=== PATIENT | female | born 1965 | race Caucasian/White ===

== ENCOUNTER 2019-04-03 09:25 | Outpatient (CLI) | payer MEDICARE, MEDICAID, SELFPAY ==
--- NOTE | 2019-04-03 09:50 | MR_ITS ---
WS: [id number] MRI of the lumbar spine, 04/03/2019 Clinical Data: DORSALGIA;OTHER INTERVERTEBRAL DISC DISPLACEMENT LUMBAR MARCIANO Comparison: CT lumbar spine post myelogram, 01/17/2015. Findings: No compression fractures are seen. The disc heights are normal. The lower lumbar spinal cord ends pos terior to L1. L1-L2: There is a posterior disc protrusion indenting the spinal canal. The appearance of this protru conner has not changed since the study of 4 1/2 years ago. There is mild central canal stenosis. No fac et joint hypertrophy or stenosis is seen.. L2-L3: No canal stenosis, disc bulge or foraminal narrowing is seen. L3-L4: No canal stenosis, disc bulge or foraminal narrowing is seen. L4-L5: No canal stenosis, disc bulge or foraminal narrowing is seen. L5-S1: No canal stenosis, disc bulge or foraminal narrowing is seen. MR/MR lumbar spine wo con* [id number] Impression: 1. Posterior disc protrusion at L1-L2 unchanged. 2. The remainder the lumbar spine is not remarkable.
== END 2019-04-03 09:26 | disposition home or self-care (01) ==
LOC: RADSHAW 09:31
PROVIDERS: Family Provider Nurse Practitioner; PCP Nurse Practitioner; Visit Provider Nurse Practitioner Family
DX: M51.26 Other intervertebral disc displacement, lumbar region (principal)
CPT/HCPCS: 72148

== ENCOUNTER → 2019-04-16 11:02 | Outpatient (BNVA) | payer MEDICARE, MEDICAID, SELFPAY | PROVIDERS: Family Provider Nurse Practitioner; PCP Nurse Practitioner; Visit Provider Nurse Practitioner Psychiatric/Mental Health | DX: F31.81 Bipolar II disorder (principal); F41.0 Panic disorder [episodic paroxysmal anxiety]; F10.21 Alcohol dependence, in remission; F60.3 Borderline personality disorder; F17.210 Nicotine dependence, cigarettes, uncomplicated | CPT/HCPCS: 99213 ==

== ENCOUNTER → 2019-06-15 08:08 | Outpatient (BNVA) | payer MEDICARE, MEDICAID, SELFPAY | PROVIDERS: Family Provider Nurse Practitioner; PCP Nurse Practitioner; Visit Provider Nurse Practitioner Psychiatric/Mental Health | DX: F31.81 Bipolar II disorder (principal); F41.0 Panic disorder [episodic paroxysmal anxiety]; F10.21 Alcohol dependence, in remission; F60.3 Borderline personality disorder; F17.210 Nicotine dependence, cigarettes, uncomplicated | CPT/HCPCS: 99213 ==

== ENCOUNTER → 2019-06-22 09:38 | Outpatient (BNVA) | payer MEDICARE, MEDICAID, SELFPAY | PROVIDERS: Family Provider Nurse Practitioner; PCP Nurse Practitioner Family; Visit Provider Anesthesiology Pain Medicine | DX: M51.36 Other intervertebral disc degeneration, lumbar region (principal); F60.3 Borderline personality disorder; F31.81 Bipolar II disorder; F41.0 Panic disorder [episodic paroxysmal anxiety]; F10.21 Alcohol dependence, in remission; F17.210 Nicotine dependence, cigarettes, uncomplicated | CPT/HCPCS: 99204 ==

== ENCOUNTER → 2019-08-10 07:44 | Outpatient (BNVA) | payer MEDICARE, MEDICAID, SELFPAY | PROVIDERS: Family Provider Nurse Practitioner; PCP Nurse Practitioner Family; Visit Provider Nurse Practitioner Psychiatric/Mental Health | DX: F31.81 Bipolar II disorder (principal); F41.0 Panic disorder [episodic paroxysmal anxiety]; F17.210 Nicotine dependence, cigarettes, uncomplicated; F60.3 Borderline personality disorder; F10.21 Alcohol dependence, in remission | CPT/HCPCS: 99213 ==

== ENCOUNTER → 2019-08-25 09:12 | Outpatient (BNVA) | payer MEDICARE, MEDICAID, SELFPAY | PROVIDERS: Family Provider Nurse Practitioner; PCP Nurse Practitioner Family; Visit Provider Anesthesiology Pain Medicine | DX: M51.36 Other intervertebral disc degeneration, lumbar region (principal); M54.9 Dorsalgia, unspecified; F60.3 Borderline personality disorder; F31.81 Bipolar II disorder; F41.0 Panic disorder [episodic paroxysmal anxiety]; F10.21 Alcohol dependence, in remission; F17.210 Nicotine dependence, cigarettes, uncomplicated | CPT/HCPCS: 99213 ==

== ENCOUNTER → 2019-09-15 09:39 | Outpatient (BNVA) | payer MEDICARE, MEDICAID, SELFPAY | PROVIDERS: Family Provider Nurse Practitioner; PCP Nurse Practitioner Family; Visit Provider Anesthesiology Pain Medicine | DX: M51.36 Other intervertebral disc degeneration, lumbar region (principal); M54.9 Dorsalgia, unspecified; F60.3 Borderline personality disorder; F31.81 Bipolar II disorder; F41.0 Panic disorder [episodic paroxysmal anxiety]; F10.21 Alcohol dependence, in remission; F17.210 Nicotine dependence, cigarettes, uncomplicated | CPT/HCPCS: 99214 ==

== ENCOUNTER → 2019-10-08 09:08 | Outpatient (BNVA) | payer MEDICARE, MEDICAID, SELFPAY | PROVIDERS: Family Provider Nurse Practitioner; PCP Nurse Practitioner Family; Visit Provider Anesthesiology Pain Medicine | DX: M51.36 Other intervertebral disc degeneration, lumbar region (principal); M54.9 Dorsalgia, unspecified; F60.3 Borderline personality disorder; F31.81 Bipolar II disorder; F41.0 Panic disorder [episodic paroxysmal anxiety]; F10.21 Alcohol dependence, in remission; F17.210 Nicotine dependence, cigarettes, uncomplicated | CPT/HCPCS: 99213 ==

== ENCOUNTER → 2019-11-02 08:17 | Outpatient (BNVA) | payer MEDICARE, MEDICAID, SELFPAY | PROVIDERS: Family Provider Nurse Practitioner; PCP Nurse Practitioner Family; Visit Provider Nurse Practitioner Psychiatric/Mental Health | DX: F31.81 Bipolar II disorder (principal); F41.0 Panic disorder [episodic paroxysmal anxiety]; F17.210 Nicotine dependence, cigarettes, uncomplicated; F60.3 Borderline personality disorder; F10.21 Alcohol dependence, in remission | CPT/HCPCS: 99213 ==

== ENCOUNTER → 2020-02-08 10:01 | Outpatient (BNVA) | payer MEDICARE, MEDICAID, SELFPAY | PROVIDERS: Family Provider Nurse Practitioner; PCP Nurse Practitioner Family; Visit Provider Orthopaedic Surgery | DX: Z11.59 Encounter for screening for other viral diseases (principal); M48.062 Spinal stenosis, lumbar region with neurogenic claudication | CPT/HCPCS: 87635 ==

== ENCOUNTER → 2020-02-17 10:07 | Outpatient (BNVA) | payer MEDICARE, MEDICAID, SELFPAY | PROVIDERS: Family Provider Nurse Practitioner; PCP Nurse Practitioner Family; Visit Provider Orthopaedic Surgery | DX: M48.062 Spinal stenosis, lumbar region with neurogenic claudication (principal); Z20.828 Contact with and (suspected) exposure to other viral communicable diseases | CPT/HCPCS: 87635 ==

== ENCOUNTER 2020-02-22 11:03 | Day surgery (SDC) | payer MEDICARE, MEDICAID, SELFPAY ==
[2020-02-12 10:45] VITALS: BMI 29.0
--- NOTE | 2020-02-12 11:02 | ANES.PREANE2 ---
Pre-Anesthetic Assessment Pre-Anesthetic Assessment: Height/Weight: Height 1.6 m Weight 74.389 kg Preop Diagnosis: Lumbar stenosis Proposed Procedure: Operation Date: 02/17/20 10:40 Proposed Procedures p Lumbar Laminectomy L4-L5 w/ poss fusion 80157 47505 98648 20057 M48.062(Not Applicable) - Santosh Ramirez DO Familial anesthetic complications: denies Was Beta Mamadou taken within 24 hours: N/A Social: Social History: Tobacco (10 per day) Exam: Pre-Anes Outpt Exam: alert, oriented x 3, clear to auscultation bilaterally and regular rate & rhythm Airway: Submandibular: WNL Cervical ROM: WNL MP: 2 Additional comments: poor/brittle History/ROS: No significant history except as noted Pulmonary: Pulmonary: COPD and SOB Comments: bronchitis, occasional inhalers CV/HEM: CV/HEM: None reported : : None reported Hepatic: Hepatic: None reported GI: GI: None reported Metabolic: Metabolic: Hyperlipidemia and Thyroid Musc/skel: Musc/skel: Lower Back Pain, OA/DJD and Weakness (left leg weakness) Comments: sciatic Neuropsych: Neuropsych: Anxiety and Bipolar Anesthetic Plan: ASA status: 2 Anesthesia: Anesthesia Evaluation and General PFSH Anesthesia PFSH: Medical History (Updated 01/28/20 @ 10:43 by Santosh Ramirez DO) Alcohol use disorder, moderate, in sustained remission Bipolar II disorder Borderline personality disorder Cigarette nicotine dependence [facility] (current) use of opiate analgesic Pain management contract signed Panic disorder Surgical History Hx of section Hx of hysterectomy Social History Smoking and tobacco status: current every day smoker cigarettes Alcohol intake: former Lives independently: Yes History of recent travel: No Data Anesthesia Cardiac Studies: No Data to Display
--- NOTE | 2020-02-22 08:13 | SCC_ITS ---
Procedure Done: Left L4/5 Laminectomy with partial facetectomy 17.1 seconds of fluoroscopic guidance, for a cumulative dose of 5.57 mGy, was provided to Dr. Ramirez by the radiology department. C-arm images of the lumbar spine were saved for the patient's permanent record. KAREN
[2020-02-22] MEDS: sodium chloride 0.9% 1,000 ML 30 ML IV (11:45)
--- NOTE | 2020-02-22 11:47 | P.ANESUD_ITS ---
Pre-Anesthetic Update Pre-Anesthetic Assessment: Date of Surgery/Procedure: 02/22/20 Preop Nadya gnosis: Lumbar stenosis Proposed Procedure: Operation Date: 02/22/20 12:55 Proposed Procedures p Lumbar Laminectomy L4-L5 w/ poss fusion 40278 17502 61221 01809 M48.062(Not Applicable) - Santosh Ramirez, DO Any changes to Pre-Anesthetic Assessment?: No Exam: Pre-Anes Outpt Exam: alert, oriented x 3, clear to auscultation bilaterally and regular rate & rhythm Cardiac Studies: No Data to Display
[2020-02-22 11:48] VITALS: BP 137/79; PULSE 87; RESP 18; TEMP 37.2; O2SAT 97
--- NOTE | 2020-02-22 14:28 | W.PM.OPSUD ---
Surgery/Procedure H&P Update DATE OF PROCEDURE: February 22, 2020 DATE H&P PERFORMED: 01/28/20 H&P UPDATE INFORMATION: I have reviewed H&P completed within last 30 days, I have examined patient prior to procedure and No changes to prior documentation PREOP DIAGNOSIS: Lumbar stenosis PLANNED PROCEDURE: Operation Date: 02/22/20 12:55 Proposed Procedures p Lumbar Laminectomy L4-L5 w/ poss fusion 08149 22036 46352 36970 M48.062(Not Applicable) - Santosh Ramirez DO
--- NOTE | 2020-02-22 16:21 | P.OP_ITS ---
Operative Report Date of procedure: February 22, 2020 Pre-op Diagnosis: Lumbar stenosis Post-op diagnosis: same Procedure Done: Left L4/5 Laminectomy with partial facetectomy Surgeon: Santosh Ramirez Anesthesia: General Estimated blood loss (mL): 10 Condition: stable Disposition: PACU Procedure: Patient was brought to the suite after undergoing anesthesia was placed in prone position. All areas impingement well-padded patient's prepped and draped in sterile fashion. Skin was made over the L4-5 level confirmed with C-arm guidance. Dilators were passed to be retractor was placed onto the L4 lamina. Laminectomy was performed with high-speed bur Kerrison rongeur is marva cantu. Once laminectomy was performed and attention was brought to the medial aspect of facet joint high-speed bur was used take down the medial aspect of the facet joint the superior and inferior to get a process medially was taken down ligament flavum was taken down from L4-5 this was significantly thickened and compressing the L5 nerve. Once this was opened the nerve was completely free the ligament of flavum was taken down from L4-L5 and out to the facet joint the lateral edge of the L5 nerve was identified passing the L5 pedicle and the L4-5 foramen was palpated and felt to be adequately decompressed wounds were irrigated wound was closed with 2-0 Vicryl and Monocryl suture and glue sterile dressing was applied patient was transferred to the PACU in stable condition.
[2020-02-22 16:28] VITALS: BP 131/78; PULSE 111; RESP 16; TEMP 36.8; O2SAT 100
[2020-02-22 16:30] VITALS: BP 121/73; PULSE 98; RESP 18; O2SAT 100
[2020-02-22 16:35] VITALS: BP 121/73; PULSE 107; RESP 18; TEMP 36.9; O2SAT 99
--- NOTE | 2020-02-22 16:39 | XR_ITS ---
WS: [id number] XR lumbar spine 1V [id number] REASON FOR EXAM: LUMBAR STENOSIS FINDINGS: AP and lateral views of the lumbar spine in surgery. Surgical device posteriorly overlies the L4-L5 disc space. XR/XR lumbar spine 1V [id number] IMPRESSION: Surgical device at L4-L5 as above.
--- NOTE | 2020-02-22 16:44 | SUR.PHASEI ---
5648 pt awke alert wants to go home , VSS report to julieta , dressing checked with 2 nurses handoff at bedside pt very alert taking sips of soda move both lower ext to command stronglly,
[2020-02-22 16:46] VITALS: BP 122/87; PULSE 91; RESP 18; O2SAT 96
--- NOTE | 2020-02-22 17:00 | ANE.PACU2 ---
Inpatient post-anesthesia follow up: Airway intact: Yes Vital signs: Temperature 98.5 F Pulse Rate 91 Respiratory Rate 18 Blood Pressure 122/87 Pulse Oximetry 96 Oxygen Delivery Me thod Room Air Oxygen Flow Rate 8 Fraction of Inspir ed Oxygen Hydration adequate: Yes Nausea and vomiting: No Pain level: 3 Mental status: Baseline
== END 2020-02-22 17:00 | disposition home or self-care (01) ==
PROVIDERS: Family Provider Nurse Practitioner; PCP Nurse Practitioner Family; Visit Provider Orthopaedic Surgery
PROC: (CPT 63047; principal; 2020-02-22 12:25)
DX: M48.062 Spinal stenosis, lumbar region with neurogenic claudication (principal); F17.210 Nicotine dependence, cigarettes, uncomplicated; J44.9 Chronic obstructive pulmonary disease, unspecified; E78.5 Hyperlipidemia, unspecified; M19.90 Unspecified osteoarthritis, unspecified site; F41.9 Anxiety disorder, unspecified; F31.81 Bipolar II disorder
CPT/HCPCS: 63047; 12345; 72020; 76000; J0131; J0690; J1100; J2250; J2405; J2704; J2710; J2765; J3010; J3490; J7030

== ENCOUNTER → 2020-05-17 08:00 | Outpatient (BNVA) | payer MEDICARE, MEDICAID, SELFPAY | PROVIDERS: Family Provider Nurse Practitioner; PCP Nurse Practitioner Family; Visit Provider Nurse Practitioner Psychiatric/Mental Health | DX: F31.81 Bipolar II disorder (principal); F41.0 Panic disorder [episodic paroxysmal anxiety]; F60.3 Borderline personality disorder; F17.210 Nicotine dependence, cigarettes, uncomplicated; F10.21 Alcohol dependence, in remission | CPT/HCPCS: 99214 ==

== ENCOUNTER 2020-06-08 15:01 | Outpatient (CLI) | payer MEDICARE, MEDICAID, SELFPAY ==
--- NOTE | 2020-06-08 16:00 | MR_ITS ---
WS: [id number] MRI LUMBAR SPINE NONCONTRAST TECHNIQUE: Sagittal T1, T2 and STIR imaging. Axial T1 and T2 imaging. CLINICAL INFORMATION: M48.062 - Spinal stenosis, lumbar region with neurogenic claudication COMPARISON: MRI April 03, 2019 FINDINGS: Mild lumbar curve. No acute compression. No high-grade central canal stenosis. Disc bulging at L1-2. Mild chronic anterior wedging in the lower thoracic spine. L1-L2: Shallow central disc protrusion with mild central canal stenosis. Slight effacement of ventral thecal sac. Mild facet arthropathy. Foramen are patent. L2-L3: No significant disc bulging. Mild facet arthropathy. Spinal canal and foramen are patent. L3-L4: Mild annular bulging with slight effacement of the ventral thecal sac. Eccentric disc bulging with mild bilateral foraminal narrowing. Mild facet arthropathy. L4-L5: Mild annular bulging. Eccentric disc bulge with mild bilateral foraminal narrowing. Mild facet arthropathy. Prior left hemilaminectomy. L5-S1: Postoperative changes prior left hemilaminectomy. Susceptibility artifact in this area. Mild f acet arthropathy. Spinal canal and foramen are patent. Visualized pelvic bony structures: Normal. Paravertebral soft tissues: Normal. MR/MR lumbar spine wo con* [id number] IMPRESSION: 1. Mild lumbar curve. No acute compression. No high-grade central canal stenos is. 2. Shallow central protrusion L1-2 with mild central canal stenosis and narrow ing of the subarticular recess bilaterally. 3. Eccentric disc bulging with small foraminal protrusions and mild bilateral foraminal narrowing L3-4 and L4-5 left greater than right. 4. Prior laminectomies at L4-L5 and L5-S1. This appears new from previous. No other significant interval changes. 5. Mild facet arthropathy L3-L5.
== END 2020-06-08 15:02 | disposition home or self-care (01) ==
LOC: RADSHAW 15:03
PROVIDERS: PCP Nurse Practitioner Family; Visit Provider Orthopaedic Surgery
DX: M48.062 Spinal stenosis, lumbar region with neurogenic claudication (principal); M47.816 Spondylosis without myelopathy or radiculopathy, lumbar region; M96.1 Postlaminectomy syndrome, not elsewhere classified; M51.26 Other intervertebral disc displacement, lumbar region
CPT/HCPCS: 72148

== ENCOUNTER → 2020-06-28 09:16 | Outpatient (BNVA) | payer MEDICARE, MEDICAID, SELFPAY | PROVIDERS: PCP Nurse Practitioner Family; Visit Provider Orthopaedic Surgery | DX: M48.062 Spinal stenosis, lumbar region with neurogenic claudication (principal) | CPT/HCPCS: 72110 ==

== ENCOUNTER → 2020-08-03 08:56 | Outpatient (BNVA) | payer MEDICARE, MEDICAID, SELFPAY | PROVIDERS: PCP Nurse Practitioner Family; Visit Provider Orthopaedic Surgery | DX: Z01.818 Encounter for other preprocedural examination (principal) | CPT/HCPCS: 87635 ==

== ENCOUNTER 2020-08-10 10:58 | Observation (INO) | payer MEDICARE, MEDICAID, SELFPAY ==
[2020-08-05 11:57] VITALS: BMI 27.9
--- NOTE | 2020-08-05 13:06 | ANES.PREANE2 ---
Pre-Anesthetic Assessment Pre-Anesthetic Assessment: Height/Weight: Height 1.63 m Weight 73.936 kg Preop Diagnosis: Lumbar stenosis Proposed Procedure: Operation Date: 08/10/20 13:40 Proposed Procedures p Posterior Lumbar Interbody Fusion PLIF 4/5 5/S1 With revision of L4/5 75606, 40481, 38768, 85410, 15780, 34327, 01355 m48.062(Not Applicable) - Santosh Ramirez, DO Was Beta Mamadou taken within 24 hours: N/A Was Clonidine taken within 24 hours: N/A Social: Social History: Alcohol and Tobacco Exam: Pre-Anes Outpt Exam: alert, oriented x 3 and regular rate & rhythm Airway: Submandibular: WNL Cervical ROM: WNL MP: 2 Dentition: Full Metabolic: Metabolic: Hyperlipidemia and Thyroid Musc/skel: Musc/skel: Lower Back Pain Neuropsych: Neuropsych: Bipolar Anesthetic Plan: ASA status: 3 Anesthesia: General Risk of > 500 ml blood loss (7ml/kg in children): No PFSH Anesthesia PFSH: Medical History Alcohol use disorder, moderate, in sustained remission Bipolar II disorder Borderline personality disorder Cigarette nicotine dependence [facility] (current) use of opiate analgesic Pain management contract signed Panic disorder Surgical History Hx of section Hx of hysterectomy Social History Smoking and tobacco status: current every day smoker cigarettes Alcohol intake: former Lives independently: Yes History of recent travel: No Data Anesthesia Cardiac Studies: No Data to Display
[2020-08-10] VITALS (18 sets, daily range): BP systolic 69–124; BP diastolic 49–85; PULSE 76–106; RESP 12–20; TEMP 36.2–37.1; O2SAT 90–100
--- NOTE | 2020-08-10 | XR_ITS ---
WS: [id number] Lumbar spine, C-arm fluoroscopy views, 08/10/2020 Clinical Data: PLIF 07/04 5s1 revision Comparison: Lumbar spine, 06/28/2020. Findings: The patient has a posterior lumbar fusion with bilateral pedicle screws at L4, L5 and S1. There are c onnecting rods. Artificial disc material at is at L4-L5 and L5-S1. XR/XR lumbar spine 2-3V* [id number] Impression: Posterior lumbar fusion L4-S1.
--- NOTE | 2020-08-10 | SCC_ITS ---
Procedure Done: 1. L4/5 Interbody fusion with posterolateral fusion 2. L5/S1 Interbody fusion with posterolateral fusion 3. Instrumentation L4-S1 4. Cage at L4/5 5. Cage at L5/S1 6. Laminectomy L4 7. Laminectomy L5 8. use of autograft from same incision 9. allograft 10. Bone marrow aspirate from right illiac crest 11. Computer assisted spinal steroetactic navigation of spine 16 seconds of fluoroscopic guidance, for a cumulative dose of 26.7 mGy, was provided to Dr. Ramirez by the radiology department. C-arm images of the lumbar spine were saved for the patient's permanent record. [facility]
--- NOTE | 2020-08-10 06:24 | P.ANESUD_ITS ---
Pre-Anesthetic Update Pre-Anesthetic Assessment: Date of Surgery/Procedure: 08/10/20 Preop Nadya gnosis: Lumbar stenosis Proposed Procedure: Operation Date: 08/10/20 07:00 Proposed Procedures p Posterior Lumbar Interbody Fusion PLIF 4/5 5/S1 With revision of L4/5 91936, 26083, 05637, 89701, 53528, 27467, 03092 m48.062(Not Applicable) - Santosh Ramirez, DO Any changes to Pre-Anesthetic Assessment?: No Changes from Pre-Anesthetic Assessment: Black coffee at 0500 today Last Intake: Intake Last Liquid Date 08/10/20 Last Liquid Time 05:00 Last Solid Date 08/09/20 Last Solid Time 18:00 Vitals: Temperature 97.4 F L 08/10/20 06:17 Temperature Source Temporal Artery S can 08/10/20 06:17 Pulse Rate 106 H 08/10/20 06:17 Respiratory Rate 18 08/10/20 06:17 Blood Pressure 110/85 08/10/20 06:17 Blood Pressure Jennifer n 93 08/10/20 06:17 Pulse Oximetry 94 08/10/20 06:17 Oxygen Delivery Me thod 08/10/20 06:17 Exam: Pre-Anes Outpt Exam: alert, oriented x 3, clear to auscultation bilaterally and regular rate & rhythm Cardiac Studies: No Data to Display
[2020-08-10] MEDS: sodium chloride 0.9% 1,000 ML 30 ML IV (06:27)
--- NOTE | 2020-08-10 06:41 | PM.HP ---
Providers/Chief Complaint Primary Care Provider: NATHANIEL Torerz Chief Complaint: PLIF 4/5 5/S1 With revision of L4/5 History of Present Illness Hilda Da Silva is a 55 year old female Details: Established 55 year old female here for follow up of back pain. She states she has not noticed a change in her back pain since her surgery in 01/2020 Chief Complaint: low back pain Onset: years Duration: months Characteristics: numbness, burning Severity: 6/10 Location: low back pain above her incision and Radiating symptoms: whole leg with the front of the leg being worse Aggravating factors: everything, Alleviating factors: none Neuro deficits: denies incontinence of bowel/bladder, saddle anesthesia. Prior tx: She states she has had 3 epidural injections per year since 2008, Review of Systems Narrative: General: Reports: 10 or more systems reviewed and unremarkable except as noted in History and below Const: Denies: fever(s) or chills Eyes: Denies: change in vision ENMT: Denies: throat pain Card: Denies: chest pain or dyspnea on exertion Resp: Denies: dyspnea, productive cough or wheezing GI: Denies: abdominal pain, nausea or vomiting Musc: Reports: limited range of motion Skin/Breast: Denies: changes in skin color or dry skin Neuro: Reports: numbness in extremities and weakness in extremities Psych: Denies: anxiety Jam/Lymph: Denies: easy bruising or easy bleeding Medications/Allergies Home Medications Medication Instructions Recorded Confirmed Last Taken Type levothyroxine 112 mcg capsule 112 mcg PO QDAY 04/23/19 08/10/20 08/10/20 History baclofen 10 mg tablet 10 mg PO BID 06/15/19 08/10/20 08/09/20 History atorvastatin 20 mg tablet 20 mg PO DAILY 08/25/19 08/10/20 08/09/20 History lamotrigine 200 mg tablet 400 mg PO QDAY #60 tab 05/13/20 08/10/20 08/10/20 Rx trazodone 100 mg tablet 300 mg PO .bedtime #90 tab 05/13/20 08/10/20 08/10/20 Rx hydrocodone 5 mg-acetaminophen 325 1 tab PO Q8H PRN 7 Days #60 tab 06/09/20 08/10/20 08/10/20 Rx mg tablet alprazolam 1 mg tablet 0.5 mg PO TID #45 tab 07/26/20 08/10/20 08/10/20 Rx Bone Growth Stimulator E0748 #1 ea 08/08/20 Unknown Rx Allergies Allergy/AdvReac Type Severity Reaction Status Date / Time gabapentin Allergy ADR-Dizzine Verified 08/10/20 06:10 ss naproxen Allergy breathing Verified 08/10/20 06:10 issues PFSH Acute PFSH: Medical History Alcohol use disorder, moderate, in sustained remission Bipolar II disorder Borderline personality disorder Cigarette nicotine dependence [employer] (current) use of opiate analgesic Pain management contract signed Panic disorder Surgical History Hx of section Hx of hysterectomy Social History Smoking and tobacco status: current every day smoker cigarettes Alcohol intake: former Lives independently: Yes History of recent travel: No Vitals/I&O/Wt Last Vital Signs Temp 97.4 F L 08/10/20 06:17 Pulse 106 H 08/10/20 06:17 Resp 18 08/10/20 06:17 BP 110/85 08/10/20 06:17 Pulse Ox 94 08/10/20 06:17 Physical Exam Narrative: EXAM NARRATIVE: CONSTITUTIONAL: The patient is a normal appearing [] in no apparent distress. GENERAL: Patient in no acute distress. CARDIAC: Regular rate and rhythm. CHEST: Normal inspiratory effort, normal respiratory rate. ABDOMEN: Soft and nontender. SKIN: Clear, warm and intact. NEURO?PSYCH: The patient is alert and oriented to person, place and time. Sensorv /SILT Motor StrengthShoulder abduction C5 5/5Wrist extension C6 5/5Elbow extension C7 5/5Hand Remnant Sorter C8 5/5Finger abduction T15/5 Radial/ Ulnar/ Median n intact LowerSensory (SILT)Motor StrengthHin flexion L2/3Ant/inner thigh 5/5Hip adduction L2/3 5/5Knee extension L4 Lat thigh, 5/5Toe dorsiflexion L5 5/5Ankle dorsiflexion L5/ D93Sgxsfyl flexion S1 5/5 DTRBleeps 2+Triceps 2+Brachioradialis 2+Patellar 2+Achilles 2+ MUSCULOSKELETAL: [] UPPEREXTREMITIES: The patient had full active ROM in fingers, wrist, elbow, and shoulder. The patient demonstrated ability to fully flex/extend/abduct/adduct fingers, make ok sign, cross 2nd/3rd digits, extend 1st digit fully.. Radial pulse 2+, CR<2 seconds. LOWER EXTREMITIES: Pt has full, active ROM of toes, ankle, knee, and hip. Dorsalis pedis/posterior tibialis pulses 2+, CR<2 seconds. SPINE: Skin warm, dry, intact. A&P Assessment and plan (1) Lumbar stenosis with neurogenic claudication: L4/5 , L5/S PLIF Status: Acute Attestations Medical Necessity Statement*: failed conservative treatment Coding Level of Care Code Acute Tomato Grader for Chg Fwd Diagnoses Lumbar stenosis with neurogenic claudication M48.062
--- NOTE | 2020-08-10 06:44 | W.PM.OPSUD ---
Surgery/Procedure H&P Update DATE OF PROCEDURE: August 10, 2020 DATE H&P PERFORMED: 08/10/20 PREOP DIAGNOSIS: Lumbar stenosis PLANNED PROCEDURE: Operation Date: 08/10/20 07:00 Proposed Procedures p Posterior Lumbar Interbody Fusion PLIF 4/5 5/S1 With revision of L4/5 74752, 01332, 10622, 58526, 42838, 10978, 66606 m48.062(Not Applicable) - Santosh Ramirez, DO
[2020-08-10] MEDS: heparin, porcine 1,000 unit/mL INJ 10 mL 10000 UNIT IRRIGATION (07:46)
--- NOTE | 2020-08-10 10:32 | P.OP_ITS ---
Operative Report Date of procedure: August 10, 2020 Pre-op Diagnosis: Lumbar stenosis Post-op diagnosis: same Procedure Done: 1. L4/5 Interbody fusion with posterolateral fusion 2. L5/S1 Interbody fusion with posterolateral fusion 3. Instrumentation L4-S1 4. Cage at L4/5 5. Cage at L5/S1 6. Laminectomy L4 7. Laminectomy L5 8. use of autograft from same incision 9. allograft 10. Bone marrow aspirate from right illiac crest 11. Computer assisted spinal steroetactic navigation of spine Surgeon: Santosh Ramirez Anesthesia: General Estimated blood loss (mL): 200 Condition: stable Disposition: PACU Procedure: 1. L4/5 Interbody fusion with posterolateral fusion 2. L5/S1 Interbody fusion with posterolateral fusion 3. Instrumentation L4-S1 4. Cage at L4/5 5. Cage at L5/S1 6. Revision Laminectomy L4 7. Revision Laminectomy L5 8. use of autograft from same incision 9. allograft 10. Bone marrow aspirate from right illiac crest 11. Computer assisted spinal steroetactic navigation of spine Patient is brought to the operative suite. After undergoing anesthesia, the patient had neuro monitoring attached. Patient was then placed in the prone position on the Ky[place] table. All areas of impingement were well-padded. Patient was then prepped and draped in the normal sterile fashion. Skin incision was then made over the LL to S1 space. Subperiosteal dissection was made out to the transverse processes of L4 and S1. Once the exposure was complete attention was then brought to placing the pedicle screws. A fiducial was placed into the right iliac crest. It was then links to the computer navigation. The C-arm was then spun. And then the information was gathered from the serum and logged through algorithms into the computer screen. The technique for placing the pedicle screws was to use a drill followed by the gearshift probe. The gearshift probe was lengths to the computer so the placement of the gearshift was noted to be in the prone position. Followed by the ball probe to feel the superior inferior medial lateral diaz of the pedicle s. Then placement of the screws using the navigated screw system.. Was done at each pedicle. Screws were placed at L4 bilaterally and L5 and the sacral Ala bilaterally. The [employer] bone marrow aspirate kit was used to aspirate bone marrow aspirate. This was done by using the sharp probe to open up the bone of the right iliac crest. Aspiration was performed and then the blunt probe was then used to dissect down to through the bone tunnel. An aspirating well drawn back a millimeter approximately 20 cc of bone marrow aspirate was used. Admixed with the allograft and autograft bone that will be used. Next attention was brought to performing the laminectomy ofL4. This was done using the high-speed bur Kerrisons and curettes. Once the lamina was removed and then attention was brought to performing a partial facetectomy on the contralateral side. This was done again using the high-speed bur curettes and Kerrisons. There was significant amount of scar tissue on the left side. That was scarred down to the dura. The ligamentum flavum was taken down bilaterally from L4 to L5. Attention was then brought to the facet on the ipsilateral side. The facet was taken down. The L5 nerve was decompressed as it passed around the L5 pedicle. The laminectomy was done for purposes of decompressing the nerve as well as placement of the cage. The L4 nerve was identified as it t raversed through the L4/5 foramen. The thecal sac was identified and retracted. The L4/5 disc base was identified. Using a knife the disc base was opened. And then sequential nica were placed. The first shaver was a 6 and the last shaver was a 11. Using a pituitary and down going curette the endplates were scraped and disc material was removed from the space. Once adequate decompression of the disc base was felt to be had. Osteoamp sponge was packed into the anterior aspect of the disc base. Then a size 11 cage from [employer] was placed after packing osteoamp into the cage. While placing the cage the thecal sac and L5 nerve was protected. C arm was used to ensure that the cages placed in the appropriate position. next attention was brought to performing the laminectomy ofL5. There was sent from a scar tissue which was taken down to scarred to the dura. This was done using the high-speed bur Kerrisons and curettes. Once the lamina was removed and then attention was brought to performing a partial facetectomy on the contralateral side. This was done again using the high-speed bur curettes and Kerrisons. The ligamentum flavum was taken down bilaterally from L5 to S1. Attention was then brought to the facet on the ipsilateral side. The facet was taken down. The S1 nerve was decompressed as it passed around the S1 pedicle. The laminectomy was done for purposes of decompressing the nerve as well as placement of the cage. The L5 nerve was identified as it traversed through the L5/S1 foramen. The thecal sac was identified and retracted. The LL5/S1 disc base was identified. Using a knife the disc base was opened. And then sequential nica were placed. The first shaver was a 6 and the last shaver was a 11. Using a pituitary and down going curette the endplates were scraped and disc material was removed from the space. Once adequate decompression of the disc base was felt to be had. Osteoamp sponge was packed into the anterior aspect of the disc base. Then a size 11 cage from [employer] was placed after packing osteoamp into the cage. While placing the cage the thecal sac and S1 nerve was protected. C arm was used to ensure that the cages placed in the appropriate position Attention was then brought to attaching the rods to the screws placed in the L4- S1 bilaterally. Caps were torqued into position. Locking the construct in place. Wound was copiously irrigated and then attention was brought to decorticating the facets and transverse processes laterally. Bone that was taken down from the lamina was used along with osteoamp fibers and sponges were packed into the lateral gutters along the facet joints. This was done bilaterally. Wound was then closed in a layered fashion starting with the thoracolumbar fascia. 0-stratafixl was used the sub cutaneous tissue was closed with 2-0 stratafix and skin with [place]. Glue was then used to seal the skin and a steril dressing was applied. Patient was then placed in the supine position. The endotracheal tube was removed and patient was transferred to the PACU in stable condition.
[2020-08-10] MEDS: HYDROcodone-acetaminophen 10-325 mg Tablet PO ×3 (12:02→20:31)
[2020-08-10] MEDS: lactated ringers 1,000 ML 90 ML IV (12:34)
--- NOTE | 2020-08-10 14:27 | ANE.PACU2 ---
Inpatient post-anesthesia follow up: Airway intact: Yes Vital signs: Temperature 97.6 F Pulse Rate 87 Respiratory Rate 16 Blood Pressure 92/59 Pulse Oximetry 94 Oxygen Delivery Me thod Room Air Oxygen Flow Rate 6 Fraction of Inspir ed Oxygen Hydration adequate: Yes Nausea and vomiting: No Pain level: 2 Mental status: Baseline
[2020-08-10] MEDS: nicotine 14 mg Patch 1 PATCH TRANSDERMA (14:29)
[2020-08-10] MEDS: ALPRAZolam 0.5 mg Tablet PO ×2 (14:32→20:32)
--- NOTE | 2020-08-10 16:20 | PC.NURSE ---
Rounded on patient and she is sleeping soundly at this time, will follow up with her around 1645 to assess pain.
--- NOTE | 2020-08-10 16:40 | PC.NURSE ---
Patient called in another RN stating that she was having pain and needed her pain meds at 1600. I went in and spoke with patient and informed her that I had rounded at 1620 and patient was sleeping and that I was intending on coming in to check on her at 1645 to assess her pain. She verbalized understanding and apologized stating that she didn't realized. This RN administered [place] as ordered and provided patient education on pain management techniques, incentive spirometer use, and the plan to attempt to void after dinner and pain is more controlled around 1800. She verbalizes understanding of all instructions and denies further questions/concerns.
[2020-08-10] MEDS: baclofen 10 mg Tablet PO (17:06)
[2020-08-10] MEDS: docusate sodium 100 mg Capsule PO (17:06)
--- NOTE | 2020-08-10 17:26 | PC.NURSE ---
Patient care handed off to Gaby Skinner RN at bedside. Patient has no questions/concerns at this time.
[2020-08-10] MEDS: trazodone 100 mg Tablet 300 MG PO (22:07)
[2020-08-10] MEDS: ketorolac 30 mg/mL INJ IVP (22:48)
[2020-08-11] VITALS: BP 100/64; PULSE 81; RESP 18; TEMP 36.4; O2SAT 91
[2020-08-11 00:10] VITALS: PULSE 80; RESP 17; O2SAT 93
[2020-08-11] MEDS: HYDROcodone-acetaminophen 10-325 mg Tablet PO ×3 (00:27→08:19)
[2020-08-11] MEDS: lactated ringers 1,000 ML 90 ML IV (00:29)
[2020-08-11 04:46] VITALS: BP 111/71; PULSE 80; RESP 18; TEMP 36.1; O2SAT 91
--- NOTE | 2020-08-11 05:29 | PC.NURSE ---
SHIFT SUMMARY Has had a good night. Received po Hydrocodone for pain q4h and given the IV Toradol once between pills. Stated pills don't quite last the 4 hours and the Toradol helped. Dressings to back remain C&D. No bruising noted. Abd binder in place. c/o about it being uncomfortable to wear. IV infusing without difficulty and will receive 3rd dose of antibiotics this morning. Ambulates to bathroom well and voiding very well. Hemovac drain with 115ml sanguinous drainage this shift. Emptied and compressed q4h. Says will probably go home today
[2020-08-11] MEDS: enoxaparin 40 mg/0.4 mL Syringe SUBCUT (06:21)
[2020-08-11] MEDS: ketorolac 30 mg/mL INJ IVP (06:38)
[2020-08-11 07:50] VITALS: BP 107/67; PULSE 80; RESP 16; TEMP 36.8; O2SAT 92
--- NOTE | 2020-08-11 08:03 | P.DS_ITS ---
Discharge Providers Date of Admission: 08/10/20 10:58 Date of Discharge: August 11, 2020 Attending Provider at Admission: Santosh Ramirez DO Attending Provider at Discharge: Santosh Ramirez DO Primary Care Provider: NATHANIEL Torrez Diagnoses at Discharge Discharge Diagnosis (1) Lumbar stenosis with neurogenic claudication: Status: Acute Reason for Visit Reason for Visit: PLIF 4/5 5/S1 With revision of L4/5 Hospital Course Hospital Course Patient admitted on 08/10/2020 she had a L4-5 and L5-S1 posterior lumbar interbody fusions. Tolerated procedure well no complaints overnight patient is discharged on 08/11/2020. Physical Exam Narrative: EXAM NARRATIVE: Patient has 5-5 strength bilateral lower extremities. Sensation intact bilateral lower extremities. Patient's preoperative leg pain is completely resolved. Urinary Catheter Management^: F: Cath Placed During This Visit: yes Reason for Continuing Indwelling Catheter: Perioperative Use in Selected Surgeries Urinary Catheter Date of Insertion: 08/10/20 Urinary Catheter Time of Insertion: 07:20 Discharge Data Data Completed and Pending: Completed Studies During Hospitalization Category Date Time Status XR lumbar spine 2 -3V* 80180 Routine Exams 08/10/20 Completed Pending at discharge Category Date Time Status C-arm Fluoroscopy 46878 Routine Exams 08/10/20 05:55 Taken Vitals: Last Vital Signs Temp 98.2 F 08/11/20 07:50 Pulse 80 08/11/20 07:50 Resp 16 08/11/20 07:50 BP 107/67 08/11/20 07:50 Pulse Ox 92 08/11/20 07:50 Discharge Plan Discharge Patient Disposition: Home Condition: Stable Prescriptions: New hydrocodone-acetaminophen 10-325 mg Tablet 1 - 2 tab PO Q4H PRN (Reason: Moderate To Severe Pain) 15 Days Qty: 60 RF: 0 Continued baclofen 10 mg tablet 10 mg PO BID RF: 0 atorvastatin 20 mg tablet 20 mg PO DAILY RF: 0 levothyroxine 112 mcg capsule 112 mcg PO QDAY RF: 0 lamotrigine [Lamictal] 200 mg tablet 400 mg PO QDAY Qty: 60 RF: 6 trazodone 100 mg tablet 300 mg PO .bedtime Qty: 90 RF: 6 hydrocodone-acetaminophen 5-325 mg tablet 1 tab PO Q8H PRN (Reason: pain) 7 Days Qty: 60 RF: 0 alprazolam 1 mg tablet 0.5 mg PO TID Qty: 45 RF: 3 (DME) Bone Growth Stimulator E0748 See Rx Instructions .Route .MEDSUPPLY Qty: 1 RF: 0 Discharge Orders: Discharge Order (Routine); Ordered 08/11/20 Ordered By: Santosh Ramirez Other Ambulatory Orders: DME: Walker (Order) Location: None Selected Ordered By: Santosh Ramirez Discharge Diet: Advance as tolerated Discharge Activity: Limit activity as instructed Patient Instructions: Opioid Safety Activity Restrictions/Additional Instructions: Thank you for [facility] for your care! The fo llowing is a list of instructions, from your provider, to follow upon your discharge to ensure you have the optimal recovery from your recent injury orsurgery. Follow-up care is a hath[place] part of your treatment and safety. Be sure to make and go to all appointments, and call your doctor if you are having problems. If you do not already have a follow-up appointment made, call Dr. Ramirez office in the next 1-3 days to make follow up appointment for 2 weeks at [phone]. It is also a good idea to know your test results and keep a list of the medicines you take. Medications will be prescribed for you at your provider's discretion. These medications are to be used as instructed; if they are taken more often that prescribed they will not be refilled early and in most cases will not be refill ed at all. > When a refill is needed,you should contact albertina munoz 2-3 business days before your prescription runs out. Medications will NOT be refilled by professional organizer providers after hours! > Many pain medications contain Tylenol (Acetaminophen). Do not consume more than 4,000 mg of Tylenol per day in total with any combination ofmedications. > Pain medications can cause constipation. Please use an over the counter stool softener as directed, while taking pain medications. Consulty our local pharmacist with questions or recommendations on stool softeners. If con stipation persists, contact our office or your primary care provider. > While under our care,you are not to receive pain medications or other controlled substances from any other provider unless our office is notified and approves. Any attempts to do so will result in refusal to prescribe any further pain medications and possible dismissal from our practice. ? Your wound and/or dressing should remain clean and dry for 2 days after surgery. On postoperative day 2 (48 hours after your surgery) the dressing (if present) should be removed and it is okay to shower and get the incision wet. Pad dry afterwards. No further dressing should be required from that point on. Do not put any creams or ointments on theincision > It is normal for there to be a small amount of discharge (bloody or blood tinged) present from a surgical wound for the first 1-3days. > The wound should be examined twice a day for signs of infection. Mild redness or bruising is to be expected but indications that an infection maybe starting would include; An increase in redness, swelling, or discharge, a foul odor present around the incision, and/or a fever greater than 101 ?F ? Showering is permitted, however we ask that you do not take a bath, sit in a whirlpool / Jacuzzi, or go swimming for 1 month. For only the first 2 days after surgery, lt wilt be necessary for you to cover your wound/dressing with plastic and tape to keep it dry. ? Walking is essential for the healing process after surgery. We would like you to slowly advance your walking. This should be done on relatively flat clear ground (inside or out) or can be done on a treadmill. Remember this goal does not have to happen all at once, slowly increase your distance and duration. This can be broken into more more than one walk per day as tolerated. Patients who walk as directed after surgery rarely require Physical Therapy. In the unlikely event this issue arises your provider will direct hospital staff to make the appropriate arrangements. ? No lifting over 5 pounds {a gallon of milk) or bending/twisting until further notice. Each of these activities places an unnecessary amount of stress onto the body and can impede the delicate healing process. > Instead of bending at the waist, keep your back straight and bend at the knees. > Instead of twisting your torso, keep your back straight and turn your entire body with your feet. ? You may sleep in any position which makes you comfortable. Many patients find comfort sleeping in a reclining chair. It is not abnormal to have difficulty sleeping for the first several weeks following your surgery. We recommend trying Benadry! or Tylenol PM as directed to help with your sleeping difficulties. Both medications are over the counter and available withoutprescription. ? NO SMOKING!!! Smoking dramatically increases the probability of developing postoperative wound infections. ? Common complaints after lumbar and/or thoracic spine surgery include, but are not limited to: numbness and/or tingling in the legs, pain around the incision and surrounding tissues, muscle spasms, or stiffness of the middle to low back. Contact our office if these symptoms persist or if an acute change occurs. ? No driving for the first 3-5days, and not while taking narcotics [] until seen at your follow-up appointment and cleared. There are no restrictions for riding on short trips, however if you take a longer trip, arrangements should be made to make regular stops to get out of the vehicle and stretch . ? Swelling is an unfortunate event that will take place with any surgery and is the primary source of your postoperative discomfort. While walking and regular approved activities helps control inflammation, there are additional steps you can take to minimizeswelling. > Place ice over the surgical site and surrounding tissue for twenty minutes, followed by applying a low/medium heat (heating pad) for an additional twenty minutes every 1-2 hours as needed for painrelief. > You may use of over the counter anti-inflammatory medications (Ibuprofen, Motrin, Aleve, Advil, etc) as directed on the package label. These types of medicines wm significantly reduce the amount of discomfort you experience after surgery from swelling. It should be noted that if you have and allergy to any of these medications, or a history of ulcers or kidney disease you should consult you primary care provider prior to starting these medications. Discharge Attestations Time Spent in Discharge Care*: less than 30 min Quality Metrics Clinical Quality Measures During this hospital stay, did patient experience: None Coding Level of Care Code Acute [facility] note Diagnoses Lumbar stenosis with neurogenic claudication M48.062
[2020-08-11] MEDS: docusate sodium 100 mg Capsule PO (09:24)
[2020-08-11] MEDS: ALPRAZolam 0.5 mg Tablet PO (09:24)
[2020-08-11] MEDS: baclofen 10 mg Tablet PO (09:24)
[2020-08-11] MEDS: atorvastatin 40 mg Tablet 20 MG PO (09:24)
[2020-08-11 09:55] VITALS: BP 107/67; PULSE 80; RESP 16; TEMP 36.8; O2SAT 92
--- NOTE | 2020-08-11 10:22 | PC.NURSE ---
Hemovac removed hemovac per Dr. Ramirez telephone order. Pt tolerated it well. 50ml of sang emptied. Incision dressed with quaze and tegaderm.
--- NOTE | 2020-08-15 12:21 | PC.RESP ---
Smoking Cessation information sent to patient.
== END 2020-08-11 10:23 | disposition home or self-care (01) ==
LOC: MEDSURG 10:59
PROVIDERS: Admitting Provider Orthopaedic Surgery; PCP Nurse Practitioner Family; Visit Provider Orthopaedic Surgery
PROC: (CPT 22612; principal; 2020-08-10 07:00)
DX: M48.062 Spinal stenosis, lumbar region with neurogenic claudication (principal); Z79.891 Long term (current) use of opiate analgesic; F17.210 Nicotine dependence, cigarettes, uncomplicated
CPT/HCPCS: 20930; 20936; 22633; 22634 ×2; 22842; 22853 ×2; 61783; 63042; 63044 ×2; 51702; 72100; 76000; 96372; 97161; 97530; C1713; C9359; G0378; J0690; J1100; J1644; J1650; J1885; J2370; J2405; J2704; J3010; J3490; J7030

== ENCOUNTER → 2020-08-31 07:46 | Outpatient (BNVA) | payer MEDICARE, MEDICAID, SELFPAY | PROVIDERS: PCP Nurse Practitioner Family; Visit Provider Nurse Practitioner Psychiatric/Mental Health | DX: F31.81 Bipolar II disorder (principal); F41.0 Panic disorder [episodic paroxysmal anxiety]; F60.3 Borderline personality disorder; F17.210 Nicotine dependence, cigarettes, uncomplicated; F10.21 Alcohol dependence, in remission | CPT/HCPCS: 99214 ==

== ENCOUNTER → 2020-09-06 12:43 | Outpatient (BNVA) | payer MEDICARE, MEDICAID, SELFPAY | PROVIDERS: PCP Nurse Practitioner Family; Visit Provider Orthopaedic Surgery | DX: Z48.89 Encounter for other specified surgical aftercare (principal); Z11.52 Encounter for screening for COVID-19; Z20.822 Contact with and (suspected) exposure to COVID-19 | CPT/HCPCS: 87635 ==

== ENCOUNTER 2020-09-07 16:46 | Inpatient (IN) | payer MEDICARE, MEDICAID, SELFPAY ==
[2020-09-06 15:40] VITALS: BMI 28.5
[2020-09-07] VITALS (16 sets, daily range): BP systolic 98–142; BP diastolic 66–88; PULSE 79–103; RESP 10–20; TEMP 36.4–36.9; O2SAT 94–100
--- NOTE | 2020-09-07 12:17 | P.ANESASSM_ITS ---
Pre-Anesthetic Assessment Pre-Anesthetic Assessment: Height/Weight: Height 1.63 m Weight 75.296 kg Temp Pulse Resp BP Pulse Ox 98.3 F 96 20 H 98/76 100 09/07/20 12:00 09/07/20 12:00 09/07/20 12:00 09/07/20 12:00 09/07/20 12:00 Preop Diagnosis: wound infetion Proposed Procedure: Operation Date: 09/07/20 12:45 Proposed Procedures p incision and drainage of a complex wound infection 59063 z48.89(Not Applicable) - Santosh Ramirez DO Familial anesthetic complications: None Was Beta Mamadou taken within 24 hours: N/A Was Clonidine taken within 24 hours: N/A Last intake: Intake Last Liquid Date 09/07/20 Last Liquid Time 08:00 Last Solid Date 09/06/20 Last Solid Time 18:00 Social: Social History: Alcohol and Tobacco Exam: Pre-Anes Outpt Exam: alert, oriented x 3, clear to auscultation bilaterally and regular rate & rhythm Airway: Cervical ROM: WNL MP: 2 Dentition: Full Pulmonary: Pulmonary: COPD Metabolic: Metabolic: Hyperlipidemia Musc/skel: Musc/skel: Lower Back Pain Neuropsych: Neuropsych: Bipolar Anesthetic Plan: ASA status: 3 Anesthesia: General Risk of > 500 ml blood loss (7ml/kg in children): No PFSH Anesthesia PFSH: Medical History Alcohol use disorder, moderate, in sustained remission Bipolar II disorder Borderline personality disorder Cigarette nicotine dependence 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
[2020-09-07] MEDS: sodium chloride 0.9% 1,000 ML 30 ML IV (12:18)
[2020-09-07] MEDS: fentaNYL 50 mcg/mL INJ 2mL 100 MCG IVP (13:33)
--- NOTE | 2020-09-07 15:43 | W.PM.OPSUD ---
Surgery/Procedure H&P Update DATE OF PROCEDURE: September 07, 2020 DATE H&P PERFORMED: 09/06/20 H&P UPDATE INFORMATION: I have reviewed H&P completed within last 30 days, I have examined patient prior to procedure and No changes to prior documentation PREOP DIAGNOSIS: wound infetion PLANNED PROCEDURE: Operation Date: 09/07/20 12:45 Proposed Procedures p incision and drainage of a complex wound infection 76425 z48.89(Not Applicable) - Santosh Ramirez DO
[2020-09-07] MEDS: vancomycin 1,000 MG SDV 1000 MG XX (16:13)
--- NOTE | 2020-09-07 16:39 | PM.OP ---
Operative Report Date of procedure: September 07, 2020 Pre-op Diagnosis: wound infetion Post-op diagnosis: same Procedure Done: I+D down to bone of Lumbar spine wound Surgeon: Santosh Ramirez Estimated blood loss (mL): 25 Condition: stable Disposition: PACU Procedure: After undergoing anesthesia patient was placed into the prone position. All areas impingement were well-padded. Patient was then prepped and draped in the normal sterile fashion. Skin incision was made using previous skin incision. The skin incision was extended approximately it appeared that the infection was localized to this superior aspect of her incision possibly a stitch abscess. I did open the thoracolumbar fascia to explore deep. Patient did have bone graft and so is hard to tell if there was infection deep or not did irrigate out all this area and clean out down to bone in the spine. Deep cultures were taken. Bank powder was placed. And then wound was closed in a layered fashion with oh strata fix Vicryl suture and nylon suture. A Silverlon dressing was placed. And patient was transferred to the PACU in stable condition.
--- NOTE | 2020-09-07 16:42 | P.CONIM_ITS ---
Providers/Reason For Consult Consulting Physician/Specialty*: Marisa Banks MD/Hospitalist Reason for Consult*: iv antibiotic management Attending Physician: Santosh Ramirez DO Primary Care Provider: NATHANIEL Torrez History of Present Illness History of Present Illness Hilda Da Silva is a 55 year old female that underwent lumbar decompressive surgery by way of L4-S1 laminectomy and fusion and intrumenetaion on 08/10/20. At her 2 week post op follow up visit on 08/23 she was noted to have redness and drainage at suture site. She was started on Bactrim with partial improvement and thereafter clindamycin was added on 08/30. She continued to have persistent drainage and eventually returned today for I&D. Per op note review infection was localized to superior aspect of her incision possibly a stitch abscess. Patient did have bone graft and it was hard to tell if there was deeper infection, i&d was perfromed down to spine. Deep cultures were taken and sent to lab. Denies any fever, chills or other constitutional symptoms Review of Systems General: Reports: 10 or more systems reviewed and unremarkable except in HPI and below Const: Denies: fever(s), chills or body aches Eyes: Denies: change in vision, blurry vision or photophobia ENMT: Reports: hoarseness; Denies: throat pain, enlarged tonsils, odynophagia or nasal congestion Card: Denies: chest pain, palpitations, irregular heart rhythm, edema, swelling of feet/ankles, lightheadedness, pre-syncope, dyspnea on exertion or orthopnea Resp: Denies: dyspnea, productive cough, non-productive cough, wheezing, stridor, pain on inspiration, change in phlegm color, hemoptysis or chest congestion GI: Denies: abdominal pain, nausea, vomiting, hematemesis, coffee ground emesis, dysphagia, heartburn, diarrhea, constipation, GI cramping, change in stool character, hematochezia or melena : Denies: flank pain, difficulty voiding, dysuria, urinary frequency, urinary urgency, urinary hesitancy or hematuria Musc: Denies: neck pain, back pain, extremity pain, joint swelling, joint warmth or deformity Neuro: Denies: headache(s), numbness in extremities, weakness in extremities, sensory changes, difficulty walking, frequent falls, dizziness, vertigo, behavioral changes, Slurred speech present or seizure-like activity Psych: Denies: anxiety, depression, suicidal ideation or homicidal ideation Endo: Denies: polyuria, polydipsia, tired all the time, cold intolerance or hot flashes Jam/Lymph: Denies: easy bruising or easy bleeding Meds/Allergies Home Medications and Allergies Home Medications Medication Instructions Recorded Confirmed Last Taken Type baclofen 10 mg tablet 10 mg PO BID 06/15/19 09/07/20 09/07/20 History atorvastatin 20 mg tablet 20 mg PO DAILY 08/25/19 09/07/20 09/07/20 History Bone Growth Stimulator E0748 #1 ea 08/08/20 09/06/20 Unknown Rx nicotine 1 patch TRANSDERMAL DAILY #56 patch 08/15/20 09/07/20 09/07/20 Rx 21mg/24hr-14mg/24hr-7mg/24hr daily transderm patches,sequentl alprazolam 1 mg tablet 0.5 mg PO TID #45 tab 08/31/20 09/07/20 09/07/20 Rx albuterol sulfate 2 puff INHALATION Q4H PRN 09/08/20 09/08/20 Unknown History fluticasone propionate [Flonase] 1 spray INTRANASAL BID PRN 09/08/20 09/08/20 Unknown History hydrocodone-acetaminophen 1 - 2 tab PO Q4H PRN 09/08/20 09/08/20 09/07/20 20:00 History ibuprofen 800 mg PO TID PRN 09/08/20 09/08/20 Unknown History lamotrigine 400 mg PO QAM 09/08/20 09/08/20 09/07/20 History levothyroxine 112 mcg PO QAM 09/08/20 09/08/20 09/07/20 History trazodone 300 mg PO BEDTIME 09/08/20 09/08/20 Unknown History Allergies Allergy/AdvReac Type Severity Reaction Status Date / Time naproxen Allergy Severe breathing Verified 09/08/20 10:35 issues gabapentin Allergy Intermediate ADR-Dizzine Verified 09/08/20 10:35 ss Current Medications Current Medications Generic Name Dose Route Start Last Admin Trade Name Freq PRN Reason Stop Dose Admin Sodium Chloride 1,000 mls @ 30 mls/hr 09/07/20 11:45 09/07/20 12:18 Sodium Chloride 0.9% IV 09/08/20 11:44 30 mls/hr .Q24H ELIDIA Administration PFSH Acute PFSH: Medical History (Updated 09/07/20 @ 18:10 by Marisa Banks MD) Alcohol use disorder, moderate, in sustained remission Bipolar II disorder Borderline personality disorder Cigarette nicotine dependence 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 Pain management contract signed Panic disorder Surgical History Hx of section Hx of hysterectomy Social History Smoking and tobacco status: current every day smoker cigarettes Alcohol intake: former Lives independently: Yes History of recent travel: No Vitals/I&O/Wt Last Vital Signs Temp 98.3 F 09/07/20 12:00 Pulse 96 09/07/20 12:00 Resp 18 09/07/20 13:33 BP 98/76 09/07/20 12:00 Pulse Ox 98 09/07/20 13:33 09/07/20 09/07/20 09/07/20 06:59 14:59 22:59 Intake Total 50 / 50 Balance 50 / 50 Weight last 48 hrs Weight 75.296 kg Physical Exam Narrative: EXAM NARRATIVE: GEN: Awake, alert and oriented, no acute distress CVS: S1S2 N RS: CTA B/L Abd: Soft, nt/nd , bs+ 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: no focal neuro deficits EXT: surgical dressing in place over back, not opened for exam A&P Assessment and plan (1) Postoperative wound infection: early post op wound infection approx 3 weeks from laminectomy and fusion no constitutional symptoms currently failed outpatient abx with bactrim, then clindamycin pending I&D OR cx results Empiric ceftriaxone and vancomycin for now based on gram stain and cx data, further abx recommendations to be made Status: Acute Consult Attestations Medical Necessity Statement: per admitting note, iv antibiotics Coding Level of Care Code Acute 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
[2020-09-07] MEDS: cefTRIAXone 1,000 MG in sodium chloride 0.9% (plus) 50 ML 100 MG IV (18:17)
[2020-09-07] MEDS: lactated ringers 1,000 ML 90 ML IV (18:17)
[2020-09-07] MEDS: HYDROcodone-acetaminophen 5-325 mg Tablet PO ×2 (18:18→22:04)
[2020-09-07] MEDS: docusate sodium 100 mg Capsule PO (18:18)
[2020-09-07] MEDS: baclofen 10 mg Tablet PO (18:18)
[2020-09-07] MEDS: vancomycin 1,500 MG/300 ML PIGGYBACK 200 MG IV (18:57)
[2020-09-07] MEDS: morphine 4 mg/mL SDV 1 mL 2 MG IVP (20:50)
[2020-09-07] MEDS: trazodone 100 mg Tablet 300 MG PO (23:26)
[2020-09-07] MEDS: nicotine 21 mg Patch 1 PATCH TRANSDERMA (23:26)
[2020-09-08] VITALS (9 sets, daily range): BP systolic 99–119; BP diastolic 63–75; PULSE 71–89; RESP 16–20; TEMP 36.8–37.4; O2SAT 92–94
[2020-09-08] MEDS: HYDROcodone-acetaminophen 5-325 mg Tablet PO ×2 (02:27→06:23)
[2020-09-08 02:41] LABS: Basophils # 0.1 10^3/uL (0.0-0.1); Basophils % 0.5 %; Eosinophils # 0.1 10^3/uL (0.0-0.8); Eosinophils % 0.6 %; Hematocrit 28.5 % (37.0-47.0); Lymphocytes # 4.1 10^3/uL (0.8-4.8); Lymphocytes % 21.1 %; Mean Corpuscular HGB Conc 31.6 g/dL (30.0-36.0); Mean Corpuscular Volume 107.5 fL (81-99); Mean Platelet Volume 9.1 fL (7.4-10.4); Monocytes # 0.8 10^3/uL (0.2-0.9); Monocytes % 4.3 %; Nucleated Red Blood Cells % 0 %; Platelet Count 531 10^3/cmm (130-400); Red Blood Count 2.65 10^6/uL (4.1-5.3); Red Cell Distribution Width 13.2 % (12.1-15.1); White Blood Count 19.2 10^3/uL (4.0-10.0)
[2020-09-08 02:58] LABS: Alanine Aminotransferase < 5 U/L (0-33); Sodium 138 mmol/L (136-145)
[2020-09-08 03:14] LABS: Alkaline Phosphatase 128 IU/L (35-105); Anion Gap 13.2 (5-19); Aspartate Amino Transferase 7 U/L (0-32); Blood Urea Nitrogen 8 mg/dL (6-20); Calcium 8.3 mg/dL (8.5-10.5); Carbon Dioxide 23 mmol/L (22-29); Chloride 106 mmol/L (98-107); Globulin 2.8 g/dL (1.3-4.6); Glomerular Filtration Rate 128.1 mL/min (90-130); Glucose 94 mg/dL (65-115); Osmolality Calculated 284 mOsm/kg (285-295); Potassium 4.2 mmol/L (3.5-5.1); Total Bilirubin 0.2 mg/dL (0.15-1.2); Total Protein 5.8 g/dL (6.6-8.7)
[2020-09-08] MEDS: morphine 4 mg/mL SDV 1 mL 2 MG IVP ×4 (03:27→23:45)
--- NOTE | 2020-09-08 05:12 | PC.NURSE ---
SHIFT SUMMARY Has rested for periods. When awake c/o back pain usually staying around 7 on pain scale. Has received po Hydrocodone and IV Morphine for pain control Offered IV Toradol but pt says it doesn't work for her. Has been ambulating to bathroom and voiding well. Dressing to medial back incision clean & dry. Says some feeling of pins & needles in her back. Bilat LE with good feeling and sensation. IV fluids infusing at 90ml/hr rate.
[2020-09-08] MEDS: enoxaparin 40 mg/0.4 mL Syringe SUBCUT (06:24)
[2020-09-08] MEDS: vancomycin 1,250 MG/250 ML PIGGYBACK 250 MG IV ×3 (06:25→23:46)
--- NOTE | 2020-09-08 08:34 | PM.PN ---
Subjective Subjective: Interval history: Patient is complaining of back pain. She is not complaining of any leg pain. Vitals/I&O/Wt Last Vital Signs Temp 99.3 F 09/08/20 07:22 Pulse 71 09/08/20 07:22 Resp 16 09/08/20 07:22 BP 99/63 09/08/20 07:22 Pulse Ox 92 09/08/20 07:22 09/07/20 09/08/20 09/08/20 22:59 06:59 14:59 Intake Total 1220.0 / 1220.0 420 / 1640.0 550 / 550 Output Total 270 / 270 350 / 620 Balance 950.0 / 950.0 70 / 1020.0 550 / 550 Weight last 48 hrs Weight 166 lb Physical Exam Narrative: EXAM NARRATIVE: Patient's dressing is dry. No is of any leakage around. Data : 09/08/20 02:23 09/08/20 02:23 Micro: Microbiology 09/07/20 16:15 Gram Stain - Final Back 09/07/20 18:00 Blood Culture - Preliminary Blood SPECIMEN COLLECTED 09/07/20 17:56 Blood Culture - Preliminary Blood SPECIMEN COLLECTED A&P Assessment and plan (1) Postoperative wound infection: Postop day 1 from I&D of back wound. Awaiting cultures. Increase her pain meds. Status: Acute Attestations Medical Necessity Statement*: awaiting cultures Coding Level of Care Code Acute Recruitment Manager for Zac Gaines Diagnoses Postoperative wound infection T81.49XA
[2020-09-08] MEDS: lactated ringers 1,000 ML 90 ML IV ×2 (09:35→23:46)
[2020-09-08] MEDS: atorvastatin 40 mg Tablet 20 MG PO (09:37)
[2020-09-08] MEDS: nicotine 21 mg Patch 1 PATCH TRANSDERMA (09:37)
[2020-09-08] MEDS: docusate sodium 100 mg Capsule PO ×2 (09:38→17:31)
[2020-09-08] MEDS: lamoTRIgine 100 mg Tablet 400 MG PO (09:38)
[2020-09-08] MEDS: baclofen 10 mg Tablet PO ×2 (09:38→17:31)
[2020-09-08] MEDS: levothyroxine 112 mcg Tablet PO (09:44)
--- NOTE | 2020-09-08 10:37 | PC.PHAR ---
pt states she takes care of her own medications-pt states she finished her clindamycin filled on 08/30/20 7d/s-pt states the medications entered are the only medications she takes
--- NOTE | 2020-09-08 11:18 | PC.CHAP ---
Pastoral Care Encounter/Spiritual Assessment Type of Contact [] Declined pet care technician visit [] Patient/Family/Request visit [] Outpatient visit [] Follow-up visit [] Physician referral [] Code/Alert [x] Routine visit [] Staff referral [] Actively dying [] Patient sleeping [] Family support [] [] Out of room [] Palliative care [] [x] Receiving care in room [] Pre-surgical visit [] Trauma [] Long length of stay [] ICU visit [] Other: Relational/Emotional Strength [x] Patient feels connected with others/family/visitors/staff [] Distress [] Loneliness/isolation [] Abandonment Spirituality of Patient [x] Person of Yolande [] Attends Restorationism of their Yolande [x] Believes in Prayer [] Reads Bible or Mu-Ism materials [] There are Spiritual issues to be addressed 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 Interventions [x] Prayer [x] Active listening [x] Non-anxious presence [x] Spiritual/emotional support [] Crisis/trauma care [x] Spiritual counseling [] Bereavement support [] Provided bereavement packet [] Provided Bible/devotional materials [] Provided toy/stuffed animal, coloring book to patient or family member [] Provided Communion [] Anointing/[place] [] Salvation [x] Completed spiritual assessment [] Other: Impact on Illness or Injury [] Angry [] Fearful [x] Anxious [] Often cries [] Exhaustion [] Unable to work [] Unable to attend mosque [] Unable to walk/stand [] Unable to read [] Unable to drive [] Unable to eat/drink [] Unable to sleep [] Unable to be with family [] Patient intubated [] Other: Summary infection after surgery drainage not feeling well doesn't know when she will go home short term soon doctors checking on her health Time spent with patient 10 mins
[2020-09-08] MEDS: HYDROcodone-acetaminophen 7.5-325 mg Tablet PO ×3 (12:06→21:11)
[2020-09-08] MEDS: cefTRIAXone 1,000 MG in sodium chloride 0.9% (plus) 50 ML 100 MG IV (17:29)
--- NOTE | 2020-09-08 18:19 | PM.PN ---
Subjective Subjective: Interval history: patient continued to complain of back pain. Addition was complaining of losing blood from dressing site. Medications: Reviewed: Yes Vitals/I&O/Wt Last Vital Signs Temp 98.9 F 09/08/20 15:36 Pulse 86 09/08/20 15:36 Resp 18 09/08/20 15:36 BP 119/75 09/08/20 15:36 Pulse Ox 92 09/08/20 15:36 09/08/20 09/08/20 09/08/20 06:59 14:59 22:59 Intake Total 1420 / 2640.0 910 / 910 490 / 1400 Output Total 350 / 620 800 / 800 800 / 1600 Balance 1070 / 2020.0 110 / 110 -310 / -200 Physical Exam Narrative: EXAM NARRATIVE: GEN: Awake, alert and oriented, no acute distress CVS: S1S2 N RS: CTA B/L Abd: Soft, nt/nd , bs+ DATAPOWER DEVELOPER: no focal neuro deficits EXT: surgical dressing in place over back , noted to have blood drainage Data : 09/08/20 02:23 09/08/20 02:23 Micro: Microbiology 09/07/20 16:15 Gram Stain - Final Back 09/07/20 18:00 Blood Culture - Preliminary Blood SPECIMEN COLLECTED 09/07/20 17:56 Blood Culture - Preliminary Blood SPECIMEN COLLECTED A&P Assessment and plan (1) Postoperative wound infection: Local wound care per Orthopedic surgery On vancomycin pharmacy to dose Continue ceftriaxone Follow-up on wound cultures Dressing changes as per Ortho Repeat CBC in a.m. Status: Acute Attestations Medical Necessity Statement*: Require further hospitalizationFor management of postop infection requiring IV antibiotics Time Spent in Patient Care: Greater than 35 minutes (>than 50% of time spent in counselling and/or direct pt care on unit). Coding Level of Care Code Acute Early Intervention Specialist for Zac Gaines Diagnoses Postoperative wound infection T81.49XA
[2020-09-08] MEDS: trazodone 100 mg Tablet 300 MG PO (21:12)
[2020-09-09] VITALS (8 sets, daily range): BP systolic 96–126; BP diastolic 57–76; PULSE 78–98; RESP 16–18; TEMP 36.6–37.2; O2SAT 92–98
[2020-09-09] MEDS: enoxaparin 40 mg/0.4 mL Syringe SUBCUT (06:16)
[2020-09-09] MEDS: HYDROcodone-acetaminophen 7.5-325 mg Tablet PO (06:16)
[2020-09-09 06:44] LABS: Vancomycin Trough 19.3 ug/mL (10-15)
[2020-09-09] MEDS: vancomycin 1,250 MG/250 ML PIGGYBACK 250 MG IV ×3 (06:58→23:30)
--- NOTE | 2020-09-09 07:19 | PM.PN ---
Subjective Subjective: Interval history: pain continues in back Vitals/I&O/Wt Last Vital Signs Temp 98.3 F 09/09/20 04:05 Pulse 78 09/09/20 04:05 Resp 16 09/09/20 04:05 BP 103/66 09/09/20 04:05 Pulse Ox 92 09/09/20 04:05 09/08/20 09/09/20 09/09/20 22:59 06:59 14:59 Intake Total 1540 / 2450 610 / 3060 Output Total 1350 / 2150 1650 / 3800 Balance 190 / 300 -1040 / -740 Physical Exam Narrative: EXAM NARRATIVE: resting comfortably in bed Data : 09/08/20 02:23 09/08/20 02:23 Micro: Microbiology 09/07/20 17:56 Blood Culture - Preliminary Blood NEGATIVE TO DATE 09/07/20 18:00 Blood Culture - Preliminary Blood NEGATIVE TO DATE 09/07/20 16:15 Gram Stain - Final Back A&P Assessment and plan (1) Postoperative wound infection: awaiting cultures and PICC placement up hydrocodone to 10 Status: Acute Attestations Medical Necessity Statement*: awaiting cultures and PICC Coding Level of Care Code Acute Chief Engineer Production for Zac Gaines Diagnoses Postoperative wound infection T81.49XA
[2020-09-09] MEDS: lamoTRIgine 100 mg Tablet 400 MG PO (08:34)
[2020-09-09] MEDS: atorvastatin 40 mg Tablet 20 MG PO (08:35)
[2020-09-09] MEDS: docusate sodium 100 mg Capsule PO ×2 (08:35→17:06)
[2020-09-09] MEDS: levothyroxine 112 mcg Tablet PO (08:35)
[2020-09-09] MEDS: nicotine 21 mg Patch 1 PATCH TRANSDERMA (08:35)
[2020-09-09] MEDS: baclofen 10 mg Tablet PO ×2 (08:35→17:06)
[2020-09-09] MEDS: HYDROcodone-acetaminophen 10-325 mg Tablet PO ×4 (10:12→23:37)
[2020-09-09] MEDS: morphine 4 mg/mL SDV 1 mL 2 MG IVP ×2 (12:42→17:11)
[2020-09-09] MEDS: lactated ringers 1,000 ML 90 ML IV (14:32)
[2020-09-09] MEDS: cefTRIAXone 1,000 MG in sodium chloride 0.9% (plus) 50 ML 100 MG IV (17:06)
--- NOTE | 2020-09-09 17:56 | P.PN_ITS ---
Subjective Subjective: Interval history: No new clinical events overnight. No fever, chills, nausea or vomiting. Medications: Reviewed: Yes Vitals/I&O/Wt Last Vital Signs Temp 97.8 F 09/09/20 19:48 Pulse 82 09/09/20 19:48 Resp 18 09/09/20 19:48 BP 100/57 09/09/20 19:48 Pulse Ox 93 09/09/20 19:48 09/09/20 09/09/20 09/09/20 06:59 14:59 22:59 Intake Total 610 / 3060 1610 / 1610 540 / 2150 Output Total 1650 / 3800 1700 / 1700 Balance -1040 / -740 1610 / 1610 -1160 / 450 Physical Exam Narrative: EXAM NARRATIVE: GEN: Awake, alert and oriented, no acute distress CVS: S1S2 N RS: CTA B/L Abd: Soft, nt/nd , bs+ INTERACTIVE MEDIA DESIGNER: no focal neuro deficits EXT: surgical dressing in place over back , noted to have blood drainage Data : 09/08/20 02:23 09/08/20 02:23 Micro: Microbiology 09/07/20 16:15 Gram Stain - Final Back Abscess Culture - Preliminary Staphylococcus aureus 09/07/20 17:56 Blood Culture - Preliminary Blood NEGATIVE TO DATE 09/07/20 18:00 Blood Culture - Preliminary Blood NEGATIVE TO DATE A&P Assessment and plan (1) Postoperative wound infection: Local wound care per Orthopedic surgery On vancomycin pharmacy to dose Continue ceftriaxone Follow-up on wound cultures Dressing changes as per Ortho Repeat CBC in a.m. May require custodial abx Status: Acute Attestations Medical Necessity Statement*: Will require further hospitalization for management of post op infection Time Spent in Patient Care: Greater than 35 minutes (>than 50% of time spent in counselling and/or direct pt care on unit) . Coding Level of Care Code Acute Drill Sharpener Operator for Zac Gaines Diagnoses Postoperative wound infection T81.49XA
[2020-09-09] MEDS: trazodone 100 mg Tablet 300 MG PO (23:36)
[2020-09-10] VITALS (8 sets, daily range): BP systolic 98–118; BP diastolic 64–80; PULSE 73–84; RESP 15–18; TEMP 36.5–37.2; O2SAT 90–93
[2020-09-10] MEDS: HYDROcodone-acetaminophen 10-325 mg Tablet PO ×4 (04:48→20:58)
[2020-09-10] MEDS: lactated ringers 1,000 ML 90 ML IV ×2 (06:01→20:59)
[2020-09-10 06:12] LABS: Basophils # 0.1 10^3/uL (0.0-0.1); Basophils % 0.8 %; Eosinophils # 0.4 10^3/uL (0.0-0.8); Hematocrit 28.1 % (37.0-47.0); Hemoglobin 8.8 g/dL (11.5-15.3); Lymphocytes # 4.1 10^3/uL (0.8-4.8); Lymphocytes % 39.5 %; Mean Corpuscular HGB Conc 31.3 g/dL (30.0-36.0); Mean Corpuscular Hemoglobin 33.6 pg (28.0-34.0); Mean Corpuscular Volume 107.3 fL (81-99); Mean Platelet Volume 9.5 fL (7.4-10.4); Monocytes # 0.7 10^3/uL (0.2-0.9); Monocytes % 6.4 %; Neutrophils # 5.09 10^3/uL (1.8-7.7); Neutrophils % 49.1 %; Nucleated Red Blood Cells % 0 %; Platelet Count 575 10^3/cmm (130-400); Red Blood Count 2.62 10^6/uL (4.1-5.3); Red Cell Distribution Width 13.2 % (12.1-15.1); White Blood Count 10.4 10^3/uL (4.0-10.0)
[2020-09-10 06:33] LABS: Slide Review Slide Review Perform
[2020-09-10 06:44] LABS: Alanine Aminotransferase < 5 U/L (0-33); Albumin Level 2.8 g/dL (3.5-5.2); Alkaline Phosphatase 133 IU/L (35-105); Anion Gap 11.9 (5-19); Aspartate Amino Transferase 12 U/L (0-32); Blood Urea Nitrogen 7 mg/dL (6-20); Calcium 8.8 mg/dL (8.5-10.5); Carbon Dioxide 26 mmol/L (22-29); Chloride 106 mmol/L (98-107); Globulin 3.1 g/dL (1.3-4.6); Glomerular Filtration Rate 103.8 mL/min (90-130); Glucose 100 mg/dL (65-115); Osmolality Calculated 288 mOsm/kg (285-295); Potassium 3.9 mmol/L (3.5-5.1); Sodium 140 mmol/L (136-145); Total Bilirubin 0.2 mg/dL (0.15-1.2); Total Protein 5.9 g/dL (6.6-8.7)
[2020-09-10] MEDS: vancomycin 1,250 MG/250 ML PIGGYBACK 250 MG IV ×3 (07:17→23:41)
--- NOTE | 2020-09-10 08:11 | PM.PN ---
Subjective Subjective: Interval history: Pain controlled this morning. Pain controlled with the 10 hydrocodone. Patient is getting around okay. Vitals/I&O/Wt Last Vital Signs Temp 97.7 F 09/10/20 04:00 Pulse 84 09/10/20 04:00 Resp 18 09/10/20 04:00 BP 111/68 09/10/20 04:00 Pulse Ox 90 09/10/20 04:00 09/09/20 09/10/20 09/10/20 22:59 06:59 14:59 Intake Total 540 / 2150 1250 / 3400 Output Total 2200 / 2200 900 / 3100 Balance -1660 / -50 350 / 300 Physical Exam Narrative: EXAM NARRATIVE: Dressing has been reinforced. I will have other than that patient appears to be comfortable. Data : 09/10/20 05:22 09/10/20 05:22 Micro: Microbiology 09/07/20 16:15 Gram Stain - Final Back Abscess Culture - Preliminary Staphylococcus aureus A&P Assessment and plan (1) Postoperative wound infection: Status post irrigation debridement of cultures grew out staph aureus. Awaiting hospitalist/infectious disease input as far as antibiotic coverage and PICC line placement. Status: Acute Attestations Medical Necessity Statement*: Discharge pending hospitalist/infectious disease input for antibiotic coverage. Coding Level of Care Code Acute Nuisance Animal Damage Control Agent for Zac Gaines Diagnoses Postoperative wound infection T81.49XA
[2020-09-10] MEDS: atorvastatin 40 mg Tablet 20 MG PO (09:44)
[2020-09-10] MEDS: levothyroxine 112 mcg Tablet PO (09:46)
[2020-09-10] MEDS: docusate sodium 100 mg Capsule PO ×2 (09:46→17:26)
[2020-09-10] MEDS: lamoTRIgine 100 mg Tablet 400 MG PO (09:46)
[2020-09-10] MEDS: baclofen 10 mg Tablet PO ×2 (09:46→17:26)
[2020-09-10] MEDS: nicotine 21 mg Patch 1 PATCH TRANSDERMA (09:47)
--- NOTE | 2020-09-10 11:26 | DCPLANNER ---
Pg 2 of IM updated and reviewed with pt. No questions, copy provided.
[2020-09-10] MEDS: morphine 4 mg/mL SDV 1 mL 2 MG IVP ×3 (11:52→23:41)
--- NOTE | 2020-09-10 12:43 | PM.PN ---
Subjective Subjective: Interval history: No new clinical events. Medications: Reviewed: Yes Vitals/I&O/Wt Last Vital Signs Temp 97.7 F 09/10/20 08:00 Pulse 73 09/10/20 08:00 Resp 18 09/10/20 11:52 BP 98/70 09/10/20 08:00 Pulse Ox 91 09/10/20 08:00 09/09/20 09/10/20 09/10/20 22:59 06:59 14:59 Intake Total 540 / 2150 1250 / 3400 900 / 900 Output Total 2200 / 2200 900 / 3100 Balance -1660 / -50 350 / 300 900 / 900 Physical Exam Narrative: EXAM NARRATIVE: GEN: Awake, alert and oriented, no acute distress CVS: S1S2 N RS: CTA B/L Abd: Soft, nt/nd , bs+ RIB KNITTER: no focal neuro deficits EXT: surgical dressing in place over back , noted to have blood drainage Data : 09/10/20 05:22 09/10/20 05:22 Micro: Microbiology 09/07/20 16:15 Gram Stain - Final Back Anaerobic Culture - Preliminary Abscess Culture - Preliminary Methicillin Resis Staph Aureus A&P Assessment and plan (1) Postoperative wound infection: Local wound care per Orthopedic surgery On vancomycin pharmacy to dose Discontinue ceftriaxone MRSA wound infection - s/p I&D down to bone Dressing changes as per Ortho Repeat CBC in a.m. PICC line on saturday - plan for Home IV abx Will d/w ID however. Status: Acute Attestations Medical Necessity Statement*: Will continue further abx for management of post op wound infection Coding Level of Care Code Acute Lifestyle Director for [facility] Fwd Diagnoses Postoperative wound infection T81.49XA
[2020-09-10] MEDS: cefTRIAXone 1,000 MG in sodium chloride 0.9% (plus) 50 ML 100 MG IV (16:47)
[2020-09-10] MEDS: trazodone 100 mg Tablet 300 MG PO (20:59)
[2020-09-10 22:55] LABS: Vancomycin Trough 19.5 ug/mL (10-15)
[2020-09-11] MEDS: HYDROcodone-acetaminophen 10-325 mg Tablet PO ×6 (01:25→23:56)
[2020-09-11 03:43] VITALS: BP 103/71; PULSE 74; RESP 12; TEMP 37.2; O2SAT 91
[2020-09-11] MEDS: vancomycin 1,250 MG/250 ML PIGGYBACK 250 MG IV ×3 (06:17→23:56)
[2020-09-11] MEDS: enoxaparin 40 mg/0.4 mL Syringe SUBCUT (06:17)
[2020-09-11 07:56] VITALS: BP 103/67; PULSE 73; RESP 17; TEMP 36.4; O2SAT 92
[2020-09-11] MEDS: atorvastatin 40 mg Tablet 20 MG PO (09:07)
[2020-09-11] MEDS: nicotine 21 mg Patch 1 PATCH TRANSDERMA (09:07)
[2020-09-11] MEDS: levothyroxine 112 mcg Tablet PO (09:07)
[2020-09-11] MEDS: baclofen 10 mg Tablet PO ×2 (09:07→17:12)
[2020-09-11] MEDS: docusate sodium 100 mg Capsule PO ×2 (09:07→17:12)
[2020-09-11] MEDS: lamoTRIgine 100 mg Tablet 400 MG PO (09:07)
[2020-09-11] MEDS: lactated ringers 1,000 ML 90 ML IV (09:08)
--- NOTE | 2020-09-11 09:10 | P.PN_ITS ---
Subjective Subjective: Interval history: nothing new Vitals/I&O/Wt Last Vital Signs Temp 97.6 F 09/11/20 07:56 Pulse 73 09/11/20 07:56 Resp 17 09/11/20 07:56 BP 103/67 09/11/20 07:56 Pulse Ox 92 09/11/20 07:56 09/10/20 09/11/20 09/11/20 22:59 06:59 14:59 Intake Total 1420 / 2320 250 / 2570 250 / 250 Output Total 1225 / 1225 1700 / 2925 Balance 195 / 1095 -1450 / -355 250 / 250 Physical Exam Narrative: EXAM NARRATIVE: dressing intact Data : 09/10/20 05:22 09/10/20 05:22 Micro: Microbiology 09/07/20 16:15 Gram Stain - Final Back Anaerobic Culture - Preliminary Abscess Culture - Preliminary Methicillin Resis Staph Aureus A&P Additional A&P Information s/p I+D Attestations Medical Necessity Statement*: awaiting PICC line Coding Level of Care Code Acute Information Technology Officer for Zac Gaines
[2020-09-11 11:24] VITALS: BP 106/70; PULSE 71; RESP 18; TEMP 36.8; O2SAT 92
--- NOTE | 2020-09-11 14:44 | PC.NURSE ---
This nurse gave education on nursing staff does not awake patient for PRN pain medication, it is given when asked for upon availability per Doctors orders. Patient upset and demanding this nurse wake her up to give her pain medicine around the clock. This nurse gave scheduled 0.5mg xanax PO as ordered per physician. Patient remains to request to be woke up for pain medication.
[2020-09-11 15:36] VITALS: BP 108/70; PULSE 75; RESP 17; TEMP 36.9; O2SAT 92
--- NOTE | 2020-09-11 15:39 | P.PN_ITS ---
Subjective Subjective: Interval history: No new clinical events overnight. Medications: Reviewed: Yes Vitals/I&O/Wt Last Vital Signs Temp 98.4 F 09/11/20 15:36 Pulse 75 09/11/20 15:36 Resp 17 09/11/20 15:36 BP 108/70 09/11/20 15:36 Pulse Ox 92 09/11/20 15:36 09/11/20 09/11/20 09/11/20 06:59 14:59 22:59 Intake Total 250 / 2570 1730 / 1730 Output Total 1700 / 2925 1800 / 1800 Balance -1450 / -355 -70 / -70 Physical Exam Narrative: EXAM NARRATIVE: GEN: Awake, alert and oriented, no acute distress CVS: S1S2 N RS: CTA B/L Abd: Soft, nt/nd , bs+ CUSTOMER SERVICE ASSISTANT: no focal neuro deficits EXT: surgical dressing in place over back , noted to have blood drainage Data : 09/10/20 05:22 09/10/20 05:22 Micro: Microbiology 09/07/20 16:15 Gram Stain - Final Back Anaerobic Culture - Preliminary Abscess Culture - Final Methicillin Resis Staph Aureus A&P Assessment and plan (1) Postoperative wound infection: Local wound care per Orthopedic surgery On vancomycin pharmacy to dose Discontinue ceftriaxone MRSA wound infection - s/p I&D down to bone Dressing changes as per Ortho Repeat CBC in a.m. PICC line on saturday - plan for Home IV abx Will d/w ID however. - unable to reach over weekend Anticipate d/c tomorrow once abx plan arranged. Status: Acute Attestations Medical Necessity Statement*: Will require furhter hospitalization for management of post op infection rq IV abx Time Spent in Patient Care: Greater than 35 minutes (>than 50% of time spent in counselling and/or direct pt care on unit) . Coding Level of Care Code Acute Behavioral Health Consultant for Zac Gaines Diagnoses Postoperative wound infection T81.49XA
[2020-09-11 20:00] VITALS: BP 108/71; PULSE 81; RESP 18; TEMP 36.8; O2SAT 93
--- NOTE | 2020-09-11 21:50 | PC.NURSE ---
THIS NURSE WENT TO ADMINISTER TRAZODONE 3OO MG PO SCHEDULED FOR 2100. PATIENT STATED ITS TO EARLY FOR ME TO TAKE THAT. I WILL WAIT UNTIL AFTER 11PM TO TAKE THAT BUT GO AHEAD AND GIVE IT TO ME AND IT CAN SIT HERE ON MY TABLE UNTIL I AM READY TO TAKE IT. THIS NURSE EDUCATED PATIENT THAT I AM UNABLE TO LEAVE MEDICATIONS AT BEDSIDE. WHEN THEY MUST BE TAKEN IN FRONT OF THE NURSE AT THE TIME THEY ARE SCANNED AND GIVEN TO PATIENT. PATIENT THEN STATED THE OTHER NURSE JUST GIVE THEM TO ME AND LET ME KEEP THEM ON MY TABLE UNTIL I WANTED TO TAKE THEM. THIS NURSE REITERATED THAT WAS NOT COMPANY POLICY AND THIS NURSE WILL NOT GO AGAINST POLICY. PATIENT THEN ASKED WHEN HER ANTIBIOTICS WAS NEXT DUE, THIS NURSE LOOKED IN MAY AND TOLD HER IT WAS NEXT DUE AT 2300. PATIENT THEN STATED WHEN YOU COME BACK IN TO DO THAT JUST BRING ME MY PAIN MEDICATION EVEN IF I AM SLEEPING AND WAKE ME UP FOR IT SINCE ITS DUE THEN TOO. THIS NURSE LOOKED AT MAR AGAIN AND SEEN THAT THE PAIN MEDICATION IS A PRN ORDER AND NOT A SCHEDULED PAIN MEDICATION. THIS NURSE EDUCATED PATIENT ON THE DIFFERENCE BETWEEN THE TWO TYPES OF ORDERS AND THAT WITH A PRN ORDER SHE MUST ASK FOR EACH DOSE IF IT IS NEEDED. IT IS NOT GIVEN JUST BECAUSE IT WAS DUE ACCORDING TO THE AMOUNT OF TIME SINCE LAST ADMINISTERED DOSE. PATIENT IS RESISTANT TO LEARNING, SHE IS ADAMANT THAT EVEN IF I AM SLEEPING I WANT MY PAIN MEDICATION BROUGHT TO ME EVERY 4 HOURS BECAUSE I CAN HAVE IT THEN. THIS NURSE WILL REATTEMPT ADMINISTRATION OF TRAZODONE WHEN ANTIBIOTICS ARE HUNG AT 2300. WILL CONTINUE TO MONITOR AND TRY TO EDUCATE PATIENT ON MEDICATION SCHDULES AND PROCEDURES.
[2020-09-11] MEDS: trazodone 100 mg Tablet 300 MG PO (23:56)
[2020-09-12] VITALS (7 sets, daily range): BP systolic 100–126; BP diastolic 68–78; PULSE 60–85; RESP 14–22; TEMP 36.6–37.3; O2SAT 92–94
[2020-09-12 06:09] LABS: Basophils # 0.1 10^3/uL (0.0-0.1); Eosinophils # 0.3 10^3/uL (0.0-0.8); Eosinophils % 3.2 %; Hematocrit 29.3 % (37.0-47.0); Hemoglobin 9.1 g/dL (11.5-15.3); Lymphocytes # 3.6 10^3/uL (0.8-4.8); Lymphocytes % 34.5 %; Mean Corpuscular HGB Conc 31.1 g/dL (30.0-36.0); Mean Corpuscular Hemoglobin 32.9 pg (28.0-34.0); Mean Corpuscular Volume 105.8 fL (81-99); Mean Platelet Volume 9.1 fL (7.4-10.4); Monocytes # 0.6 10^3/uL (0.2-0.9); Monocytes % 5.8 %; Neutrophils # 5.68 10^3/uL (1.8-7.7); Neutrophils % 55.1 %; Nucleated Red Blood Cells % 0 %; Platelet Count 545 10^3/cmm (130-400); Red Blood Count 2.77 10^6/uL (4.1-5.3); Red Cell Distribution Width 13.2 % (12.1-15.1); White Blood Count 10.3 10^3/uL (4.0-10.0)
[2020-09-12] MEDS: vancomycin 1,250 MG/250 ML PIGGYBACK 250 MG IV ×3 (06:10→23:22)
[2020-09-12] MEDS: HYDROcodone-acetaminophen 10-325 mg Tablet PO ×2 (06:11→10:16)
[2020-09-12] MEDS: enoxaparin 40 mg/0.4 mL Syringe SUBCUT (06:11)
[2020-09-12 06:28] LABS: Alanine Aminotransferase 9 U/L (0-33); Albumin Level 3.1 g/dL (3.5-5.2); Alkaline Phosphatase 144 IU/L (35-105); Anion Gap 12.9 (5-19); Aspartate Amino Transferase 14 U/L (0-32); Blood Urea Nitrogen 7 mg/dL (6-20); C Reactive Protein 45.5 mg/L (0.0-4.9); Calcium 8.9 mg/dL (8.5-10.5); Carbon Dioxide 24 mmol/L (22-29); Chloride 109 mmol/L (98-107); Globulin 2.9 g/dL (1.3-4.6); Glomerular Filtration Rate 128.1 mL/min (90-130); Glucose 106 mg/dL (65-115); Osmolality Calculated 292 mOsm/kg (285-295); Potassium 3.9 mmol/L (3.5-5.1); Sodium 142 mmol/L (136-145); Total Bilirubin 0.2 mg/dL (0.15-1.2)
[2020-09-12 07:17] LABS: Erythrocyte Sedimentation Rate 86 mm/hr (0-15)
[2020-09-12] MEDS: levothyroxine 112 mcg Tablet PO (07:42)
[2020-09-12] MEDS: docusate sodium 100 mg Capsule PO ×2 (07:42→17:13)
[2020-09-12] MEDS: atorvastatin 40 mg Tablet 20 MG PO (07:42)
[2020-09-12] MEDS: nicotine 21 mg Patch 1 PATCH TRANSDERMA (07:43)
[2020-09-12] MEDS: baclofen 10 mg Tablet PO ×3 (07:43→23:23)
[2020-09-12] MEDS: lamoTRIgine 100 mg Tablet 400 MG PO (07:43)
--- NOTE | 2020-09-12 10:34 | PM.CONSULT ---
Providers/Reason For Consult Consulting Physician/Specialty*: Marisa Banks MD Reason for Consult*: Post op spine infection Attending Physician: Ezequiel Hutchins MD Primary Care Provider: NATHANIEL Torrez History of Present Illness History of Present Illness Hilda Da Silva is a 55 year old female who underwent lumbar decompressive surgery by way of L4-S1 laminectomy and fusion and intrumenetaion on 08/10/20. At her 2 week post op follow up visit on 08/23 she was noted to have redness and drainage at suture site. She was started on Bactrim with partial improvement and thereafter clindamycin was added on 08/30. She continued to have persistent drainage and eventually returned on 09/07/20 for I&D. Per op note review infection was localized to superior aspect of her incision possibly a stitch abscess. Patient did have bone graft and it was hard to tell if there was deeper infection, i&d was performed down to spine. Deep cultures were taken, these have now revealed growth of MRSA. Blood cx is negative to date. Denies any fever, chills or other constitutional symptoms. Review of Systems General: Reports: 10 or more systems reviewed and unremarkable except in HPI and below Const: Denies: fever(s), chills or body aches Eyes: Denies: change in vision, blurry vision or photophobia ENMT: Reports: hoarseness; Denies: throat pain, enlarged tonsils, odynophagia or nasal congestion Card: Denies: chest pain, palpitations, irregular heart rhythm, edema, swelling of feet/ankles, lightheadedness, pre-syncope, dyspnea on exertion or orthopnea Resp: Denies: dyspnea, productive cough, non-productive cough, wheezing, stridor, pain on inspiration, change in phlegm color, hemoptysis or chest congestion GI: Denies: abdominal pain, nausea, vomiting, hematemesis, coffee ground emesis, dysphagia, heartburn, diarrhea, constipation, GI cramping, change in stool character, hematochezia or melena : Denies: flank pain, difficulty voiding, dysuria, urinary frequency, urinary urgency, urinary hesitancy or hematuria Musc: Denies: neck pain, back pain, extremity pain, joint swelling, joint warmth or deformity Neuro: Denies: headache(s), numbness in extremities, weakness in extremities, sensory changes, difficulty walking, frequent falls, dizziness, vertigo, behavioral changes, Slurred speech present or seizure-like activity Psych: Denies: anxiety, depression, suicidal ideation or homicidal ideation Endo: Denies: polyuria, polydipsia, tired all the time, cold intolerance or hot flashes Jam/Lymph: Denies: easy bruising or easy bleeding Meds/Allergies Home Medications and Allergies Home Medications Medication Instructions Recorded Confirmed Last Taken Type baclofen 10 mg tablet 10 mg PO TID PRN 06/15/19 09/08/20 08/09/20 History atorvastatin 20 mg tablet 20 mg PO BEDTIME 08/25/19 09/08/20 08/09/20 History Bone Growth Stimulator [id number] #1 ea 08/08/20 09/08/20 Unknown Rx nicotine 1 patch TRANSDERMAL DAILY #56 patch 08/15/20 09/07/20 09/07/20 Rx 21mg/24hr-14mg/24hr-7mg/24hr daily transderm patches,sequentl alprazolam 1 mg tablet 0.5 mg PO TID #45 tab 08/31/20 09/08/20 Unknown Rx albuterol sulfate 2 puff INHALATION Q4H PRN 09/08/20 09/08/20 Unknown History fluticasone propionate 1 spray INTRANASAL BID PRN 09/08/20 09/08/20 Unknown History hydrocodone-acetaminophen 1 - 2 tab PO Q4H PRN 09/08/20 09/08/20 09/07/20 20:00 History ibuprofen 800 mg PO TID PRN 09/08/20 09/08/20 Unknown History lamotrigine 400 mg PO QAM 09/08/20 09/08/20 09/07/20 History levothyroxine 112 mcg PO QAM 09/08/20 09/08/20 09/07/20 History trazodone 300 mg PO BEDTIME 09/08/20 09/08/20 Unknown History hydrocodone-acetaminophen 1 - 2 tab PO Q4H PRN 7 Days #60 tab 09/12/20 Unknown Rx Allergies Allergy/AdvReac Type Severity Reaction Status Date / Time naproxen Allergy Severe breathing Verified 09/08/20 10:35 issues gabapentin Allergy Intermediate ADR-Dizzine Verified 09/08/20 10:35 ss Current Medications Current Medications Generic Name Dose Route Start Last Admin Trade Name Robe PRN Reason Stop Dose Admin Hydrocodone Bitart/Acetaminophen 1 - 2 tab 09/09/20 07:12 09/12/20 10:16 Hydrocodone-Acetaminophen 10-325 Mg Tablet PO 2 tab Q4H PRN Administration MODERATE TO SEVERE PAIN Atorvastatin Calcium 20 mg 09/08/20 09:00 09/12/20 07:42 Atorvastatin 40 Mg Tablet PO 20 mg DAILY ELIDIA Administration Baclofen 10 mg 09/07/20 18:00 09/12/20 07:43 Baclofen 10 Mg Tablet PO 10 mg BID ELIDIA Administration Docusate Sodium 100 mg 09/07/20 18:00 09/12/20 07:42 Docusate Sodium 100 Mg Capsule PO 100 mg BID ELIDIA Administration Enoxaparin Sodium 40 mg 09/08/20 06:00 09/12/20 06:11 Enoxaparin 40 Mg/0.4 Ml Syringe SUBCUT 40 mg Q24H ELIDIA Administration Vancomycin/PEG/NADA/Lysine/Water 1,250 mg in 250 mls @ 250 mls/hr 09/08/20 07:00 09/12/20 06:10 Vancocin IV 250 mls/hr Q8H ELIDIA Administration Lamotrigine 400 mg 09/08/20 09:00 09/12/20 07:43 Lamotrigine 100 Mg Tablet PO 400 mg DAILY ELIDIA Administration Levothyroxine Sodium 112 mcg 09/08/20 09:00 09/12/20 07:42 Levothyroxine 112 Mcg Tablet PO 112 mcg DAILY ELIDIA Administration Nicotine 1 patch 09/07/20 20:52 09/12/20 07:43 Nicotine 21 Mg Patch TRANSDERMA 1 patch DAILY ELIDIA Administration Trazodone HCl 300 mg 09/07/20 21:00 09/11/20 23:56 Trazodone 100 Mg Tablet PO 300 mg BEDTIME ELIDIA Administration PFSH Acute PFSH: Medical History (Updated 09/12/20 @ 10:41 by Marisa Banks MD) Alcohol use disorder, moderate, in sustained remission Bipolar II disorder Borderline personality disorder Cigarette nicotine dependence 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 Pain management contract signed Panic disorder Surgical History Hx of section Hx of hysterectomy Social History Smoking and tobacco status: current every day smoker cigarettes Alcohol intake: former Lives independently: Yes History of recent travel: No Vitals/I&O/Wt Last Vital Signs Temp 98.0 F 09/12/20 08:00 Pulse 60 09/12/20 08:00 Resp 18 09/12/20 08:00 BP 111/74 09/12/20 08:00 Pulse Ox 93 09/12/20 08:00 09/11/20 09/12/20 09/12/20 22:59 06:59 14:59 Intake Total 1091.5 / 2821.5 250 / 3071.5 120 / 120 Output Total 1200 / 3000 800 / 800 Balance -108.5 / -178.5 250 / 71.5 -680 / -680 Data Micro: Micro: Microbiology 09/07/20 16:15 Gram Stain - Final Back Anaerobic Culture - Preliminary Abscess Culture - Final Methicillin Res is Staph Aureus Other Data: Attestation for Other Data: I personally reviewed and interpreted the following: Other data: Vancomycin trough: 19.5 on 09/10 A&P Assessment and plan (1) Postoperative wound infection: Patient with post op wound infection approximately 3 weeks following spinal decompressive surgery. per op note infection appeareared to be involving the superficial layers, however deep OR cx now with MRSA Safest course will be to treat as presumptive early deep infection, hardware underlying Agree with choice of iv vancomycin via PICC line- duration of antibiotics to be at least 6 weeks from debridement (09/07-10/19). Follow up in ID clinic on October 18 to monitor clinical course and further abx plan Elevated ESR and CRP noted, both taken post operatively while on iv vancomycin check weekly creatinine and vancomycin trough. I will be away from clinic until September, please coordinate labs review with home pharmacy and PCP office. Thank you for this consult. please call with any questions. Status: Acute (2) Degenerative lumbar disc: Status: Acute Consult Attestations Medical Necessity Statement: per admitting note Coding Level of Care Code Acute Gauntlet Pairer for Zac Gaines Diagnoses Postoperative wound infection T81.49XA Degenerative lumbar disc M51.36
--- NOTE | 2020-09-12 11:01 | PC.SOCIAL ---
IMM Update pg.2 of IMM Updated and reviewed with patient who verbalized understanding. Copy provided.
--- NOTE | 2020-09-12 14:16 | PM.PN ---
Subjective Subjective: Interval history: Documents overnight. Patient has remained hemodynamically stable and afebrile. On examination patient lying comfortably in bed. On waking up she states she is at a pain level of 7 and seen 4 hours since she last took her pain medication would want the pain medications right now. We discussed in detail that at home she should try to space out her pain medications with acceptable pain level of 5-6. Patient states she is responsible and has done that in the past and will continue to do her pain levels and pain medications. Medications: Reviewed: Yes Vitals/I&O/Wt Last Vital Signs Temp 98.0 F 09/12/20 11:34 Pulse 75 09/12/20 11:34 Resp 14 09/12/20 11:34 BP 100/69 09/12/20 11:34 Pulse Ox 93 09/12/20 08:00 09/11/20 09/12/20 09/12/20 22:59 06:59 14:59 Intake Total 1091.5 / 2821.5 250 / 3071.5 120 / 120 Output Total 1200 / 3000 800 / 800 Balance -108.5 / -178.5 250 / 71.5 -680 / -680 Physical Exam Narrative: EXAM NARRATIVE: GEN: Awake, alert and oriented, no acute distress CVS: S1S2 N RS: CTA B/L Abd: Soft, nt/nd , bs+ ESCROW SECRETARY: no focal neuro deficits Data : 09/12/20 05:48 09/12/20 05:48 Micro: Microbiology 09/07/20 16:15 Gram Stain - Final Back Anaerobic Culture - Preliminary Abscess Culture - Final Methicillin Resis Staph Aureus A&P Assessment and plan (1) Postoperative wound infection: Patient with post op wound infection approximately 3 weeks following spinal decompressive surgery. MRSA hardware infection. Will need Vancomycin as outpatient through PICC line for next 6 weeks keeping trough level 15-18. Last trough level on September 10 was 19.5. Currently on vancomycin 1.25 mg every 8 hourly. We will consult ID as patient would need to follow-up with ID as an outpatient as well. ESR CRP elevated yesterday most likely postoperative as patient has been on continuously on vancomycin and has been afebrile. Dressing, physical therapy, pain medication as per orthopedics. Status: Acute (2) Degenerative lumbar disc: Status: Acute Attestations Medical Necessity Statement*: Further hospitalization for management of postoperative wound MRSA infection while postoperative antibiotics are set up for safe discharge planning. Time Spent in Patient Care: Greater than 35 minutes (>than 50% of time spent in counselling and/or direct pt care on unit). Coding Level of Care Code Acute Carbon Paper Coating Machine Setter for [facility] Fwd Diagnoses Postoperative wound infection T81.49XA Degenerative lumbar disc M51.36
[2020-09-12] MEDS: HYDROcodone-acetaminophen 10-325 mg Tablet 1 TAB PO ×3 (14:30→23:18)
[2020-09-12 14:46] LABS: Vancomycin Trough 19.1 ug/mL (10-15)
[2020-09-12] MEDS: ALPRAZolam 0.5 mg Tablet PO ×2 (14:51→20:08)
--- NOTE | 2020-09-12 16:13 | XR_ITS ---
WS: [id number] Exam: XR chest 1V portable [id number] Date/Time of Exam: 09/12/2020 4:41 PM Reason For Exam: PICC PLACEMENT No priors. Right-sided PICC line is noted ending at the cavoatrial junction in good position. There is subsegmen sebastien atelectasis in the right middle lobe. No infiltrates are seen. No pneumothorax. Normal cardiomedi astinal silhouette and regional bony elements. XR/XR chest 1V portable [id number] IMPRESSION: 1. Right-sided PICC line ending at the cavoatrial junction in good position. 2. Subsegmental atelectasis in the right middle lobe.
--- NOTE | 2020-09-12 17:57 | PC.NURSE ---
PICC line RIGHT arm in and ready for use.
[2020-09-12] MEDS: trazodone 150 mg Tablet 300 MG PO (23:18)
[2020-09-13 03:11] LABS: Alanine Aminotransferase 11 U/L (0-33); Albumin Level 3.4 g/dL (3.5-5.2); Alkaline Phosphatase 147 IU/L (35-105); Aspartate Amino Transferase 14 U/L (0-32); Blood Urea Nitrogen 8 mg/dL (6-20); Calcium 9.5 mg/dL (8.5-10.5); Carbon Dioxide 24 mmol/L (22-29); Chloride 107 mmol/L (98-107); Globulin 2.9 g/dL (1.3-4.6); Glomerular Filtration Rate 128.1 mL/min (90-130); Glucose 106 mg/dL (65-115); Osmolality Calculated 291 mOsm/kg (285-295); Sodium 141 mmol/L (136-145); Total Bilirubin 0.2 mg/dL (0.15-1.2); Total Protein 6.3 g/dL (6.6-8.7)
[2020-09-13 03:12] LABS: Anion Gap 14.2 (5-19); Potassium 4.2 mmol/L (3.5-5.1)
[2020-09-13 04:00] VITALS: BP 116/79; PULSE 75; RESP 18; TEMP 36.7; O2SAT 92
[2020-09-13] MEDS: HYDROcodone-acetaminophen 10-325 mg Tablet 1 TAB PO ×2 (05:21→09:19)
[2020-09-13] MEDS: enoxaparin 40 mg/0.4 mL Syringe SUBCUT (06:39)
[2020-09-13] MEDS: vancomycin 1,250 MG/250 ML PIGGYBACK 250 MG IV (06:40)
[2020-09-13 07:53] VITALS: BP 120/77; PULSE 84; RESP 18; TEMP 37.1; O2SAT 94
--- NOTE | 2020-09-13 08:13 | PM.PN ---
Subjective Subjective: Interval history: No changes Vitals/I&O/Wt Last Vital Signs Temp 98.7 F 09/13/20 07:53 Pulse 84 09/13/20 07:53 Resp 18 09/13/20 07:53 BP 120/77 09/13/20 07:53 Pulse Ox 94 09/13/20 07:53 09/12/20 09/13/20 09/13/20 22:59 06:59 14:59 Intake Total 490 / 1340 450 / 1790 250 / 250 Output Total 2100 / 3300 1000 / 1000 Balance -1610 / -1960 450 / -1510 -750 / -750 Physical Exam Narrative: EXAM NARRATIVE: No changes Data : 09/12/20 05:48 09/13/20 02:11 Micro: Microbiology 09/07/20 17:56 Blood Culture - Final Blood NO GROWTH AFTER 5 DAYS 09/07/20 18:00 Blood Culture - Final Blood NO GROWTH AFTER 5 DAYS 09/07/20 16:15 Gram Stain - Final Back Anaerobic Culture - Preliminary Abscess Culture - Final Methicillin Resis Staph Aureus A&P Assessment and plan (1) Postoperative wound infection: PICC line is in place awaiting IV antibiotics set up so she can be discharged. Status: Acute Attestations Medical Necessity Statement*: Awaiting somebody to follow her antibiotics. Coding Level of Care Code Acute Bilingual Executive Assistant for Zac Gaines Diagnoses Postoperative wound infection T81.49XA
[2020-09-13] MEDS: docusate sodium 100 mg Capsule PO (09:18)
[2020-09-13] MEDS: ALPRAZolam 0.5 mg Tablet PO (09:19)
[2020-09-13] MEDS: levothyroxine 112 mcg Tablet PO (09:19)
[2020-09-13] MEDS: lamoTRIgine 100 mg Tablet 400 MG PO (09:19)
[2020-09-13] MEDS: atorvastatin 40 mg Tablet 20 MG PO (09:19)
[2020-09-13] MEDS: nicotine 21 mg Patch 1 PATCH TRANSDERMA (09:19)
[2020-09-13] MEDS: baclofen 10 mg Tablet PO (09:25)
--- NOTE | 2020-09-13 10:26 | P.DS_ITS ---
Discharge Providers Date of Admission: 09/07/20 16:46 Date of Discharge: September 13, 2020 Attending Provider at Admission: Santosh Ramirez DO Attending Provider at Discharge: Ezequiel Hutchins MD Consults: Orthopedics: Dr. Ramirez ID: Dr. Banks Primary Care Provider: Blanche Srinivasan, MAPPING TECHNICIAN Diagnoses at Discharge Discharge Diagnosis (1) Postoperative wound infection: Status: Acute Reason for Visit Reason for Visit: incision and drainage of a complex wound infection Hospital Course Hospital Course Hilda Da Silva is a 55 year old female that underwent lumbar decompressive surgery by way of L4-S1 laminectomy and fusion and intrumenetaion on 08/10/20. At her 2 week post op follow up visit on 08/23 she was noted to have redness and drainage at suture site. She was started on Bactrim with partial improvement and thereaft er clindamycin was added on 08/30. She continued to have persistent drainage and eventually returned September 07 for I&D. Patient was started on broad-spectrum antibiotics and orthopedics was consulted again. Patient underwent I&D down to bone of lumbar spine wound on September 07. Per op note review infection was localized to superior aspect of her incision possibly a stitch abscess. Patient did have bone graft and it was hard to tell if there was deeper infection, i&d was performed down to the bone. Cultures from the OR grew MRSA. Patient's antibiotics was changed as per the culture results and sensitivities. She responded well to the treatment. She would require IV antibiotics for 6 weeks weeks. Till the time she is on IV antibiotics she needs to get CBC and CMP done weekly. Vancomycin trough levels are supposed to be maintained around 18. Vancomycin trough levels, CBC and CMP to be followed up with her primary care's office. She supposed to follow-up with Dr. Frost and ID office as directed. Physical Exam Narrative: EXAM NARRATIVE: GEN: Awake, alert and oriented, no acute distress CVS: S1S2 N RS: CTA B/L Abd: Soft, nt/nd , bs+ EVP [employer] EXPERIENCE STRATEGY: no focal neuro deficits Discharge Data Data Completed and Pending: Completed Studies During Hospitalization Category Date Time Status CXRP [XR chest 1V portable [id number]] S tat Exams 09/12/20 16:13 Completed Pending at discharge Category Date Time Status Abscess Culture a nd Gram Stain Rout ine Lab 09/07/20 16:15 Results Anaerobic Culture Routine Lab 09/07/20 16:15 Results Labs from last 24 hours 09/13/20 09/12/20 02:11 13:50 Sodium 141 Potassium 4.2 Chloride 107 Carbon Dioxide 24 Anion Gap 14.2 BUN 8 Creatinine 0.5 GFR Calculation 128.1 Glucose 106 Calculated Osmolal ity 291 Calcium 9.5 Total Bilirubin 0.2 AST 14 ALT 11 Alkaline Phosphata se 147 H Total Protein 6.3 L Albumin 3.4 L Globulin 2.9 Vancomycin Trough 19.1 H Addt'l Data from Hospital Stay: Laboratory Results WBC 10.3 10^3/uL (4.0 -10.0) H 09/12/20 05:48 RBC 2.77 10^6/uL (4.1 -5.3) L 09/12/20 05:48 Hgb 9.1 g/dL (11.5-15 .3) L 09/12/20 05:48 Hct 29.3 % (37.0-47.0 ) L 09/12/20 05:48 MCV 105.8 fL (81-99) H 09/12/20 05:48 MCH 32.9 pg (28.0-34. 0) 09/12/20 05:48 MCHC 31.1 g/dL (30.0-3 6.0) 09/12/20 05:48 RDW 13.2 % (12.1-15.1 ) 09/12/20 05:48 Plt Count 545 10^3/cmm (130 -400) H 09/12/20 05:48 MPV 9.1 fL (7.4-10.4) 09/12/20 05:48 Neut % (Auto) 55.1 % 09/12/20 05:48 Lymph % (Auto) 34.5 % 09/12/20 05:48 [place] % (Auto) 5.8 % 09/12/20 05:48 Eos % (Auto) 3.2 % 09/12/20 05:48 Baso % (Auto) 1.0 % 09/12/20 05:48 Neut # (Auto) 5.68 10^3/uL (1.8 -7.7) 09/12/20 05:48 Lymph # (Auto) 3.6 10^3/uL (0.8- 4.8) 09/12/20 05:48 [place] # (Auto) 0.6 10^3/uL (0.2- 0.9) 09/12/20 05:48 Eos # (Auto) 0.3 10^3/uL (0.0- 0.8) 09/12/20 05:48 Baso # (Auto) 0.1 10^3/uL (0.0- 0.1) 09/12/20 05:48 Nucleated RBC % (a uto) 0 % 09/12/20 05:48 Nucleated RBCs # 0.0 /100WBC 09/12/20 05:48 ESR 86 mm/hr (0-15) H 09/12/20 05:48 Sodium 141 mmol/L (136-1 45) 09/13/20 02:11 Potassium 4.2 mmol/L (3.5-5 .1) 09/13/20 02:11 Chloride 107 mmol/L (98-10 7) 09/13/20 02:11 Carbon Dioxide 24 mmol/L (22-29) 09/13/20 02:11 Anion Gap 14.2 (5-19) 09/13/20 02:11 BUN 8 mg/dL (6-20) 09/13/20 02:11 Creatinine 0.5 mg/dL (0.5-0. 9) 09/13/20 02:11 GFR Calculation 128.1 mL/min (90- 130) 09/13/20 02:11 Glucose 106 mg/dL (65-115 ) 09/13/20 02:11 Calculated Osmolal ity 291 mOsm/kg (285- 295) 09/13/20 02:11 Calcium 9.5 mg/dL (8.5-10 .5) 09/13/20 02:11 Total Bilirubin 0.2 mg/dL (0.15-1 .2) 09/13/20 02:11 AST 14 U/L (0-32) 09/13/20 02:11 ALT 11 U/L (0-33) 09/13/20 02:11 Alkaline Phosphata se 147 IU/L (35-105) H 09/13/20 02:11 C-Reactive Protein 45.5 mg/L (0.0-4. 9) H 09/12/20 05:48 Total Protein 6.3 g/dL (6.6-8.7 ) L 09/13/20 02:11 Albumin 3.4 g/dL (3.5-5.2 ) L 09/13/20 02:11 Globulin 2.9 g/dL (1.3-4.6 ) 09/13/20 02:11 Vancomycin Trough 19.1 ug/mL (10-15 ) H 09/12/20 13:50 Impressions Chest X-Ray 09/12/20 16:13 IMPRESSION: 1. Right-sided PICC line ending at the cavoatrial junction in good position. 2. Subsegmental atelectasis in the right middle lobe. Microbiology 09/07/20 16:15 Back Gram Stain - Final 09/07/20 16:15 Back Anaerobic Culture - Preliminary 09/07/20 16:15 Back Abscess Culture - Final Methicillin Resis Staph Aureus 09/07/20 17:56 Blood Blood Culture - Final NO GROWTH AFTER 5 DAYS 09/07/20 18:00 Blood Blood Culture - Final NO GROWTH AFTER 5 DAYS Vitals: Last Vital Signs Temp 98.7 F 09/13/20 07:53 Pulse 84 09/13/20 07:53 Resp 18 09/13/20 07:53 BP 120/77 09/13/20 07:53 Pulse Ox 94 09/13/20 07:53 Discharge Plan Discharge Patient Disposition: Home Condition: Stable Prescriptions: New hydrocodone-acetaminophen 10-325 mg tablet 1 - 2 tab PO Q4H PRN (Reason: pain) 7 Days Qty: 60 RF: 0 hydrocodone-acetaminophen 10-325 mg tablet 1 - 2 tab PO Q4H PRN (Reason: pain) 10 Days Qty: 60 RF: 0 vancomycin 1,000 mg recon soln 1,250 mg IV Q8H 42 Days Qty: 10 RF: 0 Continued baclofen 10 mg tablet 10 mg PO TID PRN (Reason: Muscle Spasm) RF: 0 atorvastatin 20 mg tablet 20 mg PO BEDTIME RF: 0 alprazolam 1 mg tablet 0.5 mg PO TID Qty: 45 RF: 3 (DME) Bone Growth Stimulator E0748 See Rx Instructions .Route .MEDSUPPLY Qty: 1 RF: 0 nicotine 21-14-7 mg/24 hr patch, TD daily, sequential 1 patch transdermal DAILY Qty: 56 RF: 0 lamotrigine 200 mg tablet 400 mg PO QAM RF: 0 ibuprofen 800 mg tablet 800 mg PO TID PRN (Reason: Pain) RF: 0 trazodone 100 mg tablet 300 mg PO BEDTIME RF: 0 albuterol sulfate 90 mcg/actuation HFA aerosol inhaler 2 puff INHALATION Q4H PRN (Reason: Shortness Of Breath) RF: 0 fluticasone propionate 50 mcg/actuation [place],Suspension 1 spray INTRANASAL BID PRN (Reason: Allergy Symptoms) RF: 0 levothyroxine 112 mcg tablet 112 mcg PO QAM RF: 0 hydrocodone-acetaminophen 10-325 mg tablet 1 - 2 tab PO Q4H PRN (Reason: Pain) RF: 0 Discharge Orders: Discharge Order (Routine); Ordered 09/12/20 Ordered By: Santosh Ramirez Other Ambulatory Orders: Complete Blood Count w/Auto (Routine) Timeframe: 6 Weeks Location: Determined by Patient Ordered By: Ezequiel Hutchins Comprehensive Metabolic Panel (Routine) Timeframe: 6 Weeks Facility: [facility] - Location: Lab - Main Lab Ordered By: Ezequiel Hutchins Vancomycin Trough (Routine) Timeframe: 20200916 Location: Determined by Patient Ordered By: Ezequiel Hutchins Referrals: Santosh Ramirez DO [Physician] - 09/20/20 10:30 am Marisa Banks MD [Hospitalist] - 1 month Srinivasan,NATAHNIEL Mancia [Primary Care Provider] - 09/20/20 2:00 pm Discharge Diet: Advance as tolerated Discharge Activity: Limit activity as instructed Patient Instructions: Hydrocodone/Acetaminophen (By mouth), How to Stop Smoking (GEN), Wound Infection (DC), Cigarette Smoking and Your Health (GEN), Acute Wound Care (GEN), Opioid Safety Activity Restrictions/Additional Instructions: Please follow-up with your primary care provider within next 1 week. You are supposed to get weekly CBC and CMP while on antibiotics. Blood work and vancomycin trough level will be followed up with Dr. Morley office. Vancomycin trough levels to be maintained around 18. Please follow-up with Dr. Frost's office as indicated. Please follow-up with ID office in second week of September. Thank you for choosing [facility] for your care! The following is a list of instructions, from your provider, to follow upon your discharge to ensure you have the optimal recovery from your recent injury or surgery. Follow-up care is a hathaway part of your treatment and safety. Be sure to make and go to all appointments, and call your doctor if you are having problems. If you do not already have a follow-up appointment made, call Dr. Ramirez office in the next 1-3 days to make follow up appointment for 1 weeks at [phone]. It is also a good idea to know your test results and keep a list of the medicines you take. Medications will be prescribed for you at your provider's discretion. These medications are to be used as instructed; if they are taken more often that prescribed they will not be refilled early and in most cases will not be refilled at all. > When a refill is needed,you should contact albertina munoz 2-3 business days before your prescription runs out. Medications will NOT be refilled by monogram maker providers after hours! > Many pain medications contain Tylenol (Acetaminophen). Do not consume more than 4,000 mg of Tylenol per day in total with any combination ofmedications. > Pain medications can cause constipation. Please use an over the counter stool softener as directed, while taking pain medications. Consulty our local pharmacist with questions or recommendations on stool softeners. If constipation persists, contact our office or your primary care provider. > While under our care,you are not to receive pain medications or other controlled substances from any other provider unless our office is notified and approves. Any attempts to do so will result in refusal to prescribe any further pain medications and possible dismissal from our practice. ? Your wound and/or dressing should remain clean and dry for 2 days after surgery. On postoperative day 2 (48 hours after your surgery) the dressing (if present) should be removed and it is okay to shower and get the incision wet. Pad dry afterwards. No further dressing should be required from that point on. Do not put any creams or ointments on theincision > It is normal for there to be a small amount of discharge (bloody or blood tinged) present from a surgical wound for the first 1-3days. > The wound should be examined twice a day for signs of infection. Mild redness or bruising is to be expected but indications that an infection maybe starting would include; An increase in redness, swelling, or discharge, a foul odor present around the incision, and/or a fever greater than 101 ?F ? Showering is permitted, however we ask that you do not take a bath, sit in a whirlpool / Jacuzzi, or go swimming for 1 month. For only the first 2 days after surgery, lt wilt be necessary for you to cover your wound/dressing with plastic and tape to keep it dry. ? Walking is essential for the healing process after surgery. We would like you to slowly advance your walking. This should be done on relatively flat clear ground (inside or out) or can be done on a treadmill. Remember this goal does not have to happen all at once, slowly increase your distance and duration. This can be broken into more more than one walk per day as tolerated. Patients who walk as directed after surgery rarely require Physical Therapy. In the unlikely event this issue arises your provider will direct hospital staff to make the appropriate arrangements. ? No lifting over 5 pounds {a gallon of milk) or bending/twisting until further notice. Each of these activities places an unnecessary amount of stress onto the body and can impede the delicate healing process. > Instead of bending at the waist, keep your back straight and bend at the knees. > Instead of twisting your torso, keep your back straight and turn your entire body with your feet. ? You may sleep in any position which makes you comfortable. Many patients find comfort sleeping in a reclining chair. It is not abnormal to have difficulty sleeping for the first several weeks following your surgery. We recommend trying Benadry! or Tylenol PM as directed to help with your sleeping difficulties. Both medications are over the counter and available withoutprescription. ? NO SMOKING!!! Smoking dramatically increases the probability of developing postoperative wound infections. ? Common complaints after lumbar and/or thoracic spine surgery include, but are not limited to: numbness and/or tingling in the legs, pain around the incision and surrounding tissues, muscle spasms, or stiffness of the middle to low back. Contact our office if these symptoms persist or if an acute change occurs. ? No driving for the first 3-5days, and not while taking narcotics [] until seen at your follow-up appointment and cleared. There are no restrictions for riding on short trips, however if you take a longer trip, arrangements should be made to make regular stops to get out of the vehicle and stretch . ? Swelling is an unfortunate event that will take place with any surgery and is the primary source of your postoperative discomfort. While walking and regular approved activities helps control inflammation, there are additional steps you can take to minimizeswelling. > Place ice over the surgical site and surrounding tissue for twenty minutes, followed by applying a low/medium heat (heating pad) for an additional twenty minutes every 1-2 hours as needed for painrelief. > You may use of over the counter anti-inflammatory medications (Ibuprofen, Motrin, Aleve, Advil, etc) as directed on the package label. These types of medicines wm significantly reduce the amount of discomfort you experience after surgery from swelling. It should be noted that if you have and allergy to any of these medications, or a history of ulcers or kidney disease you should consult you primary care provider prior to starting these medications. Discharge Attestations Time Spent in Discharge Care*: greater than 30 min Specific Discharge Activities: educating patient, educating and/or supporting family/caregiver, discussing with pcp/other providers, discussing with block and case maker/social workers/dc planners, documenting/other paperwork and evaluating patient/reviewing data Status at Discharge: Cognitive status at discharge: cognitively intact , Behavioral status at discharge: cooperative , Functional status at discharge: uses cane/walker Overall status at discharge: patient is progressing back to baseline Quality Metrics Clinical Quality Measures During this hospital stay, did patient experience: None Coding Level of Care Code Acute [facility] DC note Diagnoses Postoperative wound infection T81.49XA
--- NOTE | 2020-09-13 10:32 | PC.NURSE ---
discharge instructions given to patient and patient verbalized understanding of instructions. patient waiting on ride from family.
--- NOTE | 2020-09-13 11:04 | PC.NURSE ---
patient taken to private vehicle via wheelchair by staff.
[2020-09-13 11:05] VITALS: BP 120/77; PULSE 84; RESP 18; TEMP 37.1; O2SAT 94
== END 2020-09-13 11:06 | disposition home health service (06) | DRG 863 ==
LOC: MEDSURG 16:46
PROVIDERS: Hospitalist; Student in an Organized Health Care Education/Training Program; Admitting Provider Orthopaedic Surgery; PCP Nurse Practitioner Family; Visit Provider Student in an Organized Health Care Education/Training Program
PROC: 0W9L0ZX Drainage of Lower Back, Open Approach, Diagnostic (ICD-10-PCS; principal; 2020-09-07 12:35)
DX: T81.42XA Infection following a procedure, deep incisional surgical site, initial encounter (principal); F31.81 Bipolar II disorder; B95.62 Methicillin resistant Staphylococcus aureus infection as the cause of diseases classified elsewhere; F10.21 Alcohol dependence, in remission; F60.3 Borderline personality disorder; F17.210 Nicotine dependence, cigarettes, uncomplicated; Z79.891 Long term (current) use of opiate analgesic; F41.0 Panic disorder [episodic paroxysmal anxiety]; Z98.1 Arthrodesis status; Z79.51 Long term (current) use of inhaled steroids; M51.36 Other intervertebral disc degeneration, lumbar region
CPT/HCPCS: 36415; 36569; 71045; 80053; 80202; 85025; 85651; 86140; 87040; 87070; 87075; 87077; 87186; 87205; 96372; 96374; 97161; 97530; J0690; J0696; J1170; J1650; J2270; J2405; J2704; J2710; J3010; J3370; J3490; J7030

== ENCOUNTER 2020-09-16 10:48 | Outpatient (CLI) | payer MEDICARE, MEDICAID, SELFPAY ==
[2020-09-16 11:38] LABS: Vancomycin Trough 24.1 ug/mL (10-15)
== END 2020-09-16 10:49 | disposition home or self-care (01) ==
LOC: LAB 10:53
PROVIDERS: PCP Nurse Practitioner Family; Visit Provider Student in an Organized Health Care Education/Training Program
DX: A49.02 Methicillin resistant Staphylococcus aureus infection, unspecified site (principal)
CPT/HCPCS: 80202

== ENCOUNTER 2020-09-20 07:43 | Outpatient (CLI) | payer MEDICARE, MEDICAID, SELFPAY ==
[2020-09-20 08:34] LABS: Vancomycin Trough 16.9 ug/mL (10-15)
[2020-09-20 08:35] LABS: Alanine Aminotransferase 6 U/L (0-33); Albumin Level 3.4 g/dL (3.5-5.2); Alkaline Phosphatase 137 IU/L (35-105); Aspartate Amino Transferase 10 U/L (0-32); Blood Urea Nitrogen 7 mg/dL (6-20); Calcium 9.3 mg/dL (8.5-10.5); Carbon Dioxide 24 mmol/L (22-29); Chloride 108 mmol/L (98-107); Globulin 2.9 g/dL (1.3-4.6); Glomerular Filtration Rate 128.1 mL/min (90-130); Glucose 93 mg/dL (65-115); Osmolality Calculated 292 mOsm/kg (285-295); Sodium 142 mmol/L (136-145); Total Bilirubin 0.2 mg/dL (0.15-1.2); Total Protein 6.3 g/dL (6.6-8.7)
[2020-09-20 08:45] LABS: Anion Gap 14.1 (5-19); Basophils # 0.1 10^3/uL (0.0-0.1); Basophils % 1.5 %; Eosinophils # 0.6 10^3/uL (0.0-0.8); Eosinophils % 7.1 %; Hemoglobin 9.9 g/dL (11.5-15.3); Lymphocytes # 3.3 10^3/uL (0.8-4.8); Mean Corpuscular HGB Conc 30.9 g/dL (30.0-36.0); Mean Corpuscular Volume 106.7 fL (81-99); Mean Platelet Volume 10.1 fL (7.4-10.4); Monocytes # 0.6 10^3/uL (0.2-0.9); Monocytes % 6.6 %; Neutrophils # 4.39 10^3/uL (1.8-7.7); Neutrophils % 48.6 %; Nucleated Red Blood Cells % 0 %; Platelet Count 512 10^3/cmm (130-400); Potassium 4.1 mmol/L (3.5-5.1); Red Cell Distribution Width 13.9 % (12.1-15.1); White Blood Count 9.1 10^3/uL (4.0-10.0)
== END 2020-09-20 07:44 | disposition home or self-care (01) ==
PROVIDERS: Student in an Organized Health Care Education/Training Program; PCP Nurse Practitioner Family; Visit Provider Family Medicine
DX: T81.49XA Infection following a procedure, other surgical site, initial encounter (principal); A49.02 Methicillin resistant Staphylococcus aureus infection, unspecified site
CPT/HCPCS: 80053; 80202; 85025

== ENCOUNTER 2020-09-22 08:28 | Outpatient (CLI) | payer MEDICARE, MEDICAID, SELFPAY ==
[2020-09-22 09:01] LABS: Anion Gap 13.9 (5-19); Blood Urea Nitrogen 6 mg/dL (6-20); Calcium 9.4 mg/dL (8.5-10.5); Carbon Dioxide 24 mmol/L (22-29); Chloride 106 mmol/L (98-107); Glomerular Filtration Rate 103.8 mL/min (90-130); Glucose 89 mg/dL (65-115); Osmolality Calculated 287 mOsm/kg (285-295); Potassium 3.9 mmol/L (3.5-5.1); Sodium 140 mmol/L (136-145); Vancomycin Random 17.3 ug/mL (20.0-40.0)
== END 2020-09-22 08:29 | disposition home or self-care (01) ==
LOC: LAB 08:30
PROVIDERS: PCP Nurse Practitioner Family; Visit Provider Family Medicine
DX: A49.02 Methicillin resistant Staphylococcus aureus infection, unspecified site (principal)
CPT/HCPCS: 80048; 80202

== ENCOUNTER 2020-09-29 09:18 | Outpatient (CLI) | payer MEDICARE, MEDICAID, SELFPAY ==
[2020-09-29 10:12] LABS: Vancomycin Trough 11.9 ug/mL (10-15)
[2020-09-29 10:13] LABS: Alanine Aminotransferase < 5 U/L (0-33); Albumin Level 3.5 g/dL (3.5-5.2); Alkaline Phosphatase 141 IU/L (35-105); Aspartate Amino Transferase 7 U/L (0-32); Blood Urea Nitrogen 9 mg/dL (6-20); Calcium 8.5 mg/dL (8.5-10.5); Carbon Dioxide 23 mmol/L (22-29); Chloride 110 mmol/L (98-107); Globulin 2.5 g/dL (1.3-4.6); Glomerular Filtration Rate 128.1 mL/min (90-130); Glucose 93 mg/dL (65-115); Osmolality Calculated 294 mOsm/kg (285-295); Sodium 143 mmol/L (136-145); Total Bilirubin 0.2 mg/dL (0.15-1.2)
== END 2020-09-29 09:19 | disposition home or self-care (01) ==
PROVIDERS: PCP Nurse Practitioner Family; Visit Provider Family Medicine
DX: Z79.899 Other long term (current) drug therapy (principal); A49.02 Methicillin resistant Staphylococcus aureus infection, unspecified site
CPT/HCPCS: 80053; 80202; 85025

== ENCOUNTER 2020-10-04 08:55 | Outpatient (CLI) | payer MEDICARE, MEDICAID, SELFPAY ==
[2020-10-04 09:49] LABS: Basophils # 0.1 10^3/uL (0.0-0.1); Basophils % 1.1 %; Eosinophils # 0.7 10^3/uL (0.0-0.8); Eosinophils % 7.4 %; Hematocrit 34.3 % (37.0-47.0); Hemoglobin 10.7 g/dL (11.5-15.3); Lymphocytes # 3.4 10^3/uL (0.8-4.8); Lymphocytes % 33.8 %; Mean Corpuscular HGB Conc 31.2 g/dL (30.0-36.0); Mean Corpuscular Hemoglobin 32.3 pg (28.0-34.0); Mean Corpuscular Volume 103.6 fL (81-99); Mean Platelet Volume 10.3 fL (7.4-10.4); Monocytes # 0.5 10^3/uL (0.2-0.9); Monocytes % 5.2 %; Neutrophils # 5.27 10^3/uL (1.8-7.7); Neutrophils % 52.4 %; Nucleated Red Blood Cells % 0 %; Platelet Count 388 10^3/cmm (130-400); Red Blood Count 3.31 10^6/uL (4.1-5.3); Red Cell Distribution Width 13.9 % (12.1-15.1)
[2020-10-04 10:05] LABS: Alanine Aminotransferase < 5 U/L (0-33); Albumin Level 3.7 g/dL (3.5-5.2); Alkaline Phosphatase 144 IU/L (35-105); Anion Gap 13.1 (5-19); Aspartate Amino Transferase 9 U/L (0-32); Blood Urea Nitrogen 13 mg/dL (6-20); Calcium 8.9 mg/dL (8.5-10.5); Carbon Dioxide 25 mmol/L (22-29); Chloride 108 mmol/L (98-107); Glomerular Filtration Rate 103.8 mL/min (90-130); Glucose 80 mg/dL (65-115); Osmolality Calculated 293 mOsm/kg (285-295); Potassium 4.1 mmol/L (3.5-5.1); Sodium 142 mmol/L (136-145); Total Bilirubin 0.2 mg/dL (0.15-1.2); Total Protein 6.7 g/dL (6.6-8.7)
[2020-10-04 10:06] LABS: Vancomycin Trough 14.7 ug/mL (10-15)
== END 2020-10-04 08:56 | disposition home or self-care (01) ==
PROVIDERS: PCP Nurse Practitioner Family; Visit Provider Family Medicine
DX: T81.42XA Infection following a procedure, deep incisional surgical site, initial encounter (principal)
CPT/HCPCS: 80053; 80202; 85025

== ENCOUNTER → 2020-10-06 11:25 | Outpatient (BNVA) | payer MEDICARE, MEDICAID, SELFPAY | PROVIDERS: PCP Nurse Practitioner Family; Visit Provider Orthopaedic Surgery | DX: Z48.89 Encounter for other specified surgical aftercare (principal) | CPT/HCPCS: 72100 ==

== ENCOUNTER 2020-10-11 08:59 | Outpatient (CLI) | payer MEDICARE, MEDICAID, SELFPAY ==
[2020-10-11 09:47] LABS: Basophils # 0.1 10^3/uL (0.0-0.1); Basophils % 1.3 %; Eosinophils # 0.7 10^3/uL (0.0-0.8); Hematocrit 38.9 % (37.0-47.0); Hemoglobin 12.1 g/dL (11.5-15.3); Lymphocytes # 3.2 10^3/uL (0.8-4.8); Lymphocytes % 33.2 %; Mean Corpuscular HGB Conc 31.1 g/dL (30.0-36.0); Mean Corpuscular Hemoglobin 32.2 pg (28.0-34.0); Mean Corpuscular Volume 103.5 fL (81-99); Mean Platelet Volume 10.4 fL (7.4-10.4); Monocytes # 0.5 10^3/uL (0.2-0.9); Monocytes % 5.6 %; Neutrophils # 5.06 10^3/uL (1.8-7.7); Neutrophils % 52.7 %; Nucleated Red Blood Cells % 0 %; Platelet Count 440 10^3/cmm (130-400); Red Blood Count 3.76 10^6/uL (4.1-5.3); White Blood Count 9.6 10^3/uL (4.0-10.0)
[2020-10-11 09:54] LABS: Vancomycin Trough 16.4 ug/mL (10-15)
[2020-10-11 09:57] LABS: Alanine Aminotransferase 7 U/L (0-33); Alkaline Phosphatase 154 IU/L (35-105); Anion Gap 14.1 (5-19); Aspartate Amino Transferase 11 U/L (0-32); Blood Urea Nitrogen 11 mg/dL (6-20); Calcium 9.3 mg/dL (8.5-10.5); Carbon Dioxide 25 mmol/L (22-29); Chloride 107 mmol/L (98-107); Globulin 3.1 g/dL (1.3-4.6); Glomerular Filtration Rate 103.8 mL/min (90-130); Glucose 114 mg/dL (65-115); Osmolality Calculated 294 mOsm/kg (285-295); Potassium 4.1 mmol/L (3.5-5.1); Sodium 142 mmol/L (136-145); Total Bilirubin 0.2 mg/dL (0.15-1.2); Total Protein 7.1 g/dL (6.6-8.7)
== END 2020-10-11 09:00 | disposition home or self-care (01) ==
PROVIDERS: PCP Nurse Practitioner Family; Visit Provider Family Medicine
DX: T81.42XA Infection following a procedure, deep incisional surgical site, initial encounter (principal); X58.XXXA Exposure to other specified factors, initial encounter
CPT/HCPCS: 80053; 80202; 85025

== ENCOUNTER 2020-10-18 08:47 | Outpatient (CLI) | payer MEDICARE, MEDICAID, SELFPAY ==
[2020-10-18 09:19] LABS: Basophils # 0.1 10^3/uL (0.0-0.1); Basophils % 1.2 %; Eosinophils # 0.8 10^3/uL (0.0-0.8); Eosinophils % 10.2 %; Hematocrit 36.2 % (37.0-47.0); Hemoglobin 11.2 g/dL (11.5-15.3); Lymphocytes # 2.9 10^3/uL (0.8-4.8); Lymphocytes % 35.5 %; Mean Corpuscular HGB Conc 30.9 g/dL (30.0-36.0); Mean Corpuscular Hemoglobin 31.8 pg (28.0-34.0); Mean Corpuscular Volume 102.8 fL (81-99); Mean Platelet Volume 10.4 fL (7.4-10.4); Monocytes # 0.6 10^3/uL (0.2-0.9); Monocytes % 7.6 %; Neutrophils # 3.69 10^3/uL (1.8-7.7); Neutrophils % 45.4 %; Nucleated Red Blood Cells % 0 %; Platelet Count 344 10^3/cmm (130-400); Red Blood Count 3.52 10^6/uL (4.1-5.3); Red Cell Distribution Width 14.4 % (12.1-15.1); White Blood Count 8.1 10^3/uL (4.0-10.0)
[2020-10-18 09:56] LABS: Alanine Aminotransferase 6 U/L (0-33); Albumin Level 3.7 g/dL (3.5-5.2); Alkaline Phosphatase 158 IU/L (35-105); Anion Gap 13.9 (5-19); Aspartate Amino Transferase 10 U/L (0-32); Blood Urea Nitrogen 10 mg/dL (6-20); Calcium 8.7 mg/dL (8.5-10.5); Carbon Dioxide 25 mmol/L (22-29); Chloride 109 mmol/L (98-107); Globulin 2.6 g/dL (1.3-4.6); Glomerular Filtration Rate 103.8 mL/min (90-130); Glucose 91 mg/dL (65-115); Osmolality Calculated 297 mOsm/kg (285-295); Potassium 3.9 mmol/L (3.5-5.1); Sodium 144 mmol/L (136-145); Total Bilirubin 0.2 mg/dL (0.15-1.2); Total Protein 6.3 g/dL (6.6-8.7)
== END 2020-10-18 08:48 | disposition home or self-care (01) ==
LOC: LAB 08:53
PROVIDERS: PCP Nurse Practitioner Family; Visit Provider Family Medicine
DX: T81.42XA Infection following a procedure, deep incisional surgical site, initial encounter (principal); B95.62 Methicillin resistant Staphylococcus aureus infection as the cause of diseases classified elsewhere
CPT/HCPCS: 80053; 80202; 85025

== ENCOUNTER → 2020-10-25 15:46 | Outpatient (BNVA) | payer MEDICARE, MEDICAID, SELFPAY | PROVIDERS: PCP Nurse Practitioner Family; Visit Provider Orthopaedic Surgery | DX: M54.9 Dorsalgia, unspecified (principal) | CPT/HCPCS: 72100 ==

== ENCOUNTER → 2020-11-29 09:48 | Outpatient (BNVA) | payer MEDICARE, MEDICAID, SELFPAY | PROVIDERS: PCP Nurse Practitioner Family; Visit Provider Orthopaedic Surgery | DX: M54.9 Dorsalgia, unspecified (principal); Z48.89 Encounter for other specified surgical aftercare | CPT/HCPCS: 72100 ==

== ENCOUNTER → 2020-12-21 08:46 | Outpatient (BNVA) | payer MEDICARE, MEDICAID, SELFPAY | PROVIDERS: PCP Nurse Practitioner Family; Visit Provider Anesthesiology Pain Medicine | DX: M51.36 Other intervertebral disc degeneration, lumbar region (principal); F60.3 Borderline personality disorder; F31.81 Bipolar II disorder; F41.0 Panic disorder [episodic paroxysmal anxiety]; F10.21 Alcohol dependence, in remission; F17.210 Nicotine dependence, cigarettes, uncomplicated; Z79.891 Long term (current) use of opiate analgesic | CPT/HCPCS: 99212 ==

== ENCOUNTER → 2021-01-06 09:59 | Outpatient (BNVA) | payer MEDICARE, MEDICAID, SELFPAY | PROVIDERS: PCP Nurse Practitioner Family; Visit Provider Nurse Practitioner Psychiatric/Mental Health | DX: F31.81 Bipolar II disorder (principal); F41.0 Panic disorder [episodic paroxysmal anxiety]; F10.21 Alcohol dependence, in remission; F60.3 Borderline personality disorder; F17.210 Nicotine dependence, cigarettes, uncomplicated | CPT/HCPCS: 99214 ==

== ENCOUNTER → 2021-01-19 15:28 | Outpatient (BNVA) | payer MEDICARE, MEDICAID, SELFPAY | PROVIDERS: PCP Nurse Practitioner Family; Visit Provider Orthopaedic Surgery | DX: Z48.89 Encounter for other specified surgical aftercare (principal) | CPT/HCPCS: 72100 ==

== ENCOUNTER → 2021-03-16 09:51 | Outpatient (BNVA) | payer MEDICARE, MEDICAID, SELFPAY | PROVIDERS: PCP Nurse Practitioner Family; Visit Provider Orthopaedic Surgery | DX: M54.9 Dorsalgia, unspecified (principal); M16.12 Unilateral primary osteoarthritis, left hip | CPT/HCPCS: 72100; 73502 ==

== ENCOUNTER → 2021-04-06 08:05 | Outpatient (BNVA) | payer MEDICARE, MEDICAID, SELFPAY | PROVIDERS: PCP Nurse Practitioner Family; Visit Provider Nurse Practitioner Psychiatric/Mental Health | DX: F31.81 Bipolar II disorder (principal); F41.0 Panic disorder [episodic paroxysmal anxiety]; F10.21 Alcohol dependence, in remission; F17.210 Nicotine dependence, cigarettes, uncomplicated; F60.3 Borderline personality disorder | CPT/HCPCS: 99214 ==

== ENCOUNTER 2021-04-17 14:05 | Emergency (ER) | payer MEDICARE, MEDICAID, SELFPAY ==
[2021-04-17 14:23] VITALS: BMI 25.4
--- NOTE | 2021-04-17 14:23 | CT_ITS ---
WS: [id number] CT FACIAL BONES HISTORY: jaw pain possible dislocation TECHNIQUE: Images obtained from the supraorbital location through the mandible. Soft tissue and bone windows are reviewed. Coronal and sagittal reformats have also been submitted. DLP: 845.[address] scans at [facility] use at least one of these dose optimization techniques: automated e xposure control; mA and/or kV adjustment per patient size (includes targeted exams where dose is matc hed to clinical indication); or iterative reconstruction. COMPARISON: None available. Condylar head of the LEFT mandible is anteriorly displaced with respect to the articular eminence. Th e head is anterior to the eminence. The RIGHT mandibular condylar head is very slightly anteriorly po sitioned and the joint space is widened. This is probably all due to the dislocation on the LEFT side . No acute fracture is identified. No facial bone fractures. Zygomatic arches and nasal bones are intact. Mild degenerative changes in t he upper cervical spine. CT/CT facial bones wo con* [id number] IMPRESSION: 1. Anterior dislocation of the LEFT mandibular condylar head. The condylar hea d is anterior to the articular eminence. No fracture. 2. Very minimal anterior subluxation with widening of the TM joint on the RIGH T. This is probably all secondary to the dislocation on the LEFT.
--- NOTE | 2021-04-17 14:48 | ED_ITS ---
Documented by User: Lino Torres DO 04/26/21 08:16 HPI - General Adult General: Chief complaint: General Medical Stated complaint: DISLOCATED JAW Time Seen by Provider: 04/17/21 14:23 History of Present Illness: HPI narrative: 56-year-old female presents emergency room via EMS. States she dislocated the left side of her jaw 3 days ago. She was seen at another local emergency room they had advised her she would need to be transferred to [place] she refused because logistical concerns went home. She states she has been using a liquid diet only since then. No specific trauma he said happened after she yawned. Arvin bojorquez has not found anything to make it better or worse. She has had this happen in the past. She has a history of alcohol abuse. Associated symptoms: Deny chest pain, dyspnea, malaise, nausea, rash or vomiting Review of Systems Const: Denies: fever(s), chills, body aches, change in appetite, fatigue or malaise ENMT: Denies: throat pain, ear or mastoid pain, nasal discharge or nasal congestion Card: Denies: chest pain, edema, dyspnea on exertion or orthopnea Resp: Denies: dyspnea, productive cough or non-productive cough GI: Denies: abdominal pain, nausea, vomiting, hematemesis, coffee ground emesis, diarrhea, constipation, bloating, hematochezia or melena : Denies: flank pain, difficulty voiding, dysuria, urinary frequency or uri nary urgency Skin/Breast: Denies: rash or pruritus PFSH ED PFSH: Medical History Alcohol use disorder, moderate, in sustained remission Bipolar II disorder Borderline personality disorder 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 nicotine dependence 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 Pain management contract signed Panic disorder Psychiatric care Surgical History Hx of section Hx of hysterectomy Social History Alcohol intake: former Lives independently: Yes History of recent travel: No Physical Exam Const: COMMON NORMALS: no acute distress GENERAL APPEARANCE: cooperative and comfortable ORIENTATION/CONSCIOUSNESS: Yes awake, Yes oriented to person, Yes oriented to place and Yes oriented to time HENMT: COMMON NORMALS: normocephalic, atraumatic, hearing grossly normal bilaterally, external ears normal, EAC's normal, TM's normal bilaterally, Normal nasal mucous membranes and turbinates present, moist oral mucous membranes and oropharynx normal HEAD & SCALP: normocephalic and atraumatic NOSE: Normal nasal mucous membranes and turbinates present EXTERNAL EAR: Yes external ears normal EXTERNAL AUDITORY CANAL: EAC's normal TYMPANIC MEMBRANE: TM's normal bilaterally OTHER: TemporalPalpable deformity of the mandibular joint patient is unable to open and close mouth in normal fashion jaw deviates to the right. Eye: COMMON NORMALS: Equal, round and reactive pupils present, EOMs intact bilaterally, conjunctivae normal and no scleral icterus CONJUNCTIVA: Yes conjunctivae normal PUPIL: Yes Equal, round and reactive pupils present Neck/C-Spine: COMMON NORMALS: full ROM, no lymphadenopathy, supple and no JVD Lymph: LYMPHATIC: no lymphadenopathy noted and no lymphedema noted Resp: COMMON NORMALS: normal respiratory effort, No retractions, No use of accessory muscles and clear to auscultation bilaterally AUSCULTATION: clear to auscultation bilaterally Cardio: COMMON NORMALS: no JVD, regular rate, regular rhythm and No murmurs present (Cardio) RATE: regular rate RHYTHM: regular rhythm GI: COMMON NORMALS: Soft to palpation and No hepatosplenomegaly present AUSCULTATION: Yes normoactive bowel sounds PALPATION: Yes Soft to palpation, No Tenderness to palpation present (GI), No Guarding due to palpation present (GI) and Yes No hepatosplenomegaly present Extremity: COMMON NORMALS: normal to inspection, capillary refill normal, no clubbing, cyanosis or edema, no calf tenderness and no pedal edema Neuro: SENSORIUM/ORIENTATION: Yes oriented to person, Yes oriented to place and Yes oriented to time Skin: COMMON NORMALS: no rashes or lesions noted GENERAL SKIN EXAM: no rashes or lesions noted Course Vital Signs: Vital signs: Vital Signs Pulse Rate 97 04/17/21 19:59 Respiratory Rate 12 04/17/21 19:59 Blood Pressure 127/70 04/17/21 19:59 Pulse Oximetry 97 04/17/21 19:59 MDM - General Adult MDM Narrative Medical decision making narrative: CT shows dislocation of the left temporomandibular joint. ER has extremely high volume we are waiting to get her into her room so we can do conscious sedation to reduce the jaw. At change of shift care was transferred to Dr. Lynn for conscious sedation and reduction of dislocation see his note final diagnosis and disposition Medical Records Attestation: I reviewed the patient's medical records. Lab Data Attestation: I reviewed the patient's lab results. Discharge Plan Discharge Patient Disposition: Home Clinical Impression: Dislocation of jaw Condition: Stable Prescriptions: New hydrocodone-acetaminophen 5-325 mg tablet 1 tab PO Q6H PRN (Reason: pain) Qty: 14 0RF No Action baclofen 10 mg tablet 20 mg PO TID PRN (Reason: Muscle Spasm) 0RF atorvastatin 20 mg tablet 20 mg PO BEDTIME 0RF lamotrigine 200 mg tablet 400 mg PO QAM Qty: 180 2RF Rx Instructions: Take two tablets every morning trazodone 100 mg tablet 300 mg PO BEDTIME Qty: 270 2RF Rx Instructions: Take three tablets at bedtime (DME) Bone Growth Stimulator E0748 See Rx Instructions .Route .MEDSUPPLY Qty: 1 0RF Rx Instructions: As directed nicotine 21-14-7 mg/24 hr patch, TD daily, sequential 1 patch transdermal DAILY Qty: 56 0RF alprazolam 1 mg tablet 0.5 mg PO TID Qty: 45 3RF tramadol 50 mg tablet 50 mg PO Q6H PRN (Reason: pain) Qty: 30 0RF tramadol 50 mg tablet 50 mg PO .Q6hr PRN (Reason: pain) Qty: 30 0RF ibuprofen 800 mg tablet 800 mg PO TID PRN (Reason: Pain) 0RF albuterol sulfate 90 mcg/actuation HFA aerosol inhaler 2 puff INHALATION Q4H PRN (Reason: Shortness Of Breath) 0RF fluticasone propionate 50 mcg/actuation [place],Suspension 1 spray INTRANASAL BID PRN (Reason: Allergy Symptoms) 0RF levothyroxine 112 mcg tablet 112 mcg PO QAM 0RF Discharge Orders: Discharge ED (Routine); Ordered 04/17/21 Ordered By: Dmitry Lynn Referrals: Jovan Spaulding MD [Physician] - 1-3 days Srinivasan,NATHANIEL Mancia [Primary Care Provider] - Discharge Diet: Advance as tolerated Discharge Activity: Resume usual activity Patient Instructions: Jaw Dislocation (ED), Opioid Safety Coding Level of Care Code ED Sales Attendant for Chg Fwd Exam Comprehensive Documented by User: Dmitry Lynn MD 04/17/21 19:00 HPI - General Adult General: Chief complaint: General Medical Stated complaint: DISLOCATED JAW Time Seen by Provider: 04/17/21 14:23 PFSH ED PFSH: Medical History Alcohol use disorder, moderate, in sustained remission Bipolar II disorder Borderline personality disorder Cigarette nicotine dependence 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 Pain management contract signed Panic disorder Psychiatric care Surgical History Hx of section Hx of hysterectomy Social History Alcohol intake: former Lives independently: Yes History of recent travel: No Physical Exam Const: COMMON NORMALS: no acute distress, patient oriented x3 and healthy appearing HENMT: COMMON NORMALS: normocephalic and atraumatic HEAD & SCALP: normocephalic and atraumatic OTHER: Anterior dislocation of left jaw Eye: COMMON NORMALS: Equal, round and reactive pupils present and EOMs intact bilaterally PUPIL: Yes Equal, round and reactive pupils present Neck/C-Spine: COMMON NORMALS: full ROM and supple Chest: COMMONS NORMALS: normal inspection of the chest and normal palpation of entire chest wall Resp: COMMON NORMALS: normal respiratory effort, No retractions, No use of accessory muscles and clear to auscultation bilaterally AUSCULTATION: clear to auscultation bilaterally Cardio: COMMON NORMALS: regular rate, regular rhythm and No murmurs present (Cardio) RATE: regular rate RHYTHM: regular rhythm GI: COMMON NORMALS: Normal to inspection, nondistended, normoactive bowel sounds present, Soft to palpation, non-tender and no masses PALPATION: Yes Soft to palpation Extremity: COMMON NORMALS: normal to inspection and full ROM Neuro: COMMON NORMALS: patient oriented x3, moves all extremities and no focal motor deficits Psych: COMMON NORMALS: mental status grossly normal, Normal thought process present and cooperative THOUGHT PROCESS: Normal thought process present Skin: COMMON NORMALS: no rashes or lesions noted and no wounds GENERAL SKIN EXAM: no rashes or lesions noted Procedures Jaw Reduction Time Out Performed: Yes Pre-Treatment Medications Used: other Technique used: downward anterior traction Reduction successful: Yes Patient Tolerated Procedure: well Complications: none Procedural Sedation Indication: fracture/dislocation reduction ASA Class: I Time of Last PO Intake: 12:47 Preparation: manager monitoring applied and pulse oximeter IV Propofol dose (mg): 100 Complications: none Interventions: oxygen applied Course Vital Signs: Vital signs: Vital Signs Pulse Rate 97 04/17/21 19:59 Respiratory Rate 12 04/17/21 19:59 Blood Pressure 127/70 04/17/21 19:59 Pulse Oximetry 97 04/17/21 19:59 MDM - General Adult MDM Narrative Medical decision making narrative: Patient presents here with a jaw dislocation patient was reduced here she is stable for discharge we will get her follow-up with ENT. Discharge Plan Discharge Patient Disposition: Home Clinical Impression: Dislocation of jaw Condition: Stable Prescriptions: New hydrocodone-acetaminophen 5-325 mg tablet 1 tab PO Q6H PRN (Reason: pain) Qty: 14 0RF No Action baclofen 10 mg tablet 20 mg PO TID PRN (Reason: Muscle Spasm) 0RF atorvastatin 20 mg tablet 20 mg PO BEDTIME 0RF lamotrigine 200 mg tablet 400 mg PO QAM Qty: 180 2RF Rx Instructions: Take two tablets every morning trazodone 100 mg tablet 300 mg PO BEDTIME Qty: 270 2RF Rx Instructions: Take three tablets at bedtime (DME) Bone Growth Stimulator E0748 See Rx Instructions .Route .MEDSUPPLY Qty: 1 0RF Rx Instructions: As directed nicotine 21-14-7 mg/24 hr patch, TD daily, sequential 1 patch transdermal DAILY Qty: 56 0RF alprazolam 1 mg tablet 0.5 mg PO TID Qty: 45 3RF tramadol 50 mg tablet 50 mg PO Q6H PRN (Reason: pain) Qty: 30 0RF tramadol 50 mg tablet 50 mg PO .Q6hr PRN (Reason: pain) Qty: 30 0RF ibuprofen 800 mg tablet 800 mg PO TID PRN (Reason: Pain) 0RF albuterol sulfate 90 mcg/actuation HFA aerosol inhaler 2 puff INHALATION Q4H PRN (Reason: Shortness Of Breath) 0RF fluticasone propionate 50 mcg/actuation [place],Suspension 1 spray INTRANASAL BID PRN (Reason: Allergy Symptoms) 0RF levothyroxine 112 mcg tablet 112 mcg PO QAM 0RF Discharge Orders: Discharge ED (Routine); Ordered 04/17/21 Ordered By: Dmitry Lynn Referrals: Jovan Spaulding MD [Physician] - 1-3 days Srinivasan,NATHANIEL Mancia [Primary Care Provider] - Discharge Diet: Advance as tolerated Discharge Activity: Resume usual activity Patient Instructions: Jaw Dislocation (ED), Opioid Safety Coding Level of Care Code ED Sales Attendant for Chg Fwd Exam Comprehensive
[2021-04-17] MEDS: morphine 4 mg/mL SDV 1 mL IVP (16:22)
[2021-04-17] MEDS: ondansetron 2 mg/ML SDV 2 mL 4 MG IVP (16:22)
[2021-04-17 18:16] VITALS: BP 114/71; PULSE 92; RESP 16; O2SAT 99
[2021-04-17] MEDS: propofol 10 mg/mL SDV 20 mL 100 MG IVP (18:42)
[2021-04-17 18:51] VITALS: BP 133/75; PULSE 92; RESP 16; O2SAT 97
--- NOTE | 2021-04-17 19:01 | PC.NURSE ---
PT Conscious Sedation Notes: pre-procedure checklist; O2, Bag, meds, consent. TIMe out 1839 Procedure start 1840 Procedure end 1844 Pre-Procedure vitals: HR - 88 O2 - 92 BP - 117/70 RR - 16 Pain - 7/10 60 mg of Propofol given by Dr. Lynn at 1841 40 mg of propofol given by Dr. Lynn at 1841 Procedure Vitals: 1841 HR- 92 O2 - 99% RR - 16 BP - 114/71 1843 HR - 85 O2 - 99% RR 14 BP - 125/79 Post Procedure vitals HR - 94 O2 - 97% RR - 20 BP - 135/74 Pt A&Ox4 post procedure. Coban applied around patient head to keep jaw in supported. Pt to be discharged home and follow up outpatient with [facility].
[2021-04-17 19:59] VITALS: BP 127/70; PULSE 97; RESP 12; O2SAT 97
--- NOTE | 2021-04-18 09:58 | DCPLANNER ---
installation manager had message to schedule a follow up appointment for patient with Dr. Spaulding. installation manager faxed patients information to the office of Dr. Spaulding, patients information will be reviewed. Clinic will call patient with appointment information.
== END 2021-04-17 20:01 | disposition home or self-care (01) ==
PROVIDERS: Emergency Provider Emergency Medicine; PCP Nurse Practitioner Family
DX: S03.02XA Dislocation of jaw, left side, initial encounter (principal); X58.XXXA Exposure to other specified factors, initial encounter
CPT/HCPCS: 21480; 70486; 96374; 96375; 99284; J2270; J2405; J2704

== ENCOUNTER 2021-05-11 15:08 | Emergency (ER) | payer MEDICARE, MEDICAID, SELFPAY ==
[2021-05-11 15:25] VITALS: BP 125/75; PULSE 114; RESP 20; TEMP 36.5; O2SAT 96; BMI 23.1
[2021-05-11 16:15] VITALS: BP 111/73; PULSE 114; RESP 18; TEMP 36.7; O2SAT 98
--- NOTE | 2021-05-11 16:29 | W.ED.BACK ---
HPI - Back Pain/Injury General: Chief Complaint: Back Pain/Injury Stated Complaint: BACK PAIN Time Seen by Provider: 05/11/21 16:14 History of Present Illness: 56-year-old female comes in complaining of low back pain. This been a chronic longstanding issue she is seen Dr. Ramirez for she lumbar laminectomy with fusion and stabilization. The last note from Dr. Ramirez recommended a CT myelogram which I cannot see has been done. MD elicited complaint: back pain Pertinent past history: back surgery Onset (ago): week(s) Timing: constant Severity: moderate Similar Symptoms Previously: Yes Quality: sharp Location: lumbar spine Radiation: left upper leg Exacerbating factors: sitting upright and walking Relieving factors: supine Associated symptoms: Deny abdominal pain, arthralgias, chills, change in bowel habits, difficulty walking, dysuria, fatigue, fecal incontinence, fever(s), hematuria, myalgias, nausea, numbness, syncope, tingling/numbness/burning, urinary frequency, urinary urgency, vomiting or weakness Review of Systems Const: Denies: fever(s), chills or fatigue ENMT: Denies: throat pain, ear or mastoid pain, nasal discharge or nasal congestion Card: Denies: syncope Resp: Denies: dyspnea, productive cough or non-productive cough GI: Denies: abdominal pain, nausea, vomiting, fecal incontinence or change in bowel habits : Denies: dysuria, urinary urgency or hematuria Skin/Breast: Denies: rash or pruritus Neuro: Denies: difficulty walking PFSH ED PFSH: Medical History Alcohol use disorder, moderate, in sustained remission Bipolar II disorder Borderline personality disorder 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 Pain management contract signed Panic disorder Psychiatric care Surgical History Hx of section Hx of hysterectomy Social History Alcohol intake: former Lives independently: Yes History of recent travel: No Physical Exam Const: COMMON NORMALS: no acute distress GENERAL APPEARANCE: cooperative and comfortable ORIENTATION/CONSCIOUSNESS: Yes awake, Yes oriented to person, Yes oriented to place and Yes oriented to time HENMT: COMMON NORMALS: normocephalic, atraumatic and hearing grossly normal bilaterally HEAD & SCALP: normocephalic and atraumatic Neck/C-Spine: COMMON NORMALS: no JVD Resp: COMMON NORMALS: normal respiratory effort, No retractions, No use of accessory muscles and clear to auscultation bilaterally AUSCULTATION: clear to auscultation bilaterally Cardio: COMMON NORMALS: no JVD, regular rate, regular rhythm and No murmurs present (Cardio) RATE: regular rate RHYTHM: regular rhythm GI: COMMON NORMALS: Soft to palpation and No hepatosplenomegaly present AUSCULTATION: Yes normoactive bowel sounds PALPATION: Yes Soft to palpation, No Tenderness to palpation present (GI), No Guarding due to palpation present (GI) and Yes No hepatosplenomegaly present Extremity: COMMON NORMALS: normal to inspection, capillary refill normal, no clubbing, cyanosis or edema, no calf tenderness and no pedal edema OTHER: Straight leg raising mildly positive on the left leg dorsal and flexion 5 5 deep tendon reflex +1 of 4 bilaterally patellar tendons. Neuro: SENSORIUM/ORIENTATION: Yes oriented to person, Yes oriented to place and Yes oriented to time Skin: COMMON NORMALS: no rashes or lesions noted GENERAL SKIN EXAM: no rashes or lesions noted Course Vital Signs: Vital signs: Vital Signs Temperature 98.1 F 05/11/21 16:15 Pulse Rate 114 H 05/11/21 16:15 Respiratory Rate 18 05/11/21 17:43 Blood Pressure 111/73 05/11/21 16:15 Pulse Oximetry 99 05/11/21 17:43 MDM - Back Pain/Injury Medical Decision Making Discussed Dr. Ramirez will discharge patient with pain medications follow-up in his office he will arrange for CT myelogram. Medical Records I reviewed the patient's medical records. Discharge Plan Discharge Patient Disposition: Home Clinical Impression: Chronic low back pain Condition: Stable Prescriptions: New prednisone 20 mg tablet 20 mg PO BID 7 Days Qty: 15 0RF Rx Instructions: 1 p.o. 3 times daily x3 days, 1 p.o. twice daily x2 days, 1 p.o. daily x2 days tizanidine 4 mg capsule 4 mg PO Q6H PRN (Reason: muscle spasticity) Qty: 20 0RF Rx Instructions: do not exceed 3 doses per 24 hrs tramadol 50 mg tablet 50 mg PO Q6H PRN (Reason: pain) Qty: 20 0RF Lyrica 75 mg capsule 75 mg PO BID Qty: 30 0RF No Action baclofen 10 mg tablet 20 mg PO TID PRN (Reason: Muscle Spasm) 0RF atorvastatin 20 mg tablet 20 mg PO BEDTIME 0RF lamotrigine 200 mg tablet 400 mg PO QAM Qty: 180 2RF Rx Instructions: Take two tablets every morning trazodone 100 mg tablet 300 mg PO BEDTIME Qty: 270 2RF Rx Instructions: Take three tablets at bedtime (DME) Bone Growth Stimulator E0748 See Rx Instructions .Route .MEDSUPPLY Qty: 1 0RF Rx Instructions: As directed nicotine 21-14-7 mg/24 hr patch, TD daily, sequential 1 patch transdermal DAILY Qty: 56 0RF alprazolam 1 mg tablet 0.5 mg PO TID Qty: 45 3RF tramadol 50 mg tablet 50 mg PO Q6H PRN (Reason: pain) Qty: 30 0RF tramadol 50 mg tablet 50 mg PO .Q6hr PRN (Reason: pain) Qty: 30 0RF hydrocodone-acetaminophen 5-325 mg tablet 1 tab PO Q6H PRN (Reason: pain) Qty: 14 0RF ibuprofen 800 mg tablet 800 mg PO TID PRN (Reason: Pain) 0RF albuterol sulfate 90 mcg/actuation HFA aerosol inhaler 2 puff INHALATION Q4H PRN (Reason: Shortness Of Breath) 0RF fluticasone propionate 50 mcg/actuation [place],Suspension 1 spray INTRANASAL BID PRN (Reason: Allergy Symptoms) 0RF levothyroxine 112 mcg tablet 112 mcg PO QAM 0RF Discharge Orders: Discharge ED (Routine); Ordered 05/11/21 Ordered By: Lino Torres Referrals: Srinivasan,Blanche, ACCOUNTS RECEIVABLE ASSISTANT [Primary Care Provider] - Discharge Diet: Usual diet Discharge Activity: Increase activity as tolerated Patient Instructions: Opioid Safety Activity Restrictions/Additional Instructions: Follow-up with Dr. Ramirez's office for further testing. Coding Level of Care Code ED Porcelain Buildup Assistant for Zac Gaines
[2021-05-11] MEDS: dexamethasone 10 mg/mL INJ IM (17:02)
[2021-05-11 17:07] VITALS: RESP 18
[2021-05-11] MEDS: morphine 4 mg/mL SDV 1 mL IM (17:07)
[2021-05-11] MEDS: orphenadrine 30 mg/mL Inj 2 mL 60 MG IM (17:11)
--- NOTE | 2021-05-11 17:29 | PC.NURSE ---
Patient documentation reviewed. Patient denies questions at present time. No concerns voiced.
[2021-05-11 17:43] VITALS: RESP 18; O2SAT 99
== END 2021-05-11 17:35 | disposition home or self-care (01) ==
PROVIDERS: Emergency Provider Family Medicine; PCP Nurse Practitioner Family
DX: G89.29 Other chronic pain (principal); M54.50 Low back pain, unspecified
CPT/HCPCS: 96372; 99283; J1100; J2270; J2360

== ENCOUNTER 2021-05-18 09:40 | Outpatient (CLI) | payer MEDICARE, MEDICAID, SELFPAY ==
--- NOTE | 2021-05-18 09:48 | CT_ITS ---
WS: [id number] CT LUMBAR myelogram TECHNIQUE: CT myelogram of the lumbar spine with coronal and sagittal reformatted images. CLINICAL INFORMATION: Z98.890 - Other specified postprocedural states COMPARISON: MRI June 08, 2020 DLP: 1156.[address] scans at [facility] use at least one of these dose optimization techniques: automated e xposure control; mA and/or kV adjustment per patient size (includes targeted exams where dose is matc hed to clinical indication); or iterative reconstruction. FINDINGS: Prior postoperative changes pedicle screw fixation L4-S1 with interconnecting rods. Interbody fusion grafts LEFT L4-L5 and L5-S1. Hardware appears intact. Lucency along the LEFT L4 and bilateral S1 pedi manuel screws consistent with loosening. LEFT L4 pedicle screw with slight cephalad angulation extending into the L3-L4 disc space. Interbody fusion grafts LEFT L4-L5 and L5-S1. No significant bony bridgin g beyond the confines of the grafts. LEFT L4-L5 and LEFT L5-S1 laminectomy defects. Subsidence along the interbody fusion grafts. Sclerosis and demineralization involving the L3-L4 L4-L5 and L5-S1 endpl ates. Mild chronic compression with anterior wedging L4 anteriorly. L1-L2: Central disc osteophyte protrusion with slight effacement of ventral thecal sac. Mild central canal stenosis. Foramen are patent. L2-L3: Mild annular bulging. Mild facet arthropathy. Spinal canal and foramen are patent. L3-L4: Pedicle screw fixation. Mild disc bulging with osteophytic ridging. Mild/moderate central danni l stenosis. Narrowing of the subarticular recess bilaterally. Moderate bilateral foraminal narrowing. L4-L5: Pedicle screw fixation. Interbody fusion. Spinal canal is patent. Foramen are patent. L5-S1: Postoperative changes pedicle screw fixation with interbody fusion. Spinal canal is patent. Fo ramen are patent. Visualized pelvic bony structures: Normal. Paravertebral soft tissues: Normal. CT/CT lumbar spine w con [id number] IMPRESSION: 1. Prior pedicle screw fixation L4-S1 with LEFT interbody fusion grafts L4-L5 and L5-S1. Hardware appears intact. 2. Lucency with loosening of the LEFT L4 and bilateral S1 pedicle screws 3. Subsidence involving the LEFT L4-L5 and L5-S1 fusion grafts without evidenc e of bony bridging beyond the confines of the grafts. 4. Endplate erosive changes with demineralization involving the L3-L4 and L4-L 5 endplates with mild compression involving the L4 vertebral body with anterior wedging. 5. Mild to moderate central canal stenosis L3-L4 due to disc osteophyte comple x with impingement subarticular recess bilaterally. Moderate bilateral bony for aminal narrowing. 6. LEFT L3 pedicle screw extends into the L3-L4 disc space. 7. Spinal canal and foramen are patent at the L4-L5 and L5-S1 levels. 8. Central disc osteophyte protrusion L1-L2 with mild central canal stenosis a nd slight effacement of ventral thecal sac.
--- NOTE | 2021-05-18 10:31 | IR_ITS ---
WS: [id number] MYELOGRAM LUMBAR SPINE Fluoroscopic guided lumbar myelogram CLINICAL INFORMATION: Z98.890 - Other specified postprocedural states COMPARISON: Radiograph March 16, 2021 TECHNIQUE: The procedure, including risks, benefits, and complications, were discussed with the patie nt who agreed to proceed. A timeout was performed to confirm correct patient, procedure, and site. Using sterile technique, the patient was prepped and draped in the usual sterile fashion. After admin istration of local anesthesia using 1% preservative-free lidocaine and using fluoroscopic guidance, a 22-gauge spinal needle was advanced into the subarachnoid space at the L3-L4 level. Subsequently 13 cc of Omnipaque 240 was administered into the thecal sac. The needle was removed and hemostasis was a chieved. Spot fluoroscopic images were obtained. FLUOROSCOPIC TIME: 1.0 minutes. Spot fluoroscopic images demonstrate pedicle screw fixation L4-S1 with interconnecting rods. Interbod y fusion grafts appear stable in appearance. LEFT L4 pedicle screw appears to extend into the L3-L4 d isc space. This will be further evaluated on the concurrent CT. Lumbar curve convex RIGHT. IR/IR myelogram sp lumbar [id number] IMPRESSION: 1. Uncomplicated lumbar myelogram. 2. Prior postoperative changes L4-S1 pedicle screw fixation with interconnecti ng rods. Interbody fusion grafts. 3. LEFT L4 pedicle screw extends into the L3-L4 disc space. This will be furth er evaluated on the concurrent CT. 4. Mild to moderate central canal stenosis L3-L4. Please see CT myelogram report for additional detail.
[2021-05-18] MEDS: iohexol 240 mg/mL 50 mL Btl INTRATHECA (13:00)
== END 2021-05-18 09:41 | disposition home or self-care (01) ==
LOC: RAD 09:41
PROVIDERS: PCP Nurse Practitioner Family; Visit Provider Orthopaedic Surgery
DX: Z98.890 Other specified postprocedural states (principal); M48.062 Spinal stenosis, lumbar region with neurogenic claudication; M25.78 Osteophyte, vertebrae; M48.061 Spinal stenosis, lumbar region without neurogenic claudication; M81.0 Age-related osteoporosis without current pathological fracture
CPT/HCPCS: 62304; 72120; 72132

== ENCOUNTER 2021-05-29 10:48 | Inpatient (IN) | payer MEDICARE, MEDICAID, SELFPAY ==
[2021-05-29] VITALS (17 sets, daily range): BP systolic 98–110; BP diastolic 54–74; PULSE 68–105; RESP 14–20; TEMP 36.2–37.1; O2SAT 91–96; BMI 23.0
--- NOTE | 2021-05-29 09:55 | ECG_ITS ---
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 Measurements Intervals [place] Rate: 114 P: 71 MN: 137 QRS: 82 QRSD: 87 T: 67 QT: 308 QTc: 425 Interpretive Statements SINUS TACHYCARDIA NONSPECIFIC ST & T-WAVE ABNORMALITY ABNORMAL RHYTHM ECG No previous ECG available for comparison Electronically Signed On 05-29-2021 17:04:51 SCIENCES DEAN by Jesus Montaño M.D. [id number]
--- NOTE | 2021-05-29 09:55 | CT_ITS ---
WS: [id number] CT pelvis TECHNIQUE: Contrast-enhanced CT of the pelvis with coronal and sagittal reformatted images. CLINICAL INFORMATION: stage 4 dacral ulcer COMPARISON: CT lumbar May 18, 2021 DLP: 240.[address] scans at [facility] use at least one of these dose optimization techniques: automated e xposure control; mA and/or kV adjustment per patient size (includes targeted exams where dose is matc hed to clinical indication); or iterative reconstruction. FINDINGS: Prior postoperative changes pedicle screw fixation L4-S1 with interconnecting rods. Interbody fusion grafts LEFT L4-L5 and LEFT L5-S1. Lucency along the LEFT L4 and bilateral S1 pedicle screws consisten t with loosening is unchanged. Associated laminectomy defects lower lumbar spine. Urine distended bladder. Decubitus ulcer overlying the coccyx measuring 1.0 x 2.4 x 2.0 CM. Skin thickening with cellulitis in this area. Surrounding inflammatory stranding and induration. No drainable abscess or fluid collecti on. Decubitus ulcer abuts the bony coccyx but no evidence of bony destruction to indicate osteomyelit is at this time. CT/CT pelvis w con* [id number] IMPRESSION: 1. Decubitus ulcer overlying the coccyx measuring 1.0 x 2.4 x 2.0 CM. Skin thi ckening with cellulitis in this area. 2. No drainable abscess or fluid collection. 3. Decubitus ulcer abuts the bony coccyx but no evidence of bony destruction t o indicate osteomyelitis 4. Urine distended bladder.
[2021-05-29] MEDS: lactated ringers 1,000 ML 999 ML IV (10:03)
[2021-05-29] MEDS: ondansetron 2 mg/ML SDV 2 mL 4 MG IVP (10:04)
[2021-05-29] MEDS: morphine 4 mg/mL SDV 1 mL IVP ×3 (10:04→19:14)
[2021-05-29 10:05] LABS: Basophils % 0.2 %; Hematocrit 30.7 % (37.0-47.0); Hemoglobin 9.7 g/dL (11.5-15.3); Mean Corpuscular HGB Conc 31.6 g/dL (30.0-36.0); Mean Corpuscular Hemoglobin 30.4 pg (28.0-34.0); Mean Corpuscular Volume 96.2 fl (81-99); Mean Platelet Volume 9.3 fL (7.4-10.4); Monocytes # 0.6 10^3/uL (0.2-0.9); Monocytes % 3.3 %; Neutrophils # 12.78 10^3/uL (1.8-7.7); Neutrophils % 77.8 %; Nucleated Red Blood Cells % 0 %; Platelet Count 675 10^3/cmm (130-400); Red Blood Count 3.19 10^6/uL (4.1-5.3); White Blood Count 16.4 10^3/uL (4.0-10.0)
[2021-05-29 10:34] LABS: Alanine Aminotransferase 18 U/L (0-33); Albumin Level 3.6 g/dL (3.5-5.2); Alkaline Phosphatase 395 IU/L (35-105); Anion Gap 22.3 (5-19); Aspartate Amino Transferase 15 U/L (0-32); Blood Urea Nitrogen 17 mg/dL (6-20); Carbon Dioxide 19 mmol/L (22-29); Chloride 96 mmol/L (98-107); Creatine Phosphokinase 60 U/L (26-192); Creatinine Clr Calc Pharmacy 90.9471; Glomerular Filtration Rate 103.4 mL/min (90-130); Glucose 158 mg/dL (65-115); Osmolality Calculated 283 mOsm/kg (285-295); Potassium 3.3 mmol/L (3.5-5.1); Sodium 134 mmol/L (136-145); Total Bilirubin 0.5 mg/dL (0.15-1.2); Total Protein 7.6 g/dL (6.6-8.7)
--- NOTE | 2021-05-29 10:42 | ED_ITS ---
HPI - Wound/Laceration General: Chief Complaint: Wound/Laceration Stated Complaint: back pain Source: patient Mode of arrival: EMS History of Present Illness: 56-year-old female presents emergency room complaining of back pain with a wound on her buttocks and sacrum. She has had a large sacral ulcer for some time she is not seen her doctor for months is extremely foul-smelling and painful to the patient she thinks she has a screw loose from her previous surgery in her back. She denies any fever sweats or chills she is not had any fecal incontinence or urinary retention she actually is reporting constipation issues. Onset (ago): week(s) Location: other (Presacral) Place: home Context: other (Decubitus ulcer) Associated symptoms: Reports pain; Denies chills, fever(s), foreign body sensation, inability to move, nausea, numbness, syncope or vomiting Review of Systems Const: Denies: fever(s) or chills ENMT: Denies: throat pain, ear or mastoid pain, nasal discharge or nasal congestion Card: Denies: syncope Resp: Denies: dyspnea, productive cough or non-productive cough GI: Denies: nausea or vomiting : Denies: flank pain, difficulty voiding, dysuria, urinary frequency or urinary urgency Skin/Breast: Denies: rash or pruritus PFSH ED PFSH: Medical History Alcohol use disorder, moderate, in sustained remission Bipolar II disorder Borderline personality disorder Cigarette nicotine dependence Hyperlipidemia Hypothyroidism Panic disorder Postoperative wound infection (2020) MRSA Psychiatric care Surgical History History of fusion of lumbar spine (08/10/20) L4-L5, L5-S1 interbody fusion with posterolateral fusion, with cage at L4/5, L5/S1, revision laminectomy L4 and L5, Dr Ramirez History of laminectomy (02/22/20) L4-L5 laminectomy with partial facetectomy, Dr Ramirez Hx of section Hx of hysterectomy Family History Denies family history of CAD (coronary artery disease) Anesthesia complication Social History (Reviewed 05/30/21 @ 08:07 by SOCRATES Kraft Smoking and tobacco status: current every day smoker cigarettes Alcohol intake: former Substance/Drug Use: never Household members: family Physical Exam Const: COMMON NORMALS: no acute distress GENERAL APPEARANCE: cooperative and comfortable ORIENTATION/CONSCIOUSNESS: Yes awake, Yes oriented to person, Yes oriented to place and Yes oriented to time HENMT: COMMON NORMALS: normocephalic, atraumatic and hearing grossly normal bilaterally HEAD & SCALP: normocephalic and atraumatic Neck/C-Spine: COMMON NORMALS: no JVD Resp: COMMON NORMALS: normal respiratory effort, No retractions, No use of accessory muscles and clear to auscultation bilaterally AUSCULTATION: clear to auscultation bilaterally Cardio: COMMON NORMALS: no JVD, regular rate, regular rhythm and No murmurs present (Cardio) RATE: regular rate RHYTHM: regular rhythm GI: COMMON NORMALS: Soft to palpation and No hepatosplenomegaly present AUSCULTATION: Yes normoactive bowel sounds PALPATION: Yes Soft to palpation, No Tenderness to palpation present (GI), No Guarding due to palpation present (GI) and Yes No hepatosplenomegaly present Extremity: COMMON NORMALS: normal to inspection, capillary refill normal, no clubbing, cyanosis or edema, no calf tenderness and no pedal edema Neuro: SENSORIUM/ORIENTATION: Yes oriented to person, Yes oriented to place and Yes oriented to time Skin: OTHER: Large presacral ulcer with mucousy eschar. It is full-thickness there appears to be some exposed bone I did not probe. At the edges it appears to be undermined approximately 12 to 14 cm round irregular. Is extremely foul- smelling localized the edges are red and inflamed there is no active drainage. Patient has covered with a bandage. Course Vital Signs: Vital signs: Vital Signs Temperature 98.4 F 05/30/21 08:00 Pulse Rate 67 05/30/21 08:00 Respiratory Rate 18 05/30/21 08:00 Blood Pressure 102/68 05/30/21 08:00 Pulse Oximetry 94 05/30/21 08:00 MDM - Wound/Laceration Medical Decision Making Cellulitis was significant decubitus ulcer. Suspect ongoing infection and given her alk phos and CRP also suspect there is some osteomyelitis. CT read as no osteomyelitis I am still quite skeptical. Discussed with hospitalist will admit started on vancomycin cultures have been ordered at some point will likely need surgical debridement. Dr. Chapin is going to consult surgery if needed. Medical Records I reviewed the patient's medical records. Lab Data I reviewed the patient's lab results. : 05/30/21 01:47 05/30/21 01:[address] 05/29/21 09:55 IMPRESSION: 1. Decubitus ulcer overlying the coccyx measuring 1.0 x 2.4 x 2.0 CM. Skin thickening with cellulitis in this area. 2. No drainable abscess or fluid collection. 3. Decubitus ulcer abuts the bony coccyx but no evidence of bony destruction to indicate osteomyelitis 4. Urine distended bladder. Laboratory Results WBC 16.4 10^3/uL (4.0-10.0) H 05/29/21 09:10 RBC 3.19 10^6/uL (4.1-5.3) L 05/29/21 09:10 Hgb 9.7 g/dL (11.5-15.3) L 05/29/21 09:10 Hct 30.7 % (37.0-47.0) L 05/29/21 09:10 MCV 96.2 fl (81-99) 05/29/21 09:10 MCH 30.4 pg (28.0-34.0) 05/29/21 09:10 MCHC 31.6 g/dL (30.0-36.0) 05/29/21 09:10 RDW 18.0 % (12.1-15.1) H 05/29/21 09:10 Plt Count 675 10^3/cmm (130-400) H 05/29/21 09:10 MPV 9.3 fL (7.4-10.4) 05/29/21 09:10 Neut % (Auto) 77.8 % 05/29/21 09:10 Lymph % (Auto) 18.0 % 05/29/21 09:10 [place] % (Auto) 3.3 % 05/29/21 09:10 Eos % (Auto) 0.0 % 05/29/21 09:10 Baso % (Auto) 0.2 % 05/29/21 09:10 Neut # (Auto) 12.78 10^3/uL (1.8-7.7) H 05/29/21 09:10 Lymph # (Auto) 3.0 10^3/uL (0.8-4.8) 05/29/21 09:10 [place] # (Auto) 0.6 10^3/uL (0.2-0.9) 05/29/21 09:10 Eos # (Auto) 0.0 10^3/uL (0.0-0.8) 05/29/21 09:10 Baso # (Auto) 0.0 10^3/uL (0.0-0.1) 05/29/21 09:10 Nucleated RBC % (auto) 0 % 05/29/21 09:10 Nucleated RBCs # 0.0 /100WBC 05/29/21 09:10 ESR 52 mm/hr (0-15) H 05/29/21 09:10 Sodium 134 mmol/L (136-145) L 05/29/21 09:10 Potassium 3.3 mmol/L (3.5-5.1) L 05/29/21 09:10 Chloride 96 mmol/L (98-107) L 05/29/21 09:10 Carbon Dioxide 19 mmol/L (22-29) L 05/29/21 09:10 Anion Gap 22.3 (5-19) H 05/29/21 09:10 BUN 17 mg/dL (6-20) 05/29/21 09:10 Creatinine 0.6 mg/dL (0.5-0.9) 05/29/21 09:10 GFR Calculation 103.4 mL/min (90-130) 05/29/21 09:10 Glucose 158 mg/dL (65-115) H 05/29/21 09:10 Calculated Osmolality 283 mOsm/kg (285-295) L 05/29/21 09:10 Lactic Acid 1.6 mmol/L (0.5-2.2) 05/29/21 10:26 Calcium 10.0 mg/dL (8.5-10.5) 05/29/21 09:10 Total Bilirubin 0.5 mg/dL (0.15-1.2) 05/29/21 09:10 AST 15 U/L (0-32) 05/29/21 09:10 ALT 18 U/L (0-33) 05/29/21 09:10 Alkaline Phosphatase 395 IU/L (35-105) H 05/29/21 09:10 Creatine Kinase 60 U/L (26-192) 05/29/21 09:10 C-Reactive Protein 160.8 mg/L (0.0-4.9) H 05/29/21 09:10 Total Protein 7.6 g/dL (6.6-8.7) 05/29/21 09:10 Albumin 3.6 g/dL (3.5-5.2) 05/29/21 09:10 Globulin 4.0 g/dL (1.3-4.6) 05/29/21 09:10 Discharge Plan Discharge Patient Disposition: Admitted As Inpatient Admit Provider: Elham Chapin Clinical Impression: Cellulitis of sacral region, History of lumbosacral spine surgery, Pressure ulcer with suspected deep tissue injury, 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
[2021-05-29 10:55] LABS: Lactic Sepsis W/Reflex 1.6 mmol/L (0.5-2.2)
[2021-05-29 11:29] LABS: C Reactive Protein 160.8 mg/L (0.0-4.9)
[2021-05-29 11:35] LABS: Erythrocyte Sedimentation Rate 52 mm/hr (0-15)
[2021-05-29] MEDS: vancomycin 1,000 MG in sodium chloride 0.9% 250 ML 250 MG IV ×2 (12:06→23:01)
[2021-05-29] MEDS: iohexol 300 mg/mL 100 mL Btl IV (13:57)
--- NOTE | 2021-05-29 16:27 | PM.HP ---
Providers/Chief Complaint Admitting Physician: Elham Chapin MD Primary Care Provider: NATHANIEL Torrez Chief Complaint: back pain History of Present Illness Hilda Da Silva is a 56 year old female who presented to the emergency room with chief complaint of back pain. She has a history of back pain for some time. She has had 2 back surgeries in the past couple of years and follows with Dr. Ramirez. The last surgery was in July 2020 and was a fusion of L4 L5 and L5 S with revision laminectomies at L4-L5. After that surgery, she developed a wound at the superior aspect of her surgical incision, possibly a stitch abscess, with MRSA. She required I&D down to the surgical site back in August of last year. She has had some wound in her lower back region since then. She has followed with Dr. Ramirez outpatient, with last visit around March 16. At that time she was describing pain in her left leg and weakness as well as recurrent falls. She tells me that she has not been able to walk very well since that time. She has a walker. She spends a lot of her time in bed or chair. Her daughter lives with her and helps her as best she can. She has had progressive worsening of sacral area wound along with progressively worsening back pain that goes down both of her legs, left more so than right. She underwent CT of the lumbar spine with lumbar myelography on May 18. She was due to follow-up with Dr. Ramirez on June 01 regarding potential intervention for a left L4 pedicle screw I believe that was noted to be extending into the L3-L4 disc space. She has had several falls including 1 in which she sustained area of hematoma to her right forehead. She denied loss of consciousness but has continued to have falls as previously mentioned. She has not felt well the last few days. Unclear if she has had any fevers. Denies any nausea or vomiting. Denies changes in bowel or bladder function.. She was found to have extensive sacral area wound in the ER. CT imaging of the pelvis shows this to likely be more distal than on prior surgery site but deep. Patient was noted to have elevated white count and CRP. She received IV vancomycin and is being admitted for further care. She indicates that her daughter does what she can for her at home but is not able to manage the wounds and moving her around adequately. Review of Systems Const: Reports: fever(s), chills and malaise ENMT: Reports: dry mouth and nasal congestion; Denies: throat pain Card: Denies: chest pain, palpitations or edema Resp: Denies: dyspnea, productive cough or non-productive cough GI: Denies: abdominal pain, nausea, vomiting, diarrhea, constipation or hematochezia : Reports: other (Unaware that bladder was distended in ED); Denies: difficulty voiding Musc: Reports: neck pain, back pain, extremity pain and muscle weakness Skin/Breast: Reports: sores, non-healing lesions (Backside) and other (brusing to forehead from a fall) Neuro: Reports: headache(s), numbness in extremities (Left more than right), weakness in extremities (Left), difficulty walking (Has a walker) and frequent falls Psych: Reports: anxiety and depression Jam/Lymph: Denies: easy bruising or easy bleeding Medications/Allergies Home Medications Medication Instructions Recorded Confirmed Last Taken Type atorvastatin 20 mg tablet 20 mg PO BEDTIME 08/25/19 05/29/21 05/28/21 History Bone Growth Stimulator [id number] #1 ea 08/08/20 05/29/21 Unknown Rx nicotine 1 patch TRANSDERMAL DAILY #56 patch 08/15/20 05/29/21 09/07/20 Rx 21mg/24hr-14mg/24hr-7mg/24hr daily transderm patches,sequentl albuterol sulfate 90 mcg/actuation 2 puff INHALATION Q4H PRN 09/08/20 05/29/21 05/28/21 History aerosol inhaler fluticasone propionate 50 1 spray INTRANASAL BID PRN 09/08/20 05/29/21 05/29/21 History mcg/actuation nasal spray,suspension ibuprofen 800 mg tablet 800 mg PO TID PRN 09/08/20 05/29/21 05/29/21 History levothyroxine 112 mcg tablet 112 mcg PO QAM 09/08/20 05/29/21 05/29/21 History lamotrigine 200 mg tablet 400 mg PO QAM #180 tab 01/06/21 05/29/21 05/29/21 Rx trazodone 100 mg tablet 300 mg PO BEDTIME #270 tab 01/06/21 05/29/21 05/28/21 Rx alprazolam 1 mg tablet 0.5 mg PO TID #45 tab 03/07/21 05/29/21 05/29/21 Rx baclofen 10 mg tablet 20 mg PO TID PRN tab 04/05/21 05/29/21 05/28/21 History pregabalin 75 mg capsule (Lyrica) 75 mg PO BID #30 cap 05/11/21 05/29/21 05/28/21 Rx tizanidine 4 mg capsule 4 mg PO Q6H PRN #20 cap 05/11/21 05/29/21 05/28/21 Rx tramadol 50 mg tablet 50 mg PO Q6H PRN #20 tab 05/11/21 05/29/21 05/29/21 Rx Rolling walker #1 ea 05/17/21 05/29/21 Unknown Rx hydrochlorothiazide 12.5 mg capsule 12.5 mg PO PRN PRN 05/29/21 05/29/21 Unknown History Allergies Allergy/AdvReac Type Severity Reaction Status Date / Time naproxen Allergy Severe breathing Verified 05/29/21 16:55 issues gabapentin Allergy Intermediate ADR-Dizzine Verified 05/29/21 16:55 ss PFSH Acute PFSH: Medical History (Updated 05/29/21 @ 18:16 by Elham Chapin MD) Alcohol use disorder, moderate, in sustained remission Bipolar II disorder Borderline personality disorder Cigarette nicotine dependence Hyperlipidemia Hypothyroidism Panic disorder Postoperative wound infection (2020) MRSA Psychiatric care Surgical History (Updated 05/29/21 @ 18:13 by Elham Chapin MD) History of fusion of lumbar spine (08/10/20) L4-L5, L5-S1 interbody fusion with posterolateral fusion, with cage at L4/5, L5/S1, revision laminectomy L4 and L5, Dr Ramirez History of laminectomy (02/22/20) L4-L5 laminectomy with partial facetectomy, Dr Ramirez Hx of section Hx of hysterectomy Family History (Updated 05/29/21 @ 19:43 by Elham Chapin MD) Denies family history of CAD (coronary artery disease) Anesthesia complication Social History (Updated 05/29/21 @ 19:43 by Elham Chapin MD) Smoking and tobacco status: current every day smoker cigarettes Alcohol intake: former Substance/Drug Use: never Household members: family Vitals/I&O/Wt Last Vital Signs Temp 97.8 F 05/29/21 10:16 Pulse 88 05/29/21 10:16 Resp 18 05/29/21 11:07 BP 110/72 05/29/21 10:16 Pulse Ox 96 05/29/21 10:16 05/29/21 05/29/21 05/29/21 06:59 14:59 22:59 Intake Total 1250 / 1250 Balance 1250 / 1250 Weight last 48 hrs Weight 58.967 kg Physical Exam Narrative: Constitutional: Awake and alert, looks like she does not feel well, looks older than stated age HEENT: Patient with some bruising and mild swelling to the right frontal temporal area and in the right medial canthus, looks several days old with yellowing noted, extraocular movements are intact, pupils are equal bilaterally, nasopharynx is clear, oropharynx with dry membranes Neck: Supple Respiratory: Clear to auscultation bilaterally without any rales rhonchi or wheezes Cardiovascular: Regular rate and rhythm without any murmurs gallops or rubs Abdomen: Soft, nontender, positive bowel sounds : Arriola catheter in place Extremities: No pitting edema, no calf tenderness, keeps both feet at extension Skin: Dry, or about 2 cm in diameter to the left elbow with some surrounding abraded skin also dry and in the process of healing, overall skin has a slightly lite bronze appearance. Has approximately centimeter diameter wound in the sacrococcygeal area with foul odor and obviously necrotic tissue and surrounding erythema. Neuro: Approximately 4 beat clonus right foot, 3 beat left foot, toes are downgoing, slightly hyperreflexic, strength is equal both feet, appears weaker in the left leg more so than the right leg on attempted straight leg raise Psych: Flat affect, wants to be left alone to sleep presently Urinary Catheter Management: Arriola: Cath Placed During This Visit: yes Urethral Indwelling: Yes Reason for Continuing Indwelling Catheter: Assist Healing of Perineal & Sacral Wounds- Incontinent Patients Urinary Catheter Date of Insertion: 05/29/21 Data : 05/29/21 09:10 05/29/21 18:28 Other Labs: Radiology Impressions Pelvis CT 05/29/21 09:55 IMPRESSION: 1. Decubitus ulcer overlying the coccyx measuring 1.0 x 2.4 x 2.0 CM. Skin thickening with cellulitis in this area. 2. No drainable abscess or fluid collection. 3. Decubitus ulcer abuts the bony coccyx but no evidence of bony destruction to indicate osteomyelitis 4. Urine distended bladder. Laboratory Results WBC 16.4 10^3/uL (4.0-10.0) H 05/29/21 09:10 RBC 3.19 10^6/uL (4.1-5.3) L 05/29/21 09:10 Hgb 9.7 g/dL (11.5-15.3) L 05/29/21 09:10 Hct 30.7 % (37.0-47.0) L 05/29/21 09:10 MCV 96.2 fl (81-99) 05/29/21 09:10 MCH 30.4 pg (28.0-34.0) 05/29/21 09:10 MCHC 31.6 g/dL (30.0-36.0) 05/29/21 09:10 RDW 18.0 % (12.1-15.1) H 05/29/21 09:10 Plt Count 675 10^3/cmm (130-400) H 05/29/21 09:10 MPV 9.3 fL (7.4-10.4) 05/29/21 09:10 Neut % (Auto) 77.8 % 05/29/21 09:10 Lymph % (Auto) 18.0 % 05/29/21 09:10 [place] % (Auto) 3.3 % 05/29/21 09:10 Eos % (Auto) 0.0 % 05/29/21 09:10 Baso % (Auto) 0.2 % 05/29/21 09:10 Neut # (Auto) 12.78 10^3/uL (1.8-7.7) H 05/29/21 09:10 Lymph # (Auto) 3.0 10^3/uL (0.8-4.8) 05/29/21 09:10 [place] # (Auto) 0.6 10^3/uL (0.2-0.9) 05/29/21 09:10 Eos # (Auto) 0.0 10^3/uL (0.0-0.8) 05/29/21 09:10 Baso # (Auto) 0.0 10^3/uL (0.0-0.1) 05/29/21 09:10 Nucleated RBC % (auto) 0 % 05/29/21 09:10 Nucleated RBCs # 0.0 /100WBC 05/29/21 09:10 ESR 52 mm/hr (0-15) H 05/29/21 09:10 Sodium 134 mmol/L (136-145) L 05/29/21 09:10 Potassium 3.3 mmol/L (3.5-5.1) L 05/29/21 09:10 Chloride 96 mmol/L (98-107) L 05/29/21 09:10 Carbon Dioxide 19 mmol/L (22-29) L 05/29/21 09:10 Anion Gap 22.3 (5-19) H 05/29/21 09:10 BUN 17 mg/dL (6-20) 05/29/21 09:10 Creatinine 0.6 mg/dL (0.5-0.9) 05/29/21 09:10 GFR Calculation 103.4 mL/min (90-130) 05/29/21 09:10 Glucose 158 mg/dL (65-115) H 05/29/21 09:10 Calculated Osmolality 283 mOsm/kg (285-295) L 05/29/21 09:10 Lactic Acid 1.6 mmol/L (0.5-2.2) 05/29/21 10:26 Calcium 10.0 mg/dL (8.5-10.5) 05/29/21 09:10 Total Bilirubin 0.5 mg/dL (0.15-1.2) 05/29/21 09:10 AST 15 U/L (0-32) 05/29/21 09:10 ALT 18 U/L (0-33) 05/29/21 09:10 Alkaline Phosphatase 395 IU/L (35-105) H 05/29/21 09:10 Creatine Kinase 60 U/L (26-192) 05/29/21 09:10 C-Reactive Protein 160.8 mg/L (0.0-4.9) H 05/29/21 09:10 Total Protein 7.6 g/dL (6.6-8.7) 05/29/21 09:10 Albumin 3.6 g/dL (3.5-5.2) 05/29/21 09:10 Globulin 4.0 g/dL (1.3-4.6) 05/29/21 09:10 Micro: Microbiology 05/29/21 10:26 Blood Culture - Preliminary Blood SPECIMEN COLLECTED 05/29/21 10:28 Blood Culture - Preliminary Blood SPECIMEN COLLECTED A&P Assessment and plan (1) Pressure ulcer with suspected deep tissue injury: Associated with elvated CRP and ESR, leukocytosis and foul smelling and appearing wound Status: Acute Qualifiers: Pressure injury stage: unstageable Qualified Code(s): L89.95 - Pressure ulcer of unspecified site, unstageable (2) Cellulitis of sacral region: Related to above Status: Acute (3) Noncompliance: With recommended follow up and medical recommendations Status: Acute (4) History of lumbosacral spine surgery: With persistent chronic back pain, paresthesias and falls, difficulty walking Status: Chronic (5) Hyperlipidemia: Chronically on statin Status: Chronic (6) Hypothyroidism: Chronically on levothyroxine Status: Chronic Qualifiers: Hypothyroidism type: acquired Qualified Code(s): E03.9 - Hypothyroidism, unspecified (7) Bipolar II disorder: On chronic lamictal Status: Chronic (8) Panic disorder: On chronic benzodiazepines Status: Chronic (9) Cigarette nicotine dependence: Status: Chronic Qualifiers: Substance use status: uncomplicated Qualified Code(s): F17.210 - Nicotine dependence, cigarettes, uncomplicated Plan Inpatient admission Continue vancomycin, add anaerobic coverage Blood cultures have been collected Surgical consultation with Dr. Hoyt Check hemoglobin A1c as glucose is trending upward a bit Tentative plan is for debridement in the morning I have notified Dr. Ramirez of admission with extensive wound needing debridement; he is aware of the case should any hardware or involvement of surgical site be identified at the time of debridement Will need pressure mattress Anticipate disposition to skilled facility as I do not see her being able to manage this particular wound otherwise given its current state Continue IV fluids presently, recheck electrolytes this afternoon addressing accordingly Monitor for any evidence of over or undermedication Continue home statin and levothyroxine Continue home Lamictal Continue alprazolam as needed We will continue scheduled Lyrica and as needed tizanidine, holding other similar medicines currently For pain control will give scheduled ibuprofen, Tylenol with a max of 2 g/day for now, as needed tramadol which it appears she is usually prescribed, oral oxycodone first for severe pain and only while n.p.o. or if persistent pain after other medications, IV morphine, decreasing to usual pain management as feasible She has had chronic narcotics through pain clinic previously but does not currently appear to be enrolled in chronic pain clinic; at risk for progressive opioid dependence with comorbid diagnoses and chronic medications SCDs currently for DVT prophylaxis [place] pharmacological prophylaxis when appropriate postoperatively Wound care as instructed by Dr. Hoyt's assistance, which I appreciate Pepcid for GI prophylaxis Stool softeners Arriola catheter to assist with wound care management Supportive care otherwise Findings, concerns and plans discussed with patient and she was given opportunity to ask questions Full code Attestations Medical Necessity Statement*: Anticipated stay greater than two midnights in patient with infected sacral wound requiring IV antibiotics and surgical debridement. Presently with leukocytosis with left shift and elevated inflammatory markers, mild tachycardia at presentation but at high risk of progression to systemic infection without appropriate intervention as described. Coding Level of Care Code Acute Business Performance Advisor for Robertg Fwd Diagnoses Pressure ulcer with suspected deep tissue injury L89.95 Pressure injury stage: unstageable History of lumbosacral spine surgery Z98.890 Bipolar II disorder F31.81 Panic disorder F41.0 Cigarette nicotine dependence F17.210 Substance use status: uncomplicated Cellulitis of sacral region L03.319 Noncompliance Z91.19 Hyperlipidemia E78.5 Hypothyroidism E03.9 Hypothyroidism type: acquired
--- NOTE | 2021-05-29 16:48 | P.CONIM_ITS ---
Providers/Reason For Consult Consulting Physician/Specialty*: Ge Hoyt MD Reason for Consult*: Sacral pressure injury ulcer Requesting Physician: Dr. Chapin Attending Physician: Dr. Chapin Primary Care Provider: NATHANIEL Torrez History of Present Illness History of Present Illness Chief Complaint: I fall a lot History of present illness: Ms. Hilda Da Silva is a pleasant yet unfortunate 56 year old female presents to the emergency department with multiple falls episodes, and patient has been complaining of worsening back pain with associated wound on the sacral area. Patient undergone previous spine surgery in the form of Left L4/5 Laminectomy with partial facetectomy 02/22/2020, and L4/5 interbody fusion, laminectomy of L4-L5 and other spine procedures done at the same time 08/10/2020 and?I+D down to bone of Lumbar spine wound 09/07/2020. Patient was seen and evaluated by spine surgery and she has been complaining of left leg pain and weakness. Back in 03/16/2021. 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 She does ambulate but she is a high risk of fall and she hit her right side of the frontotemporal area which showed a bruise there. And on 04/17/[address] scan facial bones that showed: 1.? Anterior dislocation of the LEFT mandibular condylar head. The condylar head is anterior to the articular eminence. No fracture. 2.? Very minimal anterior subluxation with widening of the TM joint on the RIGHT. This is probably all secondary to the dislocation on the LEFT. Today the patient presented to the emergency department with worsening wound on her sacral area and a CT scan of the pelvis was done that showed; 1.? Decubitus ulcer overlying the coccyx measuring 1.0 x 2.4 x 2.0 CM. Skin thickening with cellulitis in this area. 2.? No drainable abscess or fluid collection. 3.? Decubitus ulcer abuts the bony coccyx but no evidence of bony destruction to indicate osteomyelitis 4.? Urine distended [facility] General surgery was consulted to evaluate the patient for potential debridement, patient was seen and evaluated in room #7 in the emergency department in the presence of medical imaging director female insurance sales producer Mitra Medications/Allergies Home Medications Medication Instructions Recorded Confirmed Last Taken Type atorvastatin 20 mg tablet 20 mg PO BEDTIME 08/25/19 05/29/21 05/28/21 History Bone Growth Stimulator E0748 #1 ea 08/08/20 05/29/21 Unknown Rx nicotine 1 patch TRANSDERMAL DAILY #56 patch 08/15/20 05/29/21 09/07/20 Rx 21mg/24hr-14mg/24hr-7mg/24hr daily transderm patches,sequentl albuterol sulfate 90 mcg/actuation 2 puff INHALATION Q4H PRN 09/08/20 05/29/21 05/28/21 History aerosol inhaler fluticasone propionate 50 1 spray INTRANASAL BID PRN 09/08/20 05/29/21 05/29/21 History mcg/actuation nasal spray,suspension ibuprofen 800 mg tablet 800 mg PO TID PRN 09/08/20 05/29/21 05/29/21 History levothyroxine 112 mcg tablet 112 mcg PO QAM 09/08/20 05/29/21 05/29/21 History lamotrigine 200 mg tablet 400 mg PO QAM #180 tab 01/06/21 05/29/21 05/29/21 Rx trazodone 100 mg tablet 300 mg PO BEDTIME #270 tab 01/06/21 05/29/21 05/28/21 Rx alprazolam 1 mg tablet 0.5 mg PO TID #45 tab 03/07/21 05/29/21 05/29/21 Rx baclofen 10 mg tablet 20 mg PO TID PRN tab 04/05/21 05/29/21 05/28/21 History pregabalin 75 mg capsule (Lyrica) 75 mg PO BID #30 cap 05/11/21 05/29/21 05/28/21 Rx tizanidine 4 mg capsule 4 mg PO Q6H PRN #20 cap 05/11/21 05/29/21 05/28/21 Rx tramadol 50 mg tablet 50 mg PO Q6H PRN #20 tab 05/11/21 05/29/21 05/29/21 Rx Rolling walker #1 ea 05/17/21 05/29/21 Unknown Rx hydrochlorothiazide 12.5 mg capsule 12.5 mg PO PRN PRN 05/29/21 05/29/21 Unknown History Allergies Allergy/AdvReac Type Severity Reaction Status Date / Time naproxen Allergy Severe breathing Verified 05/29/21 16:55 issues gabapentin Allergy Intermediate ADR-Dizzine Verified 05/29/21 16:55 ss PFSH Acute PFSH: Medical History Alcohol use disorder, moderate, in sustained remission Bipolar II disorder Borderline personality disorder Cigarette nicotine dependence 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 Pain management contract signed Panic disorder Psychiatric care Surgical History Hx of section Hx of hysterectomy Social History Alcohol intake: former Lives independently: Yes History of recent travel: No Vitals/I&O/Wt Last Vital Signs Temp 97.8 F 05/29/21 10:16 Pulse 88 05/29/21 10:16 Resp 18 05/29/21 11:07 BP 110/72 05/29/21 10:16 Pulse Ox 96 05/29/21 10:16 05/29/21 05/29/21 05/29/21 06:59 14:59 22:59 Intake Total 1250 / 1250 Balance 1250 / 1250 Weight last 48 hrs Weight 130 lb Physical Exam Narrative: Patient is conscious alert oriented X3 Mild distress BMI 23.0 Head and neck examination PERRLA no masses no cervical lymphadenopathy no jaundice Yellowish discoloration of the right temporal area likely due to previous fall, with limitation of neck movement towards the right side. Cardiac examination audible S1-S2 no murmurs no gallops no arrhythmias Chest is clear bilateral,abscence of Rhonchi or wheezes,no surgical emphysema Abdomen nontender nondistended soft no organomegaly guarding or rigidity/no signs of peritonitis Arriola catheter in place Extremities no cyanosis no clubbing no edema Back examination was done in the presence of female insurance sales producer medical imaging director Mitra with logroll precautions, presence of pressure injury sacral decubitus ulcer stage IV with necrotic tissues and surrounding induration of the ulcer. Measures about 10 x 5 x 2 cm in depth, all the way to the muscle layer, no obvious hardware exposure during physical examination. Data : 05/29/21 09:10 05/29/21 09:10 Micro: Microbiology 05/29/21 10:26 Blood Culture - Preliminary Blood SPECIMEN COLLECTED 05/29/21 10:28 Blood Culture - Preliminary Blood SPECIMEN COLLECTED A&P Assessment and plan (1) Pressure ulcer with suspected deep tissue injury: After history taking physical examination and reviewing the chart and images of the CT scan of the pelvis with my personal interpretation, I do believe that the patient would benefit from surgical debridement in the OR for her pressure injury sacral ulcer and will plan to have cultures done to help with antimicrobial therapy. Indications, risks, benefits and alternatives all discussed with the patient understanding that suspected deep tissue injury could have its negative percussions and potential infection that would involve her hardware and I will defer further care with that regard to spine surgery service. Also patient understands that she may require further future surgical interventions and long- term wound care, likely the patient would benefit from nursing care accommodation. Meanwhile wet-to-dry dressing change using packing with normal saline followed by ABDs N.p.o. after midnight Broad-spectrum antibiotic and IV fluid hydration Frequent turning in bed every 2 hours Thank you for consulting general surgery to participate taking care Ms. Da Silva Status: Acute Coding Level of Care Code Acute Putty Worker for Zac Gaines Diagnoses Pressure ulcer with suspected deep tissue injury L89.96
[2021-05-29] MEDS: fluticasone nasal spray 16gm Btl 1 SPRAY INTRANASAL (18:17)
[2021-05-29] MEDS: D5-NS 0.45% + KCL 20 mEq 20 MEQ/1,000 ML BAG 100 MEQ IV (18:17)
[2021-05-29] MEDS: famotidine 20 mg Tablet PO (18:18)
[2021-05-29] MEDS: docusate sodium 100 mg Capsule PO (18:18)
[2021-05-29] MEDS: piperacillin-tazobactam 3.375 GM in sodium chloride 0.9% (plus) 50 ML IV (18:18)
[2021-05-29 19:02] LABS: Anion Gap 15.7 (5-19); Blood Urea Nitrogen 15 mg/dL (6-20); Calcium 8.9 mg/dL (8.5-10.5); Carbon Dioxide 19 mmol/L (22-29); Chloride 101 mmol/L (98-107); Glomerular Filtration Rate 230.1 mL/min (90-130); Glucose 128 mg/dL (65-115); Magnesium 1.9 mg/dL (1.7-2.3); Osmolality Calculated 276 mOsm/kg (285-295); Phosphorus 2.3 mg/dL (2.5-4.5); Potassium 3.7 mmol/L (3.5-5.1); Sodium 132 mmol/L (136-145)
[2021-05-29] MEDS: trazodone 100 mg Tablet 200 MG PO (20:21)
[2021-05-29] MEDS: sennosides 8.6 mg Tablet 17.2 MG PO (20:22)
[2021-05-29] MEDS: oxyCODONE 5 mg IR Tab/Cap PO (20:22)
[2021-05-29] MEDS: nicotine 21 mg Patch 1 PATCH TRANSDERMA (20:33)
[2021-05-29 23:42] LABS: Add Urine Microscopic? NO; Charge for UA Resulting for Rev
[2021-05-29 23:45] LABS: Bilirubin Urine 1+ (Negative); Blood Urine Neg (Negative); Glucose Urine UA Norm (Normal); Ketones Urine Negative (Negative); Leukocyte Esterase Urine Negative (Negative); Nitrate Urine Negative (Negative); Protein Urine Neg (Negative); Urine Appearance Clear (CLEAR); Urine Color Yellow (Yellow); Urobilinogen Urine 4 mg/dL (Negative); pH Urine 7 (5-7)
[2021-05-30] VITALS (21 sets, daily range): BP systolic 96–123; BP diastolic 60–74; PULSE 67–105; RESP 16–18; TEMP 36.6–37.3; O2SAT 91–100
[2021-05-30 01:25] LABS: Adenovirus Not Detected (NOT DETECT); Chlamydia Pneumoniae Not Detected (NOT DETECT); Coronavirus 229E,HKU1,NL63,OC4 Not Detected (NOT DETECT); Human Metapneumovirus Not Detected (NOT DETECT); Human Rhinovirus/Enterovirus Not Detected (NOT DETECT); Influenza A Not Detected (NOT DETECT); Influenza A H1 Not Detected (NOT DETECT); Influenza A H1-2009 Not Detected (NOT DETECT); Influenza A H3 Not Detected (NOT DETECT); Influenza B Not Detected (NOT DETECT); Mycoplasma Pneumoniae Not Detected (NOT DETECT); Parainfluenza Virus Type 1 Not Detected (NOT DETECT); Parainfluenza Virus Type 2 Not Detected (NOT DETECT); Parainfluenza Virus Type 3 Not Detected (NOT DETECT); Parainfluenza Virus Type 4 Not Detected (NOT DETECT); Respiratory Syncytial Virus A Not Detected (NOT DETECT); Respiratory Syncytial Virus B Not Detected (NOT DETECT); SARS-COV-2 Not Detected (NOT DETECT)
[2021-05-30] MEDS: piperacillin-tazobactam 3.375 GM in sodium chloride 0.9% (plus) 50 ML IV ×2 (02:36→17:38)
[2021-05-30 02:42] LABS: Basophils # 0.1 10^3/uL (0.0-0.1); Basophils % 0.6 %; Eosinophils # 0.1 10^3/uL (0.0-0.8); Eosinophils % 0.4 %; Hematocrit 24.1 % (37.0-47.0); Hemoglobin 7.3 g/dL (11.5-15.3); Lymphocytes # 2.4 10^3/uL (0.8-4.8); Lymphocytes % 19.3 %; Mean Corpuscular HGB Conc 30.3 g/dL (30.0-36.0); Mean Corpuscular Hemoglobin 29.9 pg (28.0-34.0); Mean Corpuscular Volume 98.8 fl (81-99); Mean Platelet Volume 9.3 fL (7.4-10.4); Monocytes # 0.5 10^3/uL (0.2-0.9); Neutrophils # 9.32 10^3/uL (1.8-7.7); Neutrophils % 75.2 %; Nucleated Red Blood Cells % 0 %; Platelet Count 496 10^3/cmm (130-400); Red Blood Count 2.44 10^6/uL (4.1-5.3); Red Cell Distribution Width 18.2 % (12.1-15.1); White Blood Count 12.4 10^3/uL (4.0-10.0)
[2021-05-30 02:58] LABS: INR 1.13 (0.8-1.2)
[2021-05-30 03:01] LABS: Partial Thromboplastin Time 35.9 SECONDS (23.9-36.7)
[2021-05-30 03:03] LABS: Magnesium 1.8 mg/dL (1.7-2.3); Phosphorus 2.6 mg/dL (2.5-4.5)
[2021-05-30 03:10] LABS: Alanine Aminotransferase 14 U/L (0-33); Albumin Level 2.4 g/dL (3.5-5.2); Alkaline Phosphatase 255 IU/L (35-105); Anion Gap 13.8 (5-19); Aspartate Amino Transferase 14 U/L (0-32); Blood Urea Nitrogen 12 mg/dL (6-20); Calcium 8.8 mg/dL (8.5-10.5); Carbon Dioxide 19 mmol/L (22-29); Chloride 104 mmol/L (98-107); Globulin 3.5 g/dL (1.3-4.6); Glomerular Filtration Rate 165.1 mL/min (90-130); Glucose 130 mg/dL (65-115); Osmolality Calculated 278 mOsm/kg (285-295); Potassium 3.8 mmol/L (3.5-5.1); Sodium 133 mmol/L (136-145); Total Bilirubin 0.3 mg/dL (0.15-1.2); Total Protein 5.9 g/dL (6.6-8.7)
[2021-05-30 03:17] LABS: Estmated Average Glucose 111; Hemoglobin A1C 5.5 % (4.0-6.0)
[2021-05-30] MEDS: morphine 4 mg/mL SDV 1 mL IVP ×3 (04:18→14:17)
[2021-05-30] MEDS: D5-NS 0.45% + KCL 20 mEq 20 MEQ/1,000 ML BAG 100 MEQ IV ×2 (04:41→17:21)
[2021-05-30] MEDS: levothyroxine 112 mcg Tablet PO (05:06)
[2021-05-30] MEDS: docusate sodium 100 mg Capsule PO ×2 (08:40→17:18)
[2021-05-30] MEDS: famotidine 20 mg Tablet PO ×2 (08:40→17:18)
[2021-05-30] MEDS: lamoTRIgine 100 mg Tablet 400 MG PO (08:40)
[2021-05-30] MEDS: ibuprofen 200 mg Tablet 600 MG PO (08:41)
[2021-05-30] MEDS: pregabalin 75 mg Capsule PO (08:45)
--- NOTE | 2021-05-30 08:48 | P.CONIM_ITS ---
Providers/Reason For Consult Consulting Physician/Specialty*: Ortho Spine Reason for Consult*: Back pain with leg pain Attending Physician: Sj Whyte MD Primary Care Provider: NATHANIEL Torrez History of Present Illness History of Present Illness Hilda Da Silva is a 56 year old female who is has been a patient following a lumbar fusion from L4 to the sacrum with interbody cages at L4-5 and L5-S1. Date of surgery was August 2020. Patient reports multiple falls since then. And admits that she has been progressively more and active. She continues to have back pain with pain in both legs. She is developed a decubitus ulcer in her lumbosacral region. She presented to the [facility] emergency room following fall approximately 2 days ago. Orthopedics was consulted. She was scheduled for an lumbar myelogram following her last office visit. She reports the pain has continued in the back and legs but denies any new problems resulting from the latest fall. She continues to report increased low back pain. She denies any loss of bowel or bladder control. She has weakness in both legs. An extensive review of the patient's past medical history, surgical history, allergies, medications, family history, social history, and review of systems was completed Review of Systems General: Reports: 10 or more systems reviewed and unremarkable except in HPI and below Const: Reports: fever(s), chills and malaise ENMT: Reports: dry mouth and nasal congestion; Denies: throat pain Card: Denies: chest pain, palpitations or edema Resp: Denies: dyspnea, productive cough or non-productive cough GI: Denies: abdominal pain, nausea, vomiting, diarrhea, constipation or hematochezia : Reports: other (Unaware that bladder was distended in ED); Denies: difficulty voiding Musc: Reports: neck pain, back pain, extremity pain and muscle weakness Skin/Breast: Reports: sores, non-healing lesions (Backside) and other (brusing to forehead from a fall) Neuro: Reports: headache(s), numbness in extremities (Left more than right), weakness in extremities (Left), difficulty walking (Has a walker) and frequent falls Psych: Reports: anxiety and depression Jam/Lymph: Denies: easy bruising or easy bleeding Medications/Allergies Home Medications Medication Instructions Recorded Confirmed Last Taken Type atorvastatin 20 mg tablet 20 mg PO BEDTIME 08/25/19 05/29/21 05/28/21 History Bone Growth Stimulator E0748 #1 ea 08/08/20 05/29/21 Unknown Rx nicotine 1 patch TRANSDERMAL DAILY #56 patch 08/15/20 05/29/21 09/07/20 Rx 21mg/24hr-14mg/24hr-7mg/24hr daily transderm patches,sequentl albuterol sulfate 90 mcg/actuation 2 puff INHALATION Q4H PRN 09/08/20 05/29/21 05/28/21 History aerosol inhaler fluticasone propionate 50 1 spray INTRANASAL BID PRN 09/08/20 05/29/21 05/29/21 History mcg/actuation nasal spray,suspension ibuprofen 800 mg tablet 800 mg PO TID PRN 09/08/20 05/29/21 05/29/21 History levothyroxine 112 mcg tablet 112 mcg PO QAM 09/08/20 05/29/21 05/29/21 History lamotrigine 200 mg tablet 400 mg PO QAM #180 tab 01/06/21 05/29/21 05/29/21 Rx trazodone 100 mg tablet 300 mg PO BEDTIME #270 tab 01/06/21 05/29/21 05/28/21 Rx alprazolam 1 mg tablet 0.5 mg PO TID #45 tab 03/07/21 05/29/21 05/29/21 Rx baclofen 10 mg tablet 20 mg PO TID PRN tab 04/05/21 05/29/21 05/28/21 History pregabalin 75 mg capsule (Lyrica) 75 mg PO BID #30 cap 05/11/21 05/29/21 05/28/21 Rx tizanidine 4 mg capsule 4 mg PO Q6H PRN #20 cap 05/11/21 05/29/21 05/28/21 Rx tramadol 50 mg tablet 50 mg PO Q6H PRN #20 tab 05/11/21 05/29/21 05/29/21 Rx Rolling walker #1 ea 05/17/21 05/29/21 Unknown Rx hydrochlorothiazide 12.5 mg capsule 12.5 mg PO PRN PRN 05/29/21 05/29/21 Unknown History Allergies Allergy/AdvReac Type Severity Reaction Status Date / Time naproxen Allergy Severe breathing Verified 05/29/21 16:55 issues gabapentin Allergy Intermediate ADR-Dizzine Verified 05/29/21 16:55 ss Current Medications Generic Name Dose Route Start Last Admin Trade Name Freq PRN Reason Stop Dose Admin Atorvastatin Calcium 20 mg 05/29/21 21:00 05/29/21 20:21 Atorvastatin 40 Mg Tablet PO Not Given BEDTIME ELIDIA Docusate Sodium 100 mg 05/29/21 18:00 05/30/21 08:40 Docusate Sodium 100 Mg Capsule PO 100 mg BID ELIDIA Administration Famotidine 20 mg 05/29/21 18:00 05/30/21 08:40 Famotidine 20 Mg Tablet PO 20 mg BID ELIDIA Administration Fluticasone Propionate 1 spray 05/29/21 18:00 05/30/21 08:41 Fluticasone Nasal Edison 16gm Btl INTRANASAL Not Given BID ELIDIA Potassium Chloride/Dextrose/Sod Cl 20 meq in 1,000 mls @ 100 mls/hr 05/29/21 17:26 05/30/21 04:41 D5-Ns 0.45% + Kcl 20 Meq IV 100 mls/hr .Q10H ELIDIA Administration Vancomycin HCl 1,000 mg/ 250 mls @ 250 mls/hr 05/29/21 23:00 05/30/21 00:01 Sodium Chloride IV Infused Q12H ELIDIA Infusion Protocol Piperacillin Sod/Tazobactam 50 mls @ 12.5 mls/hr 05/29/21 18:30 05/30/21 06:36 Sod 3.375 gm/ Sodium Chloride IV Infused Q8H ELIDIA Infusion Protocol Ibuprofen 600 mg 05/29/21 21:00 05/30/21 08:41 Ibuprofen 200 Mg Tablet PO 600 mg TID ELIDIA Administration Lamotrigine 400 mg 05/30/21 09:00 05/30/21 08:40 Lamotrigine 100 Mg Tablet PO 400 mg DAILY ELIDIA Administration Levothyroxine Sodium 112 mcg 05/30/21 06:00 05/30/21 05:06 Levothyroxine 112 Mcg Tablet PO 112 mcg QAM ELIDIA Administration Morphine Sulfate 4 mg 05/29/21 17:30 05/30/21 08:45 Morphine 4 Mg/Ml Sdv 1 Ml IVP 4 mg Q4H PRN Administration Severe Pain 2nd (1st if npo) Nicotine 1 patch 05/29/21 17:56 05/29/21 20:33 Nicotine 21 Mg Patch TRANSDERMA 1 patch DAILY PRN Administration nicotine withdrawl Oxycodone HCl 5 mg 05/29/21 17:30 05/29/21 20:22 Oxycodone 5 Mg Ir Tab/Cap PO 5 mg Q6H PRN Administration Severe Pain 1st Pregabalin 75 mg 05/29/21 21:00 05/30/21 08:45 Pregabalin 75 Mg Capsule PO 75 mg BID@0900,2100 ELIDIA Administration Senna 17.2 mg 05/29/21 21:00 05/29/21 20:22 Sennosides 8.6 Mg Tablet PO 17.2 mg BEDTIME ELIDIA Administration Trazodone HCl 200 mg 05/29/21 21:00 05/29/21 20:21 Trazodone 100 Mg Tablet PO 200 mg BEDTIME ELIDIA Administration PFSH Acute PFSH: Medical History Alcohol use disorder, moderate, in sustained remission Bipolar II disorder Borderline personality disorder Cigarette nicotine dependence Hyperlipidemia Hypothyroidism Panic disorder Postoperative wound infection (2020) MRSA Psychiatric care Surgical History History of fusion of lumbar spine (08/10/20) L4-L5, L5-S1 interbody fusion with posterolateral fusion, with cage at L4/5, L5/S1, revision laminectomy L4 and L5, Dr Ramirez History of laminectomy (02/22/20) L4-L5 laminectomy with partial facetectomy, Dr Ramirez Hx of section Hx of hysterectomy Family History Denies family history of CAD (coronary artery disease) Anesthesia complication Social History Smoking and tobacco status: current every day smoker cigarettes Alcohol intake: former Substance/Drug Use: never Household members: family Vitals/I&O/Wt Last Vital Signs Temp 98.4 F 05/30/21 08:00 Pulse 67 05/30/21 08:00 Resp 18 05/30/21 08:45 BP 102/68 05/30/21 08:00 Pulse Ox 94 05/30/21 08:00 05/29/21 05/30/21 05/30/21 22:59 06:59 14:59 Intake Total 370 / 1620 1300 / 2920 Output Total 200 / 200 Balance 370 / 1620 1100 / 2720 Weight last 48 hrs Weight 130 lb Physical Exam Narrative: Patient was evaluated in room 254 unable to get out of bed due to back pain. Severe palpatory or percussion pain throughout the paraspinous musculature of the thoracolumbar spine. Normal sensation to light touch through all dermatomal layers. Normal sensation light touch down both lower extremities with 4/5 motor strength throughout all motor groups. Decubitus ulcer present in the sacral region. Positive straight leg raise bilaterally. She able to wiggle her toes. Lower extremities are warm to touch. Reflexes are 2+ and symmetric about the knees and Achilles. No hyperreflexia or clonus. Downgoing Babinski's bilaterally. Dorsalis pedis and posterior tibial pulses are 2+. No palpable edema bilaterally. HENMT: COMMON NORMALS: normocephalic HEAD & SCALP: normocephalic OTHER: Periorbital ecchymosis over the right eye from recent fall. Resp: COMMON NORMALS: normal respiratory effort Cardio: COMMON NORMALS: regular rate and regular rhythm RATE: regular rate RHYTHM: regular rhythm GI: COMMON NORMALS: Soft to palpation PALPATION: Yes Soft to palpation : COMMON NORMALS: Yes no CVA tenderness BLADDER/KIDNEY EXAM: Yes no CVA tenderness Back/Pelvis: COMMON NORMALS: no CVA tenderness Psych: COMMON NORMALS: cooperative Urinary Catheter Management: Arriola: Cath Placed During This Visit: yes Urethral Indwelling: Yes Reason for Continuing Indwelling Catheter: Assist healing open wound Urinary Catheter Date of Insertion: 05/29/21 Data : 05/30/21 01:47 05/30/21 01:47 Micro: Microbiology 05/29/21 10:26 Blood Culture - Preliminary Blood SPECIMEN COLLECTED 05/29/21 10:28 Blood Culture - Preliminary Blood SPECIMEN COLLECTED A&P Assessment and plan (1) S/P spinal fusion: Patient is scheduled to have a procedure treating the decubitus ulcer on the sacrum. We will obtain a new AP lateral radiograph of her lumbar spine. She had a CT myelogram that showed motion artifact over the left L4 screw with concern of degenerative changes at the L3-4 level. We will obtain a portable x- ray of her lumbar spine. With the progression of her decubitus ulcer certainly complicates any revision surgery in her lumbar spine at this time. Will Continue to follow. Status: Acute (2) Low back pain radiating to both legs: Status: Acute Coding Level of Care Code Acute Meter Technician for g Fwd Diagnoses S/P spinal fusion Z98.1 Low back pain radiating to both legs M54.50; M79.604; M79.605
--- NOTE | 2021-05-30 09:19 | PC.NURSE ---
Patient refusing turns and refusing to turn to assess wound. I will wait for that Dr to do the surgery before you move me.
--- NOTE | 2021-05-30 09:47 | XR_ITS ---
WS: [id number] LUMBAR SPINE TECHNIQUE: 3 views of the lumbar spine CLINICAL INFORMATION: Falls with increased Low Back Pain COMPARISON: CT May 18, 2021 FINDINGS: Pedicle screw fixation L4-S1 with interbody fusion grafts in the LEFT. Mild lumbar curve convex RIGHT . Hardware appears unchanged compared to previous. Stable loosening along the LEFT L4 and bilateral S 1 pedicle screws. Interconnecting rods appear intact. LEFT L4 pedicle screw extends into the L3-L4 in terspace unchanged. Anterior wedging with erosive changes along the inferior endplate of L3 is unchan ged. XR/XR lumbar spine 2-3V* [id number] IMPRESSION: Pedicle screw fixation L4-S1 with LEFT interbody fusion grafts. Hardware appear s unchanged compared to the recent examinations.
--- NOTE | 2021-05-30 09:56 | P.ANESASSM_ITS ---
Pre-Anesthetic Assessment Height/Weight: Height 1.6 m Weight 58.967 kg Temp Pulse Resp BP Pulse Ox 98.7 F 104 H 18 123/74 95 05/30/21 09:51 05/30/21 09:51 05/30/21 09:51 05/30/21 09:51 05/30/21 09:51 Preop Diagnosis: Sacral pressure injury ulcer Operation Date: 05/30/21 11:25 Proposed Procedures p Debridement(Not Applicable) - Ge Hoyt MD Familial anesthetic complications: None Was Beta Mamadou taken within 24 hours: N/A Was Clonidine taken within 24 hours: N/A Last intake: Intake Last Liquid Date 05/29/21 Last Solid Date 05/29/21 Social Alcohol and Tobacco Exam alert, oriented x 3, clear to auscultation bilaterally and regular rate & rhythm Airway Mallampati: Class III Dentition: chipped Comments: Comments: Patient has Dislocated L mandible condylar head, states jaw is not bothering her, no pain CV/HEM Anemia and Hypertension Metabolic Hyperlipidemia and Thyroid Disease Neuropsych spinal fusion, chronic opiate usage Anesthetic Plan ASA status: 4 Anesthesia: General Risk of > 500 ml blood loss (7ml/kg in children): No Medications/Allergies Home Medications Medication Instructions Recorded Confirmed Last Taken Type atorvastatin 20 mg tablet 20 mg PO BEDTIME 08/25/19 05/29/21 05/28/21 History Bone Growth Stimulator [id number] #1 ea 08/08/20 05/29/21 Unknown Rx nicotine 1 patch TRANSDERMAL DAILY #56 patch 08/15/20 05/29/21 09/07/20 Rx 21mg/24hr-14mg/24hr-7mg/24hr daily transderm patches,sequentl albuterol sulfate 90 mcg/actuation 2 puff INHALATION Q4H PRN 09/08/20 05/29/21 05/28/21 History aerosol inhaler fluticasone propionate 50 1 spray INTRANASAL BID PRN 09/08/20 05/29/21 05/29/21 History mcg/actuation nasal spray,suspension ibuprofen 800 mg tablet 800 mg PO TID PRN 09/08/20 05/29/21 05/29/21 History levothyroxine 112 mcg tablet 112 mcg PO QAM 09/08/20 05/29/21 05/29/21 History lamotrigine 200 mg tablet 400 mg PO QAM #180 tab 01/06/21 05/29/21 05/29/21 Rx trazodone 100 mg tablet 300 mg PO BEDTIME #270 tab 01/06/21 05/29/21 05/28/21 Rx alprazolam 1 mg tablet 0.5 mg PO TID #45 tab 03/07/21 05/29/21 05/29/21 Rx baclofen 10 mg tablet 20 mg PO TID PRN tab 04/05/21 05/29/21 05/28/21 History pregabalin 75 mg capsule (Lyrica) 75 mg PO BID #30 cap 05/11/21 05/29/21 05/28/21 Rx tizanidine 4 mg capsule 4 mg PO Q6H PRN #20 cap 05/11/21 05/29/21 05/28/21 Rx tramadol 50 mg tablet 50 mg PO Q6H PRN #20 tab 05/11/21 05/29/21 05/29/21 Rx Rolling walker #1 ea 05/17/21 05/29/21 Unknown Rx hydrochlorothiazide 12.5 mg capsule 12.5 mg PO PRN PRN 05/29/21 05/29/21 Unknown History Allergies Allergy/AdvReac Type Severity Reaction Status Date / Time naproxen Allergy Severe breathing Verified 05/29/21 16:55 issues gabapentin Allergy Intermediate ADR-Dizzine Verified 05/29/21 16:55 ss Current Medications Generic Name Dose Route Start Last Admin Trade Name Freq PRN Reason Stop Dose Admin Atorvastatin Calcium 20 mg 05/29/21 21:00 05/29/21 20:21 Atorvastatin 40 Mg Tablet PO Not Given BEDTIME ELIDIA Docusate Sodium 100 mg 05/29/21 18:00 05/30/21 08:40 Docusate Sodium 100 Mg Capsule PO 100 mg BID ELIDIA Administration Famotidine 20 mg 05/29/21 18:00 05/30/21 08:40 Famotidine 20 Mg Tablet PO 20 mg BID ELIDIA Administration Fluticasone Propionate 1 spray 05/29/21 18:00 05/30/21 08:41 Fluticasone Nasal [place] 16gm Btl INTRANASAL Not Given BID ELIDIA Potassium Chloride/Dextrose/Sod Cl 20 meq in 1,000 mls @ 100 mls/hr 05/29/21 17:26 05/30/21 04:41 D5-Ns 0.45% + Kcl 20 Meq IV 100 mls/hr .Q10H ELIDIA Administration Vancomycin HCl 1,000 mg/ 250 mls @ 250 mls/hr 05/29/21 23:00 05/30/21 00:01 Sodium Chloride IV Infused Q12H ELIDIA Infusion Protocol Piperacillin Sod/Tazobactam 50 mls @ 12.5 mls/hr 05/29/21 18:30 05/30/21 06:36 Sod 3.375 gm/ Sodium Chloride IV Infused Q8H ELIDIA Infusion Protocol Ibuprofen 600 mg 05/29/21 21:00 05/30/21 08:41 Ibuprofen 200 Mg Tablet PO 600 mg TID ELIDIA Administration Lamotrigine 400 mg 05/30/21 09:00 05/30/21 08:40 Lamotrigine 100 Mg Tablet PO 400 mg DAILY ELIDIA Administration Levothyroxine Sodium 112 mcg 05/30/21 06:00 05/30/21 05:06 Levothyroxine 112 Mcg Tablet PO 112 mcg QAM ELIDIA Administration Morphine Sulfate 4 mg 05/29/21 17:30 05/30/21 08:45 Morphine 4 Mg/Ml Sdv 1 Ml IVP 4 mg Q4H PRN Administration Severe Pain 2nd (1st if npo) Nicotine 1 patch 05/29/21 17:56 05/29/21 20:33 Nicotine 21 Mg Patch TRANSDERMA 1 patch DAILY PRN Administration nicotine withdrawl Oxycodone HCl 5 mg 05/29/21 17:30 05/29/21 20:22 Oxycodone 5 Mg Ir Tab/Cap PO 5 mg Q6H PRN Administration Severe Pain 1st Pregabalin 75 mg 05/29/21 21:00 05/30/21 08:45 Pregabalin 75 Mg Capsule PO 75 mg BID@0900,2100 ELIDIA Administration Senna 17.2 mg 05/29/21 21:00 05/29/21 20:22 Sennosides 8.6 Mg Tablet PO 17.2 mg BEDTIME ELIDIA Administration Trazodone HCl 200 mg 05/29/21 21:00 05/29/21 20:21 Trazodone 100 Mg Tablet PO 200 mg BEDTIME ELIDIA Administration PFSH Anesthesia Medical History Alcohol use disorder, moderate, in sustained remission Bipolar II disorder Borderline personality disorder Cigarette nicotine dependence Hyperlipidemia Hypothyroidism Panic disorder Postoperative wound infection (2020) MRSA Psychiatric care Surgical History History of fusion of lumbar spine (08/10/20) L4-L5, L5-S1 interbody fusion with posterolateral fusion, with cage at L4/5, L5/S1, revision laminectomy L4 and L5, Dr Ramirez History of laminectomy (02/22/20) L4-L5 laminectomy with partial facetectomy, Dr Ramirez Hx of section Hx of hysterectomy Family History Denies family history of CAD (coronary artery disease) Anesthesia complication Social History Smoking and tobacco status: current every day smoker cigarettes Alcohol intake: former Substance/Drug Use: never Household members: family Data Anesthesia : 05/30/21 01:47 05/30/21 01:47 Short CBC 05/29/21 05/30/21 Range/Units 09:10 01:47 WBC 16.4 H 12.4 H (4.0-10.0) 10^3/uL Hgb 9.7 L 7.3 L (11.5-15.3) g/dL Hct 30.7 L 24.1 L (37.0-47.0) % MCV 96.2 98.8 (81-99) fl Plt Count 675 H 496 H (130-400) 10^3/cmm Neut % (Auto) 77.8 75.2 % Neut # (Auto) 12.78 H 9.32 H (1.8-7.7) 10^3/uL BMP 05/29/21 05/29/21 05/30/21 09:10 18:28 01:47 Sodium 134 L 132 L 133 L Potassium 3.3 L 3.7 3.8 Chloride 96 L 101 104 Carbon Dioxide 19 L 19 L 19 L BUN 17 15 12 Creatinine 0.6 0.3 L 0.4 L Glucose 158 H 128 H 130 H Calcium 10.0 8.9 8.8 Cardiac Enzymes 05/29/21 Range/Units 09:10 Creatine Kinase 60 (26-192) U/L Liver Function 05/29/21 05/30/21 Range/Units 09:10 01:47 Total Bilirubin 0.5 0.3 (0.15-1.2) mg/dL AST 15 14 (0-32) U/L ALT 18 14 (0-33) U/L Alkaline Phosphatase 395 H 255 H (35-105) IU/L Albumin 3.6 2.4 L (3.5-5.2) g/dL Urine 05/29/21 Range/Units 20:15 Urine Color Yellow (Yellow) Urine Appearance Clear (CLEAR) Urine pH 7 (5-7) Ur Specific [place] 1.000 L (1.005-1.030) Urine Protein Neg (Negative) Urine Glucose (UA) Norm (Normal) Urine Ketones Negative (Negative) Urine Nitrate Negative (Negative) Urine Bilirubin 1+ H (Negative) Ur Leukocyte Esterase Negative (Negative) COVID Results 05/29/21 20:15 Coronavirus 229E (PCR) Not detected SARS-CoV-2 (PCR) Not detected Coags 05/29/21 05/29/21 05/30/21 09:10 09:10 01:47 ESR 52 H PT 14.80 INR 1.13 APTT 35.9 C-Reactive Protein 160.8 H Microbiology 05/29/21 10:26 Blood Culture - Preliminary Blood SPECIMEN COLLECTED 05/29/21 10:28 Blood Culture - Preliminary Blood SPECIMEN COLLECTED Cardiac Studies: No Data to Display
--- NOTE | 2021-05-30 10:55 | PM.OP ---
Operative Report Date of procedure: May 30, 2021 Pre-op diagnosis: Preop Diagnosis Sacral pressure injury ulcer Post-op findings: Pressure injury ulcer of the sacrum stage IV reaching all the way to the periosteum and ligaments of the sacral segment Procedure done: Sharp and excisional debridement of sacral pressure injury ulcer stage IV Implants: Pieces of Surgicel follow Xeroform and ABDs Specimens removed/disposition: Tissues for cultures and sensitivity Surgeon: Ge Hoyt MD Flag Decorator: Krystal martinez\ Circulating nurse Grace Martinez Estimated blood loss (mL): 15 IV fluids: 500 ml Urine output: 200 ml Procedure: After identifying the patient holding area,patient was then taken to the operative suite,was placed in supine position then left lateral position after being intubated, patient was moved using a log roll positioning, all pressure points were padded and patient was appropriately secured to the bed., Patient was already on therapeutic IV antibiotics., prep and drape of the [place] wound region over the lower back Was done under the usual sterile technique. Time-out was done verifying the patient's name/date of /planned procedure and destination after the procedure, all were in agreement. Started by excising and debriding sharply the unhealthy necrotic indurated tissues of the wound, central necrotic tissues were appreciated that they were excised and sent for cultures and sensitivities. Incision was created at the skin level and went all the way down to the subcutaneous tissues and all the way to the periosteum and ligamentous layer. Sharp and excisional debridement was achieved. PreDebridement measurements 12x8x1 cm PostDebridement measurements [id number] [address] the way to the periosteum of the sacrum Stage IV sacral pressure injury ulcer there was no evidence clinically of any hardware exposure intraoperatively. Copious and extensive irrigation of the wound was done using a liter of Vashe solution followed by 3 L of Pulsavac warm saline, followed by appropriate hemostasis using Bovie cauterization that was completed by placement of 2 pieces of Surgicel impregnated in lidocaine 2%.followed by Xeroform followed ABDs, and surgical pants. Patient tolerated the procedure well, count of instruments, needle and sponges were completed at the end of the procedure. Patient was then taken to the recovery area in stable condition. I was present for the whole entire procedure
--- NOTE | 2021-05-30 12:15 | P.PCN_ITS ---
PACU note Narrative: VSS, Good respiratory effort, report to CLOUD CONSULTANT Exam: awake
--- NOTE | 2021-05-30 12:15 | PM.PACU ---
PACU note Narrative: VSS, Good respiratory effort, report to NET DEVELOPER CONSULTANT Exam: awake
[2021-05-30] MEDS: lidocaine 2% INJ 20 mL (12:24)
[2021-05-30] MEDS: vancomycin 1,000 MG in sodium chloride 0.9% 250 ML 250 MG IV ×2 (12:29→23:54)
--- NOTE | 2021-05-30 12:53 | ANE.PACU2 ---
Inpatient post-anesthesia follow up: Airway intact: Yes Vital signs: Temperature 99.1 F Pulse Rate 94 Respiratory Rate 18 Blood Pressure 108/70 Pulse Oximetry 100 Oxygen Delivery Me thod Room Air Oxygen Flow Rate Fraction of Inspir ed Oxygen 21 Hydration adequate: Yes Nausea and vomiting: No Pain level: 1 Mental status: Baseline
--- NOTE | 2021-05-30 13:26 | PM.PN ---
Subjective Subjective: Patient was seen and examined this morning, Overnight vitals and labs have been reviewed, has remained afebrile, WBC count is trending down Hemoglobin is trended down to 7.3, was complaining of back pain post debridement. Medications: Medication Review Details: Generic Name Dose Route Start Last Admin Trade Name Robe PRN Reason Stop Dose Admin Atorvastatin Calci um 20 mg 05/29/21 21:00 05/29/21 20:21 Atorvastatin 40 Mg Tablet PO Not Given BEDTIME ELIDIA Docusate Sodium 100 mg 05/29/21 18:00 05/30/21 08:40 Docusate Sodium 100 Mg Capsule PO 100 mg BID ELIDIA Administration Famotidine 20 mg 05/29/21 18:00 05/30/21 08:40 Famotidine 20 Mg Tablet PO 20 mg BID ELIDIA Administration Fluticasone Propio nettie 1 spray 05/29/21 18:00 05/30/21 08:41 Fluticasone [place]asa l [place] 16gm Btl INTRANASAL Not Given BID ELIDIA Potassium Chloride /Dextrose/Sod Cl 20 meq in 1,000 m ls @ 100 mls/hr 05/29/21 17:26 05/30/21 13:26 D5-Ns 0.45% + Chema l 20 Meq IV 0 mls/hr .Q10H ELIDIA Infusion Vancomycin HCl 1,0 00 mg/ 250 mls @ 250 mls /hr 05/29/21 23:00 05/30/21 13:36 Sodium Chloride IV Infused Q12H ELIDIA Infusion Protocol Piperacillin Sod/T azobactam 50 mls @ 12.5 mls /hr 05/29/21 18:30 05/30/21 06:36 Sod 3.375 gm/ So dium Chloride IV Infused Q8H ELIDIA Infusion Protocol Ibuprofen 600 mg 05/29/21 21:00 05/30/21 08:41 Ibuprofen 200 Mg Tablet PO 600 mg TID ELIDIA Administration Lamotrigine 400 mg 05/30/21 09:00 05/30/21 08:40 Lamotrigine 100 Mg Tablet PO 400 mg DAILY ELIDIA Administration Levothyroxine Sodi um 112 mcg 05/30/21 06:00 05/30/21 05:06 Levothyroxine 11 2 Mcg Tablet PO 112 mcg QAM ELIDIA Administration Morphine Sulfate 4 mg 05/29/21 17:30 05/30/21 08:45 Morphine 4 Mg/Ml Sdv 1 Ml IVP 4 mg Q4H PRN Administration Severe Pain 2nd ( 1st if npo) Nicotine 1 patch 05/29/21 17:56 05/29/21 20:33 Nicotine 21 Mg P atch TRANSDERMA 1 patch DAILY PRN Administration nicotine withdraw l Oxycodone HCl 5 mg 05/29/21 17:30 05/29/21 20:22 Oxycodone 5 Mg I r Tab/Cap PO 5 mg Q6H PRN Administration Severe Pain 1st Pregabalin 75 mg 05/29/21 21:00 05/30/21 08:45 Pregabalin 75 Mg Capsule PO 75 mg BID@0900,2100 ELIDIA Administration Senna 17.2 mg 05/29/21 21:00 05/29/21 20:22 Sennosides 8.6 M g Tablet PO 17.2 mg BEDTIME ELIDIA Administration Trazodone HCl 200 mg 05/29/21 21:00 05/29/21 20:21 Trazodone 100 Mg Tablet PO 200 mg BEDTIME ELIDIA Administration Vitals/I&O/Wt Last Vital Signs Temp 99.1 F 05/30/21 11:04 Pulse 94 05/30/21 11:19 Resp 18 05/30/21 11:19 BP 108/70 05/30/21 11:19 Pulse Ox 100 05/30/21 11:19 05/29/21 05/30/21 05/30/21 22:59 06:59 14:59 Intake Total 370 / 1620 1300 / 2920 0 / 0 Output Total 200 / 200 815 / 815 Balance 370 / 1620 1100 / 2720 -815 / -815 Weight last 48 hrs Weight 58.967 kg Physical Exam Const: COMMON NORMALS: patient oriented x3 HENMT: COMMON NORMALS: normocephalic and atraumatic HEAD & SCALP: normocephalic and atraumatic Chest: CHEST: Yes Symmetrical chest wall rise Resp: COMMON NORMALS: clear to auscultation bilaterally EFFORT & INSPECTION: Yes symmetric chest movement AUSCULTATION: clear to auscultation bilaterally Cardio: COMMON NORMALS: regular rate, regular rhythm, S1 normal heart sound present, S2 normal heart sound present, No gallops present (Cardio), No murmurs present (Cardio), No rub (Cardio) and Peripheral pulses 2+ throughout RATE: regular rate RHYTHM: regular rhythm HEART SOUNDS: S1 normal heart sound present and S2 normal heart sound present PERIPHERAL PULSES: Peripheral pulses 2+ throughout GI: COMMON NORMALS: Normal to inspection, nondistended, normoactive bowel sounds present, Soft to palpation, non-tender, No hepatosplenomegaly present and no masses AUSCULTATION: Yes normoactive bowel sounds PALPATION: Yes Soft to palpation and Yes No hepatosplenomegaly present RECTAL EXAM: deferred Extremity: COMMON NORMALS: no clubbing, cyanosis or edema and no pedal edema Neuro: COMMON NORMALS: patient oriented x3 Skin: NARRATIVE SKIN EXAM: Stage IV sacral decubitus ulcer, Urinary Catheter Management: Arriola: Cath Placed During This Visit: yes Urethral Indwelling: Yes Reason for Continuing Indwelling Catheter: Assist healing open wound Urinary Catheter Date of Insertion: 05/29/21 Data : 05/30/21 01:47 05/30/21 01:47 Micro: Microbiology 05/29/21 10:28 Blood Culture - Preliminary Blood NEGATIVE TO DATE 05/29/21 10:26 Blood Culture - Preliminary Blood NEGATIVE TO DATE A&P Assessment and plan (1) Pressure ulcer with suspected deep tissue injury: Associated with elvated CRP and ESR, leukocytosis and foul smelling and appearing wound Status: Acute (2) Cellulitis of sacral region: Related to above Status: Acute (3) Noncompliance: With recommended follow up and medical recommendations Status: Acute (4) History of lumbosacral spine surgery: With persistent chronic back pain, paresthesias and falls, difficulty walking Status: Chronic (5) Hyperlipidemia: Chronically on statin Status: Chronic (6) Hypothyroidism: Chronically on levothyroxine Status: Chronic (7) Bipolar II disorder: On chronic lamictal Status: Chronic (8) Panic disorder: On chronic benzodiazepines Status: Chronic (9) Cigarette nicotine dependence: Status: Chronic Qualifiers: Substance use status: uncomplicated Qualified Code(s): F17.210 - Nicotine dependence, cigarettes, uncomplicated Plan Assessment #Stage IV sacral ulcer secondary to pressure injury: CT pelvis w con: Decubitus ulcer overlying the coccyx measuring 1.0 x 2.4 x 2.0 CM. Skin thickening with cellulitis in this area. No drainable abscess or fluid collection. Decubitus ulcer abuts the bony coccyx but no evidence of bony destruction to indicate osteomyelitis. XR lumbar spine?: Pedicle screw fixation L4-S1 with LEFT interbody fusion grafts. Hardware appears unchanged compared to the recent examinations. ESR: 52 , CRP: 160 Blood culture Wound tissue culture and Gram stain S/p excisional debridement Continue vancomycin and Zosyn for now #Hypothyroidism: Continue levothyroxine #S/P spinal fusion: August 2020: Appreciate orthopedic input. Orthopedic was consulted, to evaluate for the possibility of hardware infection #Continue antipsych meds #Full code #dvt ppx : On SCDs Attestations Medical Necessity Statement*: Patient is to be in hospital for management of sacral ulcer, need for debridement need for IV antibiotic. Coding Level of Care Code Acute Phone Operator for [facility] Fwd Exam Detailed Diagnoses Pressure ulcer with suspected deep tissue injury L89.96 Cellulitis of sacral region L03.319 Noncompliance Z91.19 History of lumbosacral spine surgery Z98.890 Hyperlipidemia E78.5 Hypothyroidism E03.9 Bipolar II disorder F31.81 Panic disorder F41.0 Cigarette nicotine dependence F17.210 Substance use status: uncomplicated
[2021-05-30] MEDS: ALPRAZolam 0.5 mg Tablet PO (17:38)
--- NOTE | 2021-05-30 18:17 | PC.NURSE ---
Patient resting in bed, refusing turns, I am pulling with this thing and it moves me enough referring to rail. Patient requested to be brought up higher in bed but was at the top. Patient is having some confusion post surgery. Refusing to roll for this nurse to recheck bandage. Will re-educate and revisit site at shift change with oncoming nurse. No new events during shift.
[2021-05-30] MEDS: trazodone 100 mg Tablet 200 MG PO (20:39)
[2021-05-30] MEDS: oxyCODONE 5 mg IR Tab/Cap PO (20:39)
[2021-05-30] MEDS: sennosides 8.6 mg Tablet 17.2 MG PO (20:40)
[2021-05-31] VITALS (27 sets, daily range): BP systolic 88–117; BP diastolic 55–74; PULSE 66–111; RESP 14–18; TEMP 36.3–36.8; O2SAT 93–97
[2021-05-31 02:18] LABS: Basophils % 0.2 %; Lymphocytes # 2.9 10^3/uL (0.8-4.8); Lymphocytes % 22.1 %; Mean Corpuscular Hemoglobin 30.3 pg (28.0-34.0); Mean Corpuscular Volume 97.6 fl (81-99); Mean Platelet Volume 9.5 fL (7.4-10.4); Monocytes # 0.5 10^3/uL (0.2-0.9); Monocytes % 3.9 %; Neutrophils # 9.69 10^3/uL (1.8-7.7); Neutrophils % 73.3 %; Nucleated Red Blood Cells % 0 %; Platelet Count 433 10^3/cmm (130-400); Red Blood Count 2.08 10^6/uL (4.1-5.3); Red Cell Distribution Width 17.8 % (12.1-15.1); White Blood Count 13.2 10^3/uL (4.0-10.0)
[2021-05-31 02:25] LABS: Hematocrit 20.3 % (37.0-47.0); Hemoglobin 6.3 g/dL (11.5-15.3)
[2021-05-31] MEDS: piperacillin-tazobactam 3.375 GM in sodium chloride 0.9% (plus) 50 ML IV ×3 (02:42→17:38)
[2021-05-31 02:48] LABS: C Reactive Protein 72.7 mg/L (0.0-4.9)
[2021-05-31] MEDS: D5-NS 0.45% + KCL 20 mEq 20 MEQ/1,000 ML BAG 100 MEQ IV (02:48)
[2021-05-31 02:53] LABS: Anion Gap 12.9 (5-19); Blood Urea Nitrogen 9 mg/dL (6-20); Calcium 7.6 mg/dL (8.5-10.5); Carbon Dioxide 18 mmol/L (22-29); Chloride 106 mmol/L (98-107); Glomerular Filtration Rate 165.1 mL/min (90-130); Glucose 131 mg/dL (65-115); Osmolality Calculated 276 mOsm/kg (285-295); Potassium 3.9 mmol/L (3.5-5.1); Sodium 133 mmol/L (136-145)
[2021-05-31] MEDS: morphine 4 mg/mL SDV 1 mL IVP ×4 (04:17→18:41)
[2021-05-31] MEDS: levothyroxine 112 mcg Tablet PO (05:57)
[2021-05-31] MEDS: docusate sodium 100 mg Capsule PO ×2 (08:48→17:40)
[2021-05-31] MEDS: famotidine 20 mg Tablet PO ×2 (08:49→17:40)
[2021-05-31] MEDS: lamoTRIgine 100 mg Tablet 400 MG PO (08:49)
[2021-05-31 10:27] LABS: Bacillus cereus group Not Detected (NOT DETECT); Bacillus subtillis group Not Detected (NOT DETECT); Corynebacterium Not Detected (NOT DETECT); Cutibacterium acnes (P.acnes) Not Detected (NOT DETECT); Enterococcus Not Detected (NOT DETECT); Enterococcus faecalis Not Detected (NOT DETECT); Enterococcus faecium Not Detected (NOT DETECT); Lactobacillus species Not Detected (NOT DETECT); Listeria Not Detected (NOT DETECT); Listeria monocytogenes Not Detected (NOT DETECT); Micrococcus Not Detected (NOT DETECT); Pan Candida Not Detected (NOT DETECT); Pan Gram-Negative Not Detected (NOT DETECT); Staphylococcus epidermidis Not Detected (NOT DETECT); Staphylococcus lugdunensis Not Detected (NOT DETECT); Staphylococcus species Detected (NOT DETECT); Streptococcus agalactiae Not Detected (NOT DETECT); Streptococcus anginosus group Not Detected (NOT DETECT); Streptococcus pneumoniae Not Detected (NOT DETECT); Streptococcus pyogenes Not Detected (NOT DETECT); Streptococcus species Not Detected (NOT DETECT); mecA Detected (NOT DETECT); mecC Not Detected (NOT DETECT)
--- NOTE | 2021-05-31 10:40 | P.PN_ITS ---
Subjective Subjective: Patient was seen and examined this morning, Overnight vitals and labs have been reviewed, has remained afebrile, WBC count is trending down Hemoglobin is trended down to 7.3, was complaining of back pain post debridement. Medications: Medication Review Details: Generic Name Dose Route Start Last Admin Trade Name Robe PRN Reason Stop Dose Admin Atorvastatin Calci um 20 mg 05/29/21 21:00 05/29/21 20:21 Atorvastatin 40 Mg Tablet PO Not Given BEDTIME ELIDIA Docusate Sodium 100 mg 05/29/21 18:00 05/30/21 08:40 Docusate Sodium 100 Mg Capsule PO 100 mg BID ELIDIA Administration Famotidine 20 mg 05/29/21 18:00 05/30/21 08:40 Famotidine 20 Mg Tablet PO 20 mg BID ELIDIA Administration Fluticasone Propio nettie 1 spray 05/29/21 18:00 05/30/21 08:41 Fluticasone [place]asa l [place] 16gm Btl INTRANASAL Not Given BID ELIDIA Potassium Chloride /Dextrose/Sod Cl 20 meq in 1,000 m ls @ 100 mls/hr 05/29/21 17:26 05/30/21 13:26 D5-Ns 0.45% + Chema l 20 Meq IV 0 mls/hr .Q10H ELIDIA Infusion Vancomycin HCl 1,0 00 mg/ 250 mls @ 250 mls /hr 05/29/21 23:00 05/30/21 13:36 Sodium Chloride IV Infused Q12H ELIDIA Infusion Protocol Piperacillin Sod/T azobactam 50 mls @ 12.5 mls /hr 05/29/21 18:30 05/30/21 06:36 Sod 3.375 gm/ So dium Chloride IV Infused Q8H ELIDIA Infusion Protocol Ibuprofen 600 mg 05/29/21 21:00 05/30/21 08:41 Ibuprofen 200 Mg Tablet PO 600 mg TID ELIDIA Administration Lamotrigine 400 mg 05/30/21 09:00 05/30/21 08:40 Lamotrigine 100 Mg Tablet PO 400 mg DAILY ELIDIA Administration Levothyroxine Sodi um 112 mcg 05/30/21 06:00 05/30/21 05:06 Levothyroxine 11 2 Mcg Tablet PO 112 mcg QAM ELIDIA Administration Morphine Sulfate 4 mg 05/29/21 17:30 05/30/21 08:45 Morphine 4 Mg/Ml Sdv 1 Ml IVP 4 mg Q4H PRN Administration Severe Pain 2nd ( 1st if npo) Nicotine 1 patch 05/29/21 17:56 05/29/21 20:33 Nicotine 21 Mg P atch TRANSDERMA 1 patch DAILY PRN Administration nicotine withdraw l Oxycodone HCl 5 mg 05/29/21 17:30 05/29/21 20:22 Oxycodone 5 Mg I r Tab/Cap PO 5 mg Q6H PRN Administration Severe Pain 1st Pregabalin 75 mg 05/29/21 21:00 05/30/21 08:45 Pregabalin 75 Mg Capsule PO 75 mg BID@0900,2100 ELIDIA Administration Senna 17.2 mg 05/29/21 21:00 05/29/21 20:22 Sennosides 8.6 M g Tablet PO 17.2 mg BEDTIME ELIDIA Administration Trazodone HCl 200 mg 05/29/21 21:00 05/29/21 20:21 Trazodone 100 Mg Tablet PO 200 mg BEDTIME ELIDIA Administration Vitals/I&O/Wt Last Vital Signs Temp 98.0 F 05/31/21 08:20 Pulse 70 05/31/21 08:13 Resp 18 05/31/21 08:44 BP 108/70 05/31/21 08:00 Pulse Ox 96 05/31/21 08:44 05/30/21 05/31/21 05/31/21 22:59 06:59 14:59 Intake Total 53.333 / 8950.667 8529 / 2423.333 100 / 100 Output Total 600 / 1415 200 / 1615 Balance -546.667 / -379.183 2462 / 808.333 100 / 100 Physical Exam Const: COMMON NORMALS: patient oriented x3 HENMT: COMMON NORMALS: normocephalic and atraumatic HEAD & SCALP: normocephalic and atraumatic Chest: CHEST: Yes Symmetrical chest wall rise Resp: COMMON NORMALS: clear to auscultation bilaterally EFFORT & INSPECTION: Yes symmetric chest movement AUSCULTATION: clear to auscultation bilaterally Cardio: COMMON NORMALS: regular rate, regular rhythm, S1 normal heart sound present, S2 normal heart sound present, No gallops present (Cardio), No murmurs present (Cardio), No rub (Cardio) and Peripheral pulses 2+ throughout RATE: regular rate RHYTHM: regular rhythm HEART SOUNDS: S1 normal heart sound present and S2 normal heart sound present PERIPHERAL PULSES: Peripheral pulses 2+ throughout GI: COMMON NORMALS: Normal to inspection, nondistended, normoactive bowel sounds present, Soft to palpation, non-tender, No hepatosplenomegaly present and no masses AUSCULTATION: Yes normoactive bowel sounds PALPATION: Yes Soft to palpation and Yes No hepatosplenomegaly present RECTAL EXAM: deferred Extremity: COMMON NORMALS: no clubbing, cyanosis or edema and no pedal edema Neuro: COMMON NORMALS: patient oriented x3 Skin: NARRATIVE SKIN EXAM: Stage IV sacral decubitus ulcer, Urinary Catheter Management: Arriola: Cath Placed During This Visit: yes Urethral Indwelling: Yes Reason for Continuing Indwelling Catheter: Assist Healing of Perineal & Sacral Wounds- Incontinent Patients Urinary Catheter Date of Insertion: 05/29/21 Data : 05/31/21 12:18 05/31/21 01:36 Micro: Microbiology 05/29/21 10:28 Blood Culture - Preliminary Blood NEGATIVE TO DATE 05/29/21 10:26 Blood Culture - Preliminary Blood NEGATIVE TO DATE A&P Assessment and plan (1) Pressure ulcer with suspected deep tissue injury: Associated with elvated CRP and ESR, leukocytosis and foul smelling and appearing wound Status: Acute (2) Cellulitis of sacral region: Related to above Status: Acute (3) Noncompliance: With recommended follow up and medical recommendations Status: Acute (4) History of lumbosacral spine surgery: With persistent chronic back pain, paresthesias and falls, difficulty walking Status: Chronic (5) Hyperlipidemia: Chronically on statin Status: Chronic (6) Hypothyroidism: Chronically on levothyroxine Status: Chronic (7) Bipolar II disorder: On chronic lamictal Status: Chronic (8) Panic disorder: On chronic benzodiazepines Status: Chronic (9) Cigarette nicotine dependence: Status: Chronic Qualifiers: Substance use status: uncomplicated Qualified Code(s): F17.210 - Nicotine dependence, cigarettes, uncomplicated Plan Assessment #Stage IV sacral ulcer secondary to pressure injury: CT pelvis w con: Decubitus ulcer overlying the coccyx measuring 1.0 x 2.4 x 2.0 CM. Skin thickening with cellulitis in this area. No drainable abscess or fluid collection. Decubitus ulcer abuts the bony coccyx but no evidence of bony destruction to indicate osteomyelitis. XR lumbar spine?: Pedicle screw fixation L4-S1 with LEFT interbody fusion grafts. Hardware appears unchanged compared to the recent examinations. ESR: 52 , CRP: 160 2D echo: Blood culture: MRSA in 1 out of 3 bottles Wound tissue culture and Gram stain S/p excisional debridement Continue vancomycin and Zosyn for now #Hypothyroidism: Continue levothyroxine #Anemia: Likely acute post op blood loss: Hemoglobin had dropped to 6.3 this morning S/p 1 unit PRBC transfusion Continue to monitor H&H Transfuse to maintain hemoglobin greater than 7 #MRSA bacteremia: Blood culture has grown MRSA in 1 out of 3 bottles Continue vancomycin Follow repeat blood culture #S/P spinal fusion: August 2020: Appreciate orthopedic input. Orthopedic was consulted, to evaluate for the p ossibility of hardware infection #Continue antipsych meds #Full code #dvt ppx : On SCDs Attestations Medical Necessity Statement*: Patient is in hospital for management of sacral ulcer , MRSA bacteremia , postop anemia. Time Spent in Patient Care: Greater than 35 minutes (>than 50% of time spent in counselling and/or direct pt care on unit) . Coding Level of Care Code Acute Final Inspector And Tester for g [employer] Exam Detailed Diagnoses Pressure ulcer with suspected deep tissue injury L89.96 Cellulitis of sacral region L03.319 Noncompliance Z91.19 History of lumbosacral spine surgery Z98.890 Hyperlipidemia E78.5 Hypothyroidism E03.9 Bipolar II disorder F31.81 Panic disorder F41.0 Cigarette nicotine dependence F17.210 Substance use status: uncomplicated
[2021-05-31 11:02] LABS: Vancomycin Trough 13.9 ug/mL (10-15)
[2021-05-31] MEDS: vancomycin 1,000 MG in sodium chloride 0.9% 250 ML 250 MG IV ×2 (11:51→22:16)
[2021-05-31 12:24] LABS: Hematocrit 30.1 % (37.0-47.0); Hemoglobin 9.9 g/dL (11.5-15.3)
[2021-05-31] MEDS: nicotine 21 mg Patch 1 PATCH TRANSDERMA (13:25)
[2021-05-31 15:48] LABS: Basophils # 0.1 10^3/uL (0.0-0.1); Basophils % 0.4 %; Eosinophils % 0.1 %; Hematocrit 32.4 % (37.0-47.0); Hemoglobin 10.3 g/dL (11.5-15.3); Lymphocytes # 2.9 10^3/uL (0.8-4.8); Lymphocytes % 18.2 %; Mean Corpuscular HGB Conc 31.8 g/dL (30.0-36.0); Mean Corpuscular Hemoglobin 28.5 pg (28.0-34.0); Mean Corpuscular Volume 89.5 fl (81-99); Mean Platelet Volume 9.2 fL (7.4-10.4); Monocytes # 0.6 10^3/uL (0.2-0.9); Monocytes % 3.7 %; Neutrophils # 12.09 10^3/uL (1.8-7.7); Nucleated Red Blood Cells % 0 %; Platelet Count 462 10^3/cmm (130-400); Red Blood Count 3.62 10^6/uL (4.1-5.3); Red Cell Distribution Width 19.9 % (12.1-15.1); White Blood Count 15.7 10^3/uL (4.0-10.0)
--- NOTE | 2021-05-31 16:39 | P.PN_ITS ---
Vitals/I&O/Wt Last Vital Signs Temp 98.0 F 05/31/21 12:00 Pulse 86 05/31/21 16:00 Resp 18 05/31/21 13:22 BP 106/68 05/31/21 16:00 Pulse Ox 96 05/31/21 16:00 05/31/21 05/31/21 05/31/21 06:59 14:59 22:59 Intake Total 1245 / 2423.333 1586.667 / 1586.667 Output Total 200 / 1615 Balance 1045 / 401.272 8975.667 / 1586.667 Physical Exam Narrative: Patient is conscious alert oriented X3 No apparent distress BMI 23 Head and neck examination PERRLA no masses no cervical lymphadenopathy no jaundice Lower Back examination was done in the presence of female slat basket maker helper Nursing staff June with logroll precautions, presence of pressure injury sacral decubitus ulcer stage IV with hat cleaner ulcer bed,all the way to the muscle layer,and periosteum of the sacrum. Urinary Catheter Management: Arriola: Cath Placed During This Visit: yes Urethral Indwelling: Yes Reason for Continuing Indwelling Catheter: Assist Healing of Perineal & Sacral Wounds- Incontinent Patients Urinary Catheter Date of Insertion: 05/29/21 Data : 05/31/21 15:23 05/31/21 01:36 Micro: Microbiology 05/30/21 10:37 Gram Stain - Final Buttock 05/29/21 10:28 Blood Culture - Preliminary Blood Methicillin Resis Staph Aureus A&P Assessment and plan (1) Sacral decubitus ulcer, stage IV: Assessment Sharp and excisional debridement of sacral pressure injury ulcer stage IV 05/30/21 Plan of care: 1-nutrition optimization 2-wound care in the form of bid packing with wet to dry using normal saline followed by ABDs 3-management of medical comorbidities 4-physical therapy consultation when needed 5-Special Mattress 6-Turn patient in bed every 2 hours 7-Follow on cultures and sensitivities Assurance and education All questions have been answered and all concerns have been addressed to alicia gutierrez's satisfaction. Status: Acute Attestations Medical Necessity Statement*: Per admitting service Coding Level of Care Code Acute Associate Professor Of Sociology for [facility] Fwdonnie Diagnoses Sacral decubitus ulcer, stage IV L89.154
--- NOTE | 2021-05-31 17:55 | PC.NURSE ---
Patient AAOx4, agreeable to turn to look at wound and to dressing changes but refuses turns. She remains on left side and says, I can turn my head when i'm in the right position but not this one. Would not turn to another position and remains with no ROM of neck. Dressing changed in AM per Dr request of normal saline WTD 4x4 and covered with ABD pad.
--- NOTE | 2021-05-31 18:56 | PC.NURSE ---
Patient refusing air mattress that we ordered and had brought up. I'm going home tomorrow I was only promised two days here so I don't need that.
[2021-05-31] MEDS: trazodone 100 mg Tablet 200 MG PO (20:33)
[2021-05-31] MEDS: oxyCODONE 5 mg IR Tab/Cap PO (20:35)
[2021-06-01] VITALS (13 sets, daily range): BP systolic 109–119; BP diastolic 72–79; PULSE 80–91; RESP 12–18; TEMP 36.6–36.9; O2SAT 90–96
[2021-06-01] MEDS: morphine 4 mg/mL SDV 1 mL IVP ×3 (00:27→17:22)
[2021-06-01] MEDS: piperacillin-tazobactam 3.375 GM in sodium chloride 0.9% (plus) 50 ML IV ×3 (02:00→17:26)
[2021-06-01 03:05] LABS: Basophils # 0.1 10^3/uL (0.0-0.1); Basophils % 0.7 %; Eosinophils % 0.3 %; Hematocrit 32.7 % (37.0-47.0); Hemoglobin 10.5 g/dL (11.5-15.3); Lymphocytes # 2.6 10^3/uL (0.8-4.8); Lymphocytes % 19.4 %; Mean Corpuscular HGB Conc 32.1 g/dL (30.0-36.0); Mean Corpuscular Hemoglobin 28.8 pg (28.0-34.0); Mean Corpuscular Volume 89.6 fl (81-99); Mean Platelet Volume 9.2 fL (7.4-10.4); Monocytes # 0.6 10^3/uL (0.2-0.9); Monocytes % 4.1 %; Neutrophils # 10.17 10^3/uL (1.8-7.7); Neutrophils % 74.8 %; Nucleated Red Blood Cells % 0 %; Platelet Count 480 10^3/cmm (130-400); Red Blood Count 3.65 10^6/uL (4.1-5.3); Red Cell Distribution Width 20.2 % (12.1-15.1); White Blood Count 13.6 10^3/uL (4.0-10.0)
[2021-06-01 03:31] LABS: Anion Gap 13.4 (5-19); Blood Urea Nitrogen 15 mg/dL (6-20); Calcium 8.1 mg/dL (8.5-10.5); Carbon Dioxide 18 mmol/L (22-29); Chloride 106 mmol/L (98-107); Glomerular Filtration Rate 127.6 mL/min (90-130); Glucose 96 mg/dL (65-115); Osmolality Calculated 279 mOsm/kg (285-295); Potassium 3.4 mmol/L (3.5-5.1); Sodium 134 mmol/L (136-145)
[2021-06-01] MEDS: levothyroxine 112 mcg Tablet PO (05:35)
[2021-06-01] MEDS: TRAMadol 50 mg Tablet PO (08:41)
[2021-06-01] MEDS: acetaminophen 500 mg Tablet PO (08:42)
[2021-06-01] MEDS: oxyCODONE 5 mg IR Tab/Cap PO ×3 (08:42→22:14)
[2021-06-01] MEDS: vancomycin 1,000 MG in sodium chloride 0.9% 250 ML 250 MG IV ×2 (10:40→23:00)
[2021-06-01] MEDS: lidocaine 1% 5 ML in potassium chloride premix 100 ML 25 ML IV (10:46)
[2021-06-01] MEDS: nicotine 21 mg Patch 1 PATCH TRANSDERMA (10:58)
--- NOTE | 2021-06-01 11:35 | PM.PN ---
Subjective Subjective: Patient was seen and examined this morning,hb has remained stable after 1 unit PRBC transfusion, Blood culture has grown MRSA in 1 out of 3 bottles, patient refused to undergo 2D echo Repeat blood culture is pending, patient is only agreeable to pain medication as well as IV medications she do not want to take her p.o. meds also. Hypokalemia has been replaced. No other acute events. Medications: Medication Review Details: Generic Name Dose Route Start Last Admin Trade Name Robe PRN Reason Stop Dose Admin Atorvastatin Calci um 20 mg 05/29/21 21:00 05/29/21 20:21 Atorvastatin 40 Mg Tablet PO Not Given BEDTIME ELIDIA Docusate Sodium 100 mg 05/29/21 18:00 05/30/21 08:40 Docusate Sodium 100 Mg Capsule PO 100 mg BID ELIDIA Administration Famotidine 20 mg 05/29/21 18:00 05/30/21 08:40 Famotidine 20 Mg Tablet PO 20 mg BID ELIDIA Administration Fluticasone Propio nettie 1 spray 05/29/21 18:00 05/30/21 08:41 Fluticasone Nasa l [place] 16gm Btl INTRANASAL Not Given BID ELIDIA Potassium Chloride /Dextrose/Sod Cl 20 meq in 1,000 m ls @ 100 mls/hr 05/29/21 17:26 05/30/21 13:26 D5-Ns 0.45% + Chema l 20 Meq IV 0 mls/hr .Q10H ELIDIA Infusion Vancomycin HCl 1,0 00 mg/ 250 mls @ 250 mls /hr 05/29/21 23:00 05/30/21 13:36 Sodium Chloride IV Infused Q12H ELIDIA Infusion Protocol Piperacillin Sod/T azobactam 50 mls @ 12.5 mls /hr 05/29/21 18:30 05/30/21 06:36 Sod 3.375 gm/ So dium Chloride IV Infused Q8H ELIDIA Infusion Protocol Ibuprofen 600 mg 05/29/21 21:00 05/30/21 08:41 Ibuprofen 200 Mg Tablet PO 600 mg TID ELIDIA Administration Lamotrigine 400 mg 05/30/21 09:00 05/30/21 08:40 Lamotrigine 100 Mg Tablet PO 400 mg DAILY ELIDIA Administration Levothyroxine Sodi um 112 mcg 05/30/21 06:00 05/30/21 05:06 Levothyroxine 11 2 Mcg Tablet PO 112 mcg QAM ELIDIA Administration Morphine Sulfate 4 mg 05/29/21 17:30 05/30/21 08:45 Morphine 4 Mg/Ml Sdv 1 Ml IVP 4 mg Q4H PRN Administration Severe Pain 2nd ( 1st if npo) Nicotine 1 patch 05/29/21 17:56 05/29/21 20:33 Nicotine 21 Mg P atch TRANSDERMA 1 patch DAILY PRN Administration nicotine withdraw l Oxycodone HCl 5 mg 05/29/21 17:30 05/29/21 20:22 Oxycodone 5 Mg I r Tab/Cap PO 5 mg Q6H PRN Administration Severe Pain 1st Pregabalin 75 mg 05/29/21 21:00 05/30/21 08:45 Pregabalin 75 Mg Capsule PO 75 mg BID@0900,2100 ELIDIA Administration Senna 17.2 mg 05/29/21 21:00 05/29/21 20:22 Sennosides 8.6 M g Tablet PO 17.2 mg BEDTIME ELIDIA Administration Trazodone HCl 200 mg 05/29/21 21:00 05/29/21 20:21 Trazodone 100 Mg Tablet PO 200 mg BEDTIME ELIDIA Administration Vitals/I&O/Wt Last Vital Signs Temp 98.4 F 06/01/21 07:28 Pulse 91 06/01/21 07:28 Resp 18 06/01/21 10:59 BP 109/74 06/01/21 07:28 Pulse Ox 94 06/01/21 07:28 05/31/21 06/01/21 06/01/21 22:59 06:59 14:59 Intake Total 50 / 1636.667 540 / 2176.667 Output Total 1200 / 1200 620 / 1820 Balance -1150 / 436.667 -80 / 356.667 Physical Exam Const: COMMON NORMALS: patient oriented x3 HENMT: COMMON NORMALS: normocephalic and atraumatic HEAD & SCALP: normocephalic and atraumatic Chest: CHEST: Yes Symmetrical chest wall rise Resp: COMMON NORMALS: clear to auscultation bilaterally EFFORT & INSPECTION: Yes symmetric chest movement AUSCULTATION: clear to auscultation bilaterally Cardio: COMMON NORMALS: regular rate, regular rhythm, S1 normal heart sound present, S2 normal heart sound present, No gallops present (Cardio), No murmurs present (Cardio), No rub (Cardio) and Peripheral pulses 2+ throughout RATE: regular rate RHYTHM: regular rhythm HEART SOUNDS: S1 normal heart sound present and S2 normal heart sound present PERIPHERAL PULSES: Peripheral pulses 2+ throughout GI: COMMON NORMALS: Normal to inspection, nondistended, normoactive bowel sounds present, Soft to palpation, non-tender, No hepatosplenomegaly present and no masses AUSCULTATION: Yes normoactive bowel sounds PALPATION: Yes Soft to palpation and Yes No hepatosplenomegaly present RECTAL EXAM: deferred Extremity: COMMON NORMALS: no clubbing, cyanosis or edema and no pedal edema Neuro: COMMON NORMALS: patient oriented x3 Skin: NARRATIVE SKIN EXAM: Stage IV sacral decubitus ulcer, Urinary Catheter Management: Arriola: Cath Placed During This Visit: yes Urethral Indwelling: Yes Reason for Continuing Indwelling Catheter: Assist Healing of Perineal & Sacral Wounds- Incontinent Patients Urinary Catheter Date of Insertion: 05/29/21 Data : 06/01/21 02:10 06/01/21 02:10 Micro: Microbiology 06/01/21 02:17 Blood Culture - Preliminary Blood SPECIMEN COLLECTED 06/01/21 02:10 Blood Culture - Preliminary Blood SPECIMEN COLLECTED 05/30/21 10:37 Gram Stain - Final Buttock 05/29/21 10:28 Blood Culture - Preliminary Blood Methicillin Resis Staph Aureus A&P Assessment and plan (1) Pressure ulcer with suspected deep tissue injury: Associated with elvated CRP and ESR, leukocytosis and foul smelling and appearing wound Status: Acute (2) Cellulitis of sacral region: Related to above Status: Acute (3) Noncompliance: With recommended follow up and medical recommendations Status: Acute (4) History of lumbosacral spine surgery: With persistent chronic back pain, paresthesias and falls, difficulty walking Status: Chronic (5) Hyperlipidemia: Chronically on statin Status: Chronic (6) Hypothyroidism: Chronically on levothyroxine Status: Chronic (7) Bipolar II disorder: On chronic lamictal Status: Chronic (8) Panic disorder: On chronic benzodiazepines Status: Chronic (9) Cigarette nicotine dependence: Status: Chronic Qualifiers: Substance use status: uncomplicated Qualified Code(s): F17.210 - Nicotine dependence, cigarettes, uncomplicated Plan Assessment #Stage IV sacral ulcer secondary to pressure injury: CT pelvis w con: Decubitus ulcer overlying the coccyx measuring 1.0 x 2.4 x 2.0 CM. Skin thickening with cellulitis in this area. No drainable abscess or fluid collection. Decubitus ulcer abuts the bony coccyx but no evidence of bony destruction to indicate osteomyelitis. XR lumbar spine?: Pedicle screw fixation L4-S1 with LEFT interbody fusion grafts. Hardware appears unchanged compared to the recent examinations. ESR: 52 , CRP: 160 2D echo: Blood culture: MRSA in 1 out of 3 bottles Wound tissue culture and Gram stain S/p excisional debridement Continue vancomycin and Zosyn for now #Hypothyroidism: Continue levothyroxine #Anemia: Likely acute post op blood loss: Hemoglobin had dropped to 6.3 this morning S/p 1 unit PRBC transfusion Continue to monitor H&H Transfuse to maintain hemoglobin greater than 7 #MRSA bacteremia: Blood culture has grown MRSA in 1 out of 3 bottles. Patient currently is not agreeable for 2D echo. Continue vancomycin Follow repeat blood culture #S/P spinal fusion: August 2020: Appreciate orthopedic input. Orthopedic was consulted, to evaluate for the possibility of hardware infection #Continue antipsych meds #Full code #dvt ppx : On SCDs Attestations Medical Necessity Statement*: Patient is to be hospital for management of stage IV sacral ulcer MRSA bacteremia. Need for IV antibiotics. Coding Level of Care Code Acute Matlab Developer for [facility] Fw Exam Detailed Diagnoses Pressure ulcer with suspected deep tissue injury L89.96 Cellulitis of sacral region L03.319 Noncompliance Z91.19 History of lumbosacral spine surgery Z98.890 Hyperlipidemia E78.5 Hypothyroidism E03.9 Bipolar II disorder F31.81 Panic disorder F41.0 Cigarette nicotine dependence F17.210 Substance use status: uncomplicated
--- NOTE | 2021-06-01 12:34 | PC.SOCIAL ---
IMM update IMM updated with patient. Verbalized an understanding. Copy Pg 2 provided. Initialled, dated, timed, and placed in chart.
[2021-06-01] MEDS: tizanidine 4 mg Tablet PO (14:51)
--- NOTE | 2021-06-01 16:11 | PC.PT ---
pt refused, stated going home tomorrow. discussed need to get up and move though pt still refused. pt has refused last 3 days. please reorder if pt more cooperative. D/C PT
[2021-06-01] MEDS: fluticasone nasal spray 16gm Btl 1 SPRAY INTRANASAL (17:24)
--- NOTE | 2021-06-01 18:18 | PC.NURSE ---
Patient refused her morning medicines and her echo. Educated patient on importance of taking medications. Patient states it is all just for money. Educated her about MRSA and endocarditis chances, still refused the echo ordered. Patient also refused to work with PT and OT. Patient refused her dressing change due to pain. Patient was pre-medicated for dressing change, but stated it didn't help. Was given Tramadol, Tylenol, and Oxycodone. Was also given Morphine a short time later. Still refused dressing change.
--- NOTE | 2021-06-01 20:32 | PC.NURSE ---
@1999 patient refused all oral meds, stated, if I have to swallow pills I don't want it, I am sik to my stomach , Isar offered and patient refused, during assessment patient irritable, refused to move left arm, stating it hurts to move it, don't worry about it, I am leaving here shortly anyways , patient also verbalized pain to neck and refused to move it, stating it is how she slept on it., reminded that pain meds are available and patient refused, reminded that dressing chnage needs to be done and patient stated I know but just leave me alone, I just want to sleep right now and I am leaving tomorrow with another doctor . patient alert and oriented.
--- NOTE | 2021-06-01 22:08 | PC.NURSE ---
nurse encouraging patient to reposition and dressing changed, patient refused, stated i will hurt too bad and if I move I am up the rest of the day and packing and getting out of here, patient reminded of time and no one here to get patient home, patient stated I have a ride , pain meds offered and nurse attempted to encouraged at least a dressing change and patient stated NO I wont have that done until I get Home .
[2021-06-02] VITALS (7 sets, daily range): BP systolic 108–125; BP diastolic 72–83; PULSE 80–118; RESP 16–18; TEMP 36.6–36.7; O2SAT 94–97
[2021-06-02] MEDS: morphine 4 mg/mL SDV 1 mL IVP ×2 (00:11→07:06)
--- NOTE | 2021-06-02 01:13 | PC.NURSE ---
continue to refuse positioning and dressing change, reminded of peril patient placing self, patient stated I will take care of it when I get out of here
[2021-06-02] MEDS: piperacillin-tazobactam 3.375 GM in sodium chloride 0.9% (plus) 50 ML IV (02:41)
--- NOTE | 2021-06-02 02:42 | PC.NURSE ---
continue to refuse turning and dressing change, ststed NO i will have it done close to when I get out of here continued education without success
[2021-06-02 03:00] LABS: Basophils # 0.1 10^3/uL (0.0-0.1); Basophils % 0.5 %; Eosinophils % 0.2 %; Hematocrit 34.6 % (37.0-47.0); Lymphocytes # 2.4 10^3/uL (0.8-4.8); Lymphocytes % 18.8 %; Mean Corpuscular HGB Conc 31.8 g/dL (30.0-36.0); Mean Corpuscular Hemoglobin 28.8 pg (28.0-34.0); Mean Corpuscular Volume 90.6 fl (81-99); Monocytes # 0.5 10^3/uL (0.2-0.9); Neutrophils # 9.84 10^3/uL (1.8-7.7); Nucleated Red Blood Cells % 0 %; Platelet Count 484 10^3/cmm (130-400); Red Blood Count 3.82 10^6/uL (4.1-5.3); Red Cell Distribution Width 19.7 % (12.1-15.1)
[2021-06-02 03:21] LABS: Anion Gap 15.2 (5-19); Blood Urea Nitrogen 13 mg/dL (6-20); Calcium 8.1 mg/dL (8.5-10.5); Carbon Dioxide 18 mmol/L (22-29); Chloride 107 mmol/L (98-107); Glomerular Filtration Rate 165.1 mL/min (90-130); Glucose 85 mg/dL (65-115); Osmolality Calculated 283 mOsm/kg (285-295); Potassium 3.2 mmol/L (3.5-5.1); Sodium 137 mmol/L (136-145)
[2021-06-02] MEDS: levothyroxine 112 mcg Tablet PO (05:45)
--- NOTE | 2021-06-02 08:13 | P.PN_ITS ---
Subjective Subjective: Const:?? Reports: fever(s), chills and malais e ENMT:?? Reports: dry mouth and nasal congest ion; Denies: throa t pain Card:?? Denies: chest pain , palpitations or edema Resp:?? Denies: dyspnea, p roductive cough or non-productive co ugh GI:?? Denies: abdominal pain, nausea, vomi ting, diarrhea, co nstipation or jam tochezia :?? Reports: other (Un aware that bladder was distended in ED); Denies: diffi culty voiding Musc:??M Reports: neck pain , back pain, extre mity pain and musc le weakness Skin/Breast:?? Reports: sores, no n-healing lesions (Backside) and oth er (brusing to for ehead from a fall) Neuro:?? Reports: headache( s), numbness in ex tremities (Left mo re than right), we akness in extremit ies (Left), diffic ulty walking (Has a walker) and freq uent falls Psych:?? Reports: anxiety a nd depression Jam/Lymph:?? Denies: easy bruis ing or easy bleedi ng Vitals/I&O/Wt Last Vital Signs Temp 97.9 F 06/02/21 03:54 Pulse 118 H 06/02/21 08:11 Resp 16 06/02/21 08:11 BP 120/79 06/02/21 07:59 Pulse Ox 97 06/02/21 08:11 06/01/21 06/02/21 06/02/21 22:59 06:59 14:59 Intake Total 170 / 935 250 / 1185 50 / 50 Output Total 2500 / 2500 Balance 170 / 935 -2250 / -1315 50 / 50 Physical Exam Urinary Catheter Management: Arriola: Cath Placed During This Visit: yes Urethral Indwelling: Yes Reason for Continuing Indwelling Catheter: Acute Urinary Retention or Obstruction Urinary Catheter Date of Insertion: 05/29/21 Data : 06/02/21 02:38 06/02/21 02:38 Micro: Microbiology 06/01/21 02:17 Blood Culture - Preliminary Blood NEGATIVE TO DATE 06/01/21 02:10 Blood Culture - Preliminary Blood NEGATIVE TO DATE 05/30/21 10:37 Gram Stain - Final Buttock Tissue Culture - Preliminary Staphylococcus species A&P Assessment and plan (1) Pressure ulcer with suspected deep tissue injury: Status: Acute (2) Cellulitis of sacral region: Status: Acute (3) Noncompliance: Status: Acute (4) History of lumbosacral spine surgery: Status: Chronic (5) Hyperlipidemia: Status: Chronic (6) Hypothyroidism: Status: Chronic (7) Bipolar II disorder: Status: Chronic (8) Panic disorder: Status: Chronic (9) Cigarette nicotine dependence: Status: Chronic Qualifiers: Substance use status: uncomplicated Qualified Code(s): F17.210 - Nicotine dependence, cigarettes, uncomplicated Coding Level of Care Code Acute Technician Semiconductor Development for [facility] Fw Diagnoses Pressure ulcer with suspected deep tissue injury L89.96 Cellulitis of sacral region L03.319 Noncompliance Z91.19 History of lumbosacral spine surgery Z98.890 Hyperlipidemia E78.5 Hypothyroidism E03.9 Bipolar II disorder F31.81 Panic disorder F41.0 Cigarette nicotine dependence F17.210 Substance use status: uncomplicated ROS General Reports: 10 or more systems reviewed and unremarkable except in HPI and below ENMT Reports: dry mouth and nasal congestion; Denies: throat pain, enlarged tonsils, ear or mastoid pain or nasal discharge Card Denies: chest pain, palpitations, edema or syncope Resp Denies: dyspnea, productive cough or non-productive cough GI Denies: abdominal pain, nausea, vomiting, diarrhea, constipation or hematochezia Reports: other (Unaware that bladder was distended in ED); Denies: flank pain, difficulty voiding, dysuria, urinary frequency or urinary urgency Musc Reports: neck pain, back pain, extremity pain and muscle weakness; Denies: joint warmth Neuro Reports: headache(s), numbness in extremities (Left more than right), weakness in extremities (Left), difficulty walking (Has a walker) and frequent falls Psych Reports: anxiety and depression Jam/Lymph Denies: easy bruising or easy bleeding
[2021-06-02] MEDS: ibuprofen 200 mg Tablet 600 MG PO (08:37)
[2021-06-02] MEDS: lamoTRIgine 100 mg Tablet 400 MG PO (08:37)
--- NOTE | 2021-06-02 10:55 | PC.NURSE ---
OSORIO during morning rounding and med pass nurse was doing morning physical assessment when pt stated that she was leaving. this nurse asked for clarification d/t no discharge orders being in the chart. the pt said her ride was going to be coming to get her and she was leaving. this nurse informed her that no discharge orders were in and that if she were to leave right now it would be against medical advice d/t her her condition and need for further treatment. this nurse informed her how important continued care was and that her best option was to remain at hospital and continue her course of treatment while also telling pt that we would not keep her if it was her desire to go as it is her right. Dr Whyte was informed of pt decision, came and spoke with her at bedside, informed her of importance of staying. He inquired to her getting help somewhere, pt said she had plans to go to [facility] for treatment. also asked if he prescribed her ABX would she pick them up and take them. pt said that she would. OSORIO paperwork was signed. IV and padgett were taken out. pt ride later showed up and pt was taken by wheelchair to the entrance of the hospital for slat pickler .
--- NOTE | 2021-06-02 11:02 | P.MISC_ITS ---
Miscellaneous Note Purpose of Documentation: Patient left AMA: Note: 56 year old female who presented to the emergency room with chief complaint of back pain. She was admitted for the management of #Stage IV sacral ulcer secondary to pressure injury: CT pelvis w con: Decubitus ulcer overlying the coccyx measuring 1.0 x 2.4 x 2.0 CM. Skin thickening with cellulitis in this area. No drainable abscess or fluid collection.? Decubitus ulcer abuts the bony coccyx but no evidence of bony destruction to indicate osteomyelitis.XR lumbar spine?: Pedicle screw fixation L4-S1 with LEFT interbody fusion grafts. Hardware appears unchanged compared to the recent examinations. ESR: 52 , CRP: 160 denied 2D echo: Blood culture: MRSA in 1 out of 3 bottles , repeat blood cultures were negative at the time of discharge , wound tissue culture: Staph aureus . S/p excisional debridement. Patient was continued on broad-spectrum antibiotics namely Vanco and Zosyn during the hospital stay, wound care was being done, plan was to send the patient to assisted facility, and continue with the current care, patient decided Not to go to long term, rather she was insistent upon going home, given pending final blood culture and, continued need for IV antibiotics as well as continued wound care, patient was advised not to get discharged, but rather she decided to sign herself out AMA, she wants to she wants to see a consumer affairs specialist in [place]. Patient was discharged on p.o. Zyvox for another 14 days.
== END 2021-06-02 10:15 | disposition left against medical advice (07) | DRG 580 ==
LOC: ER 11:29 → MEDSURG 16:54
PROVIDERS: Surgery; Admitting Provider Hospitalist; Emergency Provider Family Medicine; PCP Nurse Practitioner Family; Visit Provider Internal Medicine
PROC: 0QB10ZZ Excision of Sacrum, Open Approach (ICD-10-PCS; principal; 2021-05-30 11:15)
DX: L89.154 Pressure ulcer of sacral region, stage 4 (principal); L03.312 Cellulitis of back [any part except buttock and flank]; F31.81 Bipolar II disorder; D62 Acute posthemorrhagic anemia; Z53.29 Procedure and treatment not carried out because of patient's decision for other reasons; F10.21 Alcohol dependence, in remission; F60.3 Borderline personality disorder; F17.210 Nicotine dependence, cigarettes, uncomplicated; E78.5 Hyperlipidemia, unspecified; E03.9 Hypothyroidism, unspecified; Z86.14 Personal history of Methicillin resistant Staphylococcus aureus infection; Z98.1 Arthrodesis status; Z91.19 Patient's noncompliance with other medical treatment and regimen; F41.0 Panic disorder [episodic paroxysmal anxiety]; N32.89 Other specified disorders of bladder; R20.2 Paresthesia of skin; R26.2 Difficulty in walking, not elsewhere classified; G89.29 Other chronic pain; M54.9 Dorsalgia, unspecified
CPT/HCPCS: 36415; 36430; 72100; 72193; 80048; 80053; 80202; 81003; 82550; 83036; 83605; 83735; 84100; 85014; 85018; 85025; 85610; 85651; 85730; 86140; 86850; 86900; 86920; 87040; 87070; 87077; 87150; 87176; 87186; 87205; 87635; 93005; 96365; 96375; 96376; 99285; J0330; J2270; J2405; J2543; J2704; J3010; J3370; J3480; J3490; J7050; P9016; Q9967

== ENCOUNTER 2021-06-08 18:56 | Inpatient (IN) | payer MEDICARE, MEDICAID, SELFPAY ==
[2021-06-08] VITALS (10 sets, daily range): BP systolic 93–115; BP diastolic 67–79; PULSE 68–101; RESP 16–20; TEMP 36.5; O2SAT 93–99; BMI 17.6
--- NOTE | 2021-06-08 18:40 | MRR_ITS ---
PROCEDURE INFORMATION: Exam: MR Thoracic Spine Without Contrast Exam date and time: 06/08/2021 6:40 PM Age: 56 years old Clinical indication: Pain in thoracic spine TECHNIQUE: Imaging protocol: Multiplanar magnetic resonance images of the thoracic spine without contrast. COMPARISON: CT lumbar spine w con [id number] 05/18/2021 12:47 PM FINDINGS: Vertebrae: Spinal alignment is normal. Vertebral body height is maintained. Spinal cord: The spinal cord is unremarkable. There is no abnormal signal or cord compression. Discs/Spinal canal/Neural foramina: There is a mild generalized disc bulge and posterior osteophytic ridge at T11-12. No spinal canal stenosis. Soft tissues: Bone marrow signal intensity is normal. No edema. Paraspinal soft tissues are unremarkable. Visible intrathoracic soft tissues are unremarkable. MR/MR thoracic spin wo con* [id number] IMPRESSION: 1. No acute findings. 2. Mild degenerative disc disease at T11-12. No spinal stenosis.
--- NOTE | 2021-06-08 18:40 | MRR_ITS ---
PROCEDURE INFORMATION: Exam: MR Lumbar Spine Without Contrast Exam date and time: 06/08/2021 6:40 PM Age: 56 years old Clinical indication: Low back pain TECHNIQUE: Imaging protocol: Multiplanar magnetic resonance images of the lumbar spine without intravenous contrast. COMPARISON: 1. CT lumbar spine w con [id number] 05/18/2021 12:47 PM 2. MR lumbar spine wo con* [id number] 06/08/2020 4:37 PM FINDINGS: Vertebrae: There is posterolateral and interbody fusion at L4 through S1. The left L4 pedicle screw traverses the superior margin of the pedicle and extends into the disc. Stable mild superior endplate compression deformity of L4. Diffuse bone marrow edema at L3 and L4. Spinal alignment is normal. Spinal cord: The tip of the conus medullaris lies at L2. The spinal cord is unremarkable. There is no abnormal signal or cord compression. L1-L2: Mild generalized disc bulge. Small central disc protrusion. Mild bilateral facet and ligamentous hypertrophy. Mild spinal canal stenosis. No neural foraminal stenosis. L2-L3: Normal disc. Mild bilateral facet and ligamentous hypertrophy. No spinal canal or neural foraminal stenosis. L3-L4: Fluid in the disc space. Prominent bridging posterior osteophytes. Bilateral pedicle screws. Severe spinal canal stenosis. Neural foramina are obscured. L4-L5: Appropriately positioned interbody spacer. Bilateral pedicle screws noted. No spinal canal stenosis. Neural foramina are obscured. L5-S1: Appropriately positioned interbody spacer. No disc herniation. Bilateral pedicle screws noted. There is a focus of magnetic susceptibility artifact due to a surgical clip in the left L5 laminotomy defect. No significant spinal canal stenosis. Neural foramina are obscured. Other bones/joints: The visible portion of the pelvis and sacrum is intact. Soft tissues: Unremarkable. MR/MR lumbar spine wo con* [id number] IMPRESSION: 1. Diffuse bone marrow edema involving L3 and L4 with fluid in the disc space at L3-L4. This finding combined with bone destruction visible on the prior CT is suspicious for discitis and osteomyelitis. Correlate with clinical signs of infection. 2. Bulky posterior vertebral osteophytes at L3-L4 producing severe spinal canal stenosis. 3. Posterolateral fusion hardware from L4 through S1. The left L4 pedicle screw enters the L3-L4 disc space. 4. Stable compression deformity of L4 since 05/18/2021.
[2021-06-08] MEDS: morphine 4 mg/mL SDV 1 mL 2 MG IVP (19:28)
--- NOTE | 2021-06-08 19:40 | W.ED.WOUNDLC ---
HPI - Wound/Laceration General: Chief Complaint: Wound/Laceration Stated Complaint: wound Time Seen by Provider: 06/08/21 19:00 [facility] ED PFSH: Medical History Alcohol use disorder, moderate, in sustained remission Bipolar II disorder Borderline personality disorder Cigarette nicotine dependence Hyperlipidemia Hypothyroidism Panic disorder Postoperative wound infection (2020) MRSA Psychiatric care Surgical History History of fusion of lumbar spine (08/10/20) L4-L5, L5-S1 interbody fusion with posterolateral fusion, with cage at L4/5, L5/S1, revision laminectomy L4 and L5, Dr Ramirez History of laminectomy (02/22/20) L4-L5 laminectomy with partial facetectomy, Dr Ramirez Hx of section Hx of hysterectomy Family History Denies family history of CAD (coronary artery disease) Anesthesia complication Social History Smoking and tobacco status: current every day smoker cigarettes Alcohol intake: former Household members: family Course Vital Signs: Vital signs: Vital Signs Temperature 97.7 F 06/08/21 18:35 Pulse Rate 101 H 06/08/21 18:35 Respiratory Rate 20 H 06/08/21 19:28 Blood Pressure 109/75 06/08/21 18:35 Pulse Oximetry 95 06/08/21 18:35 Discharge Plan Discharge Condition: Stable Prescriptions: No Action baclofen 10 mg tablet 20 mg PO TID PRN (Reason: Muscle Spasm) 0RF atorvastatin 20 mg tablet 20 mg PO BEDTIME 0RF lamotrigine 200 mg tablet 400 mg PO QAM Qty: 180 2RF Rx Instructions: Take two tablets every morning trazodone 100 mg tablet 300 mg PO BEDTIME Qty: 270 2RF Rx Instructions: Take three tablets at bedtime tramadol 50 mg tablet 50 mg PO Q6H PRN (Reason: pain) Qty: 20 0RF (DME) Bone Growth Stimulator E0748 See Rx Instructions .Route .MEDSUPPLY Qty: 1 0RF Rx Instructions: As directed nicotine 21-14-7 mg/24 hr patch, TD daily, sequential 1 patch transdermal DAILY Qty: 56 0RF alprazolam 1 mg tablet 0.5 mg PO TID Qty: 45 3RF (DME) Jim lopez See Rx Instructions .Route .MEDSUPPLY Qty: 1 0RF Rx Instructions: As directed ibuprofen 800 mg tablet 800 mg PO TID PRN (Reason: Pain) 0RF albuterol sulfate 90 mcg/actuation HFA aerosol inhaler 2 puff INHALATION Q4H PRN (Reason: Shortness Of Breath) 0RF fluticasone propionate 50 mcg/actuation [place],Suspension 1 spray INTRANASAL BID PRN (Reason: Allergy Symptoms) 0RF levothyroxine 112 mcg tablet 112 mcg PO QAM 0RF tizanidine 4 mg capsule 4 mg PO Q6H PRN (Reason: muscle spasticity) Qty: 20 0RF Rx Instructions: do not exceed 3 doses per 24 hrs pregabalin [Lyrica] 75 mg capsule 75 mg PO BID Qty: 30 0RF hydrochlorothiazide 12.5 mg capsule 12.5 mg PO PRN PRN (Reason: Edema) 0RF Zyvox 600 mg tablet 600 mg PO BID 14 Days Qty: 28 0RF Referrals: Craig,Blanche, ELECTRICAL MAINTENANCE TECHNICIAN [Primary Care Provider] - Coding Level of Care Code ED Oceanographer Geological for Zac Gaines
--- NOTE | 2021-06-08 19:59 | ED_ITS ---
HPI - General Adult General: Chief complaint: Wound/Laceration Stated complaint: wound Time Seen by Provider: 06/08/21 19:00 History of Present Illness: Patient is 56-year-old female with a history of L4-L5 fusion and L5-S1 revision complicated by MRSA infection who underwent recent debridement of sacral stage 4 ulcer in 05/30/2021 presenting to the emergency room concerns for inability to void. Patient was told to go to the emergency room because she has not been able to void after surgery for the last 3 days. Patient denies any bowel incontinence. Patient reports that she has had chronic leg weakness even before the surgery. Patient denies any fever or chills but reports significant lower back pain. Was seen and supposed to see Dr. Srinivasan earlier today but canceled her appointment. Patient was then told to follow-up with urgent care and then was transferred to the emergency room for evaluation Onset: 3 days ago Duration:3 days Location:home Severity:severe Associated symptoms: Reports rash (+stage 4 sacral ulcer); Deny chest pain, dyspnea, nausea, palpitations or vomiting Review of Systems Const: Denies: fever(s) or chills Eyes: Denies: change in vision ENMT: Denies: mouth pain Card: Denies: chest pain or palpitations Resp: Denies: dyspnea or non-productive cough GI: Denies: abdominal pain, nausea, vomiting or diarrhea : Reports: other (+inability to void); Denies: dysuria Musc: Denies: extremity pain Skin/Breast: Reports: rash (+stage 4 sacral ulcer) Neuro: Denies: weakness in extremities Psych: Reports: other (Normal mood) Jam/Lymph: Denies: easy bruising [facility] ED PFSH: Medical History Alcohol use disorder, moderate, in sustained remission Bipolar II disorder Borderline personality disorder Cigarette nicotine dependence Hyperlipidemia Hypothyroidism Panic disorder Postoperative wound infection (2020) MRSA Psychiatric care Surgical History History of fusion of lumbar spine (08/10/20) L4-L5, L5-S1 interbody fusion with posterolateral fusion, with cage at L4/5, L5/S1, revision laminectomy L4 and L5, Dr Ramirez History of laminectomy (02/22/20) L4-L5 laminectomy with partial facetectomy, Dr Ramirez Hx of section Hx of hysterectomy Family History Denies family history of CAD (coronary artery disease) Anesthesia complication Social History Smoking and tobacco status: current every day smoker cigarettes Alcohol intake: former Household members: family Physical Exam Const: COMMON NORMALS: alert HENMT: COMMON NORMALS: atraumatic HEAD & SCALP: atraumatic MOUTH: moist mucous membranes not abnormal Eye: COMMON NORMALS: EOMs intact bilaterally and conjunctivae normal CONJUNCTIVA: Yes conjunctivae normal Neck/C-Spine: COMMON NORMALS: full ROM and supple Resp: COMMON NORMALS: normal respiratory effort and clear to auscultation bilaterally AUSCULTATION: clear to auscultation bilaterally Cardio: RATE: tachycardic GI: COMMON NORMALS: Soft to palpation and non-tender PALPATION: Yes Soft to palpation Back/Pelvis: OTHER: +Glute stage 4 sacral wound Extremity: COMMON NORMALS: full ROM Neuro: SENSORIUM/ORIENTATION: Yes alert MOTOR EXAM: No Abnormal motor strength present and Other motor observations present (no focal motor deficits) Psych: COMMON NORMALS: speech normal SPEECH: Yes normal speech MOOD & AFFECT: Yes euthymic mood Skin: NARRATIVE SKIN EXAM: +significant stage 4 sacral ulcer measuring 15 cm in diameter Course Vital Signs: Vital signs: Vital Signs Temperature 97.7 F 06/08/21 18:35 Pulse Rate 93 06/08/21 22:20 Respiratory Rate 18 06/08/21 22:20 Blood Pressure 109/74 06/08/21 22:20 Pulse Oximetry 97 06/08/21 22:20 MDM - General Adult Medical Decision Making 56-year-old female with a history of of recent debridement for stage IV sacral ulcer presenting to the emergency room at the request of patient's primary care friend concerning for decreased voiding x 3 days. WBC 15.1. MR lumbar spine showed L4-L5 discitis. No signs of cord compression. Patient received vancomycin and Zosyn. Blood culture pending. Case was discussed with Dr. Ramirez with recommendation for IV antibiotics and he will see patient in the AM. Disposition :admission Lab Data : 06/08/21 21:00 06/08/21 21:00 Radiology Impressions Lumbar Spine MRI 06/08/21 18:40 IMPRESSION: 1. Diffuse bone marrow edema involving L3 and L4 with fluid in the disc space at L3-L4. This finding combined with bone destruction visible on the prior CT is suspicious for discitis and osteomyelitis. Correlate with clinical signs of infection. 2. Bulky posterior vertebral osteophytes at L3-L4 producing severe spinal canal stenosis. 3. Posterolateral fusion hardware from L4 through S1. The left L4 pedicle screw enters the L3-L4 disc space. 4. Stable compression deformity of L4 since 05/18/2021. ADDENDUM: 06/08/212126 THIS REPORT CONTAINS FINDINGS THAT MAY BE CRITICAL TO PATIENT CARE. The findings were verbally communicated via telephone conference with Dr. Malone at 9:24 PM RELAY SHOP SUPERVISOR on 06/08/2021. The findings were acknowledged and understood. Thoracic Spine MRI 06/08/21 18:40 IMPRESSION: 1. No acute findings. 2. Mild degenerative disc disease at T11-12. No spinal stenosis. Laboratory Results WBC 15.1 10^3/uL (4.0-10.0) H 06/08/21 21:00 RBC 3.90 10^6/uL (4.1-5.3) L 06/08/21 21:00 Hgb 11.4 g/dL (11.5-15.3) L 06/08/21 21:00 Hct 36.1 % (37.0-47.0) L 06/08/21 21:00 MCV 92.6 fl (81-99) 06/08/21 21:00 MCH 29.2 pg (28.0-34.0) 06/08/21 21:00 MCHC 31.6 g/dL (30.0-36.0) 06/08/21 21:00 RDW 18.6 % (12.1-15.1) H 06/08/21 21:00 Plt Count 532 10^3/cmm (130-400) H 06/08/21 21:00 MPV 9.3 fL (7.4-10.4) 06/08/21 21:00 Neut % (Auto) 73.9 % 06/08/21 21:00 Lymph % (Auto) 18.9 % 06/08/21 21:00 [place] % (Auto) 5.8 % 06/08/21 21:00 Eos % (Auto) 0.5 % 06/08/21 21:00 Baso % (Auto) 0.4 % 06/08/21 21:00 Neut # (Auto) 11.11 10^3/uL (1.8-7.7) H 06/08/21 21:00 Lymph # (Auto) 2.9 10^3/uL (0.8-4.8) 06/08/21 21:00 [place] # (Auto) 0.9 10^3/uL (0.2-0.9) 06/08/21 21:00 Eos # (Auto) 0.1 10^3/uL (0.0-0.8) 06/08/21 21:00 Baso # (Auto) 0.1 10^3/uL (0.0-0.1) 06/08/21 21:00 Nucleated RBC % (auto) 0 % 06/08/21 21:00 Nucleated RBCs # 0.0 /100WBC 06/08/21 21:00 ESR 45 mm/hr (0-15) H 06/08/21 21:00 Sodium 131 mmol/L (136-145) L 06/08/21 21:00 Potassium 4.0 mmol/L (3.5-5.1) 06/08/21 21:00 Chloride 99 mmol/L (98-107) 06/08/21 21:00 Carbon Dioxide 18 mmol/L (22-29) L 06/08/21 21:00 Anion Gap 18.0 (5-19) 06/08/21 21:00 BUN 19 mg/dL (6-20) 06/08/21 21:00 Creatinine 0.3 mg/dL (0.5-0.9) L 06/08/21 21:00 GFR Calculation 230.1 mL/min (90-130) H 06/08/21 21:00 Glucose 92 mg/dL (65-115) 06/08/21 21:00 Calculated Osmolality 274 mOsm/kg (285-295) L 06/08/21 21:00 Calcium 9.3 mg/dL (8.5-10.5) 06/08/21 21:00 Total Bilirubin 0.4 mg/dL (0.15-1.2) 06/08/21 21:00 AST 38 U/L (0-32) H 06/08/21 21:00 ALT 26 U/L (0-33) 06/08/21 21:00 Alkaline Phosphatase 216 IU/L (35-105) H 06/08/21 21:00 C-Reactive Protein 82.5 mg/L (0.0-4.9) H 06/08/21 21:00 Total Protein 6.6 g/dL (6.6-8.7) 06/08/21 21:00 Albumin 2.8 g/dL (3.5-5.2) L 06/08/21 21:00 Globulin 3.8 g/dL (1.3-4.6) 06/08/21 21:00 Lipase 23 U/L (13-60) 06/08/21 21:00 Imaging Data Other Imaging: Radiologist's impression: [email or web address] [address] Magnetic Resonance Report Signed Patient: Hilda Da Silva Unit #: [id number] : 1965 Age/Sex: 56 / F ADM Date: 06/08/21 Loc: ER Room/Bed: Attending Dr: Ordering Provider/Ordering MD: Dmitry Lynn MD Date of Service: 06/08/21 Procedure(s): MR thoracic spin wo con* [id number] Accession Number(s): [id number] Report Number: [id number] PROCEDURE INFORMATION: Exam: MR Thoracic Spine Without Contrast Exam date and time: 06/08/2021 6:40 PM Age: 56 years old Clinical indication: Pain in thoracic spine TECHNIQUE: Imaging protocol: Multiplanar magnetic resonance images of the thoracic spine without contrast. COMPARISON: CT lumbar spine w con [id number] 05/18/2021 12:47 PM FINDINGS: Vertebrae: Spinal alignment is normal. Vertebral body height is maintained. Spinal cord: The spinal cord is unremarkable. There is no abnormal signal or cord compression. Discs/Spinal canal/Neural foramina: There is a mild generalized disc bulge and posterior osteophytic ridge at T11-12. No spinal canal stenosis. Soft tissues: Bone marrow signal intensity is normal. No edema. Paraspinal soft tissues are unremarkable. Visible intrathoracic soft tissues are unremarkable. MR/MR thoracic spin wo con* [id number] IMPRESSION: 1. No acute findings. 2. Mild degenerative disc disease at T11-12. No spinal stenosis. ? Dictated By: Arie Bell MD Signed By: Arie Bell MD Signed Date/Time: 06/08/212107 DD/ [address] [address] Magnetic Resonance Report Signed with Addenda Patient: Hilda Da Silva Unit #: [id number] : 1965 Age/Sex: 56 / F ADM Date: 06/08/21 Loc: ER Room/Bed: Attending Dr: Ordering Provider/Ordering MD: Dmitry Lynn MD Date of Service: 06/08/21 Procedure(s): MR lumbar spine wo con* [id number] Accession Number(s): [id number] Report Number: [id number] ADDENDUM MR/MR lumbar spine wo con* [id number] THIS REPORT CONTAINS FINDINGS THAT MAY BE CRITICAL TO PATIENT CARE. The findings were verbally communicated via telephone conference with Dr. Malone at 9:24 PM RELAY SHOP SUPERVISOR on 06/08/2021. The findings were acknowledged and understood. ? Addendum Dictated By: ?Arie Bell MD Addendum Signed By: ?Arie Bell MD Signed Date/Time: 06/08/212126 Addendum Cosigned By: ? PROCEDURE INFORMATION: Exam: MR Lumbar Spine Without Contrast Exam date and time: 06/08/2021 6:40 PM Age: 56 years old Clinical indication: Low back pain TECHNIQUE: Imaging protocol: Multiplanar magnetic resonance images of the lumbar spine without intravenous contrast. COMPARISON: 1. CT lumbar spine w con [id number] 05/18/2021 12:47 PM 2. MR lumbar spine wo con* [id number] 06/08/2020 4:37 PM FINDINGS: Vertebrae: There is posterolateral and interbody fusion at L4 through S1. The left L4 pedicle screw traverses the superior margin of the pedicle and extends into the disc. Stable mild superior endplate compression deformity of L4. Diffuse bone marrow edema at L3 and L4. Spinal alignment is normal. Spinal cord: The tip of the conus medullaris lies at L2. The spinal cord is unremarkable. There is no abnormal signal or cord compression. L1-L2: Mild generalized disc bulge. Small central disc protrusion. Mild bilateral facet and ligamentous hypertrophy. Mild spinal canal stenosis. No neural foraminal stenosis. L2-L3: Normal disc. Mild bilateral facet and ligamentous hypertrophy. No spinal canal or neural foraminal stenosis. L3-L4: Fluid in the disc space. Prominent bridging posterior osteophytes. Bilateral pedicle screws. Severe spinal canal stenosis. Neural foramina are obscured. L4-L5: Appropriately positioned interbody spacer. Bilateral pedicle screws noted. No spinal canal stenosis. Neural foramina are obscured. L5-S1: Appropriately positioned interbody spacer. No disc herniation. Bilateral pedicle screws noted. There is a focus of magnetic susceptibility artifact due to a surgical clip in the left L5 laminotomy defect. No significant spinal canal stenosis. Neural foramina are obscured. Other bones/joints: The visible portion of the pelvis and sacrum is intact. Soft tissues: Unremarkable. MR/MR lumbar spine wo con* [id number] IMPRESSION: 1. Diffuse bone marrow edema involving L3 and L4 with fluid in the disc space at L3-L4. This finding combined with bone destruction visible on the prior CT is suspicious for discitis and osteomyelitis. Correlate with clinical signs of infection. 2. Bulky posterior vertebral osteophytes at L3-L4 producing severe spinal canal stenosis. 3. Posterolateral fusion hardware from L4 through S1. The left L4 pedicle screw enters the L3-L4 disc space. 4. Stable compression deformity of L4 since 05/18/2021. ? Dictated By: Arie Bell MD Signed By: Arie Bell MD Signed Date/Time: 06/08/212121 DD/ 39 Discharge Plan Discharge Clinical Impression: Discitis, Sacral ulcer Condition: Stable Prescriptions: No Action baclofen 10 mg tablet 20 mg PO TID PRN (Reason: Muscle Spasm) 0RF atorvastatin 20 mg tablet 20 mg PO BEDTIME 0RF lamotrigine 200 mg tablet 400 mg PO QAM Qty: 180 2RF Rx Instructions: Take two tablets every morning trazodone 100 mg tablet 300 mg PO BEDTIME Qty: 270 2RF Rx Instructions: Take three tablets at bedtime tramadol 50 mg tablet 50 mg PO Q6H PRN (Reason: pain) Qty: 20 0RF (DME) Bone Growth Stimulator E0748 See Rx Instructions .Route .MEDSUPPLY Qty: 1 0RF Rx Instructions: As directed nicotine 21-14-7 mg/24 hr patch, TD daily, sequential 1 patch transdermal DAILY Qty: 56 0RF alprazolam 1 mg tablet 0.5 mg PO TID Qty: 45 3RF (DME) Rolling walker See Rx Instructions .Route .MEDSUPPLY Qty: 1 0RF Rx Instructions: As directed ibuprofen 800 mg tablet 800 mg PO TID PRN (Reason: Pain) 0RF albuterol sulfate 90 mcg/actuation HFA aerosol inhaler 2 puff INHALATION Q4H PRN (Reason: Shortness Of Breath) 0RF fluticasone propionate 50 mcg/actuation [place],Suspension 1 spray INTRANASAL BID PRN (Reason: Allergy Symptoms) 0RF levothyroxine 112 mcg tablet 112 mcg PO QAM 0RF tizanidine 4 mg capsule 4 mg PO Q6H PRN (Reason: muscle spasticity) Qty: 20 0RF Rx Instructions: do not exceed 3 doses per 24 hrs pregabalin [Lyrica] 75 mg capsule 75 mg PO BID Qty: 30 0RF hydrochlorothiazide 12.5 mg capsule 12.5 mg PO PRN PRN (Reason: Edema) 0RF Zyvox 600 mg tablet 600 mg PO BID 14 Days Qty: 28 0RF Referrals: Srinivasan,Blanche, SOLAR MECHANICAL ENGINEER [Primary Care Provider] - Coding Level of Care Code ED Green House Manager for Chg Fwd Exam Comprehensive
[2021-06-08] MEDS: nicotine 21 mg Patch 1 PATCH TRANSDERMA (20:43)
[2021-06-08 21:11] LABS: Basophils # 0.1 10^3/uL (0.0-0.1); Basophils % 0.4 %; Eosinophils # 0.1 10^3/uL (0.0-0.8); Eosinophils % 0.5 %; Hematocrit 36.1 % (37.0-47.0); Hemoglobin 11.4 g/dL (11.5-15.3); Lymphocytes # 2.9 10^3/uL (0.8-4.8); Lymphocytes % 18.9 %; Mean Corpuscular HGB Conc 31.6 g/dL (30.0-36.0); Mean Corpuscular Hemoglobin 29.2 pg (28.0-34.0); Mean Corpuscular Volume 92.6 fl (81-99); Mean Platelet Volume 9.3 fL (7.4-10.4); Monocytes # 0.9 10^3/uL (0.2-0.9); Monocytes % 5.8 %; Neutrophils # 11.11 10^3/uL (1.8-7.7); Neutrophils % 73.9 %; Nucleated Red Blood Cells % 0 %; Platelet Count 532 10^3/cmm (130-400); Red Cell Distribution Width 18.6 % (12.1-15.1); White Blood Count 15.1 10^3/uL (4.0-10.0)
[2021-06-08 21:28] LABS: Erythrocyte Sedimentation Rate 45 mm/hr (0-15)
[2021-06-08 21:35] LABS: Alanine Aminotransferase 26 U/L (0-33); Albumin Level 2.8 g/dL (3.5-5.2); Alkaline Phosphatase 216 IU/L (35-105); Blood Urea Nitrogen 19 mg/dL (6-20); C Reactive Protein 82.5 mg/L (0.0-4.9); Calcium 9.3 mg/dL (8.5-10.5); Carbon Dioxide 18 mmol/L (22-29); Chloride 99 mmol/L (98-107); Globulin 3.8 g/dL (1.3-4.6); Glomerular Filtration Rate 230.1 mL/min (90-130); Glucose 92 mg/dL (65-115); Lipase 23 U/L (13-60); Osmolality Calculated 274 mOsm/kg (285-295); Sodium 131 mmol/L (136-145); Total Bilirubin 0.4 mg/dL (0.15-1.2); Total Protein 6.6 g/dL (6.6-8.7)
[2021-06-08 21:48] LABS: Aspartate Amino Transferase 38 U/L (0-32)
[2021-06-08] MEDS: piperacillin-tazobactam 4.5 GM in sodium chloride 0.9% (plus) 50 ML IV (22:54)
[2021-06-09] VITALS (26 sets, daily range): BP systolic 86–139; BP diastolic 58–83; PULSE 85–108; RESP 12–24; TEMP 36.2–37.2; O2SAT 95–100
[2021-06-09] MEDS: vancomycin 1,000 MG in sodium chloride 0.9% 250 ML 250 MG IV ×3 (00:53→17:09)
--- NOTE | 2021-06-09 01:20 | P.HP_ITS ---
Providers/Chief Complaint Admitting Physician: Marisa Banks MD Primary Care Provider: Blanche Srinivasan, TEMPLATE LAYOUT WORKER Chief Complaint: wound History of Present Illness Hilda Da Silva is a 56 year old female with h/o L4-S1 laminectomy and fusion and intrumenetaion on 08/10/20, which was complicated by persistent drainage and eventually returned on 09/07/20 for I&D down to spine level. Per op note review infection was localized to superior aspect of her incision possibly a stitch abscess.? ? Deep cultures were taken in OR and , revealed growth of MRSA.She received 6 weeks of iv vancomycin subsequently for presumptive deep infection and presence of hardware. She followed up with orthopedics subsequently. States that she has continued to have pain, difficulty ambulating, recurrent falls and has in recent months developed decubitus ulcerations as well. Lumbar spine CT a in may showed Lucency along the LEFT L4 and bilateral S1 pedicle screws consistent with loosening. LEFT L4 pedicle screw with slight cephalad angulation extending into the L3-L4 disc space. She was admitetd here on 05/29 due to worsening back pain, MRSA bacteremia and large stage 4 sacral decubitus ulcer extending down to periosteum for which she underwent excisional debridement. Per op note, no hardware was exposed intraopertaively. Wound cx showed MRSA in addition to blood cx. Patient was treated with vancomycin and zosyn and was planend to be sent to SNF with PICC and termite exterminator abx however she elected to leave AMA on 06/02/21. She was prescribed po zyvox over next 14 days. Presented to ER today with c/o inability to void urine. MR lumbar spine showed L4-L5 discitis without signs of cord compression. She is currently afebrile. Leukocytosis persisting since last admission, currently at 14.5. ? Review of Systems General: Reports: 10 or more systems reviewed and unremarkable except in HPI and below Const: Denies: fever(s), chills or body aches Eyes: Denies: change in vision, blurry vision or photophobia ENMT: Reports: hoarseness; Denies: throat pain, enlarged tonsils, odynophagia or nasal congestion Card: Denies: chest pain, palpitations, irregular heart rhythm, edema, swelling of feet/ankles, lightheadedness, pre-syncope, dyspnea on exertion or orthopnea Resp: Denies: dyspnea, productive cough, non-productive cough, wheezing, stridor, pain on inspiration, change in phlegm color, hemoptysis or chest congestion GI: Denies: abdominal pain, nausea, vomiting, hematemesis, coffee ground emesis, dysphagia, heartburn, diarrhea, constipation, GI cramping, change in stool character, hematochezia or melena : Denies: flank pain, difficulty voiding, dysuria, urinary frequency, urinary urgency, urinary hesitancy or hematuria Musc: Denies: neck pain, back pain, extremity pain, joint swelling, joint warmth or deformity Neuro: Denies: headache(s), numbness in extremities, weakness in extremities, sensory changes, difficulty walking, frequent falls, dizziness, vertigo, behavioral changes, Slurred speech present or seizure-like activity Psych: Denies: anxiety, depression, suicidal ideation or homicidal ideation Endo: Denies: polyuria, polydipsia, tired all the time, cold intolerance or hot flashes Jam/Lymph: Denies: easy bruising or easy bleeding Medications/Allergies Home Medications Medication Instructions Recorded Confirmed Last Taken Type atorvastatin 20 mg tablet 20 mg PO BEDTIME 08/25/19 05/29/21 05/28/21 History Bone Growth Stimulator E0748 #1 ea 08/08/20 05/29/21 Unknown Rx nicotine 1 patch TRANSDERMAL DAILY #56 patch 08/15/20 05/29/21 09/07/20 Rx 21mg/24hr-14mg/24hr-7mg/24hr daily transderm patches,sequentl albuterol sulfate 90 mcg/actuation 2 puff INHALATION Q4H PRN 09/08/20 05/29/21 05/28/21 History aerosol inhaler fluticasone propionate 50 1 spray INTRANASAL BID PRN 09/08/20 05/29/21 05/29/21 History mcg/actuation nasal spray,suspension ibuprofen 800 mg tablet 800 mg PO TID PRN 09/08/20 05/29/21 05/29/21 History levothyroxine 112 mcg tablet 112 mcg PO QAM 09/08/20 05/29/21 05/29/21 History lamotrigine 200 mg tablet 400 mg PO QAM #180 tab 01/06/21 05/29/21 05/29/21 Rx trazodone 100 mg tablet 300 mg PO BEDTIME #270 tab 01/06/21 05/29/21 05/28/21 Rx alprazolam 1 mg tablet 0.5 mg PO TID #45 tab 03/07/21 05/29/21 05/29/21 Rx baclofen 10 mg tablet 20 mg PO TID PRN tab 04/05/21 05/29/21 05/28/21 History pregabalin 75 mg capsule (Lyrica) 75 mg PO BID #30 cap 05/11/21 05/29/21 05/28/21 Rx tizanidine 4 mg capsule 4 mg PO Q6H PRN #20 cap 05/11/21 05/29/21 05/28/21 Rx Rolling walker #1 ea 05/17/21 05/29/21 Unknown Rx hydrochlorothiazide 12.5 mg capsule 12.5 mg PO PRN PRN 05/29/21 05/29/21 Unknown History linezolid 600 mg tablet (Zyvox) 600 mg PO BID 14 Days #28 tab 06/02/21 Unknown Rx tramadol 50 mg tablet 50 mg PO Q6H PRN #20 tab 06/06/21 06/06/21 Unknown Rx Allergies Allergy/AdvReac Type Severity Reaction Status Date / Time naproxen Allergy Severe breathing Verified 05/29/21 16:55 issues gabapentin Allergy Intermediate ADR-Dizzine Verified 05/29/21 16:55 ss PFSH Acute PFSH: Medical History Alcohol use disorder, moderate, in sustained remission Bipolar II disorder Borderline personality disorder Cigarette nicotine dependence Hyperlipidemia Hypothyroidism Panic disorder Postoperative wound infection (2020) MRSA Psychiatric care Surgical History History of fusion of lumbar spine (08/10/20) L4-L5, L5-S1 interbody fusion with posterolateral fusion, with cage at L4/5, L5/S1, revision laminectomy L4 and L5, Dr Ramirez History of laminectomy (02/22/20) L4-L5 laminectomy with partial facetectomy, Dr Ramirez Hx of section Hx of hysterectomy Family History Denies family history of CAD (coronary artery disease) Anesthesia complication Social History Smoking and tobacco status: current every day smoker cigarettes Alcohol intake: former Household members: family Vitals/I&O/Wt Last Vital Signs Temp 97.7 F 06/08/21 18:35 Pulse 86 06/08/21 23:45 Resp 18 06/08/21 23:45 BP 107/70 06/08/21 23:45 Pulse Ox 96 06/08/21 23:45 06/08/21 06/08/21 06/09/21 14:59 22:59 06:59 Intake Total 50 / 50 Balance 50 / 50 Weight last 48 hrs Weight 45.359 kg Physical Exam Narrative: GEN: Awake, alert and oriented, no acute distress CVS: S1S2 N RS: CTA B/L Abd: Soft, nt/nd , bs+ Ext: stage 4 decubitus ulcer over lumbosacral region Data : 06/09/21 05:17 06/09/21 05:17 Micro: Microbiology 06/08/21 21:45 Blood Culture - Preliminary Blood SPECIMEN COLLECTED 06/08/21 21:40 Blood Culture - Preliminary Blood SPECIMEN COLLECTED Blood cx 05/29: 05/29/21-1028 MRSA M.I.C. RX --------- ------ * Ampicillin >8 R * Ciprofloxacin >2 R * Clindamycin <=0.5 S * Erythromycin >4 R * Gentamicin <=4 S * Levofloxacin >4 R * Linezolid 2 S * Oxacillin >2 R * Penicillin >8 R * Rifampin <=1 S * Tetracycline <=4 S * Trimethoprim/Sulfamethoxazole <=0.5/9.5 S Vancomycin 1 S Daptomycin 1 S Blood cx : 06/01 : NGTD wound cx from decub debridement : MRSA Other data: Radiology Impressions Lumbar Spine MRI 06/08/21 18:40 IMPRESSION: 1. Diffuse bone marrow edema involving L3 and L4 with fluid in the disc space at L3-L4. This finding combined with bone destruction visible on the prior CT is suspicious for discitis and osteomyelitis. Correlate with clinical signs of infection. 2. Bulky posterior vertebral osteophytes at L3-L4 producing severe spinal canal stenosis. 3. Posterolateral fusion hardware from L4 through S1. The left L4 pedicle screw enters the L3-L4 disc space. 4. Stable compression deformity of L4 since 05/18/2021. ADDENDUM: 06/08/212126 THIS REPORT CONTAINS FINDINGS THAT MAY BE CRITICAL TO PATIENT CARE. The findings were verbally communicated via telephone conference with Dr. Malone at 9:24 PM MANAGER FIELD SALES on 06/08/2021. The findings were acknowledged and understood. Thoracic Spine MRI 06/08/21 18:40 IMPRESSION: 1. No acute findings. 2. Mild degenerative disc disease at T11-12. No spinal stenosis. Laboratory Results WBC 14.5 10^3/uL (4.0-10.0) H 06/09/21 05:17 RBC 3.55 10^6/uL (4.1-5.3) L 06/09/21 05:17 Hgb 10.2 g/dL (11.5-15.3) L 06/09/21 05:17 Hct 32.7 % (37.0-47.0) L 06/09/21 05:17 MCV 92.1 fl (81-99) 06/09/21 05:17 MCH 28.7 pg (28.0-34.0) 06/09/21 05:17 MCHC 31.2 g/dL (30.0-36.0) 06/09/21 05:17 RDW 18.5 % (12.1-15.1) H 06/09/21 05:17 Plt Count 545 10^3/cmm (130-400) H 06/09/21 05:17 MPV 9.5 fL (7.4-10.4) 06/09/21 05:17 Neut % (Auto) 76.7 % 06/09/21 05:17 Lymph % (Auto) 16.6 % 06/09/21 05:17 Reeves % (Auto) 5.5 % 06/09/21 05:17 Eos % (Auto) 0.2 % 06/09/21 05:17 Baso % (Auto) 0.4 % 06/09/21 05:17 Neut # (Auto) 11.15 10^3/uL (1.8-7.7) H 06/09/21 05:17 Lymph # (Auto) 2.4 10^3/uL (0.8-4.8) 06/09/21 05:17 Reeves # (Auto) 0.8 10^3/uL (0.2-0.9) 06/09/21 05:17 Eos # (Auto) 0.0 10^3/uL (0.0-0.8) 06/09/21 05:17 Baso # (Auto) 0.1 10^3/uL (0.0-0.1) 06/09/21 05:17 Nucleated RBC % (auto) 0 % 06/09/21 05:17 Nucleated RBCs # 0.0 /100WBC 06/09/21 05:17 ESR 45 mm/hr (0-15) H 06/08/21 21:00 Sodium 132 mmol/L (136-145) L 06/09/21 05:17 Potassium 3.7 mmol/L (3.5-5.1) 06/09/21 05:17 Chloride 100 mmol/L (98-107) 06/09/21 05:17 Carbon Dioxide 19 mmol/L (22-29) L 06/09/21 05:17 Anion Gap 16.7 (5-19) 06/09/21 05:17 BUN 20 mg/dL (6-20) 06/09/21 05:17 Creatinine 0.4 mg/dL (0.5-0.9) L 06/09/21 05:17 GFR Calculation 165.1 mL/min (90-130) H 06/09/21 05:17 Glucose 95 mg/dL (65-115) 06/09/21 05:17 Calculated Osmolality 276 mOsm/kg (285-295) L 06/09/21 05:17 Calcium 9.1 mg/dL (8.5-10.5) 06/09/21 05:17 Total Bilirubin 0.4 mg/dL (0.15-1.2) 06/09/21 05:17 AST 20 U/L (0-32) 06/09/21 05:17 ALT 20 U/L (0-33) 06/09/21 05:17 Alkaline Phosphatase 200 IU/L (35-105) H 06/09/21 05:17 C-Reactive Protein 82.5 mg/L (0.0-4.9) H 06/08/21 21:00 Total Protein 6.5 g/dL (6.6-8.7) L 06/09/21 05:17 Albumin 2.8 g/dL (3.5-5.2) L 06/09/21 05:17 Globulin 3.7 g/dL (1.3-4.6) 06/09/21 05:17 Lipase 23 U/L (13-60) 06/08/21 21:00 Ordering Provider/Ordering MD: Santosh Ramirez DO Date of Service: 05/18/21 Procedure(s): CT lumbar spine w con [id number] Accession Number(s): [id number] Report Number: [id number] WS: [id number] CT LUMBAR myelogram TECHNIQUE: CT myelogram of the lumbar spine with coronal and sagittal reformatted images. CLINICAL INFORMATION: Z98.890 - Other specified postprocedural states COMPARISON: MRI June 08, 2020 DLP: 1156.[address] scans at [facility] use at least one of these dose optimization techniques: automated exposure control; mA and/or kV adjustment per patient size (includes targeted exams where dose is matched to clinical indication); or iterative reconstruction. FINDINGS: Prior postoperative changes pedicle screw fixation L4-S1 with interconnecting rods. Interbody fusion grafts LEFT L4-L5 and L5-S1. Hardware appears intact. Lucency along the LEFT L4 and bilateral S1 pedicle screws consistent with loosening. LEFT L4 pedicle screw with slight cephalad angulation extending into the L3-L4 disc space. Interbody fusion grafts LEFT L4-L5 and L5-S1. No significant bony bridging beyond the confines of the grafts. LEFT L4-L5 and LEFT L5-S1 laminectomy defects. Subsidence along the interbody fusion grafts. Sclerosis and demineralization involving the L3-L4 L4-L5 and L5-S1 endplates. Mild chronic compression with anterior wedging L4 anteriorly. L1-L2: Central disc osteophyte protrusion with slight effacement of ventral thecal sac. Mild central canal stenosis. Foramen are patent. L2-L3: Mild annular bulging. Mild facet arthropathy. Spinal canal and foramen are patent. L3-L4: Pedicle screw fixation. Mild disc bulging with osteophytic ridging. Mild/moderate central canal stenosis. Narrowing of the subarticular recess bilaterally. Moderate bilateral foraminal narrowing. L4-L5: Pedicle screw fixation. Interbody fusion. Spinal canal is patent. Foramen are patent. L5-S1: Postoperative changes pedicle screw fixation with interbody fusion. Spinal canal is patent. Foramen are patent. Visualized pelvic bony structures: Normal. Paravertebral soft tissues: Normal. CT/CT lumbar spine w con [id number] IMPRESSION: ? 1.? Prior pedicle screw fixation L4-S1 with LEFT interbody fusion grafts L4-L5 and L5-S1. Hardware appears intact. 2.? Lucency with loosening of the LEFT L4 and bilateral S1 pedicle screws 3.? Subsidence involving the LEFT L4-L5 and L5-S1 fusion grafts without evidence of bony bridging beyond the confines of the grafts. 4.? Endplate erosive changes with demineralization involving the L3-L4 and L4-L5 endplates with mild compression involving the L4 vertebral body with anterior wedging. 5.? Mild to moderate central canal stenosis L3-L4 due to disc osteophyte complex with impingement subarticular recess bilaterally. Moderate bilateral bony foraminal narrowing. 6.? LEFT L3 pedicle screw extends into the L3-L4 disc space. 7.? Spinal canal and foramen are patent at the L4-L5 and L5-S1 levels. 8.? Central disc osteophyte protrusion L1-L2 with mild central canal stenosis and slight effacement of ventral thecal sac. A&P Assessment and plan (1) Discitis: Status: Acute (2) S/P spinal fusion: Status: Acute (3) Sacral decubitus ulcer, stage IV: Status: Acute Plan 56 year old lady with PMH as noted above presenting today with difficulty urinating. No gross signs of cord compression however MRI noted Diffuse bone marrow edema involving L3 and L4 with fluid in the disc space at L3-L4. This finding combined with bone destruction visible on the prior CT is suspicious for discitis and osteomyelitis.?Previous CT in May 2021 showed Lucency along the LEFT L4 and bilateral S1 pedicle screws consistent with loosening. LEFT L4 pedicle screw with slight cephalad angulation extending into the L3-L4 disc space. Clinical picture additonally complicated by stage 4 decubitus ulcer for which she underwent excisional debridement on 05/30/2021. Blood cx from 05/29 significant for MRSA, cleared on 06/01/20. Patient was advised residential abx via PICC with SNF placement howevere elected to leave AMA on last admission. Overall, clinical picture concerning for infectious discitis at L3-L4 level with MRSA with possible hardware involvement given lucencey and loosening. Recent wound cx from decubitus ulcer additionally with MRSA. per op note changes, no exposed hardware noted in OR, however ulcer extending down to level of periosteum. Patient admitted to med/surg today Started on organism directed treatment with Vancomycin with trough goal of 15- 20. Spine surgery and general surgery consult to assess for spinal surgery, further sacral ulcer debridements. Crp trend 05/29 160--> 82 today (45.5 in 08/2020) ; ESR 52--> 45 (86 08/2020) repeat blood cx today Attestations Medical Necessity Statement*: >2midnight admission will be needed for above defined care Coding Level of Care Code Acute Director Of Convention Services for Zac Gaines Diagnoses Discitis M46.40 S/P spinal fusion Z98.1 Sacral decubitus ulcer, stage IV L89.154
--- NOTE | 2021-06-09 02:25 | PC.NURSE ---
0130 called Report to floor. Pt [id number] is not clean RN will notify when room clean and ready.
[2021-06-09] MEDS: enoxaparin 40 mg/0.4 mL Syringe SUBCUT (03:10)
[2021-06-09] MEDS: tizanidine 4 mg Tablet PO ×2 (03:11→08:17)
[2021-06-09] MEDS: morphine 4 mg/mL SDV 1 mL IVP ×4 (03:11→21:27)
[2021-06-09] MEDS: baclofen 10 mg Tablet 20 MG PO (03:11)
[2021-06-09 05:39] LABS: Basophils # 0.1 10^3/uL (0.0-0.1); Basophils % 0.4 %; Eosinophils % 0.2 %; Hematocrit 32.7 % (37.0-47.0); Hemoglobin 10.2 g/dL (11.5-15.3); Lymphocytes # 2.4 10^3/uL (0.8-4.8); Lymphocytes % 16.6 %; Mean Corpuscular HGB Conc 31.2 g/dL (30.0-36.0); Mean Corpuscular Hemoglobin 28.7 pg (28.0-34.0); Mean Corpuscular Volume 92.1 fl (81-99); Mean Platelet Volume 9.5 fL (7.4-10.4); Monocytes # 0.8 10^3/uL (0.2-0.9); Monocytes % 5.5 %; Neutrophils # 11.15 10^3/uL (1.8-7.7); Neutrophils % 76.7 %; Nucleated Red Blood Cells % 0 %; Platelet Count 545 10^3/cmm (130-400); Red Blood Count 3.55 10^6/uL (4.1-5.3); Red Cell Distribution Width 18.5 % (12.1-15.1); White Blood Count 14.5 10^3/uL (4.0-10.0)
[2021-06-09 05:59] LABS: Alanine Aminotransferase 20 U/L (0-33); Albumin Level 2.8 g/dL (3.5-5.2); Alkaline Phosphatase 200 IU/L (35-105); Anion Gap 16.7 (5-19); Aspartate Amino Transferase 20 U/L (0-32); Blood Urea Nitrogen 20 mg/dL (6-20); Calcium 9.1 mg/dL (8.5-10.5); Carbon Dioxide 19 mmol/L (22-29); Chloride 100 mmol/L (98-107); Globulin 3.7 g/dL (1.3-4.6); Glomerular Filtration Rate 165.1 mL/min (90-130); Glucose 95 mg/dL (65-115); Osmolality Calculated 276 mOsm/kg (285-295); Potassium 3.7 mmol/L (3.5-5.1); Sodium 132 mmol/L (136-145); Total Bilirubin 0.4 mg/dL (0.15-1.2); Total Protein 6.5 g/dL (6.6-8.7)
[2021-06-09] MEDS: lamoTRIgine 100 mg Tablet 400 MG PO (06:39)
[2021-06-09] MEDS: levothyroxine 112 mcg Tablet PO (06:40)
[2021-06-09] MEDS: pregabalin 75 mg Capsule PO ×2 (08:17→17:09)
--- NOTE | 2021-06-09 08:46 | PC.PHAR ---
pt states her daughter takes care of her medications-pts daughter lam states the pt takes the medications entered states the pt had a build up of some of the medications-pts daughter states the pt never got the zyvox 600mg bid written on 06/02/21 states it wasnt covered on insurance-notes are made in the pharmacy comments
[2021-06-09] MEDS: pantoprazole DR 40 mg Tablet PO (09:06)
--- NOTE | 2021-06-09 09:46 | P.CONIM_ITS ---
Providers/Reason For Consult Consulting Physician/Specialty*: hospitalist Reason for Consult*: spine infection Attending Physician: Ezequiel Hutchins MD Primary Care Provider: NATHANIEL Torrez History of Present Illness History of Present Illness Hilda Da Silva is a 56 year old female well-known to the spine service. Previously she was complaining of leg pain. This morning she is not complain about any leg pain. Just states that she is tired. Patient was transferred over from [place]. At this point patient does not appear to be having any neurologic deficits. She is laying in bed with no complaints. I was told that she was going to surgery for debridement of her decubitus ulcer. Review of Systems General: Reports: 10 or more systems reviewed and unremarkable except in HPI and below Const: Denies: fever(s), chills or body aches Eyes: Denies: change in vision, blurry vision or photophobia ENMT: Reports: hoarseness; Denies: throat pain, enlarged tonsils, odynophagia or nasal congestion Card: Denies: chest pain, palpitations, irregular heart rhythm, edema, swe lling of feet/ankles, lightheadedness, pre-syncope, dyspnea on exertion or orthopnea Resp: Denies: dyspnea, productive cough, non-productive cough, wheezing, stridor, pain on inspiration, change in phlegm color, hemoptysis or chest congestion GI: Denies: abdominal pain, nausea, vomiting, hematemesis, coffee ground emesis, dysphagia, heartburn, diarrhea, constipation, GI cramping, change in stool character, hematochezia or melena : Denies: flank pain, difficulty voiding, dysuria, urinary frequency, urina ry urgency, urinary hesitancy or hematuria Musc: Denies: neck pain, back pain, extremity pain, joint swelling, joint warmth or deformity Neuro: Denies: headache(s), numbness in extremities, weakness in extremities, sensory changes, difficulty walking, frequent falls, dizziness, vertigo, behavioral changes, Slurred speech present or seizure-like activity Psych: Denies: anxiety, depression, suicidal ideation or homicidal ideation Endo: Denies: polyuria, polydipsia, tired all the time, cold intolerance or hot flashes Jam/Lymph: Denies: easy bruising or easy bleeding Medications/Allergies Home Medications Medication Instructions Recorded Confirmed Last Taken Type atorvastatin 20 mg tablet 20 mg PO BEDTIME 08/25/19 06/09/21 05/28/21 History Bone Growth Stimulator E0748 #1 ea 08/08/20 06/09/21 Unknown Rx albuterol sulfate 90 mcg/actuation 2 puff INHALATION Q4H PRN 09/08/20 06/09/21 05/28/21 History aerosol inhaler fluticasone propionate 50 1 spray INTRANASAL BID PRN 09/08/20 06/09/21 05/29/21 History mcg/actuation nasal spray,suspension ibuprofen 800 mg tablet 800 mg PO TID PRN 09/08/20 06/09/21 05/29/21 History levothyroxine 112 mcg tablet 112 mcg PO QAM 09/08/20 06/09/21 05/29/21 History lamotrigine 200 mg tablet 400 mg PO QAM #180 tab 01/06/21 06/09/21 05/29/21 Rx trazodone 100 mg tablet 300 mg PO BEDTIME #270 tab 01/06/21 06/09/21 05/28/21 Rx alprazolam 1 mg tablet 0.5 mg PO TID #45 tab 03/07/21 06/09/21 05/29/21 Rx baclofen 10 mg tablet 20 mg PO TID PRN tab 04/05/21 06/09/21 05/28/21 History Rolling walker #1 ea 05/17/21 06/09/21 Unknown Rx hydrochlorothiazide 12.5 mg capsule 12.5 mg PO DAILY PRN 05/29/21 06/09/21 Unknown History tramadol 50 mg tablet 50 mg PO Q6H PRN #20 tab 06/06/21 06/09/21 Unknown Rx Allergies Allergy/AdvReac Type Severity Reaction Status Date / Time naproxen Allergy Severe breathing Verified 06/09/21 08:45 issues gabapentin Allergy Intermediate ADR-Dizzine Verified 06/09/21 08:45 ss Current Medications Generic Name Dose Route Start Last Admin Trade Name Freq PRN Reason Stop Dose Admin Baclofen 20 mg 06/09/21 02:31 06/09/21 03:11 Baclofen 10 Mg Tablet PO 20 mg TID PRN Administration Muscle Spasm Enoxaparin Sodium 40 mg 06/09/21 02:31 06/09/21 03:10 Enoxaparin 40 Mg/0.4 Ml Syringe SUBCUT 40 mg Q24H ELIDIA Administration Vancomycin HCl 1,000 mg/ 250 mls @ 250 mls/hr 06/09/21 09:00 06/09/21 09:05 Sodium Chloride IV 250 mls/hr Q8H ELIDIA Administration Lamotrigine 400 mg 06/09/21 06:00 06/09/21 06:39 Lamotrigine 100 Mg Tablet PO 400 mg QAM ELIDIA Administration Levothyroxine Sodium 112 mcg 06/09/21 06:00 06/09/21 06:40 Levothyroxine 112 Mcg Tablet PO 112 mcg QAM ELIDIA Administration Morphine Sulfate 4 mg 06/09/21 02:31 06/09/21 08:17 Morphine 4 Mg/Ml Sdv 1 Ml IVP 4 mg Q4H PRN Administration SEVERE PAIN Pantoprazole Sodium 40 mg 06/09/21 09:00 06/09/21 09:[address] 40 Mg Tablet PO 40 mg DAILY ELIDIA Administration Pregabalin 75 mg 06/09/21 09:00 06/09/21 08:17 Pregabalin 75 Mg Capsule PO 75 mg BID ELIDIA Administration Tizanidine HCl 4 mg 06/09/21 02:40 06/09/21 08:17 Tizanidine 4 Mg Tablet PO 4 mg Q6H PRN Administration muscle spasticity PFSH Acute PFSH: Medical History Alcohol use disorder, moderate, in sustained remission Bipolar II disorder Borderline personality disorder Cigarette nicotine dependence Hyperlipidemia Hypothyroidism Panic disorder Postoperative wound infection (2020) MRSA Psychiatric care Surgical History History of fusion of lumbar spine (08/10/20) L4-L5, L5-S1 interbody fusion with posterolateral fusion, with cage at L4/5, L5/S1, revision laminectomy L4 and L5, Dr Ramirez History of laminectomy (02/22/20) L4-L5 laminectomy with partial facetectomy, Dr Ramirez Hx of section Hx of hysterectomy Family History Denies family history of CAD (coronary artery disease) Anesthesia complication Social History Smoking and tobacco status: current every day smoker cigarettes Alcohol intake: former Household members: family Vitals/I&O/Wt Last Vital Signs Temp 98.4 F 06/09/21 07:28 Pulse 93 06/09/21 07:28 Resp 16 06/09/21 08:17 BP 105/70 06/09/21 07:28 Pulse Ox 97 06/09/21 07:28 06/08/21 06/09/21 06/09/21 22:59 06:59 14:59 Intake Total 300 / 300 Output Total 400 / 400 Balance -100 / -100 Weight last 48 hrs Weight 100 lb Physical Exam Narrative: GEN: Awake, alert and oriented, no acute distress CVS: S1S2 N RS: CTA B/L Abd: Soft, nt/nd , bs+ Ext: stage 4 decubitus ulcer over lumbosacral region Laying in the lateral decubitus position Data : 06/09/21 05:17 06/09/21 05:17 Micro: Microbiology 06/08/21 21:45 Blood Culture - Preliminary Blood SPECIMEN COLLECTED 06/08/21 21:40 Blood Culture - Preliminary Blood SPECIMEN COLLECTED A&P Assessment and plan (1) Sacral ulcer: At this point at try to have a discussion with the patient about removing hardware. She did not appear to understand what I was talking about. At this point she is going to surgery today for debridement of her decubitus ulcer. Plan at this point will be to revisit hardware removal on Saturday. However my concern is if remove the hardware then her spine becomes even more unstable. A nd the risk of contaminating that wound more. Status: Acute Coding Level of Care Code Acute Perianesthesia Manager for Zac Fwdonnie Diagnoses Sacral ulcer L98.429
--- NOTE | 2021-06-09 09:51 | PC.CHAP ---
Pastoral Care Encounter/Spiritual Assessment Type of Contact [] Declined fabricator industrial furnace visit [] Patient/Family/Request visit [] Outpatient visit [] Follow-up visit [] Physician referral [] Code/Alert x[] Routine visit [] Staff referral [] Actively dying [x] Patient sleeping [] Family support [] [] Out of room [] Palliative care [] [] Receiving care in room [] Pre-surgical visit [] Trauma [] Long length of stay [] ICU visit [] Other: Relational/Emotional Strength [] Patient feels connected with others/family/visitors/staff [] Distress [] Loneliness/isolation [] Abandonment Spirituality of Patient [] Person of Yolande [] Attends Yazdanism of their Yolande [] Believes in Prayer [] Reads Bible or Church materials [] There are Spiritual issues to be addressed Stock Grader Interventions [] Prayer [] Active listening [] Non-anxious presence [] Spiritual/emotional support [] Crisis/trauma care [] Spiritual counseling [] Bereavement support [] Provided bereavement packet [] Provided Bible/devotional materials [] Provided toy/stuffed animal, coloring book to patient or family member [] Provided Communion [] Anointing/[place] [] Salvation [] Completed spiritual assessment [] Other: Impact on Illness or Injury [] Angry [] Fearful [] Anxious [] Often cries [] Exhaustion [] Unable to work [] Unable to attend pentecostalism [] Unable to walk/stand [] Unable to read [] Unable to drive [] Unable to eat/drink [] Unable to sleep [] Unable to be with family [] Patient intubated [] Other: Summary Time spent with patient
--- NOTE | 2021-06-09 11:24 | P.CONIM_ITS ---
Providers/Reason For Consult Consulting Physician/Specialty*: General Surgery Dr. Jimenez Reason for Consult*: sacral decubitus ulcer Attending Physician: Ezequiel Hutchins MD Primary Care Provider: NATHANIEL Torrez History of Present Illness History of Present Illness Hilda Da Silva is a 56 year old female was admitted last night with inability to void. MRI showed L4-L5 discitis without signs of cord compression. Patient has been bedbound since her back surgery last year. She had previously undergone debridement of sacral decubitus ulcer by Dr. Hoyt on 05/30/2021. Patient is afebrile. Review of Systems General: Reports: 10 or more systems reviewed and unremarkable except in HPI and below Medications/Allergies Home Medications Medication Instructions Recorded Confirmed Last Taken Type atorvastatin 20 mg tablet 20 mg PO BEDTIME 08/25/19 06/09/21 05/28/21 History Bone Growth Stimulator E0748 #1 ea 08/08/20 06/09/21 Unknown Rx albuterol sulfate 90 mcg/actuation 2 puff INHALATION Q4H PRN 09/08/20 06/09/21 05/28/21 History aerosol inhaler fluticasone propionate 50 1 spray INTRANASAL BID PRN 09/08/20 06/09/21 05/29/21 History mcg/actuation nasal spray,suspension ibuprofen 800 mg tablet 800 mg PO TID PRN 09/08/20 06/09/21 05/29/21 History levothyroxine 112 mcg tablet 112 mcg PO QAM 09/08/20 06/09/21 05/29/21 History lamotrigine 200 mg tablet 400 mg PO QAM #180 tab 01/06/21 06/09/21 05/29/21 Rx trazodone 100 mg tablet 300 mg PO BEDTIME #270 tab 01/06/21 06/09/21 05/28/21 Rx alprazolam 1 mg tablet 0.5 mg PO TID #45 tab 03/07/21 06/09/21 05/29/21 Rx baclofen 10 mg tablet 20 mg PO TID PRN tab 04/05/21 06/09/21 05/28/21 History Rolling walker #1 ea 05/17/21 06/09/21 Unknown Rx hydrochlorothiazide 12.5 mg capsule 12.5 mg PO DAILY PRN 05/29/21 06/09/21 Unknown History tramadol 50 mg tablet 50 mg PO Q6H PRN #20 tab 06/06/21 06/09/21 Unknown Rx Allergies Allergy/AdvReac Type Severity Reaction Status Date / Time naproxen Allergy Severe breathing Verified 06/09/21 08:45 issues gabapentin Allergy Intermediate ADR-Dizzine Verified 06/09/21 08:45 ss Current Medications Generic Name Dose Route Start Last Admin Trade Name Freq PRN Reason Stop Dose Admin Baclofen 20 mg 06/09/21 02:31 06/09/21 03:11 Baclofen 10 Mg Tablet PO 20 mg TID PRN Administration Muscle Spasm Enoxaparin Sodium 40 mg 06/09/21 02:31 06/09/21 03:10 Enoxaparin 40 Mg/0.4 Ml Syringe SUBCUT 40 mg Q24H ELIDIA Administration Vancomycin HCl 1,000 mg/ 250 mls @ 250 mls/hr 06/09/21 09:00 06/09/21 10:05 Sodium Chloride IV Infused Q8H ELIDIA Infusion Lamotrigine 400 mg 06/09/21 06:00 06/09/21 06:39 Lamotrigine 100 Mg Tablet PO 400 mg QAM ELIDIA Administration Levothyroxine Sodium 112 mcg 06/09/21 06:00 06/09/21 06:40 Levothyroxine 112 Mcg Tablet PO 112 mcg QAM ELIDIA Administration Morphine Sulfate 4 mg 06/09/21 02:31 06/09/21 08:17 Morphine 4 Mg/Ml Sdv 1 Ml IVP 4 mg Q4H PRN Administration SEVERE PAIN Pantoprazole Sodium 40 mg 06/09/21 09:00 06/09/21 09:[address] 40 Mg Tablet PO 40 mg DAILY ELIDIA Administration Pregabalin 75 mg 06/09/21 09:00 06/09/21 08:17 Pregabalin 75 Mg Capsule PO 75 mg BID ELIDIA Administration Tizanidine HCl 4 mg 06/09/21 02:40 06/09/21 08:17 Tizanidine 4 Mg Tablet PO 4 mg Q6H PRN Administration muscle spasticity PFSH Acute PFSH: Medical History Alcohol use disorder, moderate, in sustained remission Bipolar II disorder Borderline personality disorder Cigarette nicotine dependence Hyperlipidemia Hypothyroidism Panic disorder Postoperative wound infection (2020) MRSA Psychiatric care Surgical History History of fusion of lumbar spine (08/10/20) L4-L5, L5-S1 interbody fusion with posterolateral fusion, with cage at L4/5, L5/S1, revision laminectomy L4 and L5, Dr Ramirez History of laminectomy (02/22/20) L4-L5 laminectomy with partial facetectomy, Dr Ramirez Hx of section Hx of hysterectomy Family History Denies family history of CAD (coronary artery disease) Anesthesia complication Social History Smoking and tobacco status: current every day smoker cigarettes Alcohol intake: former Household members: family Vitals/I&O/Wt Last Vital Signs Temp 98.5 F 06/09/21 11:08 Pulse 85 06/09/21 11:08 Resp 18 06/09/21 11:08 BP 112/75 06/09/21 11:08 Pulse Ox 98 06/09/21 11:08 06/08/21 06/09/21 06/09/21 22:59 06:59 14:59 Intake Total 300 / 300 250 / 250 Output Total 400 / 400 Balance -100 / -100 250 / 250 Weight last 48 hrs Weight 100 lb Physical Exam Narrative: HEENT: Normocephalic Eye: Sclera /conjunctiva normal Respiratory and chest: Bilateral clear breath sounds on auscultation Cardiovascular: Normal S1 and S2 heart sounds Abdomen: Soft to palpation Neurological: Oriented to place person and time Skin: Intact, sacral decubitus with necrotic tissue measuring about 10 x 15 cm Data : 06/09/21 05:17 06/09/21 05:17 Micro: Microbiology 06/08/21 21:45 Blood Culture - Preliminary Blood SPECIMEN COLLECTED 06/08/21 21:40 Blood Culture - Preliminary Blood SPECIMEN COLLECTED A&P Assessment and plan (1) Sacral decubitus ulcer, stage IV: 56-year-old female who has a large sacral decubitus ulcer which has previously been debrided on May 30. On exam today patient has further necrotic tissue that requires debridement and due to significant pain she would not tolerate a procedure at the bedside. Plan for debridement of sacral decubitus ulcer under MAC today Procedure, risks, benefits and alternatives have been discussed with the patient who wishes to proceed with surgery. Status: Acute Consult Attestations Medical Necessity Statement: As per attending physician Coding Level of Care Code Acute Textile Science Technician for anson Gaines Diagnoses Sacral decubitus ulcer, stage IV L89.154
--- NOTE | 2021-06-09 11:58 | P.ANESASSM_ITS ---
Pre-Anesthetic Assessment Height/Weight: Height 1.6 m Weight 45.359 kg Temp Pulse Resp BP Pulse Ox 98.9 F 99 18 117/80 99 06/09/21 11:31 06/09/21 11:31 06/09/21 11:31 06/09/21 11:31 06/09/21 11:31 Preop Diagnosis: Sacral pressure injury ulcer Operation Date: 06/09/21 11:00 Proposed Procedures p debridement of sacral wound(Not Applicable) - Otto Jimenez MD Familial anesthetic complications: None Was Beta Mamadou taken within 24 hours: N/A Was Clonidine taken within 24 hours: N/A Last intake: Intake Last Liquid Date 06/09/21 Last Liquid Time 00:00 Last Solid Date 06/08/21 Last Solid Time 15:00 Social Alcohol and Tobacco Exam alert, oriented x 3 and regular rate & rhythm diminished breath sounds b/l Airway Submandibular: Other (Less than 2) Cervical ROM: Other (Limited in flexion and extension ) Mallampati: Class III Dentition: chipped Comments: Comments: Missing many teeth, very poor dentition Minimal effort in airway exam Denies loose teeth CV/HEM Anemia Hyponatremia Musc/skel Sacral Ulcer s/p spinal fusion Discitis Neuropsych Anxiety, Bipolar and Depression 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 We discussed spectrum of MAC anesthesia including conversion to general as well as possibility of recall of intraoperative stimuli including discomfort/pain. Patient agrees to proceed with MAC. Risk of > 500 ml blood loss (7ml/kg in children): No Medications/Allergies Home Medications Medication Instructions Recorded Confirmed Last Taken Type atorvastatin 20 mg tablet 20 mg PO BEDTIME 08/25/19 06/09/21 05/28/21 History Bone Growth Stimulator E0748 #1 ea 08/08/20 06/09/21 Unknown Rx albuterol sulfate 90 mcg/actuation 2 puff INHALATION Q4H PRN 09/08/20 06/09/21 05/28/21 History aerosol inhaler fluticasone propionate 50 1 spray INTRANASAL BID PRN 09/08/20 06/09/21 05/29/21 History mcg/actuation nasal spray,suspension ibuprofen 800 mg tablet 800 mg PO TID PRN 0606/09/21 05/29/21 History levothyroxine 112 mcg tablet 112 mcg PO QAM 09/08/20 06/09/21 05/29/21 History lamotrigine 200 mg tablet 400 mg PO QAM #180 tab 01/06/21 06/09/21 05/29/21 Rx trazodone 100 mg tablet 300 mg PO BEDTIME #270 tab 01/06/21 06/09/21 05/28/21 Rx alprazolam 1 mg tablet 0.5 mg PO TID #45 tab 03/07/21 06/09/21 05/29/21 Rx baclofen 10 mg tablet 20 mg PO TID PRN tab 04/05/21 06/09/21 05/28/21 History Rolling walker #1 ea 05/17/21 06/09/21 Unknown Rx hydrochlorothiazide 12.5 mg capsule 12.5 mg PO DAILY PRN 05/29/21 06/09/21 Unknown History tramadol 50 mg tablet 50 mg PO Q6H PRN #20 tab 06/06/21 06/09/21 Unknown Rx Allergies Allergy/AdvReac Type Severity Reaction Status Date / Time naproxen Allergy Severe breathing Verified 06/09/21 08:45 issues gabapentin Allergy Intermediate ADR-Dizzine Verified 06/09/21 08:45 ss Current Medications Generic Name Dose Route Start Last Admin Trade Name Ricoq PRN Reason Stop Dose Admin Baclofen 20 mg 06/09/21 02:31 06/09/21 03:11 Baclofen 10 Mg Tablet PO 20 mg TID PRN Administration Muscle Spasm Enoxaparin Sodium 40 mg 06/09/21 02:31 06/09/21 03:10 Enoxaparin 40 Mg/0.4 Ml Syringe SUBCUT 40 mg Q24H ELIDIA Administration Vancomycin HCl 1,000 mg/ 250 mls @ 250 mls/hr 06/09/21 09:00 06/09/21 10:05 Sodium Chloride IV Infused Q8H ELIDIA Infusion Lamotrigine 400 mg 06/09/21 06:00 06/09/21 06:39 Lamotrigine 100 Mg Tablet PO 400 mg QAM ELIDIA Administration Levothyroxine Sodium 112 mcg 06/09/21 06:00 06/09/21 06:40 Levothyroxine 112 Mcg Tablet PO 112 mcg QAM EILDIA Administration Morphine Sulfate 4 mg 06/09/21 02:31 06/09/21 08:17 Morphine 4 Mg/Ml Sdv 1 Ml IVP 4 mg Q4H PRN Administration SEVERE PAIN Pantoprazole Sodium 40 mg 06/09/21 09:00 06/09/21 09:[address] 40 Mg Tablet PO 40 mg DAILY ELIDIA Administration Pregabalin 75 mg 06/09/21 09:00 06/09/21 08:17 Pregabalin 75 Mg Capsule PO 75 mg BID ELIDIA Administration Tizanidine HCl 4 mg 06/09/21 02:40 06/09/21 08:17 Tizanidine 4 Mg Tablet PO 4 mg Q6H PRN Administration muscle spasticity PFSH Anesthesia Medical History Alcohol use disorder, moderate, in sustained remission Bipolar II disorder Borderline personality disorder Cigarette nicotine dependence Hyperlipidemia Hypothyroidism Panic disorder Postoperative wound infection (2020) MRSA Psychiatric care Surgical History History of fusion of lumbar spine (08/10/20) L4-L5, L5-S1 interbody fusion with posterolateral fusion, with cage at L4/5, L5/S1, revision laminectomy L4 and L5, Dr Ramirez History of laminectomy (02/22/20) L4-L5 laminectomy with partial facetectomy, Dr Ramirez Hx of section Hx of hysterectomy Family History Denies family history of CAD (coronary artery disease) Anesthesia complication Social History Smoking and tobacco status: current every day smoker cigarettes Alcohol intake: former Household members: family Data Anesthesia : 06/09/21 05:17 06/09/21 05:17 Short CBC 06/08/21 06/09/21 Range/Units 21:00 05:17 WBC 15.1 H 14.5 H (4.0-10.0) 10^3/uL Hgb 11.4 L 10.2 L (11.5-15.3) g/dL Hct 36.1 L 32.7 L (37.0-47.0) % MCV 92.6 92.1 (81-99) fl Plt Count 532 H 545 H (130-400) 10^3/cmm Neut % (Auto) 73.9 76.7 % Neut # (Auto) 11.11 H 11.15 H (1.8-7.7) 10^3/uL BMP 06/08/21 06/09/21 21:00 05:17 Sodium 131 L 132 L Potassium 4.0 3.7 Chloride 99 100 Carbon Dioxide 18 L 19 L BUN 19 20 Creatinine 0.3 L 0.4 L Glucose 92 95 Calcium 9.3 9.1 Liver Function 06/08/21 06/09/21 Range/Units 21:00 05:17 Total Bilirubin 0.4 0.4 (0.15-1.2) mg/dL AST 38 H 20 (0-32) U/L ALT 26 20 (0-33) U/L Alkaline Phosphatase 216 H 200 H (35-105) IU/L Albumin 2.8 L 2.8 L (3.5-5.2) g/dL Coags 06/08/21 06/08/21 21:00 21:00 ESR 45 H C-Reactive Protein 82.5 H Microbiology 06/08/21 21:45 Blood Culture - Preliminary Blood SPECIMEN COLLECTED 06/08/21 21:40 Blood Culture - Preliminary Blood SPECIMEN COLLECTED Cardiac Studies: No Data to Display
--- NOTE | 2021-06-09 13:04 | PM.OP ---
Operative Report Date of procedure: June 09, 2021 Pre-op diagnosis: Stage IV sacral decubitus ulcer measuring 9 x 6 x 1 cm Post-op diagnosis: Stage IV sacral decubitus ulcer measuring 13 x 6 x 1 cm Procedure done: Excisional debridement of necrotic skin and subcutaneous tissue in a stage IV sacral decubitus ulcer using electrocautery Specimens removed/disposition: Aerobic anaerobic wound cultures Surgeon: Otto Jimenez Anesthesia: MAC Condition: stable Disposition: PACU Procedure: The patient was taken to the operating room and placed in the left lateral position under MAC. She is on therapeutic IV antibiotics. The area around the sacral wound was prepped and draped in a sterile manner. Using electrocautery excisional debridement of necrotic skin and subcutaneous tissue was performed until there was punctate bleeding noted resulting in a wound measuring 13 x 6 x 1 cm deep. Hemostasis was ensured with cautery, wound was irrigated with saline and 2 pieces of 4 x 8 cm Surgicel was placed for hemostasis. The wound was covered with Kerlix gauze and ABDs and the patient was transferred to recovery room in stable condition.
--- NOTE | 2021-06-09 13:52 | ANE.PACU2 ---
Inpatient post-anesthesia follow up: Airway intact: Yes Vital signs: Temperature 97.1 F Pulse Rate 103 Respiratory Rate 18 Blood Pressure 128/75 Pulse Oximetry 99 Oxygen Delivery Me thod Room Air Oxygen Flow Rate Fraction of Inspir ed Oxygen Hydration adequate: Yes Nausea and vomiting: No Pain level: 1 Mental status: Baseline
[2021-06-09] MEDS: piperacillin-tazobactam 3.375 GM in sodium chloride 0.9% (plus) 50 ML IV ×2 (14:35→21:29)
[2021-06-09] MEDS: sodium chloride 0.9% 1,000 ML 50 ML IV (14:35)
[2021-06-09 15:41] LABS: Iron 26 ug/dL (37-145); Percent Saturation 17.4 % (20-50); Total Iron Binding Capacity 149 mcg/dl; Unsaturated Iron Binding 123 ug/dL (112-347)
[2021-06-09 15:47] LABS: Procalcitonin 0.25 ng/mL (0-0.5)
[2021-06-09 15:51] LABS: Thyroid Stimulating Hormone 16.33 uIU/mL (0.27-4.20)
[2021-06-09] MEDS: atorvastatin 40 mg Tablet 20 MG PO (20:43)
[2021-06-09] MEDS: trazodone 100 mg Tablet 300 MG PO (20:43)
[2021-06-09 22:46] LABS: Cortisol Random 25.62 ug/dL (2.47-19.5)
[2021-06-10] VITALS (27 sets, daily range): BP systolic 85–111; BP diastolic 58–75; PULSE 69–94; RESP 10–18; TEMP 36.5–37.3; O2SAT 93–97
[2021-06-10] MEDS: vancomycin 1,000 MG in sodium chloride 0.9% 250 ML 250 MG IV ×3 (01:21→23:16)
[2021-06-10] MEDS: enoxaparin 40 mg/0.4 mL Syringe SUBCUT (02:12)
[2021-06-10 05:54] LABS: Basophils # 0.1 10^3/uL (0.0-0.1); Basophils % 0.6 %; Eosinophils # 0.1 10^3/uL (0.0-0.8); Eosinophils % 0.6 %; Hematocrit 28.6 % (37.0-47.0); Lymphocytes # 2.1 10^3/uL (0.8-4.8); Lymphocytes % 19.2 %; Mean Corpuscular HGB Conc 31.5 g/dL (30.0-36.0); Mean Corpuscular Hemoglobin 29.1 pg (28.0-34.0); Mean Corpuscular Volume 92.6 fl (81-99); Mean Platelet Volume 8.9 fL (7.4-10.4); Monocytes # 0.6 10^3/uL (0.2-0.9); Monocytes % 5.6 %; Neutrophils % 73.5 %; Nucleated Red Blood Cells % 0 %; Platelet Count 429 10^3/cmm (130-400); Red Blood Count 3.09 10^6/uL (4.1-5.3); Red Cell Distribution Width 18.6 % (12.1-15.1); White Blood Count 10.9 10^3/uL (4.0-10.0)
[2021-06-10 06:10] LABS: Estmated Average Glucose 91; Hemoglobin A1C 4.8 % (4.0-6.0)
[2021-06-10 06:15] LABS: Alanine Aminotransferase 14 U/L (0-33); Albumin Level 2.6 g/dL (3.5-5.2); Alkaline Phosphatase 148 IU/L (35-105); Anion Gap 15.6 (5-19); Aspartate Amino Transferase 11 U/L (0-32); Blood Urea Nitrogen 16 mg/dL (6-20); Calcium 7.7 mg/dL (8.5-10.5); Carbon Dioxide 18 mmol/L (22-29); Chloride 104 mmol/L (98-107); Cholesterol 165 mg/dL (0-200); Creatinine Clr Calc Pharmacy 81.9507; Globulin 2.7 g/dL (1.3-4.6); Glomerular Filtration Rate 103.4 mL/min (90-130); Glucose 89 mg/dL (65-115); HDL Cholesterol 15 mg/dL (60-100); LDL Cholesterol Calculated 114 mg/dL (50-129); Osmolality Calculated 279 mOsm/kg (285-295); Potassium 3.6 mmol/L (3.5-5.1); Sodium 134 mmol/L (136-145); Total Bilirubin 0.3 mg/dL (0.15-1.2); Total Protein 5.3 g/dL (6.6-8.7); Triglycerides 179 mg/dL (0-150); VLDL Cholestrol Calculation 36 mg/dL (0-30)
[2021-06-10] MEDS: levothyroxine 112 mcg Tablet PO (06:26)
[2021-06-10] MEDS: lamoTRIgine 100 mg Tablet 400 MG PO (06:26)
[2021-06-10] MEDS: piperacillin-tazobactam 3.375 GM in sodium chloride 0.9% (plus) 50 ML IV ×3 (06:26→22:35)
[2021-06-10] MEDS: morphine 4 mg/mL SDV 1 mL IVP ×4 (06:34→23:16)
[2021-06-10] MEDS: pantoprazole DR 40 mg Tablet PO (09:29)
[2021-06-10] MEDS: pregabalin 75 mg Capsule PO ×2 (09:29→17:14)
[2021-06-10] MEDS: baclofen 10 mg Tablet 20 MG PO (09:29)
[2021-06-10] MEDS: sodium chloride 0.9% 1,000 ML 50 ML IV (09:31)
--- NOTE | 2021-06-10 09:46 | CTR_ITS ---
PROCEDURE INFORMATION: Exam: CT Head Without Contrast Exam date and time: 06/10/2021 9:46 AM Age: 56 years old Clinical indication: Possible stroke. Unable to straighten out neck; turns to the left. TECHNIQUE: Imaging protocol: Computed tomography of the head without contrast. Radiation optimization: All CT scans at this facility use at least one of these dose optimization techniques: automated exposure control; mA and/or kV adjustment per patient size (includes targeted exams where dose is matched to clinical indication); or iterative reconstruction. COMPARISON: CT facial bones wo con* [id number] 04/17/2021 2:39 PM RADIATION DOSE METRICS: Total DLP (mGy-cm): 1531.68 FINDINGS: Brain: No acute intracranial hemorrhage. No mass, mass effect or midline shift in the brain. There is heterogeneous attenuation in the middle cranial fossa a likely reflecting beam hardening artifact. No definite acute large vessel infarct is identified by noncontrast CT. Cerebral ventricles: The ventricles are normal in configuration. Paranasal sinuses: The visualized paranasal sinuses are clear. Mastoid air cells: No mastoid effusion. Orbital cavity: The visualized orbits are unremarkable. Bones/joints: There is atlantoaxial dissociation with small associated intervening fracture fragments related to impaction and ligamentous rupture/avulsion, and there are possible additional fractures involving the tip of the dens and anterosuperior arch of C1. There are multiple erosions involving the dens, and there is basilar invagination of the dens with marked posterior displacement of the dens with cord impingement. There appears to be a simple fluid collection between the dens and the anterior arch of C1 that measures 1.4 x 1.9 x 1.4 cm. Recommend MRI of the cervical spine with and without contrast to further assess. CT/CT head wo con* [id number] IMPRESSION: 1. There is heterogeneous attenuation in the middle cranial fossa a likely reflecting beam hardening artifact. No definite acute large vessel infarct is identified by noncontrast CT. 2. There is atlantoaxial dissociation with small associated intervening fracture fragments related to impaction and ligamentous rupture/avulsion, and there are possible additional fractures involving the tip of the dens and anterosuperior arch of C1. There are multiple erosions involving the dens, and there is basilar invagination of the dens with marked posterior displacement of the dens with cord impingement. There appears to be a simple fluid collection between the dens and the anterior arch of C1. Recommend MRI of the cervical spine with and without contrast to further assess. 3. No acute intracranial hemorrhage.
--- NOTE | 2021-06-10 09:47 | CTR_ITS ---
PROCEDURE INFORMATION: Exam: CT Angiography Head With Contrast, Arteriography Exam date and time: 06/10/2021 9:47 AM Age: 56 years old Clinical indication: Other: Unable to straight out neck, turns to the left; Additional info: Poss stroke TECHNIQUE: Imaging protocol: Computed tomography angiography of the head with contrast. Exam focused on the arteries. 3D rendering (Not supervised by radiologist): MIP and/or 3D reconstructed images were created by the technologist. Radiation optimization: All CT scans at this facility use at least one of these dose optimization techniques: automated exposure control; mA and/or kV adjustment per patient size (includes targeted exams where dose is matched to clinical indication); or iterative reconstruction. Contrast material: OMNI 350; Contrast volume: 75 ml; Contrast route: INTRAVENOUS (IV); COMPARISON: CT head wo con* [id number] 06/10/2021 10:01 AM RADIATION DOSE METRICS: Total DLP (mGy-cm): 1282.42 FINDINGS: ANTERIOR CIRCULATION: Right internal carotid artery: Unremarkable. Intracranial segment is patent with no significant stenosis. No aneurysm. Right middle cerebral artery: Unremarkable. No occlusion or significant stenosis. No aneurysm. Right anterior cerebral artery: Unremarkable. No occlusion or significant stenosis. No aneurysm. Left internal carotid artery: Unremarkable. Intracranial segment is patent with no significant stenosis. No aneurysm. Left middle cerebral artery: Unremarkable. No occlusion or significant stenosis. No aneurysm. Left anterior cerebral artery: Unremarkable. No occlusion or significant stenosis. No aneurysm. POSTERIOR CIRCULATION: Right vertebral artery: Unremarkable. No occlusion or significant stenosis. No aneurysm. Left vertebral artery: Unremarkable. No occlusion or significant stenosis. No aneurysm. Basilar artery: Unremarkable. No occlusion or significant stenosis. No aneurysm. Right posterior cerebral artery: Unremarkable. No occlusion or significant stenosis. No aneurysm. Left posterior cerebral artery: Unremarkable. No occlusion or significant stenosis. No aneurysm. Brain: No definite mass, mass effect, or midline shift. Cerebral ventricles: No ventriculomegaly. Bones/joints: Unremarkable. No acute fracture. Soft tissues: Unremarkable. PROCEDURE INFORMATION: Exam: CT Angiography Neck With Contrast Exam date and time: 06/10/2021 9:47 AM Age: 56 years old Clinical indication: Other: Unable to straight out neck, turns to the left; Additional info: Poss stroke TECHNIQUE: Imaging protocol: Computed tomography angiography of the neck with contrast. 3D rendering (Not supervised by radiologist): MIP and/or 3D reconstructed images were created by the technologist. Radiation optimization: All CT scans at this facility use at least one of these dose optimization techniques: automated exposure control; mA and/or kV adjustment per patient size (includes targeted exams where dose is matched to clinical indication); or iterative reconstruction. Contrast material: OMNI 350; Contrast volume: 75 ml; Contrast route: INTRAVENOUS (IV); COMPARISON: CT head wo con* [id number] 06/10/2021 10:01 AM RADIATION DOSE METRICS: Total DLP (mGy-cm): 1282.42 FINDINGS: Right common carotid artery: No stenosis. No dissection or occlusion. Right internal carotid artery: No stenosis of the extracranial segment. No dissection or occlusion. Right external carotid artery: No occlusion or stenosis of the origin. Left common carotid artery: No stenosis. No dissection or occlusion. Left internal carotid artery: No stenosis of the extracranial segment. No dissection or occlusion. Left external carotid artery: No occlusion or stenosis of the origin. Right vertebral artery: Right dominant vertebral artery. No stenosis. No dissection or occlusion. Left vertebral artery: The left vertebral artery arises directly from the aortic arch. No stenosis. No dissection or occlusion. Soft tissues: Normal. No significant soft tissue swelling. Bones/joints: There is a new fluid collection between the anterior arch of C1 in the dens with associated erosive change involving the dens. This results in severe stenosis of the craniocervical junction and compression of the upper cervical cord. Esophagus: There is a moderate amount fluid and semi solid debris within the thoracic esophagus. CT/CT angio headneck* [id number] IMPRESSION: No large vessel stenosis or occlusion. IMPRESSION: 1. No stenosis or occlusion. 2. There is a new fluid collection between the anterior arch of C1 and the dens with associated erosive change involving the dens. This results in severe stenosis of the craniocervical junction and compression of the upper cervical cord. Please refer to CT cervical spine for additional detail. REFERENCES: NASCET CRITERIA. The degree of internal carotid artery stenosis is based on NASCET criteria. Normal is no stenosis. Mild is less than 50% stenosis. Moderate is 50-69% stenosis. Severe is 70% to 99% stenosis. Total occlusion is no detectable patent lumen.
--- NOTE | 2021-06-10 09:47 | CTR_ITS ---
PROCEDURE INFORMATION: Exam: CT Cervical Spine Without Contrast Exam date and time: 06/10/2021 9:47 AM Age: 56 years old Clinical indication: Neck pain. Unable to straighten out neck. Turns to the left. Possible stroke. TECHNIQUE: Imaging protocol: Computed tomography images of the cervical spine without contrast. Radiation optimization: All CT scans at this facility use at least one of these dose optimization techniques: automated exposure control; mA and/or kV adjustment per patient size (includes targeted exams where dose is matched to clinical indication); or iterative reconstruction. COMPARISON: CT head wo con* [id number] 06/10/2021 10:01 AM RADIATION DOSE METRICS: Total DLP (mGy-cm): 304.37 FINDINGS: There is atlantoaxial dissociation with small associated intervening fracture fragments related to impaction and ligamentous rupture/avulsion, and there are possible additional fractures involving the tip of the dens and anterosuperior arch of C1. There are multiple erosions involving the dens, and there is basilar invagination of the dens with marked posterior displacement of the dens and cord impingement. There appears to be a simple fluid collection between the dens and the anterior arch of C1 that measures 1.4 x 1.9 x 1.4 cm. Recommend MRI of the cervical spine with and without contrast to further assess. There is edema/fluid anterior to the proximal to mid cervical spine. There is straightening of the normal cervical lordosis which may relate to patient positioning or muscle spasm. [id number] degenerative disc disease is seen in the cervical spine. Small, scattered cervical lymph nodes are noted. The lung apices are unremarkable. The esophagus is patulous to the thoracic inlet with internal debris. CT/CT cervical spin wo con* [id number] IMPRESSION: 1. There is atlantoaxial dissociation with small associated intervening fracture fragments related to impaction and ligamentous rupture/avulsion, and there are possible additional fractures involving the tip of the dens and anterosuperior arch of C1. There are multiple erosions involving the dens (possible rheumatoid arthritis or septic arthritis), and there is basilar invagination of the dens with marked posterior displacement of the dens and cord impingement. There appears to be a simple fluid collection between the dens and the anterior arch of C1 that could represent an abscess. Recommend MRI of the cervical spine with and without contrast to further assess. 2. Edema/fluid anterior to the proximal to mid cervical spine. 3. Straightening of the normal cervical lordosis which may relate to patient positioning or muscle spasm. 4. [id number] degenerative disc disease is seen in the cervical spine. 5. Patulous esophagus to the thoracic inlet with internal debris.
[2021-06-10] MEDS: iohexol 350 mg/mL 100 mL Btl IV (10:11)
--- NOTE | 2021-06-10 10:58 | MRR_ITS ---
PROCEDURE INFORMATION: Exam: MR Cervical Spine Without and With Contrast Exam date and time: 06/10/2021 10:58 AM Age: 56 years old Clinical indication: Numbness; Neck pain; Additional info: Possible rupture, cervical and thoracic TECHNIQUE: Imaging protocol: Multiplanar magnetic resonance images of the cervical spine without and with contrast. Contrast material: PROHANCE; Contrast volume: 10 ml; Contrast route: INTRAVENOUS (IV); COMPARISON: CT cervical spin wo con* [id number] 06/10/2021 10:05 AM FINDINGS: Vertebrae: Severe inflammatory arthritis with erosions around the dens and contrast enhancement in the dens. Usually this is aseptic arthritis seen in elderly patients which could be related to inflammatory pseudotumor at C1 seen in elderly patients, however septic arthritis cannot be ruled out. There is significant enhancing soft tissues in the region C1-C2. Spinal cord: Prominent cord compression of the C1 cord between the tip of the dens and the posterior arch of C1 with narrowing of the 7 mm AP diameter of the C1 cord along with edema/myelomalacia in the C1 cord with extension superiorly into the medulla. C1-C2: Unstable C1-C2 spine with complete rupture of the transverse ligament and dislocation of the right C1-C2 facet articulations/lateral mass articulation and severe subluxation of the left C1-C2 facet articulation/lateral mass articulation. Emergency neuro surgical consultation is recommended. C2-C3: Mild degenerative disc disease. C3-C4: Moderate degenerative disc disease and spondylosis. Mild right foraminal stenosis. C4-C5: Moderate to severe degenerative disc disease and spondylosis. C5-C6: Moderate to severe degenerative disc disease and spondylosis. Mild right foraminal stenosis. C6-C7: Moderate degenerative disc disease and spondylosis. C7-T1: No significant disc disease. No significant spinal stenosis. Soft tissues: Widening of the space between the C1 and C2 arch with edema and apparent ligamentous disruption posteriorly. Vertebral arteries: Expected flow voids in the vertebral arteries. MR/MR cervical spine wo/w [id number] IMPRESSION: 1. Unstable C1-C2 spine with complete rupture of the transverse ligament and dislocation of the right C1-C2 facet articulations/lateral mass articulation and severe subluxation of the left C1-C2 facet articulation/lateral mass articulation. Emergency neuro surgical consultation is recommended. 2. Widening of the space between the C1 and C2 arch with edema and apparent ligamentous disruption posteriorly. 3. Prominent cord compression of the C1 cord between the tip of the dens and the posterior arch of C1 with narrowing of the 7 mm AP diameter of the C1 cord along with edema/myelomalacia in the C1 cord with extension superiorly into the medulla. 4. Severe inflammatory arthritis with erosions around the dens and contrast enhancement in the dens. Usually this is aseptic arthritis seen in elderly patients which could be related to inflammatory pseudotumor at C1 seen in elderly patients, however septic arthritis cannot be ruled out. There is significant enhancing soft tissues in the region C1-C2.
--- NOTE | 2021-06-10 10:59 | MRR_ITS ---
PROCEDURE INFORMATION: Exam: MR Thoracic Spine Without and With Contrast Exam date and time: 06/10/2021 10:59 AM Age: 56 years old Clinical indication: Pain in thoracic spine; With radiculopathy; Bilateral; Additional info: Poss. Rupture, cervical and thoracic TECHNIQUE: Imaging protocol: Multiplanar magnetic resonance images of the thoracic spine without and with contrast. Contrast material: PROHANCE; Contrast volume: 10 ml; Contrast route: INTRAVENOUS (IV); COMPARISON: MR thoracic spin wo con* [id number] 06/08/2021 7:56 PM FINDINGS: Vertebrae: Moderate thoracic spondylosis. Chronic 10% anterior wedging of T11. Spinal cord: The conus medullaris terminates at the level of L1. Discs/Spinal canal/Neural foramina: Multilevel degenerative disc disease with some desiccation of disc spaces. Soft tissues: Unremarkable. Other findings: 7 mm enhancing lesion in the right T11 vertebral body most consistent with atypical benign intraosseous bone hemangioma. MR/MR thoracic spine wo/w [id number] IMPRESSION: 1. Moderate thoracic spondylosis. 2. 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 3. Chronic 10% anterior wedging of T11. 4. Multilevel degenerative disc disease with some desiccation of disc spaces. 5. No acute spine findings.
[2021-06-10] MEDS: dexamethasone 10 mg/mL INJ IVP (11:19)
[2021-06-10] MEDS: dexamethasone 4 mg/mL INJ IVP ×2 (14:03→19:34)
--- NOTE | 2021-06-10 16:11 | PC.NURSE ---
this nurse has not actually seen pt's sacral wound due to the uncertainty of what was going on this morning. we are now aware of what is going on with pt and pt has been put on strict bedrest orders. wound was not assessed by this nurse and dressing change was not able to be completed.
[2021-06-10 16:55] LABS: Vancomycin Trough 28.5 ug/mL (10-15)
--- NOTE | 2021-06-10 17:37 | PC.NURSE ---
report given to Bar[place] in ICU. pt safely transferred to ICU.
--- NOTE | 2021-06-10 17:49 | PC.NURSE ---
Arrived from [place] via bed, C collar in place, AO x4, follows commands, currently on complete bed rest
--- NOTE | 2021-06-10 18:16 | PC.NURSE ---
neck noted not to be aligned straight in C Collar, Dr. Hutchins notified, this nurse was advised to leave in the position it is, just to keep patient and spine stable, no n.o.
--- NOTE | 2021-06-10 18:45 | P.PN_ITS ---
Subjective Subjective: No complaints overnight. Patient tolerated debridement well yesterday. Overnight has remained hemodynamically stable and afebrile. Today morning I was called in by the nurse at around 930 because patient was found to have right-sided weakness. On examination patient was laying comfortably in bed with left tone to both left side because she is complaining of pain in the neck on slight moving, awake and alert, no focal deficit other than flaccid paralysis of right upper limb and lower limb, maintaining her airway. Stat CT head, CT head and neck and CT cervical spine was ordered which was concerning for cervical C1 fracture with possible avulsion/rupture of ligamentum flavum after which patient was placed in cervical collar and stat MRI was ordered. Neurosurgery was informed about all of the same. Vitals/I&O/Wt Last Vital Signs Temp 98.0 F 06/10/21 15:25 Pulse 87 06/10/21 15:25 Resp 18 06/10/21 15:25 BP 102/71 06/10/21 15:25 Pulse Ox 96 06/10/21 15:25 06/10/21 06/10/21 06/10/21 06:59 14:59 22:59 Intake Total 1160 / 2250 1246.667 / 1246.667 Output Total 400 / 755 Balance 760 / 1495 1246.667 / 1246.667 Weight last 48 hrs Weight 45.359 kg Physical Exam Narrative: General: No acute distress, AO x3, neck done 2 with left HEENT: PERRLA, pupils bilaterally equal and reactive Chest: Normal vesicular breath sounds, no added sounds, equal good air entry bilaterally CVS: S1-S2 regular, no murmurs, no tachycardia, no gallops, no rubs Abdomen: Soft, nontender, no organomegaly, bowel sounds present Extremities: Sacral decubitus ulcer with necrotic tissue measuring around 10 x 15 cm, surgically debrided Neurological: Pupils bilaterally equal reactive, no facial deformity, tongue central, flaccid paralysis of right upper limb and lower limb, left upper limb and lower limb 5/5, decreased sensation on right lower limb and upper limb, maintaining airway Neuro: LAURA COMA SCALE: document GCS findings Laura coma scale eye opening: Spontaneous Laura coma scale verbal response: Orientated [place] coma scale motor response: Obey commands [place] coma scale total score: 15 Data : 06/10/21 05:44 06/10/21 05:44 Other Labs: Cervical CT: CT/CT cervical spin wo con* [id number] IMPRESSION: 1. There is atlantoaxial dissociation with small associated intervening fracture fragments related to impaction and ligamentous rupture/avulsion,and there are possible additional fractures involving the tip of the dens and anterosuperior arch of C1. There are multiple erosions involving the dens (possible rheumatoid arthritis or septic arthritis), and there is basilar invagination of the dens with marked posterior displacement of the dens and cord impingement. There appears to be a simple fluid collection between the dens and the anterior arch of C1 that could represent an abscess. Recommend MRI of the cervical spine with and without contrast to further assess. 2. Edema/fluid anterior to the proximal to mid cervical spine. 3. Straightening of the normal cervical lordosis which may relate to patient positioning or muscle spasm. 4. Kcer-mu-wwnyyoyi degenerative disc disease is seen in the cervical spine. 5. Patulous esophagus to the thoracic inlet with internal debris. ? Dictated By: Matthew Ellis MRI cervical spine: MR/MR cervical spine wo/w [id number] IMPRESSION: 1. Unstable C1-C2 spine with complete rupture of the transverse ligament and dislocation of the right C1-C2 facet articulations/lateral mass articulation and severe subluxation of the left C1-C2 facet articulation/lateral mass articulation. Emergency neuro surgical consultation is recommended. 2. Widening of the space between the C1 and C2 arch with edema and apparent ligamentous disruption posteriorly. 3. Prominent cord compression of the C1 cord between the tip of the dens and the posterior arch of C1 with narrowing of the 7 mm AP diameter of the C1 cord along with edema/myelomalacia in the C1 cord with extension superiorly into the medulla. 4. Severe inflammatory arthritis with erosions around the dens and contrast enhancement in the dens. Usually this is aseptic arthritis seen in elderly patients which could be related to inflammatory pseudotumor at C1 seen in elderly patients, however septic arthritis cannot be ruled out. There is significant enhancing soft tissues in the region C1-C2. ? Dictated By: Sarthak Guillaume MD MR/MR cervical spine wo/w [id number] Impression: 5. 1.7 x 0.8 x 0.8 cm fluid collection between anterior arch of C1 and the C2 dens which could represent posttraumatic fluid collection with or without infection.? Signed By: Sarthak Guillaume MD Signed Date/Time: 06/10/21 1443 Micro: Microbiology 06/09/21 12:38 Gram Stain - Final Buttock Tissue Culture - Preliminary Gram Negative Rods Gram Negative Rods#2 06/08/21 21:45 Blood Culture - Preliminary Blood NEGATIVE TO DATE 06/08/21 21:40 Blood Culture - Preliminary Blood NEGATIVE TO DATE A&P Assessment and plan (1) Instability of C1-C2 vertebrae: Status: Acute (2) C1 cervical fracture: Status: Acute (3) Discitis: Status: Acute (4) Sacral decubitus ulcer, stage IV: Status: Acute (5) S/P spinal fusion: Status: Acute (6) Hypothyroidism: Status: Chronic (7) Hyperlipidemia: Status: Chronic (8) Noncompliance: Status: Acute (9) MRSA bacteremia: Status: Acute Plan C1 cervical fracture with instability of C1-C2 vertebrae along with ligamentous rupture and avulsion: MRI results appreciated Case discussed with Dr. Ramirez from neurosurgery. Plan for surgery on Saturday. Cervical collar. Dexamethasone 10 mg IV stat followed by 4 mg IV every 6 hourly. NIF every 6 hours. Early intubation if needed. Will need to be intubated with anesthesiology. Bedrest. Discitis: History of spinal surgery with fusion recently: Incomplete treatment of hardware infection due to noncompliance recently. Plan for the OR on Saturday with neurosurgery. For now continue with IV vancomycin. Recent MRSA bacteremia: Repeat blood culture sent. So far negative. Patient left AMA on recent admission and was discharged on oral Zyvox. Continue with vancomycin as above for now. Stage IV sacral decubitus ulcer: Post debridement. Appreciate surgery recommendations. Dressing as per surgical team. Wound culture growing gram-negative rods. Continue with Zosyn for now. Frequent repositioning. Hypothyroidism: Supposed to be on levothyroxine 112 mcg daily. Discharge elevated, free T3, free T4 low, cortisol level appropriate. For now switch to IV levothyroxine 75 mcg daily. Repeat thyroid panel in 2 days. We will switch to oral levothyroxine once Hypertension: Goal blood pressure less than 140/90 mmHg Currently blood pressure at goal. Continue other chronic medication including Xanax, baclofen as needed, lamotrigine, tramadol Full code. Switch diet to full liquid diet. Hold off Lovenox given need for emergent surgery. SCDs for DVT prophylaxis. Protonix for PUD prophylaxis. Transfer to ICU to keep a close eye on respiratory effort given high chance of respiratory failure. Attestations Medical Necessity Statement*: Requested hospitalization from management of C1 cervical fracture with instability of C1-C2 vertebrae, discitis, stage IV sacral decubitus ulcer Critical Care Time: The high probability of a clinically significant, sudden or life threatening deterioration of the patient's [neurology, neurosurgery system(s) required my full and direct attention, intervention and personal management. The critical care time is as shown. 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
--- NOTE | 2021-06-10 20:29 | PC.NURSE ---
Pt alert to place, person, month, year, but not day. Pt educated on severity of condition and the importance of remaining still. Pt states that she cannot move right arm or hand at all. She can move her left arm from the elbow down, but denies being able to move her shoulder. Pt was noted to be able to lift left arm enough to obtain axillary temperature. Pt able to move feet, but denies being able to move legs. Unable to observe patient's wound at this time due to strict bedrest and instruction to keep neck still. C-collar in place. Head is fixed in a left facing direction.
--- NOTE | 2021-06-10 21:33 | PC.NURSE ---
Pt resting quietly in bed with eyes closed. Respirations are even and unlabored, but shallow. Pt allowed to sleep to reduce anxiety and risk of movement. Pt discussed with Dr. Banks. It has been decided that pt will not be turned or repositioned, despite sacral wound due to risk of injury related to cervical spine.
--- NOTE | 2021-06-10 22:30 | PC.NURSE ---
Pt resting quietly in bed with eyes closed. Respirations are even and unlabored, but shallow.
--- NOTE | 2021-06-10 22:44 | PC.NURSE ---
Pt neurological assessment unchanged, however, lungs now sound more diminished. Deep breathing encouraged, and pt returned demonstration.
--- NOTE | 2021-06-10 23:30 | PC.NURSE ---
Pt looks to have turned her head further to the left. Neuro exam unchanged. Kerlix roll carefully placed under left cheek without moving head or spine.
[2021-06-11] VITALS (56 sets, daily range): BP systolic 84–129; BP diastolic 57–80; PULSE 57–84; RESP 9–19; TEMP 36.3–36.7; O2SAT 91–99
[2021-06-11] MEDS: dexamethasone 4 mg/mL INJ IVP ×4 (03:26→19:16)
--- NOTE | 2021-06-11 04:15 | PC.NURSE ---
No complaints of pain at this time. Pt resting quietly in bed.
[2021-06-11 04:35] LABS: Basophils % 0.1 %; Hematocrit 30.7 % (37.0-47.0); Hemoglobin 9.5 g/dL (11.5-15.3); Lymphocytes # 1.7 10^3/uL (0.8-4.8); Lymphocytes % 19.3 %; Mean Corpuscular HGB Conc 30.9 g/dL (30.0-36.0); Mean Corpuscular Hemoglobin 29.4 pg (28.0-34.0); Mean Platelet Volume 9.5 fL (7.4-10.4); Monocytes # 0.3 10^3/uL (0.2-0.9); Monocytes % 2.9 %; Neutrophils # 6.92 10^3/uL (1.8-7.7); Neutrophils % 76.6 %; Nucleated Red Blood Cells % 0 %; Platelet Count 484 10^3/cmm (130-400); Red Blood Count 3.23 10^6/uL (4.1-5.3); Red Cell Distribution Width 18.6 % (12.1-15.1)
[2021-06-11] MEDS: morphine 4 mg/mL SDV 1 mL IVP ×2 (04:37→08:17)
[2021-06-11 04:53] LABS: Alanine Aminotransferase 11 U/L (0-33); Albumin Level 2.7 g/dL (3.5-5.2); Alkaline Phosphatase 153 IU/L (35-105); Anion Gap 14.8 (5-19); Aspartate Amino Transferase 8 U/L (0-32); Blood Urea Nitrogen 23 mg/dL (6-20); Carbon Dioxide 20 mmol/L (22-29); Chloride 101 mmol/L (98-107); Globulin 2.7 g/dL (1.3-4.6); Glomerular Filtration Rate 86.6 mL/min (90-130); Glucose 215 mg/dL (65-115); Osmolality Calculated 284 mOsm/kg (285-295); Potassium 3.8 mmol/L (3.5-5.1); Sodium 132 mmol/L (136-145); Total Bilirubin 0.2 mg/dL (0.15-1.2); Total Protein 5.4 g/dL (6.6-8.7)
[2021-06-11] MEDS: piperacillin-tazobactam 3.375 GM in sodium chloride 0.9% (plus) 50 ML IV ×3 (06:53→21:36)
[2021-06-11] MEDS: levothyroxine 100 mcg SDV 75 MCG IVP (08:06)
[2021-06-11] MEDS: pantoprazole DR 40 mg Tablet PO (08:22)
[2021-06-11] MEDS: pregabalin 75 mg Capsule PO ×2 (08:22→17:20)
--- NOTE | 2021-06-11 10:09 | PC.NURSE ---
Patient told this nurse she does not want her daughter on file to make decisions or talk to Dr. Bartholomew, patient expressed wishes to speak with Dr. Bartholomew herself and is okay with the plan of care decided by Dr. Bartholomew and dr. Hutchins
--- NOTE | 2021-06-11 10:15 | PC.NURSE ---
Dr. Bartholomew and dr. Hutchins at bedside and spoke with patient about plan to proceed with surgery Saturday06/12/21
--- NOTE | 2021-06-11 10:24 | PM.PN ---
Subjective Subjective: Patient is unable to move her right arm and leg. Has weakness on the left side of her body. At this point is in the ICU completely alert. I discussed with her the fact that she has a dislocation. And that she needs surgery. Patient understands. At this point the equipment to do the surgery is being driven in today. We will plan on doing surgery first in the morning. She is remained bedrest. Vitals/I&O/Wt Last Vital Signs Temp 97.4 F L 06/11/21 00:00 Pulse 74 06/11/21 08:49 Resp 18 06/11/21 08:49 BP 96/60 06/11/21 06:15 Pulse Ox 99 06/11/21 08:49 06/10/21 06/11/21 06/11/21 21:59 06:59 14:59 Intake Total Output Total Balance Weight last 48 hrs Weight 138 lb Physical Exam Narrative: 0-5 strength right side of her body. With weakness in the left side. Urinary Catheter Management: Arriola: Cath Placed During This Visit: yes Reason for Continuing Indwelling Catheter: Assist Healing of Perineal & Sacral Wounds- Incontinent Patients Urinary Catheter Date of Insertion: 06/10/21 Data : 06/11/21 03:37 06/11/21 03:37 Micro: Microbiology 06/09/21 12:38 Gram Stain - Final Buttock Tissue Culture - Preliminary Gram Negative Rods Gram Negative Rods#2 A&P Assessment and plan (1) Instability of C1-C2 vertebrae: Plan will be to do an occipital cervical fusion in the morning. To the occiput. Risks of the surgery were explained to the patient. Patient did not want to be transferred. My concern for transferring would be the instability. Patient agrees. Patient told me not to discuss this with her family. Patient was alert and oriented x3. 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
[2021-06-11] MEDS: vancomycin 1,000 MG in sodium chloride 0.9% 250 ML 250 MG IV ×2 (11:07→23:23)
[2021-06-11] MEDS: TRAMadol 50 mg Tablet PO ×3 (11:12→23:23)
[2021-06-11] MEDS: ALPRAZolam 0.5 mg Tablet PO ×2 (11:16→20:08)
[2021-06-11] MEDS: baclofen 10 mg Tablet 20 MG PO ×2 (11:17→20:07)
--- NOTE | 2021-06-11 13:00 | PM.PN ---
Subjective Subjective: No events overnight. Patient has remained comfortable in cervical collar. Seen in ICU today with nurse at bedside. She is unable to move her right arm and leg. Has weakness on the left side of her body. Has remained hemodynamically stable and afebrile. On room air. Vitals/I&O/Wt Last Vital Signs Temp 97.4 F L 06/11/21 00:00 Pulse 74 06/11/21 08:49 Resp 18 06/11/21 08:49 BP 96/60 06/11/21 06:15 Pulse Ox 99 06/11/21 08:49 06/10/21 06/11/21 06/11/21 21:59 06:59 14:59 Intake Total Output Total Balance Weight last 48 hrs Weight 62.596 kg Physical Exam Narrative: General: No acute distress, AO x3, neck turned to left, in cervical collar HEENT: PERRLA, pupils bilaterally equal and reactive Chest: Normal vesicular breath sounds, no added sounds, equal good air entry bilaterally CVS: S1-S2 regular, no murmurs, no tachycardia, no gallops, no rubs Abdomen: Soft, non tender, no organomegaly, bowel sounds present Extremities: Sacral decubitus ulcer with necrotic tissue measuring around 10 x 15 cm, surgically debrided Neurological: Pupils bilaterally equal reactive, no facial deformity, tongue central, flaccid paralysis of right upper limb and lower limb, left upper limb and lower limb 5/5, decreased sensation on right lower limb and upper limb, maintaining airway Neuro: LAURA COMA SCALE: document GCS findings Laura coma scale eye opening: Spontaneous Laura coma scale verbal response: Orientated Laura coma scale motor response: Obey commands [place] coma scale total score: 15 Urinary Catheter Management: Arriola: Cath Placed During This Visit: yes Reason for Continuing Indwelling Catheter: Assist Healing of Perineal & Sacral Wounds- Incontinent Patients Urinary Catheter Date of Insertion: 06/10/21 Data : 06/11/21 03:37 06/11/21 03:37 Micro: Microbiology 06/09/21 12:38 Gram Stain - Final Buttock Tissue Culture - Preliminary Pseudomonas aeruginosa Gram Negative Rods#2 A&P Assessment and plan (1) Instability of C1-C2 vertebrae: Status: Acute (2) C1 cervical fracture: Status: Acute (3) Discitis: Status: Acute (4) Sacral decubitus ulcer, stage IV: Status: Acute (5) S/P spinal fusion: Status: Acute (6) Hypothyroidism: Status: Chronic (7) Hyperlipidemia: Status: Chronic (8) Noncompliance: Status: Acute (9) MRSA bacteremia: Status: Acute Plan C1 cervical fracture with instability of C1-C2 vertebrae along with ligamentous rupture and avulsion: MRI results appreciated Case discussed with Dr. Ramirez from neurosurgery. Plan for surgery on Saturday. Cervical collar. C/w Dexamethasone 4 mg IV every 6 hourly. NIF every 6 hours. Early intubation if needed. Will need to be intubated with anesthesiology. Bedrest. Discitis: History of spinal surgery with fusion recently: Incomplete treatment of hardware infection due to noncompliance recently. Plan for the OR on Saturday with neurosurgery. For now continue with IV vancomycin. Trough level 15-20 Recent MRSA bacteremia: Repeat blood culture sent. So far negative. Patient left AMA on recent admission and was discharged on oral Zyvox. Continue with vancomycin as above for now. Stage IV sacral decubitus ulcer: Post debridement. Appreciate surgery recommendations. Dressing as per surgical team. Wound culture growing Pseudomonas . Continue with Zosyn for now. Hypothyroidism: Supposed to be on levothyroxine 112 mcg daily. Discharge elevated, free T3, free T4 low, cortisol level appropriate. For now switch to IV levothyroxine 75 mcg daily. Repeat thyroid panel in 2 days. We will switch to oral levothyroxine once Hypertension: Goal blood pressure less than 140/90 mmHg Currently blood pressure at goal. Continue other chronic medication including Xanax, baclofen as needed, lamotrigine, tramadol Full code. Full liquid diet. Hold off Lovenox given need for emergent surgery. SCDs for DVT prophylaxis. Protonix for PUD prophylaxis. Discussed in detail with patient again regarding unstable C1-C2 fracture. Discussed the plan going forward. Discussed that plan for now is for her to go to the OR with Dr. Ramirez tomorrow. Also discussed that her daughter had some reservations to go ahead with the OR with Dr. Ramirez. Patient requests for now not to talk with daughter regarding the surgery. She states she wants to go ahead with the surgery with Dr. Ramirez because she will lose that would give her maximum chance of recovery. For now she wants to make her own medical decisions. Dr. Ramirez and patient staff updated regarding the same. Attestations Medical Necessity Statement*: Requires further hospitalization for management of unstable C1-C2 fracture, discitis, stage IV sacral decubitus ulcer Critical Care Time: The high probability of a clinically significant, sudden or life threatening deterioration of the patient's [neurology, neurosurgery, ID system(s) required my full and direct attention, intervention and personal management. The critical care time is as shown. 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
--- NOTE | 2021-06-11 13:03 | PC.SOCIAL ---
IMM Update pg 2 of IMM updated and reviewed w/ patient. Copy provided and Copy placed in chart.
[2021-06-11] MEDS: nicotine 14 mg Patch 1 PATCH TRANSDERMA (17:19)
[2021-06-11] MEDS: tizanidine 4 mg Tablet PO (17:19)
[2021-06-11] MEDS: trazodone 100 mg Tablet 300 MG PO (20:07)
[2021-06-11] MEDS: atorvastatin 40 mg Tablet PO (20:07)
[2021-06-11] MEDS: sodium chloride 0.9% 1,000 ML 50 ML IV (20:08)
--- NOTE | 2021-06-11 23:45 | PC.NURSE ---
Upon initial assessment patient was alert and oriented x4. Normal sinus rhythm, pulses palpable throughout. On room air, clear breaths sounds. Neurologically, pupils are a 3 and PERRLA. Lower extremities, the left leg is extremely weak to move, able to wiggle her toes. Sensation feels as a light touch and tingling . More edema is noticed upon assessment of her leg left and foot, pitting 2+. Right leg, patient is unable to move and unable to move her toes. Sensation feels as a light touch and tingling and some numbness . Stated feeling the same and no differences from her left to right leg sensation lozano. Right leg has some edema, more so 1+ and non-pitting. Upper extremities feel as a normal touch . No tingling or numbness noted on upper extremities as stated per patient. Around 2140, the patient stated she felt like she was able to move her right foot. The patient was able to move her right foot and wiggle her toes. Still unable to move her right leg. Sensation she states is all the same from the previous assessment. Patient has had half an applesauce and half a pudding with nighttime meds. Patient also had a whole jello, whole ensure supplemental drink, and some water around 2330. States she feels her appetite is increasing with ensure drinks. Will make patient is NPO at midnight for planned surgery in the morning.
--- NOTE | 2021-06-11 23:59 | PC.NURSE ---
Unable to assess sacral wound due to strict bedrest orders and instructions to keep neck still. Patient educated on importance of needing to stay still, patient acknowledges and complies with this. All questions answered.
[2021-06-12] VITALS (36 sets, daily range): BP systolic 87–121; BP diastolic 63–81; PULSE 56–85; RESP 14–20; TEMP 35.6–36.9; O2SAT 92–100
--- NOTE | 2021-06-12 | SCC_ITS ---
Procedure done: 1. Occipit to C4 posterior spine fusion 2. Occiput to C4 instrumentation 3. Open Reduction of c1/2 fracture disloction 4. C1 laminectomy 5. Use of Allograf 61.5 seconds of fluoroscopic guidance, for a cumulative dose of 2.60 mGy, was provided to Dr. Ramirez by the radiology department. C-arm images of the cervical spine were saved for the patient's permanent record. KAREN
[2021-06-12] MEDS: dexamethasone 4 mg/mL INJ IVP ×2 (02:19→19:19)
[2021-06-12 05:02] LABS: Basophils % 0.1 %; Hematocrit 29.5 % (37.0-47.0); Hemoglobin 9.5 g/dL (11.5-15.3); Lymphocytes # 1.5 10^3/uL (0.8-4.8); Lymphocytes % 10.5 %; Mean Corpuscular HGB Conc 32.2 g/dL (30.0-36.0); Mean Corpuscular Hemoglobin 29.7 pg (28.0-34.0); Mean Corpuscular Volume 92.2 fl (81-99); Mean Platelet Volume 9.4 fL (7.4-10.4); Monocytes # 0.7 10^3/uL (0.2-0.9); Monocytes % 4.6 %; Neutrophils # 12.31 10^3/uL (1.8-7.7); Nucleated Red Blood Cells % 0 %; Platelet Count 557 10^3/cmm (130-400); Red Cell Distribution Width 18.6 % (12.1-15.1); White Blood Count 14.6 10^3/uL (4.0-10.0)
[2021-06-12] MEDS: piperacillin-tazobactam 3.375 GM in sodium chloride 0.9% (plus) 50 ML IV ×3 (05:24→21:57)
[2021-06-12 05:29] LABS: Alanine Aminotransferase 16 U/L (0-33); Albumin Level 2.6 g/dL (3.5-5.2); Alkaline Phosphatase 152 IU/L (35-105); Anion Gap 13.8 (5-19); Aspartate Amino Transferase 13 U/L (0-32); Blood Urea Nitrogen 25 mg/dL (6-20); Carbon Dioxide 19 mmol/L (22-29); Chloride 105 mmol/L (98-107); Free T4 Free Thyroxine 0.82 ng/dL (0.82-1.77); Globulin 2.8 g/dL (1.3-4.6); Glomerular Filtration Rate 127.6 mL/min (90-130); Glucose 250 mg/dL (65-115); Osmolality Calculated 291 mOsm/kg (285-295); Potassium 3.8 mmol/L (3.5-5.1); Sodium 134 mmol/L (136-145); Thyroid Stimulating Hormone 2.13 uIU/mL (0.27-4.20); Total Bilirubin 0.2 mg/dL (0.15-1.2); Total Protein 5.4 g/dL (6.6-8.7)
--- NOTE | 2021-06-12 06:51 | ANES.PREANE2 ---
Pre-Anesthetic Assessment Height/Weight: Height 1.6 m Weight 65 kg Temp Pulse Resp BP Pulse Ox 98.5 F 71 14 108/67 94 06/12/21 04:05 06/12/21 05:43 06/12/21 04:05 06/12/21 04:05 06/12/21 04:05 Preop Diagnosis: Sacral pressure injury ulcer Operation Date: 06/09/21 11:00 Proposed Procedures p debridement of sacral wound(Not Applicable) - Otto Jimenez MD Operation Date: 06/12/21 07:00 Proposed Procedures p Cervical Posterior Fusion(Not Applicable) - Santosh Ramirez DO Familial anesthetic complications: None Was Beta Mamadou taken within 24 hours: N/A Was Clonidine taken within 24 hours: N/A Last intake: Intake Last Liquid Date 06/09/21 Last Liquid Time 00:00 Last Solid Date 06/08/21 Last Solid Time 15:00 Social Alcohol and Tobacco Exam alert, oriented x 3, clear to auscultation bilaterally and regular rate & rhythm Airway Cervical ROM: Other (SEVERELY REDUCED) Mallampati: Class II Dentition: other (extremely poor dentition, multiple missing) Comments: Comments: Patient has very unstable C1 fracture w/ L hemiparesis. Patient informed that there is risk of further neurologic damage with intubation and positioning and surgery Pulmonary Chronic Obstructive Pulmonary Disease CV/HEM Anemia and Hypertension Metabolic Hyperlipidemia and Thyroid Disease ET OH abuse, chronic opioid hx Musc/skel C1 fracture, spinal fusion, sacral ulcer Neuropsych Neuroathy- hemiparesis Anesthetic Plan ASA status: 4E Anesthesia: General Risk of > 500 ml blood loss (7ml/kg in children): No Medications/Allergies Home Medications Medication Instructions Recorded Confirmed Last Taken Type atorvastatin 20 mg tablet 20 mg PO BEDTIME 08/25/19 06/09/21 05/28/21 History Bone Growth Stimulator E0748 #1 ea 08/08/20 06/09/21 Unknown Rx albuterol sulfate 90 mcg/actuation 2 puff INHALATION Q4H PRN 09/08/20 06/09/21 05/28/21 History aerosol inhaler fluticasone propionate 50 1 spray INTRANASAL BID PRN 09/08/20 06/09/21 05/29/21 History mcg/actuation nasal spray,suspension ibuprofen 800 mg tablet 800 mg PO TID PRN 09/08/20 06/09/21 05/29/21 History levothyroxine 112 mcg tablet 112 mcg PO QAM 09/08/20 06/09/21 05/29/21 History lamotrigine 200 mg tablet 400 mg PO QAM #180 tab 01/06/21 06/09/21 05/29/21 Rx trazodone 100 mg tablet 300 mg PO BEDTIME #270 tab 01/06/21 06/09/21 05/28/21 Rx alprazolam 1 mg tablet 0.5 mg PO TID #45 tab 03/07/21 06/09/21 05/29/21 Rx baclofen 10 mg tablet 20 mg PO TID PRN tab 04/05/21 06/09/21 05/28/21 History Rolling walker #1 ea 05/17/21 06/09/21 Unknown Rx hydrochlorothiazide 12.5 mg capsule 12.5 mg PO DAILY PRN 05/29/21 06/09/21 Unknown History tramadol 50 mg tablet 50 mg PO Q6H PRN #20 tab 06/06/21 06/09/21 Unknown Rx Allergies Allergy/AdvReac Type Severity Reaction Status Date / Time naproxen Allergy Severe breathing Verified 06/09/21 08:45 issues gabapentin Allergy Intermediate ADR-Dizzine Verified 06/09/21 08:45 ss Current Medications Generic Name Dose Route Start Last Admin Trade Name Freq PRN Reason Stop Dose Admin Alprazolam 0.5 mg 06/09/21 02:38 06/11/21 20:08 Alprazolam 0.5 Mg Tablet PO 0.5 mg TID PRN Administration anxiety Atorvastatin Calcium 40 mg 06/10/21 21:00 06/11/21 20:07 Atorvastatin 40 Mg Tablet PO 40 mg BEDTIME ELIDIA Administration Baclofen 20 mg 06/09/21 02:31 06/11/21 20:07 Baclofen 10 Mg Tablet PO 20 mg TID PRN Administration Muscle Spasm Dexamethasone 4 mg 06/10/21 14:00 06/12/21 02:19 Dexamethasone 4 Mg/Ml Inj IVP 4 mg Q6H ELIDIA Administration Sodium Chloride 1,000 mls @ 50 mls/hr 06/09/21 10:30 06/11/21 20:08 Sodium Chloride 0.9% IV 50 mls/hr .Q20H ELIDIA Administration Piperacillin Sod/Tazobactam 50 mls @ 12.5 mls/hr 06/09/21 10:40 06/12/21 05:24 Sod 3.375 gm/ Sodium Chloride IV 12.5 mls/hr Q8H ELIDIA Administration Vancomycin HCl 1,000 mg/ 250 mls @ 250 mls/hr 06/10/21 23:00 06/12/21 00:25 Sodium Chloride IV Infused Q12H ELIDIA Infusion Lamotrigine 400 mg 06/09/21 06:00 06/12/21 05:20 Lamotrigine 100 Mg Tablet PO Not Given QAM ELIDIA Levothyroxine Sodium 75 mcg 06/11/21 09:00 06/11/21 08:06 Levothyroxine 100 Mcg Sdv IVP 75 mcg DAILY ELIDIA Administration Nicotine 1 patch 06/11/21 17:00 06/11/21 17:19 Nicotine 14 Mg Patch TRANSDERMA 1 patch DAILY ELIDIA Administration Pantoprazole Sodium 40 mg 06/09/21 09:00 06/11/21 08:[address] 40 Mg Tablet PO 40 mg DAILY ELIDIA Administration Pregabalin 75 mg 06/09/21 09:00 06/11/21 17:20 Pregabalin 75 Mg Capsule PO 75 mg BID ELIDIA Administration Tizanidine HCl 4 mg 06/09/21 02:40 06/11/21 17:19 Tizanidine 4 Mg Tablet PO 4 mg Q6H PRN Administration muscle spasticity Tramadol HCl 50 mg 06/09/21 02:31 06/11/21 23:23 Tramadol 50 Mg Tablet PO 50 mg Q6H PRN Administration pain Trazodone HCl 300 mg 06/11/21 21:00 06/11/21 20:31 Trazodone 100 Mg Tablet PO Not Given BEDTIME ELIDIA PFSH Anesthesia Medical History (Updated 06/10/21 @ 15:54 by Ezequiel Hutchins MD) Alcohol use disorder, moderate, in sustained remission Bipolar II disorder Borderline personality disorder Cellulitis of sacral region Cigarette nicotine dependence Hyperlipidemia 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 MRSA bacteremia Onychodystrophy Panic disorder Postoperative wound infection (2020) MRSA Pressure ulcer with suspected deep tissue injury Psychiatric care Surgical History (Updated 06/10/21 @ 15:44 by Ezequiel Hutchins MD) History of fusion of lumbar spine (08/10/20) L4-L5, L5-S1 interbody fusion with posterolateral fusion, with cage at L4/5, L5/S1, revision laminectomy L4 and L5, Dr Ramirez History of laminectomy (02/22/20) L4-L5 laminectomy with partial facetectomy, Dr Ramirez History of lumbosacral spine surgery (08/10/20) Hx of section Hx of hysterectomy S/P excisional debridement (06/09/21) Sacral decubitus ulcer S/P spinal fusion Family History Denies family history of CAD (coronary artery disease) Anesthesia complication Social History Smoking and tobacco status: current every day smoker cigarettes Alcohol intake: former Household members: family Data Anesthesia : 06/12/21 04:17 06/12/21 04:17 Short CBC 06/10/21 06/11/21 06/12/21 Range/Units 05:44 03:37 04:17 WBC 10.9 H 9.0 14.6 H (4.0-10.0) 10^3/uL Hgb 9.0 L 9.5 L 9.5 L (11.5-15.3) g/dL Hct 28.6 L 30.7 L 29.5 L (37.0-47.0) % MCV 92.6 95.0 92.2 (81-99) fl Plt Count 429 H 484 H 557 H (130-400) 10^3/cmm Neut % (Auto) 73.5 76.6 84.0 % Neut # (Auto) 8.00 H 6.92 12.31 H (1.8-7.7) 10^3/uL BMP 06/10/21 06/11/21 06/12/21 05:44 03:37 04:17 Sodium 134 L 132 L 134 L Potassium 3.6 3.8 3.8 Chloride 104 101 105 Carbon Dioxide 18 L 20 L 19 L BUN 16 23 H 25 H Creatinine 0.6 0.7 0.5 Glucose 89 215 H 250 H Calcium 7.7 L 8.0 L 8.0 L Liver Function 06/10/21 06/11/21 06/12/21 Range/Units 05:44 03:37 04:17 Total Bilirubin 0.3 0.2 0.2 (0.15-1.2) mg/dL AST 11 8 13 (0-32) U/L ALT 14 11 16 (0-33) U/L Alkaline Phosphatase 148 H 153 H 152 H (35-105) IU/L Albumin 2.6 L 2.7 L 2.6 L (3.5-5.2) g/dL Microbiology 06/10/21 17:04 MRSA Culture - Final Nose 06/09/21 12:38 Gram Stain - Final Buttock Tissue Culture - Preliminary Pseudomonas aeruginosa Gram Negative Rods#2 Cardiac Studies: No Data to Display
--- NOTE | 2021-06-12 07:17 | PC.NURSE ---
To OR Pt taken to OR by OR staff via bed.
[2021-06-12] MEDS: vancomycin 1,000 MG SDV 1000 MG XX (09:45)
--- NOTE | 2021-06-12 09:56 | XR_ITS ---
WS: [id number] C-arm fluoroscopy of the cervical spine, 06/12/2021 Clinical Data: or pics cervical fusion Comparison: None. Findings: There is an occipital cervical posterior fusion with bilateral pedicle screws and connecting rods. XR/XR cervical spine 1V [id number] Impression: Occipital cervical posterior fusion.
--- NOTE | 2021-06-12 10:05 | XR_ITS ---
WS: [id number] Cervical spine, AP and lateral views, 06/12/2021 Clinical Data: AP/LAT Post op Fusion Comparison: CT cervical spine, 06/10/2021. Findings: There is a posterior occipital cervical fusion. There are bilateral pedicle screws in the f irst, second and third cervical pedicles with connecting rods extending into the occiput. There are m ultiple screws in the occiput holding the connecting rods in place. The alignment of C1 with the occi pital condyles has improved. There is an endotracheal tube in good position. XR/XR cervical spine 3V* [id number] Impression: Posterior occipital cervical fusion.
--- NOTE | 2021-06-12 10:12 | CTR_ITS ---
PROCEDURE INFORMATION: Exam: CT Cervical Spine Without Contrast Exam date and time: 06/12/2021 10:12 AM Age: 56 years old Clinical indication: Condition or disease; Cervical region; Prior surgery; Surgery type: Cervical fusion. Procedure done: . 1. Occipit to c4 posterior spine fusion. 2. Occiput to c4 instrumentation. 3. Open reduction of c1/2 fracture disloction. 4. C1 laminectomy. 5. Use of allograft; Additional info: Post op TECHNIQUE: Imaging protocol: Computed tomography images of the cervical spine without contrast. Axial, coronal and sagittal reformatted images were created and reviewed. Radiation optimization: All CT scans at this facility use at least one of these dose optimization techniques: automated exposure control; mA and/or kV adjustment per patient size (includes targeted exams where dose is matched to clinical indication); or iterative reconstruction. COMPARISON: 1. MR cervical spine wo/w [id number] 06/10/2021 12:[address] cervical spin wo con* [id number] 06/10/2021 10:05 AM RADIATION DOSE METRICS: Total DLP (mGy-cm): 469.58 FINDINGS: Bones/joints: Interval postoperative changes associated with posterior craniocervical fusion. Hardware in the occiput, right C2 and C4 pedicles and left C2 and C3 pedicles. Alignment now anatomic. Unchanged odontoid erosions. Straightening of the normal cervical lordosis. Discs/Spinal canal/Neural foramina: Mild multilevel degenerative changes, characterized by disc space narrowing, osteophytosis and uncovertebral and facet joint hypertrophy. Mild multilevel spinal canal and neural foraminal narrowing. Lungs: Grossly unremarkable. Soft tissues: Extensive soft tissue swelling and gas at the operative site. CT/CT cervical spin wo con* [id number] IMPRESSION: 1. Postoperative changes, as described above. 2. Additional findings, as above.
--- NOTE | 2021-06-12 10:22 | P.OP_ITS ---
Operative Report Date of procedure: June 12, 2021 Pre-op diagnosis: 1.Occipital cervical disociation 2. C1/2 fracture dislocation Post-op diagnosis: same Procedure done: 1. Occipit to C4 posterior spine fusion 2. Occiput to C4 instrumentation 3. Open Reduction of c1/2 fracture disloction 4. C1 laminectomy 5. Use of Allograft Surgeon: Santosh Ramirez Access Specialist: Hesham Rodriguez Estimated blood loss (mL): 50 Procedure: 1. Occipit to C4 posterior spine fusion 2. Occiput to C4 instrumentation 3. Open Reduction of c1/2 fracture disloction 4. C1 laminectomy 5. Application and rmoval of cardona tongs 5. Use of Allograft Patient is brought to the operative suite after undergoing anesthesia. Once patient had anesthesia she was had preposition baselines taken on the bed. Then we applied to the Cardona tongs. This was done by placing the tongues above the external auditory meatus. Traction was applied. Neuro monitoring was continued while this was done. And then position was positioned prone on the bed. All areas impingement well-padded. Patient was locked into position. And then C-arm was brought in to ensure that the fracture was aligned and improved position. Once patient was locked in and everything was in good position patient was prepped and draped in normal sterile fashion. Skin incision was made from occiput down to C4. Subperiosteal dissection was made. The C1 lamina was identified and then the dissection made out to the lateral masses of C2-C3 and C4. Retractors were placed. The base of the skull was exposed as well. Typical plate was then placed onto the base of the skull. 3 screws were placed into the plate. This was done using a drilling technique. And under C-arm guidance. Size 16 screws placed at the top and then to 10 screws were placed at the bottom. Next attention was brought to placing the C2 pars screws. 2 screws were placed one on each side. Size 20 was placed on the left side and a size 18 on the right side. This was done by drilling and then feeling with a pedicle feeler and then placing the screw. And then lateral mass screws were placed. A C3 lateral mass screws placed on the left. And a C4 was placed on the right because the C3 screw on the right broke out laterally. After all the screws were placed. Attention was then brought to placing the rods. A pre-bent occipital cervical ph[place] was then attached to the screws bilaterally. One screws placed into the occiput and the end cap was placed. And then the C3 and C2 screws in the left and the C2 and C4 screws on the right had the end caps placed. Everything was torqued down. Next attention was brought to performing the laminectomy on C1. The left ligamentum flavum was taken down off of the C1 lamina and the bottom surface of the lamina was taken down. The ligamentum flavum was taken down from C1-C2. The dura and cord were in good alignment did not look like there is any compression at this point anymore. The lateral masses were decorticated as was C1 and the base of the skull. The [employer] bone graft was then packed into the gutters. Vancomycin powder was placed and wound was closed in a layered fashion from the posterior cervical fascia up to the skin. The patient was then positioned supine and the Cardona tongs were removed. Patient was placed in cervical collar and transferred back to the ICU in stable condition.
--- NOTE | 2021-06-12 10:47 | PC.CHAP ---
Pastoral Care Encounter/Spiritual Assessment Type of Contact [] Declined engineer conductor visit [] Patient/Family/Request visit [] Outpatient visit [] Follow-up visit [] Physician referral [] Code/Alert [x] Routine visit [] Staff referral [] Actively dying [] Patient sleeping [] Family support [] [x] Out of room [] Palliative care [] [] Receiving care in room [] Pre-surgical visit [] Trauma [] Long length of stay [x] ICU visit [] Other: in OR Relational/Emotional Strength [] Patient feels connected with others/family/visitors/staff [] Distress [] Loneliness/isolation [] Abandonment Spirituality of Patient [] Person of Yolande [] Attends Jainism of their Yolande [] Believes in Prayer [] Reads Bible or Adventism materials [] There are Spiritual issues to be addressed Security Lead Interventions x[] Prayer [] Active listening [] Non-anxious presence [] Spiritual/emotional support [] Crisis/trauma care [] Spiritual counseling [] Bereavement support [] Provided bereavement packet [] Provided Bible/devotional materials [] Provided toy/stuffed animal, coloring book to patient or family member [] Provided Communion [] Anointing/[place] [] Salvation [x] Completed spiritual assessment [] Other: Impact on Illness or Injury [] Angry [] Fearful [] Anxious [] Often cries [] Exhaustion [] Unable to work [] Unable to attend mandaeism [] Unable to walk/stand [] Unable to read [] Unable to drive [] Unable to eat/drink [] Unable to sleep [] Unable to be with family [] Patient intubated [] Other: Summary Time spent with patient
[2021-06-12] MEDS: propofol 1,000 MG/100 ML INJ 11.7 MG IV ×2 (11:11→17:55)
[2021-06-12 11:24] LABS: ABG PCO2 37.9 mmHg (35-45); ABG PH Result 7.35 (7.35-7.45); Alveolar-Arterial Oxygen Gradi 24.2 mmHg (5-10); Arterial Blood Gas Hematocrit 28.3 % (37-47); Base Excess ABG -4.5 mmol/L (-2.0-2.0); Blood Gas Operator Identificat GD; Blood Gas Sample Site Not specified; Blood Gas Sample Type Arterial; Blood Gas Tidal Volume 0.32; Carboxyhemoglobin 0.7 %THgb (0.4-20.1); HCO3 ABG 20.7 mmol/L (22-26); HGB O2 Sat 98.2 % (95-100); Ionized Calcium Level - ABG 1.2 mmol/L (1.1-1.4); Methemoglobin 1.4 % (0.4-1.5); Oxygen Device VENT; Oxygen Saturation ABG > 100.0; Potassium Level - ABG 3.6 mmol/L (3.5-5.0); Total Hemoglobin 9.2 g/dL (12-16)
--- NOTE | 2021-06-12 11:24 | P.PN_ITS ---
Subjective Subjective: Pt underwent stabilization of her C spine under GA in the OR. Currently intubated for airway protection. Also sedated. Procedure done: Procedure: 1. Occipit to C4 posterior spine fusion 2. Occiput to C4 instrumentation 3. Open Reduction of c1/2 fracture disloction 4. C1 laminectomy 5. Application and rmoval of cardona tongs 5. Use of Allograft Vitals/I&O/Wt Last Vital Signs Temp 98.5 F 06/12/21 07:36 Pulse 71 06/12/21 07:36 Resp 16 06/12/21 10:43 BP 108/67 06/12/21 07:36 Pulse Ox 98 06/12/21 10:43 06/11/21 06/12/21 06/12/21 22:59 06:59 14:59 Intake Total 1530 / 1830 540 / 2370 50 / 50 Output Total 700 / 700 425 / 1125 0 / 0 Balance 830 / 1130 115 / 1245 50 / 50 Weight last 48 hrs Weight 65 kg Weight 62.596 kg Physical Exam Narrative: Sedated, Intubated. HENMT: OTHER: Intubated Eye: OTHER: PERLLA Resp: OTHER: BS_, CTA Cardio: OTHER: S1S2, RRR, Mur (-) Extremity: OTHER: Edema (-) Neuro: OTHER: Sedated Urinary Catheter Management: Arriola: Cath Placed During This Visit: yes Reason for Continuing Indwelling Catheter: Accurate Measurement of Urinary Output in Critically Ill Patients Urinary Catheter Date of Insertion: 06/10/21 Data : 06/12/21 04:17 06/12/21 04:17 Micro: Microbiology 06/10/21 17:04 MRSA Culture - Final Nose 06/09/21 12:38 Gram Stain - Final Buttock Tissue Culture - Preliminary Pseudomonas aeruginosa Gram Negative Rods#2 A&P Assessment and plan (1) C1 cervical fracture: s/p laminectomy and fusion Status: Acute (2) Instability of C1-C2 vertebrae: Status: Acute (3) Sacral decubitus ulcer, stage IV: Status: Acute (4) Hypothyroidism: Status: Chronic (5) Alcohol use disorder, moderate, in sustained remission: Status: Chronic Plan Stabilization C Spine Airway protection w/ intubation and vent management Fentanyl protocol for pain management VTE prophylaxsis Observe for Alohol withdrawl Resume home meds once extubated VCervica; collar [facility]*: Pt needs in patient care in the ICU post procedure and on the ventilator Time Spent in Patient Care: Greater than 35 minutes Critical Care Time: Critical Care Time (min): 15 Coding Level of Care Code Acute First Grade Teacher for Chg Fwd Diagnoses C1 cervical fracture S12.000A Instability of C1-C2 vertebrae M53.2X1 Sacral decubitus ulcer, stage IV L89.154 Hypothyroidism E03.9 Alcohol use disorder, moderate, in sustained remission F10.21
--- NOTE | 2021-06-12 11:30 | PC.NURSE ---
Patient returned to ICU 5 from OR intubated. No sedation running. No orders for sedation placed at time of transfer. Patient alert. Arterial monitoring line placed in left wrist in OR. 18 gave IV placed in right AC. C-collar in place with dressing to neck beneath c-collar. Dressing to sacrum changed per OR Nurse. RT in room. Hospitalist and surgeon contacted for further orders. Propofol and Fentanyl currently running for sedation per hospitalist orders.
--- NOTE | 2021-06-12 13:44 | ANE.PACU2 ---
Inpatient post-anesthesia follow up: Airway intact: No Vital signs: Temperature 96.0 F Pulse Rate 74 Respiratory Rate 20 Blood Pressure 121/81 Pulse Oximetry 95 Oxygen Delivery Me thod Mechanical Ventila tion Oxygen Flow Rate Fraction of Inspir ed Oxygen 30 Hydration adequate: Yes Nausea and vomiting: No Mental status: Altered
[2021-06-12 14:53] LABS: Vancomycin Trough 20.1 ug/mL (10-15)
[2021-06-12] MEDS: lactated ringers 1,000 ML 90 ML IV (17:18)
[2021-06-12] MEDS: ketorolac 30 mg/mL INJ IVP (19:51)
[2021-06-12] MEDS: vancomycin 1,000 MG in sodium chloride 0.9% 250 ML 250 MG IV (20:15)
--- NOTE | 2021-06-12 23:51 | ECG_ITS ---
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 Measurements Intervals [place] Rate: 72 P: 79 MI: 149 QRS: 78 QRSD: 90 T: 77 QT: 374 QTc: 410 Interpretive Statements SINUS RHYTHM LOW QRS VOLTAGE IN PRECORDIAL LEADS [QRS DEFLECTION < 1.0 mV IN CHEST LEADS] Compared to ECG 05/29/2021 10:01:59 Low QRS voltage now present Sinus tachycardia no longer present T-wave abnormality no longer present Electronically Signed On 06-14-2021 20:29:09 CDT by Luke España M.D. [email or web address]
[2021-06-13] VITALS (54 sets, daily range): BP systolic 88–121; BP diastolic 61–81; PULSE 56–93; RESP 13–18; TEMP 36–37; O2SAT 93–98
--- NOTE | 2021-06-13 00:13 | PC.NURSE ---
Called Dr. Rutherford at [phone] in regards to the patient having bradycardic episodes. Patient started dropping her HR into the 50's and would occasionally hit a HR of 48. Whenever these events had started, titration down of propofol was done. Patient would recover with her HR into the upper 50's and low 60's, and then drop down to low 50's and 48 again. Patient has been afebrile. Orders for a 12-lead EKG, a magnesium level, and troponin. Heart rate before these events were in the 70's and even 80's. Will continue to monitor at this time for further episodes.
[2021-06-13 00:28] LABS: Magnesium 1.6 mg/dL (1.7-2.3)
[2021-06-13 00:31] LABS: Troponin T (5th) Once 29 ng/L (0-10)
[2021-06-13] MEDS: propofol 1,000 MG/100 ML INJ 9.75 MG IV (00:37)
--- NOTE | 2021-06-13 01:23 | PC.NURSE ---
Called Dr. Rutherford at [phone] in regards to the patient's magnesium coming back 1.6, orders to replace one gram of magnesium IV one time.
[2021-06-13] MEDS: dexamethasone 4 mg/mL INJ IVP ×4 (02:35→20:14)
[2021-06-13] MEDS: lactated ringers 1,000 ML 90 ML IV ×2 (03:53→15:29)
[2021-06-13 04:31] LABS: ABG PCO2 34.9 mmHg (35-45); ABG PH Result 7.39 (7.35-7.45); Arterial Blood Gas Hematocrit 24.7 % (37-47); Base Excess ABG -3.3 mmol/L (-2.0-2.0); Blood Gas Sample Site Not specified; Blood Gas Sample Type Arterial; Blood Gas Tidal Volume 0.32; HCO3 ABG 21.2 mmol/L (22-26); Oxygen Device VENT; PO2 ABG 89.2 mmHg (80.0-100.0)
[2021-06-13 04:50] LABS: Basophils % 0.1 %; Hematocrit 26.8 % (37.0-47.0); Hemoglobin 8.2 g/dL (11.5-15.3); Lymphocytes # 2.1 10^3/uL (0.8-4.8); Mean Corpuscular HGB Conc 30.6 g/dL (30.0-36.0); Mean Corpuscular Hemoglobin 29.1 pg (28.0-34.0); Mean Platelet Volume 9.6 fL (7.4-10.4); Monocytes # 0.8 10^3/uL (0.2-0.9); Monocytes % 5.1 %; Neutrophils # 11.98 10^3/uL (1.8-7.7); Neutrophils % 79.6 %; Nucleated Red Blood Cells % 0 %; Platelet Count 522 10^3/cmm (130-400); Red Blood Count 2.82 10^6/uL (4.1-5.3); Red Cell Distribution Width 19.4 % (12.1-15.1)
[2021-06-13 05:09] LABS: Alanine Aminotransferase 11 U/L (0-33); Albumin Level 2.6 g/dL (3.5-5.2); Alkaline Phosphatase 116 IU/L (35-105); Anion Gap 12.9 (5-19); Aspartate Amino Transferase 8 U/L (0-32); Blood Urea Nitrogen 22 mg/dL (6-20); Calcium 7.6 mg/dL (8.5-10.5); Carbon Dioxide 19 mmol/L (22-29); Chloride 107 mmol/L (98-107); Globulin 2.2 g/dL (1.3-4.6); Glomerular Filtration Rate 127.6 mL/min (90-130); Glucose 155 mg/dL (65-115); Osmolality Calculated 286 mOsm/kg (285-295); Potassium 3.9 mmol/L (3.5-5.1); Sodium 135 mmol/L (136-145); Total Bilirubin 0.2 mg/dL (0.15-1.2); Total Protein 4.8 g/dL (6.6-8.7)
[2021-06-13 05:10] LABS: Troponin T (5th) Once 30 ng/L (0-10)
[2021-06-13] MEDS: piperacillin-tazobactam 3.375 GM in sodium chloride 0.9% (plus) 50 ML IV ×3 (05:39→23:09)
[2021-06-13] MEDS: enoxaparin 40 mg/0.4 mL Syringe SUBCUT (05:39)
--- NOTE | 2021-06-13 07:17 | PC.NURSE ---
Called Dr. Rutherford at [phone] in regards to the patient's heart rate dropping again to the low 50's and 48. Continues to recover and then dip his heart rate again. Orders to try and wean off the levo and initiate an epi drip instead. Able to wean the levo drip off at 0358. Did not need to initiate epi drip per my shift. Day shift RN notified of this in report and has the epi drip if needed. Patient able to follow commands. Wiggle toes on both her right and left side. Still unable to move her right leg and right arm to command. Able give me a thumbs up on her left side to pain in her posterior neck, and no where else. Intermittently has pain. Toradol given one time. No spasms per patient. Patient had 380 urine output, no bowel movement. No concerns at this time. Report passed along to dayshift RN.
[2021-06-13] MEDS: nicotine 14 mg Patch 1 PATCH TRANSDERMA (08:21)
[2021-06-13] MEDS: levothyroxine 100 mcg SDV 75 MCG IVP (08:21)
--- NOTE | 2021-06-13 08:42 | PM.PN ---
Subjective Subjective: POD 1 Patient intubated. Appears in no apparent distress. Vitals/I&O/Wt Last Vital Signs Temp 98.0 F 06/13/21 08:33 Pulse 74 06/13/21 08:33 Resp 13 06/13/21 07:50 BP 97/70 06/13/21 08:33 Pulse Ox 96 06/13/21 08:33 06/12/21 06/13/21 06/13/21 22:59 06:59 14:59 Intake Total 516.893 / 950.999 1393.670 / 1786.563 Output Total 400 / 400 380 / 780 Balance 116.893 / 166.893 839.670 / 1006.563 Weight last 48 hrs Weight 164 lb 9.6 oz Weight 143 lb 4.8 oz Physical Exam Narrative: Patient is intubated. Incision clean and dry [place] J collar present. Fingers and toes are warm to the touch. Urinary Catheter Management: Arriola: Cath Placed During This Visit: yes Reason for Continuing Indwelling Catheter: Accurate Measurement of Urinary Output in Critically Ill Patients Urinary Catheter Date of Insertion: 06/10/21 Data : 06/13/21 04:14 06/13/21 04:14 Micro: Microbiology 06/12/21 10:40 Gram Stain - Final Sputum - Endotracheal Tube Aspirate 06/09/21 12:38 Gram Stain - Final Buttock Tissue Culture - Final Pseudomonas aeruginosa Klebsiella pneumoniae A&P Assessment and plan (1) S/P spinal fusion: Will await extubation. Discussed at length with the nurse treatment course with continued [place] J collar. We will continue to follow closely. 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
--- NOTE | 2021-06-13 11:12 | PC.NURSE ---
Addendum entered by Amos Briggs RN 06/13/21 11:20: Pt and family educated regarding extubation, diet and pain med orders. Verbalize understanding Original Note: 1110 Pt extubated to 2LNC per MD orders. Tolerated well. MD at bedside.
[2021-06-13] MEDS: ketorolac 30 mg/mL INJ IVP ×2 (11:15→20:14)
--- NOTE | 2021-06-13 11:20 | PC.RESP ---
extubated and placed pt on nc 3lpm, tolerated well
[2021-06-13] MEDS: HYDROcodone-acetaminophen 5-325 mg Tablet PO ×2 (12:08→16:44)
--- NOTE | 2021-06-13 12:24 | PC.NURSE ---
Bedside swallow study performed with small sips of water and then pudding with crushed meds. Pt tolerated well. Requested meds to be crushed d/t previous difficulty swallowing. Will request soft foods diet from MD.
[2021-06-13] MEDS: TRAMadol 50 mg Tablet PO ×2 (13:54→20:15)
[2021-06-13] MEDS: vancomycin 1,000 MG in sodium chloride 0.9% 250 ML 250 MG IV (14:30)
--- NOTE | 2021-06-13 14:37 | PC.NURSE ---
wasted 220ml fentanyl with Jami MANTILLA
--- NOTE | 2021-06-13 14:37 | PC.SOCIAL ---
IMM update IMM updated with patient. Verbalized an understanding. Copy Pg 2 provided. Initialled, dated, timed, and placed in chart.
[2021-06-13] MEDS: ALPRAZolam 0.5 mg Tablet PO (16:44)
--- NOTE | 2021-06-13 18:28 | PC.NURSE ---
PT sitting up in chair in room, requires assist x2 for transfer. VSS. Nursing staff assists with feeding, pt able to take sips of drink without assistance. Arriola cath draining freely. Pt c/o almost constant neck pain. Pain meds given as ordered. Will monitor.
[2021-06-13] MEDS: atorvastatin 40 mg Tablet PO (20:15)
[2021-06-13] MEDS: trazodone 100 mg Tablet 300 MG PO (20:15)
[2021-06-13] MEDS: baclofen 10 mg Tablet 20 MG PO (20:15)
[2021-06-14] VITALS (39 sets, daily range): BP systolic 89–115; BP diastolic 56–79; PULSE 59–88; RESP 17–18; TEMP 36.6–37.4; O2SAT 92–97
[2021-06-14] MEDS: HYDROcodone-acetaminophen 5-325 mg Tablet PO ×3 (00:30→15:58)
[2021-06-14] MEDS: ALPRAZolam 0.5 mg Tablet PO ×2 (00:31→20:52)
[2021-06-14] MEDS: lactated ringers 1,000 ML 90 ML IV ×2 (02:39→14:40)
[2021-06-14] MEDS: dexamethasone 4 mg/mL INJ IVP ×4 (02:39→19:42)
[2021-06-14] MEDS: enoxaparin 40 mg/0.4 mL Syringe SUBCUT (05:23)
[2021-06-14] MEDS: piperacillin-tazobactam 3.375 GM in sodium chloride 0.9% (plus) 50 ML IV ×3 (05:24→21:46)
[2021-06-14] MEDS: lamoTRIgine 100 mg Tablet 400 MG PO (05:24)
--- NOTE | 2021-06-14 07:05 | P.PN_ITS ---
Subjective Subjective: POD 2 Patient resting comfortably. Patient is very somnolent. Vitals/I&O/Wt Last Vital Signs Temp 97.8 F 06/14/21 04:57 Pulse 69 06/14/21 06:00 Resp 18 06/13/21 18:26 BP 98/64 06/14/21 06:00 Pulse Ox 94 06/14/21 05:45 06/13/21 06/14/21 06/14/21 22:59 06:59 14:59 Intake Total 2500 / 2781.017 1524 / 4305.017 Output Total 350 / 350 700 / 1050 Balance 2150 / 2431.017 824 / 3255.017 Weight last 48 hrs Weight 166 lb Weight 164 lb 9.6 oz Physical Exam Narrative: [place] J collar present incision clean and dry. Slight movement of digits on the left upper extremity does not move digits on the right. Minimal movement of digits on both lower extremities. Urinary Catheter Management: Arriola: Cath Placed During This Visit: yes Reason for Continuing Indwelling Catheter: Accurate Measurement of Urinary Output in Critically Ill Patients Urinary Catheter Date of Insertion: 06/10/21 Data : 06/13/21 04:14 06/13/21 04:14 Micro: Microbiology 06/08/21 21:45 Blood Culture - Final Blood NO GROWTH AFTER 5 DAYS 06/08/21 21:40 Blood Culture - Final Blood NO GROWTH AFTER 5 DAYS 06/12/21 10:40 Gram Stain - Final Sputum - Endotracheal Tube Aspirate Sputum Culture - Preliminary A&P Assessment and plan (1) S/P spinal fusion: Status: Acute (2) C1 cervical fracture: Status: Acute Plan Decrease pain medication as patient is very somnolent this morning. 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
[2021-06-14] MEDS: vancomycin 1,000 MG in sodium chloride 0.9% 250 ML 250 MG IV (07:59)
[2021-06-14] MEDS: nicotine 14 mg Patch 1 PATCH TRANSDERMA (08:00)
[2021-06-14] MEDS: levothyroxine 100 mcg SDV 75 MCG IVP (08:00)
[2021-06-14] MEDS: pantoprazole DR 40 mg Tablet PO (08:01)
[2021-06-14] MEDS: docusate sodium 100 mg Capsule PO ×2 (08:01→17:43)
--- NOTE | 2021-06-14 12:03 | PC.CHAP ---
Pastoral Care Encounter/Spiritual Assessment Type of Contact [] Declined financial developer visit [] Patient/Family/Request visit [] Outpatient visit [] Follow-up visit [] Physician referral [] Code/Alert [x] Routine visit [] Staff referral [] Actively dying [] Patient sleeping [x] Family support [] [] Out of room [] Palliative care [] [] Receiving care in room [] Pre-surgical visit [] Trauma [] Long length of stay [x] ICU visit [] Other: Relational/Emotional Strength [] Patient feels connected with others/family/visitors/staff [] Distress [] Loneliness/isolation [] Abandonment Spirituality of Patient [] Person of Yolande [] Attends Congregation of their Yolande [] Believes in Prayer [] Reads Bible or Evangelical materials [] There are Spiritual issues to be addressed Fire Safety Director Interventions [x] Prayer [x] Active listening [x] Non-anxious presence [x] Spiritual/emotional support [] Crisis/trauma care [] Spiritual counseling [] Bereavement support [] Provided bereavement packet [] Provided Bible/devotional materials [] Provided toy/stuffed animal, coloring book to patient or family member [] Provided Communion [] Anointing/[place] [] Salvation [x] Completed spiritual assessment [] Other: Impact on Illness or Injury [] Angry [] Fearful [] Anxious [] Often cries [] Exhaustion [] Unable to work [] Unable to attend church [] Unable to walk/stand [] Unable to read [] Unable to drive [] Unable to eat/drink [] Unable to sleep [] Unable to be with family [] Patient intubated [] Other: Summary patient had neck surgery.. possibility of being moved to med surg. Time spent with patient 10 min
--- NOTE | 2021-06-14 12:19 | PC.NURSE ---
PT up on side of bed with PT. Tolerated fair. VSS.
[2021-06-14] MEDS: TRAMadol 50 mg Tablet PO ×2 (12:37→19:41)
--- NOTE | 2021-06-14 16:00 | P.PN_ITS ---
Subjective Subjective: Pt is intubated and sedated. Breathing w/ the vent Vitals/I&O/Wt Last Vital Signs Temp 98.9 F 06/16/21 11:39 Pulse 86 06/16/21 13:50 Resp 18 06/16/21 15:25 BP 122/81 06/16/21 11:39 Pulse Ox 96 06/16/21 13:50 06/16/21 06/16/21 06/16/21 06:59 14:59 22:59 Intake Total 2233.3 / 3573.3 1340.8 / 1340.8 Output Total 2099 / 2099 Balance 133.3 / 1473.3 1340.8 / 1340.8 Weight last 48 hrs Weight 74.344 kg Weight 80.83 kg Physical Exam Narrative: NAD. On Vent. 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 Status: Acute (2) C1 cervical fracture: Status: Acute (3) S/P spinal fusion: Status: Acute (4) Discitis: Status: Acute (5) Sacral decubitus ulcer, stage IV: Status: Acute (6) Low back pain radiating to both legs: Status: Acute (7) Panic disorder: Status: Chronic (8) Cigarette nicotine dependence: Status: Chronic Qualifiers: Substance use status: uncomplicated Qualified Code(s): F17.210 - Nicotine dependence, cigarettes, uncomplicated (9) Hypothyroidism: Status: Chronic (10) Borderline personality disorder: Status: Chronic (11) Alcohol use disorder, moderate, in sustained remission: Status: Chronic Plan Stabilization C Spine Airway protection w/ intubation and vent management Fentanyl protocol for pain management VTE prophylaxsis Observe for Alohol withdrawl Resume home meds once extubated VCervica; collar Propofol Protocol Attestations Medical Necessity Statement*: Pt is intubated in medically induced paralyzed state, sedared for the management of cervical spinal stenosis. Will require c ontinued hospitalization Time Spent in Patient Care: 40 min Critical Care Time: 10 min Coding Level of Care Code Acute Brick Catcher for Chg Fwd Diagnoses Instability of C1-C2 vertebrae M53.2X1 C1 cervical fracture S12.000A S/P spinal fusion Z98.1 Discitis M46.40 Sacral decubitus ulcer, stage IV L89.154 Low back pain radiating to both legs M54.50; M79.604; M79.605 Panic disorder F41.0 Cigarette nicotine dependence F17.210 Substance use status: uncomplicated Hypothyroidism E03.9 Borderline personality disorder F60.3 Alcohol use disorder, moderate, in sustained remission F10.21
--- NOTE | 2021-06-14 18:15 | PC.NURSE ---
PT resting in bed. Up to side of bed with PT, tolerated poorly d/t pain despite pain meds. Repositioned as tolerated. No other issues noted. Will monitor.
[2021-06-14] MEDS: trazodone 100 mg Tablet 300 MG PO (20:52)
[2021-06-14] MEDS: atorvastatin 40 mg Tablet PO (20:52)
[2021-06-15] VITALS (11 sets, daily range): BP systolic 92–129; BP diastolic 54–80; PULSE 67–90; RESP 11–20; TEMP 36.4–37.1; O2SAT 93–97
[2021-06-15] MEDS: HYDROcodone-acetaminophen 5-325 mg Tablet PO ×5 (00:18→23:11)
[2021-06-15] MEDS: dexamethasone 4 mg/mL INJ IVP ×4 (01:06→21:30)
[2021-06-15] MEDS: lactated ringers 1,000 ML 90 ML IV ×2 (01:59→13:26)
[2021-06-15] MEDS: vancomycin 1,000 MG in sodium chloride 0.9% 250 ML 250 MG IV ×2 (02:04→21:30)
--- NOTE | 2021-06-15 03:23 | PC.NURSE ---
report called to Carol 06/15/2021 @ 0327
[2021-06-15] MEDS: piperacillin-tazobactam 3.375 GM in sodium chloride 0.9% (plus) 50 ML IV ×3 (05:42→23:15)
[2021-06-15] MEDS: lamoTRIgine 100 mg Tablet 400 MG PO (05:42)
[2021-06-15] MEDS: enoxaparin 40 mg/0.4 mL Syringe SUBCUT (05:42)
--- NOTE | 2021-06-15 08:11 | PM.PN ---
Subjective Subjective: POD 3 Patient awake resting comfortably. Reports better movement of her right hand and digits minimal movement of the right foot. She is able to move the left upper extremity and lower extremity better today as well. Still reports neck and back pain. She has more low back pain. Vitals/I&O/Wt Last Vital Signs Temp 97.9 F 06/15/21 04:00 Pulse 76 06/15/21 08:05 Resp 18 06/15/21 08:05 BP 100/60 06/15/21 04:00 Pulse Ox 94 06/15/21 08:05 06/14/21 06/15/21 06/15/21 22:59 06:59 14:59 Intake Total 580.038 / 2840.038 1660 / 4500.038 Output Total 775 / 775 1200 / 1975 Balance -194.962 / 2065.038 460 / 2525.038 Weight last 48 hrs Weight 178 lb 3.2 oz Weight 166 lb Physical Exam Narrative: Patient is alert and oriented x3 with a good general appearance normal mood and affect. Mildly tender with palpation about the incisional site. Incision appears to be healing nicely without signs of erythema or drainage. No signs of infection. Good motor strength throughout both upper extremities. Slight movement of her digits on the right hand, moves Left hand/digits are warm good cap refill in all digits. No movement of RIght foot/digits. Slight movement of Left foot /Digits. 1+ PE in BLE. calves supple Urinary Catheter Management: Rariola: Cath Placed During This Visit: yes Reason for Continuing Indwelling Catheter: Required Immobilization for Trauma or Surgery or Anesthesia Urinary Catheter Date of Insertion: 06/10/21 Data : 06/13/21 04:14 06/13/21 04:14 Micro: Microbiology 06/12/21 10:40 Gram Stain - Final Sputum - Endotracheal Tube Aspirate Sputum Culture - Final A&P Assessment and plan (1) S/P spinal fusion: Discussed with the nurse at length regarding this patient's will order [place]ard boots to help keep her ankles at neutral. Encourage physical therapy to continue to eval and treat. Encourage is SMI for pulmonary toilet. We will place her on a air mattress to protect the decubitus ulcer and will consult wound care for her decubitus ulcer. 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
[2021-06-15] MEDS: docusate sodium 100 mg Capsule PO ×2 (08:21→17:44)
[2021-06-15] MEDS: pantoprazole DR 40 mg Tablet PO (08:21)
[2021-06-15] MEDS: nicotine 14 mg Patch 1 PATCH TRANSDERMA (08:22)
[2021-06-15] MEDS: baclofen 10 mg Tablet 20 MG PO ×2 (08:22→17:49)
--- NOTE | 2021-06-15 09:22 | PC.SOCIAL ---
IMM update IMM updated with patient. Copy PG 2 provided. Verbalized an understanding. Initialled, dated, timed, and placed in chart.
--- NOTE | 2021-06-15 09:39 | USCV_ITS ---
Hilda Da Silva Age: 56 Gender: F : 1965 Exam Date: 06/15/2021 10:37 Ordering Phys: Matthew Mcgregor MD (Andy) ([email or web address]) Technologist: Samuel Booker Exam Location: [facility] Indication: LT LEG SWELLING PROCEDURES: The venous duplex Doppler examination of both lower extremities was performed in the standard fashion. The following venous structures were evaluated: common femoral vein, profunda vein, proximal portion of the greater saphenous vein, superficial femoral vein, and the popliteal vein. In addition, the posterior tibial and peroneal trunk were evaluated. FINDINGS: LT LEG DVT CFV, GSAPH, FV, POPLETEAL AND PERINEAL TRUNK. RT LEG IS NORMAL Echogenic material were noted in the lumen of the left common femoral, femoral, popliteal and peroneal trunk vein with partial compression of the femoral vein. Proximal segment of the greater saphenous vein also was found to have echogenic material with a partial compression. CONCLUSIONS 1. Features of deep vein thrombosis causing partial occlusion of the common femoral, femoral and greater saphenous vein on the left side. Popliteal vein and the peroneal trunk veins appear to be totally occluded on the left side. The left posterior tibial vein appears to be patent with no evidence of thrombosis 2. No evidence of DVT on the right side in the above-mentioned veins. Dr Jesus Montaño MD [facility] (Electronically Signed) Final Date: 16 June 2021 10:34 S
--- NOTE | 2021-06-15 09:52 | PM.CONSULT ---
Providers/Reason For Consult Consulting Physician/Specialty*: Dr. Mcgregor/cardiothoracic surgery Reason for Consult*: Sacral decubitus Requesting Physician: Dr. Rodriguez Attending Physician: Jenny Klein MD Primary Care Provider: NATHANIEL Torrez History of Present Illness History of Present Illness Hilda Da Silva is a 56 year old female Whom I been consulted to evaluate for a sacral decubitus which has been rather longstanding. She has a prior history for L4 S1 laminectomy and fusion along with instrumentation with a complicated postop course. This was performed on August 10, 2020.She had subsequent localized infection with MRSA protracted antibiotic treatment.She developed increasing neurologic difficulties including ambulation and recurrent falls. She was admitted on June 09 With inability to void. She has had prior debridement of this large sacral decubitus on May [address] Hoyt. This was classified as a stage IV decubitus. Initial debridement continued down to the periosteum and ligamentous layer. She underwent a second treatment by Dr. Jimenez on June 09 After her initial Admission. Subsequently, By Dr. Ramirez, on June 12 she underwent occiput to C4 posterior spinal fusion with instrumentation and reduction of C1/2 fracture dislocation. Wound consultation was made this morning by her hospitalist physician and this consultation went to multiple physicians. I evaluated her at bedside with assistance of several nurses for positioning and visualization. Ms. Da Silva does complain of particularly, left leg swelling for the past few days. Review of Systems ENMT: Denies: throat pain Card: Denies: chest pain GI: Denies: abdominal pain, nausea or vomiting : Reports: difficulty voiding Neuro: Reports: numbness in extremities, weakness in extremities, lack of coordination, difficulty walking and frequent falls Psych: Reports: anxiety Jam/Lymph: Denies: easy bruising Medications/Allergies Home Medications Medication Instructions Recorded Confirmed Last Taken Type atorvastatin 20 mg tablet 20 mg PO BEDTIME 08/25/19 06/09/21 05/28/21 History Bone Growth Stimulator E0748 #1 ea 08/08/20 06/09/21 Unknown Rx albuterol sulfate 90 mcg/actuation 2 puff INHALATION Q4H PRN 09/08/20 06/09/21 05/28/21 History aerosol inhaler fluticasone propionate 50 1 spray INTRANASAL BID PRN 09/08/20 06/09/21 05/29/21 History mcg/actuation nasal spray,suspension ibuprofen 800 mg tablet 800 mg PO TID PRN 09/08/20 06/09/21 05/29/21 History levothyroxine 112 mcg tablet 112 mcg PO QAM 09/08/20 06/09/21 05/29/21 History lamotrigine 200 mg tablet 400 mg PO QAM #180 tab 01/06/21 06/09/21 05/29/21 Rx trazodone 100 mg tablet 300 mg PO BEDTIME #270 tab 01/06/21 06/09/21 05/28/21 Rx alprazolam 1 mg tablet 0.5 mg PO TID #45 tab 03/07/21 06/09/21 05/29/21 Rx baclofen 10 mg tablet 20 mg PO TID PRN tab 04/05/21 06/09/21 05/28/21 History Rolling walker #1 ea 05/17/21 06/09/21 Unknown Rx hydrochlorothiazide 12.5 mg capsule 12.5 mg PO DAILY PRN 05/29/21 06/09/21 Unknown History tramadol 50 mg tablet 50 mg PO Q6H PRN #20 tab 06/06/21 06/09/21 Unknown Rx Allergies Allergy/AdvReac Type Severity Reaction Status Date / Time naproxen Allergy Severe breathing Verified 06/09/21 08:45 issues gabapentin Allergy Intermediate ADR-Dizzine Verified 06/09/21 08:45 ss Current Medications Generic Name Dose Route Start Last Admin Trade Name Freq PRN Reason Stop Dose Admin Hydrocodone Bitart/Acetaminophen 1 - 2 tab 06/12/21 10:05 06/15/21 05:42 Hydrocodone-Acetaminophen 5-325 Mg Tablet PO 1 tab Q4H PRN Administration MODERATE TO SEVERE PAIN Alprazolam 0.5 mg 06/13/21 16:39 06/14/21 20:52 Alprazolam 0.5 Mg Tablet PO 0.5 mg TID PRN Administration ANXIETY Atorvastatin Calcium 40 mg 06/10/21 21:00 06/14/21 20:52 Atorvastatin 40 Mg Tablet PO 40 mg BEDTIME ELIDIA Administration Baclofen 20 mg 06/09/21 02:31 06/15/21 08:22 Baclofen 10 Mg Tablet PO 20 mg TID PRN Administration Muscle Spasm Dexamethasone 4 mg 06/10/21 14:00 06/15/21 08:22 Dexamethasone 4 Mg/Ml Inj IVP 4 mg Q6H ELIDIA Administration Docusate Sodium 100 mg 06/12/21 18:00 06/15/21 08:21 Docusate Sodium 100 Mg Capsule PO 100 mg BID ELIDIA Administration Enoxaparin Sodium 40 mg 06/13/21 06:00 06/15/21 05:42 Enoxaparin 40 Mg/0.4 Ml Syringe SUBCUT 40 mg Q24H ELIDIA Administration Piperacillin Sod/Tazobactam 50 mls @ 12.5 mls/hr 06/09/21 10:40 06/15/21 05:42 Sod 3.375 gm/ Sodium Chloride IV 12.5 mls/hr Q8H ELIDIA Administration Lactated Ringer's 1,000 mls @ 90 mls/hr 06/12/21 10:15 06/15/21 01:59 Lactated Ringers IV 90 mls/hr .Q11H7M ELIDIA Administration Vancomycin HCl 1,000 mg/ 250 mls @ 250 mls/hr 06/12/21 21:00 06/15/21 03:22 Sodium Chloride IV Infused Q18H ELIDIA Infusion Ketorolac Tromethamine 30 mg 06/12/21 10:05 06/13/21 20:14 Ketorolac 30 Mg/Ml Inj IVP 30 mg Q6H PRN Administration BREAKTHROUGH PAIN Lamotrigine 400 mg 06/09/21 06:00 06/15/21 05:42 Lamotrigine 100 Mg Tablet PO 400 mg QAM ELIDIA Administration Levothyroxine Sodium 75 mcg 06/11/21 09:00 06/14/21 08:00 Levothyroxine 100 Mcg Sdv IVP 75 mcg DAILY ELIDIA Administration Nicotine 1 patch 06/11/21 17:00 06/15/21 08:22 Nicotine 14 Mg Patch TRANSDERMA 1 patch DAILY ELIDIA Administration Pantoprazole Sodium 40 mg 06/09/21 09:00 06/15/21 08:[address] 40 Mg Tablet PO 40 mg DAILY ELIDIA Administration Tizanidine HCl 4 mg 06/09/21 02:40 06/11/21 17:19 Tizanidine 4 Mg Tablet PO 4 mg Q6H PRN Administration muscle spasticity Tramadol HCl 50 mg 06/09/21 02:31 06/14/21 19:41 Tramadol 50 Mg Tablet PO 50 mg Q6H PRN Administration pain Trazodone HCl 300 mg 06/11/21 21:00 06/14/21 20:52 Trazodone 100 Mg Tablet PO 300 mg BEDTIME ELIDIA Administration PFSH Acute PFSH: Medical History Alcohol use disorder, moderate, in sustained remission Bipolar II disorder Borderline personality disorder Cellulitis of sacral region Cigarette nicotine dependence Hyperlipidemia Hypothyroidism 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 MRSA bacteremia Onychodystrophy Panic disorder Postoperative wound infection (2020) MRSA Pressure ulcer with suspected deep tissue injury Psychiatric care Surgical History History of fusion of lumbar spine (08/10/20) L4-L5, L5-S1 interbody fusion with posterolateral fusion, with cage at L4/5, L5/S1, revision laminectomy L4 and L5, Dr Ramirez History of laminectomy (02/22/20) L4-L5 laminectomy with partial facetectomy, Dr Ramirez History of lumbosacral spine surgery (08/10/20) Hx of section Hx of hysterectomy S/P excisional debridement (06/09/21) Sacral decubitus ulcer S/P spinal fusion Family History Denies family history of CAD (coronary artery disease) Anesthesia complication Social History Smoking and tobacco status: current every day smoker cigarettes Alcohol intake: former Household members: family Vitals/I&O/Wt Last Vital Signs Temp 97.9 F 06/15/21 04:00 Pulse 76 06/15/21 08:05 Resp 18 06/15/21 08:05 BP 100/60 06/15/21 04:00 Pulse Ox 94 06/15/21 08:05 06/14/21 06/15/21 06/15/21 22:59 06:59 14:59 Intake Total 580.038 / 2840.038 1660 / 4500.038 Output Total 775 / 775 1200 / 1975 Balance -194.962 / 2065.038 460 / 2525.038 Weight last 48 hrs Weight 178 lb 3.2 oz Weight 166 lb Physical Exam Neck/C-Spine: OTHER: C-collar is in position Resp: COMMON NORMALS: normal respiratory effort and clear to auscultation bilaterally AUSCULTATION: clear to auscultation bilaterally Cardio: COMMON NORMALS: regular rhythm, S1 normal heart sound present and No murmurs present (Cardio) RHYTHM: regular rhythm HEART SOUNDS: S1 normal heart sound present Extremity: NARRATIVE EXTREMITY EXAM: There is left leg swelling from the ankle to the mid thigh region. There is mild edema of the right lower extremity as well, though not nearly as prominent as the left. Skin: NARRATIVE SKIN EXAM: There is a large stage IV mid sacral lower lumbar decubitus with some necrotic material noted which was removed during dressing change. Urinary Catheter Management: Arriola: Cath Placed During This Visit: yes Reason for Continuing Indwelling Catheter: Required Immobilization for Trauma or Surgery or Anesthesia Urinary Catheter Date of Insertion: 06/10/21 Data : 06/13/21 04:14 06/13/21 04:14 Micro: Microbiology 06/12/21 10:40 Gram Stain - Final Sputum - Endotracheal Tube Aspirate Sputum Culture - Final A&P Assessment and plan (1) Sacral ulcer: Plan: We will obtain bilateral lower extremity venous duplex studies to rule out DVT 2.Continue twice daily wet-to-dry dressing changes. She probably would benefit from further debridement though there is no evidence for ongoing wound sepsis at this time and as well much of the debridement could be performed at bedside during dressing changes. She will benefit from a low air loss mattress and I doubt we will make substantial progress with this Decubitus until we can maximize offloading maneuvers. As well, she would benefit from a nutritional assessment. Long-term prognosis of this substantial wound is guarded given her neurologic status, which hopefully will continue to improve after she received her surgery by Dr. Ramirez. Status: Acute Consult Attestations Medical Necessity Statement: Large stage IV sacral decubitus Coding Level of Care Code New Pt Acute Citizen Participation Specialist for Chg Fwd Patient Type New History Expanded Problem Focused Exam Expanded Problem Focused Medical Decision Making Moderate Complexity Diagnoses Sacral ulcer L98.429 Time Spent (min) 40
[2021-06-15] MEDS: heparin 5,000 unit/mL INJ 1 mL IV (14:58)
[2021-06-15] MEDS: heparin drip 25,000 UNIT/500 ML PREMIX 22 UNIT IV (15:11)
--- NOTE | 2021-06-15 16:18 | P.PN_ITS ---
Subjective Subjective: Pt was extubated yesterday. Breathing comfortably. Has some neck and LBP. Denied paresthesia of UE.Lt leg swelling. Venous doppler done showed DVT Lt LE. Pt had refused Lovenox since admission Vitals/I&O/Wt Last Vital Signs Temp 98.9 F 06/16/21 11:39 Pulse 86 06/16/21 13:50 Resp 18 06/16/21 15:25 BP 122/81 06/16/21 11:39 Pulse Ox 96 06/16/21 13:50 06/16/21 06/16/21 06/16/21 06:59 14:59 22:59 Intake Total 2233.3 / 3573.3 1340.8 / 1340.8 Output Total 2100 / 2100 Balance 133.3 / 1473.3 1340.8 / 1340.8 Weight last 48 hrs Weight 74.344 kg Weight 80.83 kg Physical Exam Narrative: NAD. On Vent. Calm Neck in collar CVS: S1S2, RRR, Mur (-)Resp: CTA Abd: soft, NT, BS+ Edema Lt pre-tibial edema, +pitting, mild tender calf on lt side Urinary Catheter Management: Arriola: Cath Placed During This Visit: yes Reason for Continuing Indwelling Catheter: Assist Healing of Perineal & Sacral Wounds- Incontinent Patients Urinary Catheter Date of Insertion: 06/10/21 Data : 06/13/21 04:14 06/13/21 04:14 A&P Assessment and plan (1) Deep vein thrombosis of left femoral vein: New extensive Lt LE DVT. 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 Status: Acute (3) C1 cervical fracture: Status: Acute (4) S/P spinal fusion: Status: Acute (5) Discitis: Status: Acute (6) Sacral decubitus ulcer, stage IV: Status: Acute (7) Low back pain radiating to both legs: Status: Acute (8) Bipolar II disorder: Status: Chronic (9) Cigarette nicotine dependence: Status: Chronic Qualifiers: Substance use status: uncomplicated Qualified Code(s): F17.210 - Nicotine dependence, cigarettes, uncomplicated (10) Alcohol use disorder, moderate, in sustained remission: Status: Chronic (11) Borderline personality disorder: Status: Chronic (12) Hypothyroidism: Status: Chronic (13) Hyperlipidemia: Status: Chronic Plan Heparin IV dose to be adjusted by pharmacy F/U PTT Bed rest Will transition to Coumadin Hold ambulatory PT/OT Attestations Medical Necessity Statement*: Pt has Lt LE DVT (acute) and s/p spinal fusion surg. D/C planning delayed due to the Ac DVT and will need continued hospitalization. Time Spent in Patient Care: 60 min Critical Care Time: 10 min Coding Level of Care Code Acute Group Billing Coordinator for anson Fwd Diagnoses Deep vein thrombosis of left femoral vein I82.412 Instability of C1-C2 vertebrae M53.2X1 C1 cervical fracture S12.000A S/P spinal fusion Z98.1 Discitis M46.40 Sacral decubitus ulcer, stage IV L89.154 Low back pain radiating to both legs M54.50; M79.604; M79.605 Bipolar II disorder F31.81 Cigarette nicotine dependence F17.210 Substance use status: uncomplicated Alcohol use disorder, moderate, in sustained remission F10.21 Borderline personality disorder F60.3 Hypothyroidism E03.9 Hyperlipidemia E78.5
[2021-06-15 19:23] LABS: Partial Thromboplastin Time 108.5 SECONDS (23.9-36.7)
[2021-06-15] MEDS: atorvastatin 40 mg Tablet PO (21:30)
[2021-06-15] MEDS: trazodone 100 mg Tablet 300 MG PO (21:30)
[2021-06-15 22:15] LABS: Partial Thromboplastin Time 66.7 SECONDS (23.9-36.7)
[2021-06-16] VITALS (13 sets, daily range): BP systolic 122–138; BP diastolic 79–85; PULSE 60–90; RESP 18–19; TEMP 36.3–37.2; O2SAT 92–96
[2021-06-16] MEDS: lactated ringers 1,000 ML 90 ML IV ×2 (02:03→17:59)
[2021-06-16] MEDS: dexamethasone 4 mg/mL INJ IVP ×4 (02:04→19:45)
--- NOTE | 2021-06-16 04:35 | PC.NURSE ---
pt rested quietly throughout shift. Sacral wound dressing changed. VSS. Pt refused Q2 turns. Education done. Pt continued to refuse. PRN pain meds given. Arriola catheter patent. Adequate UOP. Frequent rounding done. All needs met.
[2021-06-16 05:58] LABS: Partial Thromboplastin Time 54.4 SECONDS (23.9-36.7)
[2021-06-16] MEDS: HYDROcodone-acetaminophen 5-325 mg Tablet PO (06:18)
[2021-06-16] MEDS: piperacillin-tazobactam 3.375 GM in sodium chloride 0.9% (plus) 50 ML IV ×3 (06:19→23:52)
[2021-06-16] MEDS: lamoTRIgine 100 mg Tablet 400 MG PO (06:19)
[2021-06-16] MEDS: heparin 5,000 unit/mL INJ 1 mL IV ×2 (06:20→13:24)
[2021-06-16] MEDS: heparin drip 25,000 UNIT/500 ML PREMIX 24 UNIT IV ×2 (06:20→13:27)
--- NOTE | 2021-06-16 07:56 | P.PN_ITS ---
Subjective Subjective: patient resting comfortably Vitals/I&O/Wt Last Vital Signs Temp 97.9 F 06/16/21 04:02 Pulse 60 06/16/21 05:53 Resp 18 06/16/21 04:02 BP 123/80 06/16/21 04:02 Pulse Ox 95 06/16/21 04:02 06/15/21 06/16/21 06/16/21 22:59 06:59 14:59 Intake Total 290 / 1340 2233.3 / 3573.3 Output Total 2100 / 2100 Balance 290 / 1340 133.3 / 1473.3 Weight last 48 hrs Weight 163 lb 14.4 oz Weight 178 lb 3.2 oz Physical Exam Narrative: resting in bed Urinary Catheter Management: Arriola: Cath Placed During This Visit: yes Reason for Continuing Indwelling Catheter: Assist Healing of Perineal & Sacral Wounds- Incontinent Patients Urinary Catheter Date of Insertion: 06/10/21 Data : 06/13/21 04:14 06/13/21 04:14 A&P Assessment and plan (1) S/P spinal fusion: Continue current tx DVT in lower extremity (need therapeutic tx) Status: Acute Attestations Medical Necessity Statement*: per primary service Coding Level of Care Code Acute Machine Set Up Operator Paper Goods for Chg Fwd Diagnoses S/P spinal fusion Z98.1
--- NOTE | 2021-06-16 08:47 | P.PN_ITS ---
Subjective Subjective: Ms. Da Silva has no complaints this morning. She is scheduled to have the low air loss mattress placed this morning. While not listed under diagnostic reports as of yet, the lower extremity ultrasound that I ordered yesterday after my consultation did return with extensive DVT in the left lower extremity extending from the common femoral vein distally. This was reported to me verbally by the roller die cutting machine operator facility maintenance technician. I do not have available the actual report to look at as of yet. I have reviewed the study, and there does appear to exhibit thrombus from the left common femoral vein extending down to the popliteal vein. Apparently, she has been initiated on IV heparin. Vitals/I&O/Wt Last Vital Signs Temp 97.9 F 06/16/21 04:02 Pulse 60 06/16/21 05:53 Resp 18 06/16/21 04:02 BP 123/80 06/16/21 04:02 Pulse Ox 95 06/16/21 04:02 06/15/21 06/16/21 06/16/21 22:59 06:59 14:59 Intake Total 290 / 1340 2233.3 / 3573.3 Output Total 2100 / 2100 Balance 290 / 1340 133.3 / 1473.3 Weight last 48 hrs Weight 163 lb 14.4 oz Weight 178 lb 3.2 oz Physical Exam Back/Pelvis: OTHER: We will defer reassessment of the sacral decubitus until time for mattress exchange and appropriate analgesia. Urinary Catheter Management: Arriola: Cath Placed During This Visit: yes Reason for Continuing Indwelling Catheter: Assist Healing of Perineal & Sacral Wounds- Incontinent Patients Urinary Catheter Date of Insertion: 06/10/21 Data : 06/13/21 04:14 06/13/21 04:14 A&P Assessment and plan (1) Deep vein thrombosis of left femoral vein: Extensive DVT of left lower extremity, currently on IV heparin. Large sacral decubitus, Wilcox receiving twice daily wet-to-dry dressing changes. [id number] mattress scheduled to be placed today. Ms. Da Silva will need extensive care post hospitalization, preferably at a specialty center which would allow for focused physical therapy as well as hopefully prone positioning. This would be the best opportunity to allow for healing of this large sacral wound. Nutritional support should also be considered. Offloading of this region will be a priority, and if separately transition to a wheelchair, she will clearly need pressure mapping for her seat for the appropriate Roho mattress. Status: Acute Attestations Medical Necessity Statement*: Large sacral decubitus and left lower extremity DVT Coding Level of Care Code Acute Sap Technical Developer for Zac Gaines Diagnoses Deep vein thrombosis of left femoral vein I82.412
[2021-06-16] MEDS: nicotine 14 mg Patch 1 PATCH TRANSDERMA (10:34)
[2021-06-16] MEDS: pantoprazole DR 40 mg Tablet PO (10:34)
[2021-06-16] MEDS: docusate sodium 100 mg Capsule PO ×2 (10:35→18:04)
[2021-06-16] MEDS: oxyCODONE-APAP 10-325 mg Tablet 1 TAB PO ×3 (10:35→19:44)
[2021-06-16 12:51] LABS: Partial Thromboplastin Time 52.7 SECONDS (23.9-36.7)
[2021-06-16] MEDS: levothyroxine 75 mcg Tablet PO (13:32)
[2021-06-16] MEDS: baclofen 10 mg Tablet 20 MG PO (13:32)
[2021-06-16 14:28] LABS: Vancomycin Trough 13.5 ug/mL (10-15)
--- NOTE | 2021-06-16 16:32 | P.PN_ITS ---
Subjective Subjective: Lt leg pain and edema less today. Tolerating IV Heparin. Denies CP, SOB. Epi neck pain Vitals/I&O/Wt Last Vital Signs Temp 98.9 F 06/16/21 11:39 Pulse 86 06/16/21 13:50 Resp 18 06/16/21 15:25 BP 122/81 06/16/21 11:39 Pulse Ox 96 06/16/21 13:50 06/16/21 06/16/21 06/16/21 06:59 14:59 22:59 Intake Total 2233.3 / 3573.3 1340.8 / 1340.8 Output Total 2100 / 2100 Balance 133.3 / 1473.3 1340.8 / 1340.8 Weight last 48 hrs Weight 74.344 kg Weight 80.83 kg Physical Exam Narrative: NAD. On Vent. Calm Neck in collar CVS: S1S2, RRR, Mur (-)Resp: CTA Abd: soft, NT, BS+ Edema Lt pre-tibial edema, +pitting, no tender calf on lt side SCCM ADMINISTRATOR A&Ox4 Urinary Catheter Management: Arriola: Cath Placed During This Visit: yes Reason for Continuing Indwelling Catheter: Assist Healing of Perineal & Sacral Wounds- Incontinent Patients Urinary Catheter Date of Insertion: 06/10/21 Data : 06/13/21 04:14 06/13/21 04:14 A&P Assessment and plan (1) Deep vein thrombosis of left femoral vein: Status: Acute (2) MRSA bacteremia: Status: Acute (3) Instability of C1-C2 vertebrae: Status: Acute (4) C1 cervical fracture: Status: Acute (5) S/P spinal fusion: Status: Acute (6) Discitis: Status: Acute (7) Sacral decubitus ulcer, stage IV: Status: Acute (8) Leukocytosis: due to Ac DVT Status: Acute (9) Degenerative lumbar disc: Status: Chronic (10) Cigarette nicotine dependence: Status: Chronic Qualifiers: Substance use status: uncomplicated Qualified Code(s): F17.210 - Nicotine dependence, cigarettes, uncomplicated (11) Alcohol use disorder, moderate, in sustained remission: Status: Chronic (12) Bipolar II disorder: Status: Chronic Plan Continue Heparin. Will start Coumadin Attestations Medical Necessity Statement*: Pt has Lt LE DVT (acute) and s/p spinal fusion surg. D/C planning delayed due to the Ac DVT and will need continued hospitaliz ation Time Spent in Patient Care: 40 min Coding Level of Care Code Acute Cabinet Finisher for Chg Fwd Diagnoses Deep vein thrombosis of left femoral vein I82.412 MRSA bacteremia R78.81; B95.62 Instability of C1-C2 vertebrae M53.2X1 C1 cervical fracture S12.000A S/P spinal fusion Z98.1 Discitis M46.40 Sacral decubitus ulcer, stage IV L89.154 Leukocytosis D72.829 Degenerative lumbar disc M51.36 Cigarette nicotine dependence F17.210 Substance use status: uncomplicated Alcohol use disorder, moderate, in sustained remission F10.21 Bipolar II disorder F31.81
[2021-06-16] MEDS: vancomycin 1,000 MG in sodium chloride 0.9% 250 ML 250 MG IV (18:02)
[2021-06-16 20:55] LABS: Partial Thromboplastin Time 95.2 SECONDS (23.9-36.7)
[2021-06-16] MEDS: trazodone 100 mg Tablet 300 MG PO (22:03)
[2021-06-16] MEDS: atorvastatin 40 mg Tablet PO (22:03)
[2021-06-17] VITALS (14 sets, daily range): BP systolic 118–128; BP diastolic 71–84; PULSE 64–80; RESP 16–20; TEMP 36.4–37.1; O2SAT 92–97
[2021-06-17] MEDS: oxyCODONE-APAP 10-325 mg Tablet 1 TAB PO ×5 (00:24→21:42)
[2021-06-17] MEDS: dexamethasone 4 mg/mL INJ IVP ×4 (02:36→21:50)
[2021-06-17 04:13] LABS: Partial Thromboplastin Time 76.6 SECONDS (23.9-36.7)
[2021-06-17 04:15] LABS: Thyroid Stimulating Hormone 4.98 uIU/mL (0.27-4.20)
[2021-06-17 04:46] LABS: Free T4 Free Thyroxine 0.74 ng/dL (0.82-1.77)
[2021-06-17] MEDS: piperacillin-tazobactam 3.375 GM in sodium chloride 0.9% (plus) 50 ML IV ×3 (06:28→22:05)
[2021-06-17] MEDS: lamoTRIgine 100 mg Tablet 400 MG PO (06:29)
[2021-06-17] MEDS: levothyroxine 75 mcg Tablet PO (06:30)
[2021-06-17] MEDS: docusate sodium 100 mg Capsule PO ×2 (08:20→18:02)
[2021-06-17] MEDS: pantoprazole DR 40 mg Tablet PO (08:21)
[2021-06-17] MEDS: nicotine 14 mg Patch 1 PATCH TRANSDERMA (08:21)
[2021-06-17] MEDS: lactated ringers 1,000 ML 90 ML IV ×2 (09:35→21:43)
[2021-06-17] MEDS: vancomycin 1,250 MG/250 ML PIGGYBACK 250 MG IV (09:36)
--- NOTE | 2021-06-17 09:51 | P.PN_ITS ---
Subjective Subjective: pain relatively controlled on percocet 10, DVT left leg, decubitus ulcer Vitals/I&O/Wt Last Vital Signs Temp 97.6 F 06/17/21 08:19 Pulse 80 06/17/21 08:19 Resp 16 06/17/21 08:19 BP 118/71 06/17/21 08:19 Pulse Ox 92 06/17/21 08:19 06/16/21 06/17/21 06/17/21 22:59 06:59 14:59 Intake Total 711.2 / 2052.0 1454 / 3506.0 Output Total 2250 / 2250 950 / 3200 Balance -1538.8 / -198.0 504 / 306.0 Weight last 48 hrs Weight 159 lb 14.4 oz Weight 163 lb 14.4 oz Physical Exam Narrative: Right upper and lower extremity motor function continue to improve Urinary Catheter Management: Arriola: Cath Placed During This Visit: yes Reason for Continuing Indwelling Catheter: Accurate Measurement of Urinary Output in Critically Ill Patients Urinary Catheter Date of Insertion: 06/10/21 Data : 06/13/21 04:14 06/13/21 04:14 A&P Assessment and plan (1) Instability of C1-C2 vertebrae: C4-Occiput PSF POD # 5 d/c planning to neuro rehab facility Status: Acute (2) S/P spinal fusion: Status: Acute Attestations Medical Necessity Statement*: per primary service Coding Level of Care Code Acute Safety Council Director for Zac Gaines Diagnoses Instability of C1-C2 vertebrae M53.2X1 S/P spinal fusion Z98.1
--- NOTE | 2021-06-17 10:26 | PC.SOCIAL ---
IMM Updated Updated pt on IMM. No questions voiced. Provided pt a copy. Initialed, dated, & timed copy in chart.
[2021-06-17] MEDS: ALPRAZolam 0.5 mg Tablet PO (10:41)
[2021-06-17] MEDS: baclofen 10 mg Tablet 20 MG PO (10:42)
[2021-06-17] MEDS: heparin drip 25,000 UNIT/500 ML PREMIX 19 UNIT IV (11:52)
[2021-06-17 11:54] LABS: Partial Thromboplastin Time 44.6 SECONDS (23.9-36.7)
[2021-06-17] MEDS: heparin 5,000 unit/mL INJ 1 mL IV (12:04)
--- NOTE | 2021-06-17 14:34 | P.PN_ITS ---
Subjective Subjective: Pt is doing better. Lt leg edema better. Denied lt leg pain from her DVT. Denied CP, SOB, cough Vitals/I&O/Wt Last Vital Signs Temp 97.9 F 06/17/21 12:03 Pulse 78 06/17/21 12:03 Resp 17 06/17/21 12:03 BP 125/84 06/17/21 12:03 Pulse Ox 96 06/17/21 12:03 06/16/21 06/17/21 06/17/21 22:59 06:59 14:59 Intake Total 711.2 / 2052.0 1454 / 3506.0 446.933 / 446.933 Output Total 2250 / 2250 950 / 3200 Balance -1538.8 / -198.0 504 / 306.0 446.933 / 446.933 Weight last 48 hrs Weight 72.529 kg Weight 74.344 kg Physical Exam Narrative: NAD. On Vent. Calm Neck in collar CVS: S1S2, RRR, Mur (-)Resp: CTA Abd: soft, NT, BS+ Edema Lt pre-tibial edema, +pitting, no tender calf on lt side PERFORMING ARTS TECHNICIANS A&Ox4 Urinary Catheter Management: Arriola: Cath Placed During This Visit: yes Reason for Continuing Indwelling Catheter: Accurate Measurement of Urinary Output in Critically Ill Patients Urinary Catheter Date of Insertion: 06/10/21 Data : 06/13/21 04:14 06/13/21 04:14 A&P Assessment and plan (1) Leukocytosis: due to DVT Status: Acute (2) Deep vein thrombosis of left femoral vein: Clinically improving Status: Acute (3) Instability of C1-C2 vertebrae: s/p C spinal fusion. Neck pain tolerable Status: Acute (4) Discitis: improved Status: Acute (5) S/P spinal fusion: Status: Acute (6) Sacral decubitus ulcer, stage IV: no change Status: Acute (7) Bipolar II disorder: Status: Chronic (8) Hypothyroidism: euthyroid Status: Chronic (9) Degenerative lumbar disc: chr LBP Status: Chronic (10) Hyperlipidemia: Status: Chronic Plan Start Coumadin Continue Heparin until INR 2-2.5. Then D/C Will resume PT/OT when INR therapeutic Continue current Rx Attestations Medical Necessity Statement*: Pt has Lt LE DVT (acute) and s/p spinal fusion surg. D/C planning delayed due to the Ac DVT and will need continued hospitalization Time Spent in Patient Care: 40 min Coding Level of Care Code Acute Container Coordinator for Chg Fwd Diagnoses Leukocytosis D72.829 Deep vein thrombosis of left femoral vein I82.412 Instability of C1-C2 vertebrae M53.2X1 Discitis M46.40 S/P spinal fusion Z98.1 Sacral decubitus ulcer, stage IV L89.154 Bipolar II disorder F31.81 Hypothyroidism E03.9 Degenerative lumbar disc M51.36 Hyperlipidemia E78.5
--- NOTE | 2021-06-17 17:54 | PC.NURSE ---
Patient was educated multiple times during the shift about the importance of turning and dressing changes are. Wound care done and patient was turned with minimal refusals. Arriola intact and clean, with adequate output. No bowel movement this shift. Patient is declining to work to PT at this time. Pain and anxiety meds given as ordered. Patients daughter was taught how to properly care for patients wound. Vitals stable. Will continue to monitor and give report to night nurse.
[2021-06-17 18:42] LABS: Partial Thromboplastin Time 69.2 SECONDS (23.9-36.7)
[2021-06-17] MEDS: trazodone 100 mg Tablet 300 MG PO (21:42)
[2021-06-17] MEDS: atorvastatin 40 mg Tablet PO (21:42)
[2021-06-18] VITALS (11 sets, daily range): BP systolic 113–124; BP diastolic 68–78; PULSE 58–86; RESP 16–18; TEMP 36.7–37; O2SAT 93–98
[2021-06-18 01:44] LABS: Partial Thromboplastin Time 76.4 SECONDS (23.9-36.7)
[2021-06-18] MEDS: dexamethasone 4 mg/mL INJ IVP ×4 (02:45→20:47)
[2021-06-18] MEDS: oxyCODONE-APAP 10-325 mg Tablet 1 TAB PO ×4 (02:50→20:18)
[2021-06-18] MEDS: vancomycin 1,250 MG/250 ML PIGGYBACK 250 MG IV (02:50)
[2021-06-18] MEDS: lamoTRIgine 100 mg Tablet 400 MG PO (06:00)
[2021-06-18] MEDS: piperacillin-tazobactam 3.375 GM in sodium chloride 0.9% (plus) 50 ML IV ×3 (06:01→22:41)
[2021-06-18] MEDS: levothyroxine 75 mcg Tablet PO (06:01)
[2021-06-18 06:40] LABS: Blood Urea Nitrogen 17 mg/dL (6-20); Calcium 8.3 mg/dL (8.5-10.5); Carbon Dioxide 18 mmol/L (22-29); Chloride 99 mmol/L (98-107); Glomerular Filtration Rate 230.1 mL/min (90-130); Glucose 205 mg/dL (65-115); Osmolality Calculated 269 mOsm/kg (285-295); Sodium 126 mmol/L (136-145); Thyroid Stimulating Hormone 3.36 uIU/mL (0.27-4.20)
[2021-06-18 06:48] LABS: INR 1.01 (0.8-1.2)
[2021-06-18 06:59] LABS: Anion Gap 13.1 (5-19); Potassium 4.1 mmol/L (3.5-5.1)
[2021-06-18 07:21] LABS: Free T4 Free Thyroxine 0.69 ng/dL (0.82-1.77)
[2021-06-18] MEDS: nicotine 14 mg Patch 1 PATCH TRANSDERMA (08:20)
[2021-06-18] MEDS: pantoprazole DR 40 mg Tablet PO (08:20)
[2021-06-18] MEDS: baclofen 10 mg Tablet 20 MG PO (08:20)
[2021-06-18] MEDS: docusate sodium 100 mg Capsule PO ×2 (08:20→17:59)
[2021-06-18] MEDS: lactated ringers 1,000 ML 90 ML IV ×2 (08:21→18:00)
[2021-06-18 08:38] LABS: Partial Thromboplastin Time 55.4 SECONDS (23.9-36.7)
--- NOTE | 2021-06-18 10:35 | PM.PN ---
Subjective Subjective: resting comfortably Vitals/I&O/Wt Last Vital Signs Temp 98.6 F 06/18/21 07:20 Pulse 73 06/18/21 08:04 Resp 16 06/18/21 08:20 BP 113/73 06/18/21 07:20 Pulse Ox 97 06/18/21 08:20 06/17/21 06/18/21 06/18/21 22:59 06:59 14:59 Intake Total 1370 / 2056.933 300 / 2356.933 1007 / 1007 Output Total 2009 1500 / 3510 Balance -640 / 46.933 -1200 / -4083.429 5272 / 1007 Weight last 48 hrs Weight 169 lb 9.6 oz Weight 159 lb 14.4 oz Physical Exam Narrative: resting in bed Urinary Catheter Management: Arriola: Cath Placed During This Visit: yes Reason for Continuing Indwelling Catheter: Acute Urinary Retention or Obstruction Urinary Catheter Date of Insertion: 06/10/21 Data : 06/13/21 04:14 06/18/21 05:55 A&P Assessment and plan (1) Instability of C1-C2 vertebrae: POD#6 occiput -C4 PSF wound care for decubitus ulcer d/c planning Status: Acute Attestations Medical Necessity Statement*: per primary service Coding Level of Care Code Acute Poleyard Supervisor for Zac Gaines Diagnoses Instability of C1-C2 vertebrae M53.2X1
[2021-06-18] MEDS: heparin drip 25,000 UNIT/500 ML PREMIX 20 UNIT IV (11:01)
--- NOTE | 2021-06-18 12:43 | PC.NURSE ---
Patient continues to refuse to turn, do wound care, work with PT/OT, and be more independent despite continuos education. I have asked patient multiple times to change dressing today and turn and she keeps saying later. Patient is able to do more than she is willing to do and is refusing to work with OT to help feed herself. Will continue to educate.
[2021-06-18] MEDS: warfarin 5 mg Tablet PO (14:05)
[2021-06-18 14:40] LABS: Partial Thromboplastin Time 50.7 SECONDS (23.9-36.7)
--- NOTE | 2021-06-18 14:50 | P.PN_ITS ---
Subjective Subjective: Doing OK. Has neck pain and chr LBP. On Heparin drip. Did not get to start Coumadin yesterday Vitals/I&O/Wt Last Vital Signs Temp 98.1 F 06/18/21 12:00 Pulse 76 06/18/21 12:00 Resp 16 06/18/21 14:15 BP 124/73 06/18/21 12:00 Pulse Ox 98 06/18/21 14:15 06/17/21 06/18/21 06/18/21 22:59 06:59 14:59 Intake Total 1370 / 2056.933 300 / 2356.933 1863.2 / 1863.2 Output Total 2009 1500 / 3510 Balance -640 / 46.933 -1200 / -1041.110 7551.2 / 1863.2 Weight last 48 hrs Weight 76.929 kg Weight 72.529 kg Physical Exam Narrative: NAD. On Vent. Calm Neck in collar CVS: S1S2, RRR, Mur (-)Resp: CTA Abd: soft, NT, BS+ Edema Lt pre-tibial edema, +pitting, no tender calf on lt side COLORED LIQUID PLASTIC APPLIER A&Ox4 Urinary Catheter Management: Arriola: Cath Placed During This Visit: yes Reason for Continuing Indwelling Catheter: Acute Urinary Retention or Obstruction Urinary Catheter Date of Insertion: 06/10/21 Data : 06/13/21 04:14 06/18/21 05:55 A&P Assessment and plan (1) Leukocytosis: possibly due to stress, DVT Status: Acute (2) Deep vein thrombosis of left femoral vein: Clinically controlled On Heparin Status: Acute (3) Instability of C1-C2 vertebrae: S/p repair Status: Acute (4) Sacral decubitus ulcer, stage IV: no change Status: Acute (5) S/P spinal fusion: Status: Acute (6) Bipolar II disorder: Status: Chronic (7) Degenerative lumbar disc: chr LBP Status: Chronic (8) Hypothyroidism: Status: Chronic (9) Hyponatremia: May be dilutional Status: Acute Plan Rpt BMP and f/u Na Start Coumadin When therapeutic INR d/c Heparin PT/PTT Phy Therp Attestations Medical Necessity Statement*: Medical Necessity Statement*:?? Pt has Lt LE DVT ( acute) and s/p spi nal fusion surg. D /C planning delaye d due to the Ac DV T and will need co ntinued hospitaliz ation Time Spent in Patient Care: 40 min Coding Level of Care Code Acute Artillery Specialist for Chg Fwd Diagnoses Leukocytosis D72.829 Deep vein thrombosis of left femoral vein I82.412 Instability of C1-C2 vertebrae M53.2X1 Sacral decubitus ulcer, stage IV L89.154 S/P spinal fusion Z98.1 Bipolar II disorder F31.81 Degenerative lumbar disc M51.36 Hypothyroidism E03.9 Hyponatremia E87.1
[2021-06-18] MEDS: heparin 5,000 unit/mL INJ 1 mL IV (14:53)
[2021-06-18] MEDS: heparin drip 25,000 UNIT/500 ML PREMIX 22 UNIT IV (14:53)
--- NOTE | 2021-06-18 17:37 | PC.NURSE ---
Patient refused turns, wound care, PT and OT today. Education has been given multiple times. Vitals stable. IV fluids running. Arriola intact and clean with adequate output. No bowel movement. Heparin drip being managed. Will continue to monitor and give report to night nurse.
[2021-06-18] MEDS: trazodone 100 mg Tablet 300 MG PO (20:18)
[2021-06-18] MEDS: atorvastatin 40 mg Tablet PO (20:18)
[2021-06-18] MEDS: vancomycin 1,250 MG/250 ML PIGGYBACK 200 MG IV (20:19)
[2021-06-18 21:17] LABS: Basophils % 0.1 %; Hematocrit 26.2 % (37.0-47.0); Hemoglobin 8.5 g/dL (11.5-15.3); Lymphocytes % 12.5 %; Mean Corpuscular HGB Conc 32.4 g/dL (30.0-36.0); Mean Corpuscular Hemoglobin 30.4 pg (28.0-34.0); Mean Corpuscular Volume 93.6 fl (81-99); Mean Platelet Volume 10.3 fL (7.4-10.4); Monocytes # 0.9 10^3/uL (0.2-0.9); Monocytes % 3.8 %; Neutrophils % 80.1 %; Nucleated Red Blood Cells % 0.1 %; Platelet Count 414 10^3/cmm (130-400); Red Cell Distribution Width 20.6 % (12.1-15.1)
[2021-06-18 21:38] LABS: Anion Gap 11.6 (5-19); Blood Urea Nitrogen 15 mg/dL (6-20); Calcium 8.3 mg/dL (8.5-10.5); Carbon Dioxide 24 mmol/L (22-29); Chloride 105 mmol/L (98-107); Glomerular Filtration Rate 230.1 mL/min (90-130); Glucose 163 mg/dL (65-115); Osmolality Calculated 288 mOsm/kg (285-295); Potassium 3.6 mmol/L (3.5-5.1); Sodium 137 mmol/L (136-145)
[2021-06-18 21:40] LABS: Partial Thromboplastin Time 89.9 SECONDS (23.9-36.7)
--- NOTE | 2021-06-18 21:50 | PC.NURSE ---
PTT PTT was 89.9. Heparin drip decreased to 19ml/hr with next PTT ordered for 6h
[2021-06-19] VITALS (15 sets, daily range): BP systolic 122–149; BP diastolic 77–89; PULSE 53–115; RESP 12–18; TEMP 36.9–37.4; O2SAT 93–98
[2021-06-19] MEDS: dexamethasone 4 mg/mL INJ IVP ×2 (02:31→09:41)
[2021-06-19] MEDS: oxyCODONE-APAP 10-325 mg Tablet 1 TAB PO ×5 (04:04→23:59)
[2021-06-19 04:55] LABS: Basophils % 0.1 %; Hematocrit 27.1 % (37.0-47.0); Hemoglobin 8.9 g/dL (11.5-15.3); Lymphocytes # 2.3 10^3/uL (0.8-4.8); Lymphocytes % 10.6 %; Mean Corpuscular HGB Conc 32.8 g/dL (30.0-36.0); Mean Corpuscular Hemoglobin 31.1 pg (28.0-34.0); Mean Corpuscular Volume 94.8 fl (81-99); Mean Platelet Volume 10.4 fL (7.4-10.4); Monocytes # 0.7 10^3/uL (0.2-0.9); Monocytes % 3.2 %; Neutrophils # 18.23 10^3/uL (1.8-7.7); Neutrophils % 82.4 %; Nucleated Red Blood Cells % 0.1 %; Platelet Count 417 10^3/cmm (130-400); Red Blood Count 2.86 10^6/uL (4.1-5.3); White Blood Count 22.1 10^3/uL (4.0-10.0)
[2021-06-19 05:09] LABS: INR 1.13 (0.8-1.2)
[2021-06-19 05:10] LABS: Partial Thromboplastin Time 60.2 SECONDS (23.9-36.7)
[2021-06-19 05:17] LABS: Anion Gap 10.8 (5-19); Blood Urea Nitrogen 14 mg/dL (6-20); Calcium 8.6 mg/dL (8.5-10.5); Carbon Dioxide 24 mmol/L (22-29); Chloride 101 mmol/L (98-107); Glomerular Filtration Rate 230.1 mL/min (90-130); Glucose 145 mg/dL (65-115); Osmolality Calculated 277 mOsm/kg (285-295); Potassium 3.8 mmol/L (3.5-5.1); Sodium 132 mmol/L (136-145)
--- NOTE | 2021-06-19 05:54 | PC.NURSE ---
SHIFT SUMMARY Has rested well. Has been medicated X2 with po Oxycodone for c/o neck pain. Continues to wear neck collar brace. Says pain increases with moving and she refuses even to be repositioned when offered and encouraged. Let us turn her to her right side once tonight. Dressing to sacral area which she also has refused to be changed tonight. Says she just wants to sleep. IV fluids infusing and receiving IV antibiotics. PTT was 60.2 this am and Heparin drip will remain at 19ml/hr. Next PTT for 1030 ordered
[2021-06-19] MEDS: piperacillin-tazobactam 3.375 GM in sodium chloride 0.9% (plus) 50 ML IV (06:07)
[2021-06-19] MEDS: lactated ringers 1,000 ML 90 ML IV (06:07)
[2021-06-19] MEDS: levothyroxine 75 mcg Tablet PO (06:08)
[2021-06-19] MEDS: lamoTRIgine 100 mg Tablet 400 MG PO (06:08)
[2021-06-19] MEDS: nicotine 14 mg Patch 1 PATCH TRANSDERMA (09:40)
[2021-06-19] MEDS: pantoprazole DR 40 mg Tablet PO (09:41)
--- NOTE | 2021-06-19 12:12 | PC.SOCIAL ---
IMM Updated Updated pt on IMM. No questions voiced. Provided pt a copy. Initialed, dated, & timed copy in chart.
[2021-06-19 12:25] LABS: Vitamin B12 442 pg/mL (232-1245)
[2021-06-19] MEDS: cefepime 1,000 MG in sodium chloride 0.9% (plus) 50 ML 100 MG IV (13:51)
--- NOTE | 2021-06-19 14:04 | PM.PN ---
Subjective Subjective: Multiple meetings were done today Requested PICC line placement She will need 8 weeks of IV antibiotics vancomycin, and 4 weeks of IV cefepime at the current dose Case discussed with Dr. Ramirez who is now planning to do any intervention due to high risk of wound infection, Wound was examined with the help of nurses, No active necrotic tissue, no acute indication for any debridement Nursing care Dressing change Spoke with daughters Patient is agreeable for PICC line placement Dr. Ramirez recommended neuro rehab we are looking for [facility] She was initially not agreeable for PICC line placement however after counseling she was agreeable She asked me to convey message to her daughters that she needs Glucerna Started Eliquis instead of heparin and Coumadin combination Vitals/I&O/Wt Last Vital Signs Temp 98.7 F 06/19/21 04:00 Pulse 95 06/19/21 13:10 Resp 18 06/19/21 13:10 BP 146/82 06/19/21 07:10 Pulse Ox 95 06/19/21 13:10 06/18/21 06/19/21 06/19/21 22:59 06:59 14:59 Intake Total 1528.5 / 3469.033 1536.967 / 5006.000 1163.033 / 1163.033 Output Total 2024 / 2024 1850 / 3875 Balance -496.5 / 1444.033 -313.033 / 1738.443 0618.033 / 1163.033 Weight last 48 hrs Weight 74.162 kg Weight 76.929 kg Physical Exam Narrative: Patient was in her bed Cervical collar in place She is able to move her upper arms, able to wiggle her toes Left leg edema Abdomen is soft Saturating well on room air S1, S2 Bilateral breath sounds without any adventitious rhonchi or crackles Stage IV ulcer of sacral area with skin maceration around the edges Dark color muscle from the upper edges no active signs of granulation noted Clean edges of the wound Yellow discharge noted around right gluteal area Urinary Catheter Management: Arriola: Cath Placed During This Visit: yes Reason for Continuing Indwelling Catheter: Assist healing open wound Urinary Catheter Date of Insertion: 06/10/21 Data : 06/19/21 04:30 06/19/21 04:30 A&P Assessment and plan (1) Hyponatremia: Status: Acute (2) Leukocytosis: Status: Acute (3) Deep vein thrombosis of left femoral vein: Status: Acute (4) MRSA bacteremia: Status: Acute (5) Instability of C1-C2 vertebrae: Status: Acute (6) C1 cervical fracture: Status: Acute (7) S/P spinal fusion: Status: Acute (8) Discitis: Status: Acute (9) Sacral ulcer: Status: Acute (10) Sacral decubitus ulcer, stage IV: Status: Acute (11) Low back pain radiating to both legs: Status: Acute (12) Bipolar II disorder: Status: Chronic (13) Noncompliance: Status: Acute (14) Borderline personality disorder: Status: Chronic (15) Hypothyroidism: Status: Chronic Plan Cancel discharge plan Patient will need 8 weeks of IV antibiotics with vancomycin for MRSA bacteremia, 4 weeks of cefepime PICC line placement today Daughters updated Patient counseled Hyponatremia: Sodium 132 today Cervical spine injury status post intervention Neck stabilized with cervical collar she is able to move her upper extremities, wiggle her toes Currently on room air Stage IV sacral ulcer, Dr. Mcgregor's note reviewed, She will need outpatient wound care follow-up Discitis: Dr. Ramirez is reluctant to remove hardware because of stage IV sacral ulcer, Case discussed with Dr. Ramirez today Patient is full code rehabilitation center manager updated Multiple phone calls were made, family meeting done, counseled patient, updated case management, spoke with Dr. Ramirez Patient will need neuro rehab Attestations Medical Necessity Statement*: Continue medical hospitalization, Time Spent in Patient Care: 50mins Coding Level of Care Code Acute Insurance Instructor for [facility] Fwd Diagnoses Hyponatremia E87.1 Leukocytosis D72.829 Deep vein thrombosis of left femoral vein I82.412 MRSA bacteremia R78.81; B95.62 Instability of C1-C2 vertebrae M53.2X1 C1 cervical fracture S12.000A S/P spinal fusion Z98.1 Discitis M46.40 Sacral ulcer L98.429 Sacral decubitus ulcer, stage IV L89.154 Low back pain radiating to both legs M54.50; M79.604; M79.605 Bipolar II disorder F31.81 Noncompliance Z91.19 Borderline personality disorder F60.3 Hypothyroidism E03.9
[2021-06-19 14:39] LABS: Vancomycin Trough 15.6 ug/mL (10-15)
[2021-06-19] MEDS: vancomycin 1,250 MG/250 ML PIGGYBACK 200 MG IV (15:50)
--- NOTE | 2021-06-19 16:49 | PC.NURSE ---
Patient allowed me to change wound dressing today but is still refusing to turn, despite education. Heparin drip discontinued and bridged to eliquis. Patient is set to get PICC placed before discharge due to manager intermediate abx. Patient has slept most of shift. Vitals stable. Arriola intact and clean, with adequate output. No bowel movement this shift. Will continue to monitor and give report to night nurse.
[2021-06-19] MEDS: docusate sodium 100 mg Capsule PO (18:02)
[2021-06-19] MEDS: trazodone 100 mg Tablet 300 MG PO (19:56)
[2021-06-19] MEDS: atorvastatin 40 mg Tablet PO (19:57)
[2021-06-19] MEDS: baclofen 10 mg Tablet 20 MG PO (19:57)
--- NOTE | 2021-06-19 20:07 | PC.NURSE ---
ROUNDING/PAIN Pt says pain pill has done nothing to relieve pain. Refusing to try repositioning at this time. Wanted her pm meds so maybe she could relax and sleep. Meds given as well as prn Baclofen for spasms.
[2021-06-20] VITALS (15 sets, daily range): BP systolic 109–136; BP diastolic 68–87; PULSE 70–99; RESP 14–20; TEMP 36.4–37.3; O2SAT 90–98
[2021-06-20] MEDS: cefepime 1,000 MG in sodium chloride 0.9% (plus) 50 ML 100 MG IV ×2 (00:02→11:36)
[2021-06-20] MEDS: tizanidine 4 mg Tablet PO ×2 (02:20→18:00)
[2021-06-20 02:32] LABS: Basophils % 0.2 %; Eosinophils % 0.2 %; Hematocrit 27.7 % (37.0-47.0); Hemoglobin 8.8 g/dL (11.5-15.3); Lymphocytes # 3.4 10^3/uL (0.8-4.8); Lymphocytes % 20.8 %; Mean Corpuscular HGB Conc 31.8 g/dL (30.0-36.0); Mean Corpuscular Hemoglobin 30.1 pg (28.0-34.0); Mean Corpuscular Volume 94.9 fl (81-99); Mean Platelet Volume 10.3 fL (7.4-10.4); Monocytes # 0.8 10^3/uL (0.2-0.9); Monocytes % 4.6 %; Neutrophils # 11.78 10^3/uL (1.8-7.7); Neutrophils % 71.5 %; Nucleated Red Blood Cells % 0.1 %; Platelet Count 439 10^3/cmm (130-400); Red Blood Count 2.92 10^6/uL (4.1-5.3); Red Cell Distribution Width 21.7 % (12.1-15.1); White Blood Count 16.5 10^3/uL (4.0-10.0)
[2021-06-20 02:55] LABS: C Reactive Protein 6.1 mg/L (0.0-4.9)
[2021-06-20 02:56] LABS: Anion Gap 12.7 (5-19); Blood Urea Nitrogen 16 mg/dL (6-20); Calcium 8.4 mg/dL (8.5-10.5); Carbon Dioxide 24 mmol/L (22-29); Chloride 105 mmol/L (98-107); Glomerular Filtration Rate 230.1 mL/min (90-130); Glucose 89 mg/dL (65-115); Osmolality Calculated 287 mOsm/kg (285-295); Potassium 3.7 mmol/L (3.5-5.1); Sodium 138 mmol/L (136-145)
[2021-06-20 03:01] LABS: Procalcitonin 0.11 ng/mL (0-0.5)
[2021-06-20] MEDS: oxyCODONE-APAP 10-325 mg Tablet 1 TAB PO ×5 (04:32→22:12)
[2021-06-20] MEDS: baclofen 10 mg Tablet 20 MG PO (04:32)
--- NOTE | 2021-06-20 05:00 | PC.NURSE ---
SHIFT SUMMARY Has rested for intervals. c/o back pain and has received po prn pain meds and muscle relaxers with good relief noted. Says hurts to move. Did allow us to reposition her couple of times through shift. Had seepage from sacral dressing this am with pads changed. At first said she would let me go ahead and change the dressing but then decided she would rather wait. Receiving IV antibiotics. Cervical collar is in place. Denies numbness/tinglilng in BLE. Able to move legs. LLE swollen.
[2021-06-20] MEDS: lamoTRIgine 100 mg Tablet 400 MG PO (05:14)
[2021-06-20] MEDS: levothyroxine 75 mcg Tablet PO (05:16)
--- NOTE | 2021-06-20 07:04 | CT_ITS ---
WS: [id number] CT LUMBAR SPINE TECHNIQUE: Noncontrast CT of the lumbar spine with coronal and sagittal reformatted images. CLINICAL INFORMATION: evaluate hardware COMPARISON: CT May 18, 2021 and MRI June 08, 2021. DLP: 2639.[address] scans at [facility] use at least one of these dose optimization techniques: automated e xposure control; mA and/or kV adjustment per patient size (includes targeted exams where dose is matc hed to clinical indication); or iterative reconstruction. FINDINGS: Erosive bony changes involving the L3-L4 adjacent endplates progressed since the prior CT c ompatible with discitis/osteomyelitis. Moderate central canal stenosis L3-L4 appears slightly progres sed compared to the prior CT May 18, 2021 Prior postoperative changes pedicle screw fixation L4-S1 with interconnecting rods. Interbody fusion grafts LEFT L4-L5 and L5-S1. Hardware appears intact. Lucency along the LEFT L4 and bilateral S1 pedi manuel screws consistent with loosening. LEFT L4 pedicle screw with slight cephalad angulation extending into the L3-L4 disc space. Interbody fusion grafts LEFT L4-L5 and L5-S1. No significant bony bridging beyond the confines of the grafts. LEFT L4-L5 and LEFT L5-S1 laminectomy defects. Subsidence along the interbody fusion grafts. Mild chronic compression with anterior wedging L4 anteriorly. L1-L2: Central disc osteophyte protrusion with slight effacement of ventral thecal sac. Mild central canal stenosis. Foramen are patent. L2-L3: Mild annular bulging. Mild facet arthropathy. Spinal canal and foramen are patent. L3-L4: Pedicle screw fixation. Mild disc bulging with osteophytic ridging. Moderate central canal lopez nosis appears slightly progressed since the prior CT. Narrowing of the subarticular recess bilaterall y. Moderate bilateral foraminal narrowing. L4-L5: Pedicle screw fixation. Interbody fusion. Spinal canal is patent. Foramen are patent. L5-S1: Postoperative changes pedicle screw fixation with interbody fusion. Spinal canal is patent. Fo ramen are patent. CT/CT lumbar spine wo con* [id number] IMPRESSION: 1. Prior pedicle screw fixation L4-S1 with LEFT interbody fusion grafts L4-L5 and L5-S1 appears unchanged. 2. Lucency with loosening of the LEFT L4 and bilateral S1 pedicle screws uncha nged. 3. Endplate erosive changes involving the inferior endplate L3 and superior en dplate L4 is progressed compared to CT May 18, 2021 compatible with discit is/osteomyelitis. 4. Moderate central canal stenosis L3-L4 appears slightly progressed compared to the prior CT. Moderate bilateral bony foraminal narrowing at this level. 5. LEFT L3 pedicle screw extends into the L3-L4 disc space unchanged. 6. Central disc osteophyte protrusion L1-L2 with mild central canal stenosis
--- NOTE | 2021-06-20 08:37 | PM.PN ---
Subjective Subjective: Patient is doing well this morning laying in bed. I did discuss with her the possibility taking her hardware out of her low back. But I want to get a CT scan first to evaluate if the hardware is unstable or possibly pushing on nerves that I deftly take the hardware out. If not then we will have no discussion with Hilda to determine if you want take the hardware out. I could possibly do that on Saturday. Vitals/I&O/Wt Last Vital Signs Temp 98.3 F 06/20/21 07:25 Pulse 77 06/20/21 08:19 Resp 16 06/20/21 08:19 BP 136/87 06/20/21 07:25 Pulse Ox 96 06/20/21 08:19 06/19/21 06/20/21 06/20/21 22:59 06:59 14:59 Intake Total 350 / 1563.033 240 / 1803.033 50 / 50 Output Total 1300 / 1300 1600 / 2900 Balance -950 / 263.033 -1360 / -1096.967 50 / 50 Weight last 48 hrs Weight 164 lb Weight 163 lb 8 oz Physical Exam Narrative: Right arm improving right leg improving Urinary Catheter Management: Arriola: Cath Placed During This Visit: yes Reason for Continuing Indwelling Catheter: Assist healing open wound Urinary Catheter Date of Insertion: 06/10/21 Data : 06/20/21 01:57 06/20/21 01:57 A&P Assessment and plan (1) Instability of C1-C2 vertebrae: Status post posterior cervical fusion. As well as possible infected hardware in her low back will get CT scan today of her lumbar spine to possibly determine if we will remove hardware not. Possible Saturday afternoon will discuss with patient first Status: Acute Attestations Medical Necessity Statement*: pain control Coding Level of Care Code Acute Printed Forms Proofreader for Zac Gaines Diagnoses Instability of C1-C2 vertebrae M53.2X1
[2021-06-20] MEDS: pantoprazole DR 40 mg Tablet PO (08:40)
[2021-06-20] MEDS: folic acid 1 mg Tablet PO (08:40)
[2021-06-20] MEDS: nicotine 14 mg Patch 1 PATCH TRANSDERMA (08:42)
[2021-06-20] MEDS: vancomycin 1,250 MG/250 ML PIGGYBACK 200 MG IV (09:48)
--- NOTE | 2021-06-20 11:19 | P.PN_ITS ---
Subjective Subjective: Dr. Ramirez evaluated the patient today, he requested lumbar spine and he decided to take out the screws tomorrow morning, her Eliquis has been on hold, PICC line to be placed today, I have updated her daughter Patient was complaining of excruciating pain, I requested nurse to give her opioids right now Vitals/I&O/Wt Last Vital Signs Temp 98.3 F 06/20/21 07:25 Pulse 77 06/20/21 08:19 Resp 18 06/20/21 08:40 BP 136/87 06/20/21 07:25 Pulse Ox 96 06/20/21 08:19 06/19/21 06/20/21 06/20/21 22:59 06:59 14:59 Intake Total 350 / 1563.033 240 / 1803.033 50 / 50 Output Total 1300 / 1300 1600 / 2900 750 / 750 Balance -950 / 263.033 -1360 / -1096.967 -700 / -700 Weight last 48 hrs Weight 74.389 kg Weight 74.162 kg Physical Exam Narrative: Patient was moaning in pain She is able to move her upper and lower extremities Cervical collar in place Hemodynamically stable Breathing well, no acute respiratory distress, saturating well on room air Abdomen is soft Nonlabored breathing No audible stridor or wheezing Stage IV sacral ulcer Arriola catheter in place Urinary Catheter Management: Arriola: Cath Placed During This Visit: yes Reason for Continuing Indwelling Catheter: Assist healing open wound Urinary Catheter Date of Insertion: 06/10/21 Data : 06/20/21 01:57 06/20/21 01:57 A&P Assessment and plan (1) Hyponatremia: Status: Acute (2) Leukocytosis: Status: Acute (3) Deep vein thrombosis of left femoral vein: Status: Acute (4) MRSA bacteremia: Status: Acute (5) Instability of C1-C2 vertebrae: Status: Acute (6) S/P spinal fusion: Status: Acute (7) Discitis: Status: Acute (8) Sacral ulcer: Status: Acute (9) Sacral decubitus ulcer, stage IV: Status: Acute (10) Low back pain radiating to both legs: Status: Acute (11) Alcohol use disorder, moderate, in sustained remission: Status: Chronic (12) Borderline personality disorder: Status: Chronic Plan MRSA bacteremia cleared, plan for PICC line placement 8 weeks of vancomycin, will touch base with ID Stage IV sacral ulcer, wound culture with Klebsiella and Pseudomonas, cefepime for now Afebrile Leukocytosis improving Patient will need long-term Arriola catheter Discitis osteomyelitis L3-L4 area plan for surgical intervention tomorrow by Dr. Ramirez, today after repeating lumbar spine CT scan Dr. Ramirez call me to update me that he is planning to take out the screws tomorrow at this point he is not sure whether cage will be extracted or not Left leg DVT: Eliquis on hold due to surgical intervention and PICC line placement Patient is full code N.p.o. after midnight Hemodynamically stable Updated her nurse, to hold Eliquis Repeat lab work tomorrow morning Patient can have opioids for breakthrough pain on top of her scheduled regimen Cervical spine fracture status post intervention, cervical collar in place no active signs of neurological deficits Patient is considered high risk for perioperative and postoperative complications Attestations Medical Necessity Statement*: Continue hospitalization Time Spent in Patient Care: 30mins Coding Level of Care Code Acute Seamless Hosiery Knitter for [facility] Fwd Diagnoses Hyponatremia E87.1 Leukocytosis D72.829 Deep vein thrombosis of left femoral vein I82.412 MRSA bacteremia R78.81; B95.62 Instability of C1-C2 vertebrae M53.2X1 S/P spinal fusion Z98.1 Discitis M46.40 Sacral ulcer L98.429 Sacral decubitus ulcer, stage IV L89.154 Low back pain radiating to both legs M54.50; M79.604; M79.605 Alcohol use disorder, moderate, in sustained remission F10.21 Borderline personality disorder F60.3
--- NOTE | 2021-06-20 17:19 | PC.NURSE ---
Patient had CT early this shift and is now set to have spinal surgery tomorrow afternoon, will be NPO after midnight. Patients PICC line placement is being held until after surgery. Wound care done and patient was compliant with Q2 turns. Pain meds given as requested. Arriola intact and clean, with adequate output. No bowel movement. Will continue to monitor and give report to night nurse.
[2021-06-20] MEDS: docusate sodium 100 mg Capsule PO (18:00)
[2021-06-20] MEDS: trazodone 100 mg Tablet 300 MG PO (21:53)
[2021-06-20] MEDS: atorvastatin 40 mg Tablet PO (21:53)
[2021-06-21] VITALS (28 sets, daily range): BP systolic 95–158; BP diastolic 62–95; PULSE 73–102; RESP 14–20; TEMP 36.2–37.2; O2SAT 89–100
--- NOTE | 2021-06-21 | SCC_ITS ---
Procedure done: Removal deep hardware from lumbar spine 14.8 seconds of fluoroscopic guidance, for a cumulative dose of 4.03 mGy, was provided to Dr. Ramirez by the radiology department. C-arm images of the lumbar spine were saved for the patient's permanent record. KAREN
[2021-06-21] MEDS: cefepime 1,000 MG in sodium chloride 0.9% (plus) 50 ML 100 MG IV ×2 (00:45→13:21)
[2021-06-21] MEDS: tizanidine 4 mg Tablet PO ×2 (00:48→07:43)
[2021-06-21] MEDS: vancomycin 1,250 MG/250 ML PIGGYBACK 250 MG IV ×2 (03:00→21:41)
[2021-06-21] MEDS: levothyroxine 75 mcg Tablet PO (05:17)
[2021-06-21] MEDS: oxyCODONE-APAP 10-325 mg Tablet 1 TAB PO ×4 (05:17→21:30)
[2021-06-21] MEDS: lamoTRIgine 100 mg Tablet 400 MG PO (05:17)
[2021-06-21 05:33] LABS: Basophils % 0.1 %; Eosinophils % 0.3 %; Hematocrit 26.4 % (37.0-47.0); Hemoglobin 8.4 g/dL (11.5-15.3); Lymphocytes # 2.7 10^3/uL (0.8-4.8); Lymphocytes % 22.1 %; Mean Corpuscular HGB Conc 31.8 g/dL (30.0-36.0); Mean Corpuscular Hemoglobin 31.1 pg (28.0-34.0); Mean Corpuscular Volume 97.8 fl (81-99); Mean Platelet Volume 10.3 fL (7.4-10.4); Monocytes # 0.5 10^3/uL (0.2-0.9); Monocytes % 4.1 %; Neutrophils # 8.64 10^3/uL (1.8-7.7); Neutrophils % 71.7 %; Nucleated Red Blood Cells % 0 %; Platelet Count 368 10^3/cmm (130-400); Red Cell Distribution Width 22.7 % (12.1-15.1); White Blood Count 12.1 10^3/uL (4.0-10.0)
[2021-06-21 05:54] LABS: Blood Urea Nitrogen 11 mg/dL (6-20); Calcium 8.2 mg/dL (8.5-10.5); Carbon Dioxide 23 mmol/L (22-29); Chloride 105 mmol/L (98-107); Glomerular Filtration Rate 230.1 mL/min (90-130); Glucose 85 mg/dL (65-115); Osmolality Calculated 281 mOsm/kg (285-295); Sodium 136 mmol/L (136-145)
[2021-06-21 05:58] LABS: Anion Gap 11.7 (5-19); Potassium 3.7 mmol/L (3.5-5.1)
--- NOTE | 2021-06-21 08:45 | P.PN_ITS ---
Subjective Subjective: Case discussed with Dr. Hoyt Patient complaining of back pain Plan for lumbar spine intervention by Dr. Ramirez today Vitals/I&O/Wt Last Vital Signs Temp 98.1 F 06/21/21 07:28 Pulse 79 06/21/21 07:28 Resp 18 06/21/21 07:28 BP 102/66 06/21/21 07:28 Pulse Ox 96 06/21/21 07:28 06/20/21 06/21/21 06/21/21 22:59 06:59 14:59 Intake Total 300 / 650 Output Total 1000 / 1750 1974 / 3725 Balance -1000 / -1400 -1675 / -3075 Weight last 48 hrs Weight 68.152 kg Weight 74.389 kg Physical Exam Narrative: Patient was sleeping when asked if she was sleeping when entered the room Cervical collar in place Complaining of back pain Arriola catheter in place I have not examined her sacral wound today before lumbar spine intervention able to move her upper extremities Awake and alert Saturating well on room air Abdomen is soft Urinary Catheter Management: Arriola: Cath Placed During This Visit: yes Reason for Continuing Indwelling Catheter: Acute Urinary Retention or Obstruction Urinary Catheter Date of Insertion: 06/10/21 Data : 06/21/21 05:22 06/21/21 05:22 A&P Assessment and plan (1) Hyponatremia: Status: Acute (2) Leukocytosis: Status: Acute (3) Deep vein thrombosis of left femoral vein: Status: Acute (4) MRSA bacteremia: Status: Acute (5) Instability of C1-C2 vertebrae: Status: Acute (6) C1 cervical fracture: Status: Acute (7) S/P spinal fusion: Status: Acute (8) Discitis: Status: Acute (9) Sacral ulcer: Status: Acute (10) Sacral decubitus ulcer, stage IV: Status: Acute (11) Low back pain radiating to both legs: Status: Acute (12) Bipolar II disorder: Status: Chronic (13) Alcohol use disorder, moderate, in sustained remission: Status: Chronic (14) Borderline personality disorder: Status: Chronic Plan Sacral stage IV Case discussed with Dr. Hoyt He is planning to touch base with Dr. Mcgregor Diverting colostomy not an option right now considering her active infection, infected hardware She probably will benefit from plastic surgery evaluation at [facility] Osteomyelitis discitis L3-L4 Dr. Ramirez planning for intervention today Her previous MRI consistent with chronic osteomyelitis with loosening of screws MRSA bacteremia cleared Continue vancomycin and cefepime She will need chronic suppressive therapy, discussed with ID yesterday 8 weeks of vancomycin, cefepime 2 weeks and then chronic suppressive MRSA therapy Hyponatremia: Resolved Plan to keep Arriola catheter in because of stage IV sacral ulcer Cervical injury status post surgery, stable, cervical collar in place No signs of flaccid paralysis N.p.o. Left leg DVT: Start anticoagulating agent 6 hours after her surgery Full code Daughter has been updated Attestations Medical Necessity Statement*: Awaiting intervention today Time Spent in Patient Care: 20min Coding Level of Care Code Acute Seismograph Supervisor for [facility] Fwd Diagnoses Hyponatremia E87.1 Leukocytosis D72.829 Deep vein thrombosis of left femoral vein I82.412 MRSA bacteremia R78.81; B95.62 Instability of C1-C2 vertebrae M53.2X1 C1 cervical fracture S12.000A S/P spinal fusion Z98.1 Discitis M46.40 Sacral ulcer L98.429 Sacral decubitus ulcer, stage IV L89.154 Low back pain radiating to both legs M54.50; M79.604; M79.605 Bipolar II disorder F31.81 Alcohol use disorder, moderate, in sustained remission F10.21 Borderline personality disorder F60.3
[2021-06-21] MEDS: nicotine 14 mg Patch 1 PATCH TRANSDERMA (09:36)
--- NOTE | 2021-06-21 13:19 | PC.OT ---
OT TREATMENT HELD TODAY DUE TO PATIENT SCHEDULED SURGERY; WILL ATTEMPT AGAIN TOMORROW.
[2021-06-21] MEDS: baclofen 10 mg Tablet 20 MG PO ×2 (13:33→21:30)
--- NOTE | 2021-06-21 15:27 | P.PN_ITS ---
Subjective Subjective: Patient is conscious alert oriented laying in bed Medications: Reviewed: Yes Vitals/I&O/Wt Last Vital Signs Temp 98.5 F 06/21/21 11:18 Pulse 73 06/21/21 11:18 Resp 16 06/21/21 13:33 BP 95/62 06/21/21 11:18 Pulse Ox 96 06/21/21 11:18 06/21/21 06/21/21 06/21/21 06:59 14:59 22:59 Intake Total 300 / 650 Output Total 1974 / 3725 Balance -1675 / -3075 Weight last 48 hrs Weight 150 lb 4 oz Weight 164 lb Physical Exam Narrative: Patient is conscious alert oriented X3 No apparent distress BMI 26.6 Head and neck examination PERRLA no masses no cervical lymphadenopathy no jaundice Abdomen nontender nondistended soft no organomegaly guarding or rigidity/no signs of peritonitis Sacral pressure injury ulcer stage IV with residual necrotic tissues towards the upper and lower part of the ulcer. Physical examination was done in the presence of female non destructive testing technician nursing staff Valery. Urinary Catheter Management: Arriola: Cath Placed During This Visit: yes Reason for Continuing Indwelling Catheter: Acute Urinary Retention or Obstruction Urinary Catheter Date of Insertion: 06/10/21 Data : 06/21/21 05:22 06/21/21 05:22 A&P Assessment and plan (1) Sacral ulcer: Assessment 56 years old female patient sustaining pressure injury ulcer stage IV all the way to the periosteum of the sacrum requiring surgical debridement. Plan After history taking physical examination reviewing the chart I did pastoral counselor the patient for surgical debridement bedside and she did agree to proceed accordingly Timeout was done and informed consent per chart Procedure done sharp surgical debridement of pressure injury ulcer Predebridement measurements 15 x [address] to the periosteum of the sacral bone Post debridement measurements the same Hemostasis by pressure and wet-to-dry Kerlix was applied followed by ABD as a secondary dressing Patient tolerated the procedure well and maintained to be stable through the whole entire procedure News Camera Operator nursing staff Mario Postprocedure patient maintained to be neurologically stable and the c-collar was kept through the whole entire procedure I was present for the whole entire procedure. Post procedure recommendations 1-nutrition optimization 2-wound care in the form of twice daily wet-to-dry packing using normal saline 3-management of medical comorbidities 4-physical therapy consultation when needed 5-assurance and education All questions have been answered and all concerns have been addressed to patient's satisfaction. Status: Acute Attestations Medical Necessity Statement*: Per admitting service Coding Level of Care Code Acute [employer] Paralegal for g Fwd Diagnoses Sacral ulcer L98.429
[2021-06-21] MEDS: morphine 4 mg/mL SDV 1 mL 2 MG IVP (16:21)
--- NOTE | 2021-06-21 16:42 | ANES.PREANE2 ---
Pre-Anesthetic Assessment Height/Weight: Height 1.6 m Weight 68.152 kg Temp Pulse Resp BP Pulse Ox 98.2 F 97 18 141/85 97 06/21/21 16:37 06/21/21 16:37 06/21/21 16:37 06/21/21 16:37 06/21/21 16:37 Preop Diagnosis: Sacral pressure injury ulcer Operation Date: 06/09/21 11:00 Proposed Procedures p debridement of sacral wound(Not Applicable) - Otto Jimenez MD Operation Date: 06/12/21 07:00 Proposed Procedures p Cervical Posterior Fusion(Not Applicable) - Santosh Ramirez DO Operation Date: 06/21/21 14:30 Proposed Procedures p Hardware Removal Lumbar Spine(Not Applicable) - Santosh Ramirez DO s Debridement sacral ulcer(Not Applicable) - Ge Hoyt MD Last intake: Intake Last Liquid Date 06/09/21 Last Liquid Time 00:00 Last Solid Date 06/08/21 Last Solid Time 15:00 Social Alcohol and Tobacco Exam alert, oriented x 3, clear to auscultation bilaterally and regular rate & rhythm Airway Submandibular: within normal limits Cervical ROM: Other (C collar on. Recent C1-2 fusion.) Mallampati: Class II Dentition: chipped Comments: Comments: Multiple missing teeth. Recent C1-2 fusion. C collar on History/ROS No significant history except as noted and No significant complaints Pulmonary Chronic Obstructive Pulmonary Disease CV/HEM Anemia and Hypertension None reported Hepatic None reported GI None reported Metabolic None reported Neuropsych L sided weakness. R hemiparesis Anesthetic Plan ASA status: 3 Anesthesia: Anesthesia Evaluation and General Risk of > 500 ml blood loss (7ml/kg in children): No Medications/Allergies Home Medications Medication Instructions Recorded Confirmed Last Taken Type atorvastatin 20 mg tablet 20 mg PO BEDTIME 08/25/19 06/09/21 05/28/21 History Bone Growth Stimulator E0748 #1 ea 08/08/20 06/09/21 Unknown Rx albuterol sulfate 90 mcg/actuation 2 puff INHALATION Q4H PRN 09/08/20 06/09/21 05/28/21 History aerosol inhaler fluticasone propionate 50 1 spray INTRANASAL BID PRN 09/08/20 06/09/21 05/29/21 History mcg/actuation nasal spray,suspension ibuprofen 800 mg tablet 800 mg PO TID PRN 09/08/20 06/09/21 05/29/21 History levothyroxine 112 mcg tablet 112 mcg PO QAM 09/08/20 06/09/21 05/29/21 History lamotrigine 200 mg tablet 400 mg PO QAM #180 tab 01/06/21 06/09/21 05/29/21 Rx trazodone 100 mg tablet 300 mg PO BEDTIME #270 tab 01/06/21 06/09/21 05/28/21 Rx alprazolam 1 mg tablet 0.5 mg PO TID #45 tab 03/07/21 06/09/21 05/29/21 Rx baclofen 10 mg tablet 20 mg PO TID PRN tab 04/05/21 06/09/21 05/28/21 History Rolling walker #1 ea 05/17/21 06/09/21 Unknown Rx hydrochlorothiazide 12.5 mg capsule 12.5 mg PO DAILY PRN 05/29/21 06/09/21 Unknown History tramadol 50 mg tablet 50 mg PO Q6H PRN #20 tab 06/06/21 06/09/21 Unknown Rx Allergies Allergy/AdvReac Type Severity Reaction Status Date / Time naproxen Allergy Severe breathing Verified 06/09/21 08:45 issues gabapentin Allergy Intermediate ADR-Dizzine Verified 06/09/21 08:45 ss Current Medications Generic Name Dose Route Start Last Admin Trade Name Robe PRN Reason Stop Dose Admin Apixaban 10 mg 06/19/21 21:00 06/20/21 08:46 Apixaban 5 Mg Tablet PO Not Given BID@0900,2100 [facility] Atorvastatin Calcium 40 mg 06/10/21 21:00 06/20/21 21:53 Atorvastatin 40 Mg Tablet PO 40 mg BEDTIME ELIDIA Administration Baclofen 20 mg 06/09/21 02:31 06/21/21 13:33 Baclofen 10 Mg Tablet PO 20 mg TID PRN Administration Muscle Spasm Docusate Sodium 100 mg 06/12/21 18:00 06/21/21 09:33 Docusate Sodium 100 Mg Capsule PO Not Given BID ELIDIA Enoxaparin Sodium 40 mg 06/13/21 06:00 06/15/21 05:42 Enoxaparin 40 Mg/0.4 Ml Syringe SUBCUT 40 mg Q24H ELIDIA Administration Folic Acid 1 mg 06/20/21 09:00 06/21/21 09:33 Folic Acid 1 Mg Tablet PO Not Given DAILY [facility] Vancomycin/PEG/NADA/Lysine/Water 1,250 mg in 250 mls @ 250 mls/hr 06/17/21 09:00 06/21/21 04:00 Vancocin IV Infused Q18H ELIDIA Infusion Cefepime HCl 1,000 mg/ Sodium 50 mls @ 100 mls/hr 06/19/21 12:00 06/21/21 13:21 Chloride IV 100 mls/hr Q12H ELIDIA Administration Protocol Lamotrigine 400 mg 06/09/21 06:00 06/21/21 05:17 Lamotrigine 100 Mg Tablet PO 400 mg QAM ELIDIA Administration Levothyroxine Sodium 75 mcg 06/16/21 11:00 06/21/21 05:17 Levothyroxine 75 Mcg Tablet PO 75 mcg QAM ELIDIA Administration Nicotine 1 patch 06/11/21 17:00 06/21/21 09:36 Nicotine 14 Mg Patch TRANSDERMA 1 patch DAILY [facility] Administration Oxycodone/Acetaminophen 1 tab 06/19/21 09:18 06/21/21 13:33 Oxycodone-Apap 10-325 Mg Tablet PO 1 tab Q4H PRN Administration MODERATE PAIN Pantoprazole Sodium 40 mg 06/09/21 09:00 06/21/21 09:[address] 40 Mg Tablet PO Not Given DAILY [facility] Tizanidine HCl 4 mg 06/09/21 02:40 06/21/21 07:43 Tizanidine 4 Mg Tablet PO 4 mg Q6H PRN Administration muscle spasticity Trazodone HCl 300 mg 06/11/21 21:00 06/20/21 21:53 Trazodone 100 Mg Tablet PO 300 mg BEDTIME [facility] Administration [facility] Anesthesia Medical History (Updated 06/21/21 @ 13:51 by Matt García) Alcohol use disorder, moderate, in sustained remission Anemia Bipolar II disorder Borderline personality disorder Cellulitis of sacral region Cigarette nicotine dependence Hyperlipidemia Hypothyroidism retirement (current) use of opiate analgesic MRSA bacteremia Onychodystrophy Panic disorder Postoperative wound infection (2020) MRSA Pressure ulcer with suspected deep tissue injury Psychiatric care Surgical History History of fusion of lumbar spine (08/10/20) L4-L5, L5-S1 interbody fusion with posterolateral fusion, with cage at L4/5, L5/S1, revision laminectomy L4 and L5, Dr Ramirez History of laminectomy (02/22/20) L4-L5 laminectomy with partial facetectomy, Dr Ramirez History of lumbosacral spine surgery (08/10/20) Hx of section Hx of hysterectomy S/P excisional debridement (06/09/21) Sacral decubitus ulcer S/P spinal fusion Family History Denies family history of CAD (coronary artery disease) Anesthesia complication Social History Smoking and tobacco status: current every day smoker cigarettes Alcohol intake: former Household members: family Data Anesthesia : 06/21/21 05:22 06/21/21 05:22 Short CBC 06/20/21 06/21/21 Range/Units 01:57 05:22 WBC 16.5 H 12.1 H (4.0-10.0) 10^3/uL Hgb 8.8 L 8.4 L (11.5-15.3) g/dL Hct 27.7 L 26.4 L (37.0-47.0) % MCV 94.9 97.8 (81-99) fl Plt Count 439 H 368 (130-400) 10^3/cmm Neut % (Auto) 71.5 71.7 % Neut # (Auto) 11.78 H 8.64 H (1.8-7.7) 10^3/uL BMP 06/20/21 06/21/21 01:57 05:22 Sodium 138 136 Potassium 3.7 3.7 Chloride 105 105 Carbon Dioxide 24 23 BUN 16 11 Creatinine 0.3 L 0.3 L Glucose 89 85 Calcium 8.4 L 8.2 L Blood Bank 06/21/21 14:28 Blood Type O Positive Rho(D) Type Positive Antibody Screen Negative Coags 06/20/21 01:57 C-Reactive Protein 6.1 H Cardiac Studies: No Data to Display
[2021-06-21] MEDS: sodium chloride 0.9% 1,000 ML 30 ML IV (16:45)
--- NOTE | 2021-06-21 16:57 | W.PM.OPSUD ---
Surgery/Procedure H&P Update DATE OF PROCEDURE: June 21, 2021 DATE H&P PERFORMED: 06/09/21 H&P UPDATE INFORMATION: I have reviewed H&P completed within last 30 days, I have examined patient prior to procedure and No changes to prior documentation PREOP DIAGNOSIS: Sacral pressure injury ulcer PLANNED PROCEDURE: Operation Date: 06/09/21 11:00 Proposed Procedures p debridement of sacral wound(Not Applicable) - Otto Jimenez MD Operation Date: 06/12/21 07:00 Proposed Procedures p Cervical Posterior Fusion(Not Applicable) - Santosh Ramirez DO Operation Date: 06/21/21 14:30 Proposed Procedures p Hardware Removal Lumbar Spine(Not Applicable) - Santosh Ramirez DO s Debridement sacral ulcer(Not Applicable) - Ge Hoyt MD
[2021-06-21] MEDS: vancomycin 1,000 MG SDV 1000 MG XX (19:25)
--- NOTE | 2021-06-21 19:30 | PM.OP ---
Operative Report Date of procedure: June 21, 2021 Pre-op diagnosis: Preop Diagnosis loose hardware in lumbar spine Post-op diagnosis: same Procedure done: Removal deep hardware from lumbar spine Surgeon: Santosh Ramirez Technical Professional: Hesham Rodriguez Estimated blood loss (mL): 50 Procedure: Removal ofdeep hardware from lumbar spine She was brought to the operative suite placed in the prone position all areas patient well-padded patient is prepped and draped in sterile fashion. Skin incision made using previous skin incision. Subperiosteal dissection was made out to the screws which are in L4-L5 and S1. 1 screws were identified the caps were removed. Once the caps remove the rods were removed and the screws were removed. The screws in the left side were all loose. The right L4 and L5 screws were still somewhat strong but the S1 screw was loose and all screws were removed. He was brought to removing the cages from L4-5 and L5-S1. L4/5 was first. the edge of the facet was identified and a bur was used to bur down to the pedicle. The inferior portion of the vertebral body was drilled and then the scar tissue was all carefully peeled off of the cage. In order to facilitate not getting a dural leak. Once the cage was identified a supervisor of research device was threaded back into the hole. And the cage was removed from the L4-5 disc base. This to space was irrigated. Next attention was brought to the L5-S1 disc space. The high-speed bur again was used to drill down the pedicle. Scar tissue was removed off of the facet and drilled down. The disc base was identified and the inferior edge of the cage was identified part of the S1 endplate was drilled and then attention was brought to the superior part endplate and osteotome was used to facilitate loosening the cage. Once the cage was freed up then a supervisor of research device was threaded into the insertion hole. And the cage was then\doubt. Wounds were all irrigated There is not appear to be any evidence of any gross infection at this time. Next attention was brought to closure of the wound which is in a layered fashion with 0 Vicryl 2-0 Vicryl and nylon suture. Sterile dressings were applied and patient was transferred to the PACU in stable condition.
--- NOTE | 2021-06-21 19:32 | XR_ITS ---
WS: [id number] Lumbar spine, C-arm fluoroscopy, 06/21/2021 Clinical Data: POST OP PICS Comparison: None. Findings: The posterior lumbar fusion pedicle screws and connecting rods have been removed. XR/XR lumbar spine 2-3V* [id number] Impression: Removal of posterior lumbar fusion pedicle screws and rods.
[2021-06-21] MEDS: fentaNYL 50 mcg/mL INJ 2mL IVP (19:58)
--- NOTE | 2021-06-21 20:56 | PC.NURSE ---
Pt back to floor from surgery. Pt refused to let this nurse and ER nurse turn her to look at her bandages. Pt is agressive and states she does not want to be touched or moved at this time and that we cannot make her. Pt non compliant with cares.
--- NOTE | 2021-06-21 20:57 | ANE.PACU2 ---
Inpatient post-anesthesia follow up: Airway intact: Yes Vital signs: Temperature 97.2 F Pulse Rate 80 Respiratory Rate 18 Blood Pressure 142/88 Pulse Oximetry 97 Oxygen Delivery Me thod Room Air Oxygen Flow Rate 6 Fraction of Inspir ed Oxygen 21 Hydration adequate: Yes Nausea and vomiting: No Pain level: 2 Mental status: Baseline
[2021-06-21] MEDS: trazodone 100 mg Tablet 300 MG PO (21:30)
[2021-06-21] MEDS: atorvastatin 40 mg Tablet PO (21:31)
[2021-06-21] MEDS: lactated ringers 1,000 ML 90 ML IV (21:40)
[2021-06-21] MEDS: apixaban 5 mg Tablet 10 MG PO (22:50)
[2021-06-22] VITALS (8 sets, daily range): BP systolic 104–110; BP diastolic 66–71; PULSE 67–75; RESP 16–20; TEMP 36.9–37.1; O2SAT 94–97
[2021-06-22] MEDS: cefepime 1,000 MG in sodium chloride 0.9% (plus) 50 ML 100 MG IV ×2 (00:24→11:29)
[2021-06-22 03:14] LABS: Basophils % 0.1 %; Hematocrit 28.7 % (37.0-47.0); Hemoglobin 9.1 g/dL (11.5-15.3); Lymphocytes # 1.6 10^3/uL (0.8-4.8); Lymphocytes % 8.8 %; Mean Corpuscular HGB Conc 31.7 g/dL (30.0-36.0); Mean Corpuscular Hemoglobin 29.6 pg (28.0-34.0); Mean Corpuscular Volume 93.5 fl (81-99); Mean Platelet Volume 10.6 fL (7.4-10.4); Monocytes # 0.5 10^3/uL (0.2-0.9); Monocytes % 2.7 %; Neutrophils # 15.76 10^3/uL (1.8-7.7); Neutrophils % 87.1 %; Nucleated Red Blood Cells % 0 %; Platelet Count 323 10^3/cmm (130-400); Red Blood Count 3.07 10^6/uL (4.1-5.3); Red Cell Distribution Width 23.3 % (12.1-15.1); White Blood Count 18.1 10^3/uL (4.0-10.0)
[2021-06-22 03:31] LABS: Anion Gap 12.8 (5-19); Blood Urea Nitrogen 15 mg/dL (6-20); Calcium 8.8 mg/dL (8.5-10.5); Carbon Dioxide 20 mmol/L (22-29); Chloride 107 mmol/L (98-107); Glomerular Filtration Rate 230.1 mL/min (90-130); Glucose 100 mg/dL (65-115); Osmolality Calculated 283 mOsm/kg (285-295); Potassium 3.8 mmol/L (3.5-5.1); Sodium 136 mmol/L (136-145)
[2021-06-22] MEDS: levothyroxine 75 mcg Tablet PO (05:08)
[2021-06-22] MEDS: lamoTRIgine 100 mg Tablet 400 MG PO (05:08)
[2021-06-22] MEDS: HYDROcodone-acetaminophen 5-325 mg Tablet PO ×2 (05:09→08:57)
[2021-06-22] MEDS: nicotine 14 mg Patch 1 PATCH TRANSDERMA (07:50)
[2021-06-22] MEDS: apixaban 5 mg Tablet 10 MG PO (07:50)
[2021-06-22] MEDS: pantoprazole DR 40 mg Tablet PO (07:51)
[2021-06-22] MEDS: folic acid 1 mg Tablet PO (07:51)
--- NOTE | 2021-06-22 08:25 | PM.PN ---
Subjective Subjective: POD 1 from Hardware Removal Patient resting. Reports back pain. Denies shortness of breath, headaches, chest pain. Vitals/I&O/Wt Last Vital Signs Temp 98.7 F 06/22/21 06:00 Pulse 75 06/22/21 06:00 Resp 18 06/22/21 06:00 BP 110/71 06/22/21 06:00 Pulse Ox 94 06/22/21 06:00 06/21/21 06/22/21 06/22/21 22:59 06:59 14:59 Intake Total 1250 / 1250 110 / 1360 Output Total 2525 / 2525 950 / 3475 Balance -1275 / -1275 -840 / -2115 Weight last 48 hrs Weight 142 lb 4 oz Weight 150 lb 4 oz Physical Exam Narrative: Alert responsive. [place] J collar present. Moving both upper extremities. Wiggles toes on both lower extremities. Reports back pain incision is clean and dry. Hemovac drain present. Urinary Catheter Management: Arriola: Cath Placed During This Visit: yes Reason for Continuing Indwelling Catheter: Assist Healing of Perineal & Sacral Wounds- Incontinent Patients Urinary Catheter Date of Insertion: 06/10/21 Data : 06/22/21 02:21 06/22/21 02:21 A&P Assessment and plan (1) S/P spinal fusion: Discontinue Hemovac drain. Continue physical therapy as tolerated. Continue incentive spirometry for pulmonary toilet. 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
--- NOTE | 2021-06-22 09:07 | PM.PN ---
Subjective Subjective: Status post removal of hardware lumbosacral area She is asking for pain medications Able to wiggle her toes She was moving her left arm freely however painful movement of right arm I have updated nurse to give her pain medications early Estimated blood loss 50 mL Afebrile No perioperative or postop complication Status post debridement by Dr. Hoyt on 06/21 Vitals/I&O/Wt Last Vital Signs Temp 98.7 F 06/22/21 06:00 Pulse 75 06/22/21 06:00 Resp 18 06/22/21 06:00 BP 110/71 06/22/21 06:00 Pulse Ox 94 06/22/21 06:00 06/21/21 06/22/21 06/22/21 22:59 06:59 14:59 Intake Total 1250 / 1250 110 / 1360 240 / 240 Output Total 2525 / 2525 950 / 3475 Balance -1275 / -1275 -840 / -2115 240 / 240 Weight last 48 hrs Weight 64.524 kg Weight 68.152 kg Physical Exam Narrative: Patient was laying still in her bed Distress because of pain Cervical collar in place Able to wiggle her toes She is able to operate remote control with left arm Because of pain not able to freely move right arm, I do not appreciate focal deficits Able to understand my commands Awake and alert Dry cracked lips Dehydrated Abdomen is soft SCDs in place Sacral ulcer 15 x 20 cm Urinary Catheter Management: Arriola: Cath Placed During This Visit: yes Reason for Continuing Indwelling Catheter: Assist Healing of Perineal & Sacral Wounds- Incontinent Patients Urinary Catheter Date of Insertion: 06/10/21 Data : 06/22/21 02:21 06/22/21 02:21 A&P Assessment and plan (1) Anemia: Status: Acute (2) Leukocytosis: Status: Acute (3) Deep vein thrombosis of left femoral vein: Status: Acute (4) MRSA bacteremia: Status: Acute (5) Instability of C1-C2 vertebrae: Status: Acute (6) C1 cervical fracture: Status: Acute (7) S/P spinal fusion: Status: Acute (8) S/P hardware removal: Status: Acute (9) S/P debridement: Status: Acute (10) Discitis: Status: Acute (11) Sacral ulcer: Status: Acute (12) Sacral decubitus ulcer, stage IV: Status: Acute (13) Low back pain radiating to both legs: Status: Acute (14) Bipolar II disorder: Status: Chronic (15) Borderline personality disorder: Status: Chronic Plan We will hold Eliquis until PICC line is placed Then will start Eliquis 10 mg twice daily Status post hardware removal and bedside debridement 06/21 [facility] orthopedics and general surgery Continue Zosyn and cefepime Plan to discharge patient to select long-term acute care, No plan for diverting colostomy at this point She will benefit her plastic surgery evaluation We will add IV opioids for breakthrough pain Indwelling Arriola catheter Patient is afebrile No perioperative or postop complications Cervical collar in place Regular diet Full code Start DVT treatment after PICC line placement Stage IV sacral ulcer Status post debridement:1-nutrition optimization 2-wound care in the form of twice daily wet-to-dry packing using normal saline 3-management of medical comorbidities 4-physical therapy consultation when needed 5-assurance and education Attestations Medical Necessity Statement*: Continue hospitalization Time Spent in Patient Care: 25min Coding Level of Care Code Acute Supervisor Channel Process for [facility] Fwd Diagnoses Anemia D64.9 Leukocytosis D72.829 Deep vein thrombosis of left femoral vein I82.412 MRSA bacteremia R78.81; B95.62 Instability of C1-C2 vertebrae M53.2X1 C1 cervical fracture S12.000A S/P spinal fusion Z98.1 S/P hardware removal Z98.890 S/P debridement Z98.890 Discitis M46.40 Sacral ulcer L98.429 Sacral decubitus ulcer, stage IV L89.154 Low back pain radiating to both legs M54.50; M79.604; M79.605 Bipolar II disorder F31.81 Borderline personality disorder F60.3
[2021-06-22] MEDS: oxyCODONE-APAP 10-325 mg Tablet 1 TAB PO (11:29)
--- NOTE | 2021-06-22 11:59 | PC.NURSE ---
Hemovac dc'd per orders.
--- NOTE | 2021-06-22 12:57 | PM.TDS ---
Transfer Summary Providers Date of Admission: 06/08/21 22:34 Date of Discharge/Transfer: 06/22/21 Attending Provider at Admission: Marisa Banks MD Attending Provider at Transfer: Florinda Gillis MD Primary Care Provider: NATHANIEL Torrez Transfer Plans: Anticipated date of transfer: 06/22/21. Diagnoses at Discharge Discharge Diagnosis (1) Anemia: Status: Acute (2) Leukocytosis: Status: Acute (3) Deep vein thrombosis of left femoral vein: Status: Acute (4) MRSA bacteremia: Status: Acute (5) Instability of C1-C2 vertebrae: Status: Acute (6) C1 cervical fracture: Status: Acute (7) S/P spinal fusion: Status: Acute (8) S/P hardware removal: Status: Acute Permanent problem details: 06/21 (9) S/P debridement: Status: Acute Permanent problem details: With Dr. Hoyt 06/21 (10) Discitis: Status: Acute (11) Sacral ulcer: Status: Acute (12) Sacral decubitus ulcer, stage IV: Status: Acute (13) Low back pain radiating to both legs: Status: Acute (14) Bipolar II disorder: Status: Chronic (15) Borderline personality disorder: Status: Chronic Reason for Visit Reason for Visit wound Hospital Course Hospital Course Admit note by DR Jocelyn Stevens Puja Da Silva is a 56 year old female with h/o L4-S1 laminectomy and fusion and intrumenetaion on 08/10/20, which was complicated by persistent drainage and eventually returned on 09/07/20 for I&D down to spine level. Per op note review infection was localized to superior aspect of her incision possibly a stitch abscess.? ? Deep cultures were taken in OR and , revealed growth of MRSA.She received 6 weeks of iv vancomycin subsequently for presumptive deep infection and presence of hardware. She followed up with orthopedics subsequently. States that she has continued to have pain, difficulty ambulating, recurrent falls and has in recent months developed decubitus ulcerations as well. Lumbar spine CT a in may showed?Lucency along the LEFT L4 and bilateral S1 pedicle screws consistent with loosening. LEFT L4 pedicle screw with slight cephalad angulation extending into the L3-L4 disc space. She was admitetd here on 05/29 due to worsening back pain, MRSA bacteremia and large stage 4 sacral decubitus ulcer extending down to periosteum for which she underwent excisional debridement. Per op note, no hardware was exposed intraopertaively. Wound cx showed MRSA in addition to blood cx. Patient was treated with vancomycin and zosyn and was planend to be sent to SNF with PICC and terminal manager abx however she elected to leave AMA on 06/02/21.? She was prescribed po zyvox over next 14 days. Presented to ER today with c/o inability to void urine.?MR lumbar spine showed L4-L5 discitis without signs of cord compression. She is currently afebrile. Leukocytosis persisting since last admission, currently at 14.5 Hosp course:- She was admitted on 06/09 status post Excisional debridement of necrotic skin and subcutaneous tissue in a stage IV sacral decubitus ulcer using electrocautery same day, she was started on Decadron, MRI showed Unstable C1-C2 spine complete rupture of transverse ligament dislocation of C1-C2, prominent cord compression at C1 Inflammatory arthritis Enhancing lesion T11 Patient went for surgical intervention on 06/12 Status post occiput to C4 posterior spine fusion, open reduction of C1-C2 fracture dislocation, C1 laminectomy, use of allograft 06/21: Status post hardware removal from lumbosacral area by Dr. Ramirez 06/21 second debridement during this hospitalization by Dr. Hoyt Sacral wound dimensions 15 x 20 cm Of note, she was diagnosed with left leg DVT, initially she was started on heparin drip which was discontinued and decision was made to start Eliquis 10 mg twice daily regimen she only received 1-2 dose of Eliquis, this was held in anticipation of lumbar spine surgery and placement of PICC line. I have discussed case with ID, patient will need at least 8 weeks of IV vancomycin for MRSA bacteremia, repeat blood cultures have been negative, first positive Mrsa blood cultures 05/29, repeat cultures negative so far, after 8 weeks of IV vancomycin patient will need chronic suppressive therapy with p.o. antibiotics, for Klebsiella and Pseudomonas positive wound cultures, she should get at least 4 to 6 weeks of cefepime along vancomycin, she has osteomyelitis/discitis. Considering the extent of her stage IV sacral ulcer she will benefit from a plastic surgery consult and possibly muscle flap reconstructive therapy. General surgery did not recommend diverting colostomy during this hospitalization because of MRSA bacteremia, infected hardware, unstable cervical spine. She has an indwelling Arriola catheter, will need evaluation by general surgery for diverting colostomy in future as well. In case of any deterioration she should be transferred to tertiary/teaching center for further management. She will be transferred to [facility] facility, they have agreed to place PICC line at that facility, after PICC line placement she should be started back on Eliquis for her left leg DVT. She got 10 mg of Eliquis on 06/22 in the morning after her surgery yesterday Verbal signout to Dr. Bennett given today. Physical Exam Narrative: Patient was laying still in her bed Distress because o f pain Cervical co llar in place Able to wiggle her toe s She is able to o perate remote cont rol with left arm Because of pain no t able to freely m ove right arm, I d o not appreciate f ocal deficits Able to understand my commands Awake and alert Dry cracked lips Dehydrated A bdomen is soft SCD s in place Sacral ulcer 15 x 20 cm ? Urinary Catheter M anagement:?? Arriola: Cath Placed During This Visit : yes Reason for C ontinuing Indwelli ng Catheter: Todd t Healing of Perin eal & Sacral Wound s- Incontinent Pat ients Urinary Cath eter Date of Inser tion: 06/10/21 Urinary Catheter Management: Arriola: Cath Placed During This Visit: yes Reason for Continuing Indwelling Catheter: Assist Healing of Perineal & Sacral Wounds- Incontinent Patients Urinary Catheter Date of Insertion: 06/10/21 TS Data Studies Completed and Pending Pending at discharge Category Date Time Status Basic Metabolic Panel AM LABS Lab 06/23/21 04:00 Ordered Complete Blood Count w/Auto AM LABS Lab 06/23/21 04:00 Ordered Vancomycin Trough Timed Lab 06/22/21 20:00 Ordered Labs from last 24 hours 06/22/21 06/22/21 06/21/21 02:21 02:21 14:28 WBC 18.1 H RBC 3.07 L Hgb 9.1 L Hct 28.7 L MCV 93.5 MCH 29.6 MCHC 31.7 RDW 23.3 H Plt Count 323 MPV 10.6 H Neut % (Auto) 87.1 Lymph % (Auto) 8.8 Nobles % (Auto) 2.7 Eos % (Auto) 0.0 Baso % (Auto) 0.1 Neut # (Auto) 15.76 H Lymph # (Auto) 1.6 Nobles # (Auto) 0.5 Eos # (Auto) 0.0 Baso # (Auto) 0.0 Nucleated RBC % (auto) 0 Nucleated RBCs # 0.0 Sodium 136 Potassium 3.8 Chloride 107 Carbon Dioxide 20 L Anion Gap 12.8 BUN 15 Creatinine 0.3 L GFR Calculation 230.1 H Glucose 100 Calculated Osmolality 283 L Calcium 8.8 Blood Type O Positive Rho(D) Type Positive Antibody Screen Negative Crossmatch See Detail Completed Studies During Hospitalization Category Date Time Status CT cervical spin wo con* 75072 Routine Cat Scan 06/12/21 10:[address] cervical spine wo con [CT cervical spin wo con* Cat Scan 06/10/21 09:47 Completed [id number]] Stat CT head wo con* [id number] Stat Cat Scan 06/10/21 09:[address] lumbar spine wo con* [id number] Routine Cat Scan 06/20/21 07:04 Completed CTA head neck [CT angio headneck* [id number]/[id number]] Stat Cat Scan 06/10/21 09:47 Completed XR cervical spine 1V [id number] Routine Exams 06/12/21 09:56 Completed XR cervical spine 3V* [id number] Routine Exams 06/12/21 10:05 Completed XR lumbar spine 2-3V* [id number] Routine Exams 06/21/21 19:32 Completed MR cervical spine wo/w 12543 Stat MRI 06/10/21 10:58 Completed MR lumbar spine wo con* [id number] Urgent MRI 06/08/21 18:40 Completed MR thoracic spin wo con* 15042 Urgent MRI 06/08/21 18:40 Completed MR thoracic spine wo/w 36057 Stat MRI 06/10/21 10:59 Completed US venous duplex lower extremity bilat [CV venous Ultrasound 06/15/21 09:39 [place] [id number]] Routine Laboratory Last Values WBC 18.1 10^3/uL (4.0-10.0) H 06/22/21 02:21 RBC 3.07 10^6/uL (4.1-5.3) L 06/22/21 02:21 Hgb 9.1 g/dL (11.5-15.3) L 06/22/21 02:21 Hct 28.7 % (37.0-47.0) L 06/22/21 02:21 MCV 93.5 fl (81-99) 06/22/21 02:21 MCH 29.6 pg (28.0-34.0) 06/22/21 02:21 MCHC 31.7 g/dL (30.0-36.0) 06/22/21 02:21 RDW 23.3 % (12.1-15.1) H 06/22/21 02:21 Plt Count 323 10^3/cmm (130-400) 06/22/21 02:21 MPV 10.6 fL (7.4-10.4) H 06/22/21 02:21 Neut % (Auto) 87.1 % 06/22/21 02:21 Lymph % (Auto) 8.8 % 06/22/21 02:21 Nobles % (Auto) 2.7 % 06/22/21 02:21 Eos % (Auto) 0.0 % 06/22/21 02:21 Baso % (Auto) 0.1 % 06/22/21 02:21 Neut # (Auto) 15.76 10^3/uL (1.8-7.7) H 06/22/21 02:21 Lymph # (Auto) 1.6 10^3/uL (0.8-4.8) 06/22/21 02:21 Nobles # (Auto) 0.5 10^3/uL (0.2-0.9) 06/22/21 02:21 Eos # (Auto) 0.0 10^3/uL (0.0-0.8) 06/22/21 02:21 Baso # (Auto) 0.0 10^3/uL (0.0-0.1) 06/22/21 02:21 Nucleated RBC % (auto) 0 % 06/22/21 02:21 Nucleated RBCs # 0.0 /100WBC 06/22/21 02:21 ESR 45 mm/hr (0-15) H 06/08/21 21:00 PT 14.80 SECONDS (12.1-14.9) 06/19/21 04:30 INR 1.13 (0.8-1.2) 06/19/21 04:30 APTT 60.2 SECONDS (23.9-36.7) H 06/19/21 04:30 Specimen Type Arterial 06/13/21 04:15 Sample Site Not specified 06/13/21 04:15 ABG pH 7.39 (7.35-7.45) 06/13/21 04:15 ABG pCO2 34.9 mmHg (35-45) L 06/13/21 04:15 ABG pO2 89.2 mmHg (80.0-100.0) 06/13/21 04:15 ABG HCO3 21.2 mmol/L (22-26) L 06/13/21 04:15 ABG O2 Saturation > 100.0 06/12/21 11:10 ABG Base Excess -3.3 mmol/L (-2.0-2.0) L 06/13/21 04:15 Markell Test N/a 06/13/21 04:15 A-a O2 Gradient 24.2 mmHg (5-10) H 06/12/21 11:10 Hematocrit 24.7 % (37-47) L 06/13/21 04:15 Hgb O2 Saturation 98.2 % (95-100) 06/12/21 11:10 Carboxyhemoglobin 0.7 %THgb (0.4-20.1) 06/12/21 11:10 Methemoglobin 1.4 % (0.4-1.5) 06/12/21 11:10 Total Hemoglobin 9.2 g/dL (12-16) L 06/12/21 11:10 Sodium 137.0 mmol/L (131-143) 06/12/21 11:10 Potassium 3.6 mmol/L (3.5-5.0) 06/12/21 11:10 Glucose 190.0 mg/dL (70-115) H 06/12/21 11:10 Ionized Calcium 1.2 mmol/L (1.1-1.4) 06/12/21 11:10 O2 Delivery Device Vent 06/13/21 04:15 FiO2 21.0 % 06/13/21 04:15 Tidal Volume 0.32 06/13/21 04:15 PEEP 6.0 cmH20 06/13/21 04:15 Clinical Appeals Auditor ID Hinja 06/13/21 04:15 Sodium 136 mmol/L (136-145) 06/22/21 02:21 Potassium 3.8 mmol/L (3.5-5.1) 06/22/21 02:21 Chloride 107 mmol/L (98-107) 06/22/21 02:21 Carbon Dioxide 20 mmol/L (22-29) L 06/22/21 02:21 Anion Gap 12.8 (5-19) 06/22/21 02:21 BUN 15 mg/dL (6-20) 06/22/21 02:21 Creatinine 0.3 mg/dL (0.5-0.9) L 06/22/21 02:21 GFR Calculation 230.1 mL/min (90-130) H 06/22/21 02:21 Glucose 100 mg/dL (65-115) 06/22/21 02:21 Estimat Average Glucose 91 06/10/21 05:44 Hemoglobin A1c 4.8 % (4.0-6.0) 06/10/21 05:44 Calculated Osmolality 283 mOsm/kg (285-295) L 06/22/21 02:21 Calcium 8.8 mg/dL (8.5-10.5) 06/22/21 02:21 Magnesium 1.6 mg/dL (1.7-2.3) L 06/13/21 00:00 Iron 26 ug/dL (37-145) L 06/09/21 05:17 TIBC 149 mcg/dl 06/09/21 05:17 % Saturation 17.4 % (20-50) L 06/09/21 05:17 Unsat Iron Binding 123 ug/dL (112-347) 06/09/21 05:17 Total Bilirubin 0.2 mg/dL (0.15-1.2) 06/13/21 04:14 AST 8 U/L (0-32) 06/13/21 04:14 ALT 11 U/L (0-33) 06/13/21 04:14 Alkaline Phosphatase 116 IU/L (35-105) H 06/13/21 04:14 Troponin T Gen 5 ng/L 30 ng/L (0-10) H 06/13/21 04:14 C-Reactive Protein 6.1 mg/L (0.0-4.9) H 06/20/21 01:57 Total Protein 4.8 g/dL (6.6-8.7) L 06/13/21 04:14 Albumin 2.6 g/dL (3.5-5.2) L 06/13/21 04:14 Globulin 2.2 g/dL (1.3-4.6) 06/13/21 04:14 Triglycerides 179 mg/dL (0-150) H 06/10/21 05:44 Cholesterol 165 mg/dL (0-200) 06/10/21 05:44 LDL Cholesterol, Calc 114 mg/dL (50-129) 06/10/21 05:44 Total VLDL Cholesterol 36 mg/dL (0-30) H 06/10/21 05:44 HDL Cholesterol 15 mg/dL (60-100) L 06/10/21 05:44 Cholesterol/HDL Ratio 11.00 mg/dL (0.0-4.40) H 06/10/21 05:44 Lipase 23 U/L (13-60) 06/08/21 21:00 Vitamin B12 442 pg/mL (232-1245) 06/19/21 04:30 Procalcitonin 0.11 ng/mL (0-0.5) 06/20/21 01:57 TSH 3.36 uIU/mL (0.27-4.20) 06/18/21 05:55 Free T4 0.69 ng/dL (0.82-1.77) L 06/18/21 05:55 Free T3 1.0 PG/ML (2.0-4.4) L 06/09/21 05:17 Random Cortisol 25.62 ug/dL (2.47-19.5) H 06/09/21 05:17 Vancomycin Trough 15.6 ug/mL (10-15) H 06/19/21 14:00 Blood Type O Positive 06/21/21 14:28 Rho(D) Type Positive 06/21/21 14:28 Antibody Screen Negative 06/21/21 14:28 Crossmatch See Detail 06/21/21 14:28 Radiology Impressions Lumbar Spine MRI 06/08/21 18:40 IMPRESSION: 1. Diffuse bone marrow edema involving L3 and L4 with fluid in the disc space at L3-L4. This finding combined with bone destruction visible on the prior CT is suspicious for discitis and osteomyelitis. Correlate with clinical signs of infection. 2. Bulky posterior vertebral osteophytes at L3-L4 producing severe spinal canal stenosis. 3. Posterolateral fusion hardware from L4 through S1. The left L4 pedicle screw enters the L3-L4 disc space. 4. Stable compression deformity of L4 since 05/18/2021. ADDENDUM: 06/08/212126 THIS REPORT CONTAINS FINDINGS THAT MAY BE CRITICAL TO PATIENT CARE. The findings were verbally communicated via telephone conference with Dr. Malone at 9:24 PM SCHOOL SUPERINTENDENT on 06/08/2021. The findings were acknowledged and understood. Head CT 06/10/21 09:46 IMPRESSION: 1. There is heterogeneous attenuation in the middle cranial fossa a likely reflecting beam hardening artifact. No definite acute large vessel infarct is identified by noncontrast CT. 2. There is atlantoaxial dissociation with small associated intervening fracture fragments related to impaction and ligamentous rupture/avulsion, and there are possible additional fractures involving the tip of the dens and anterosuperior arch of C1. There are multiple erosions involving the dens, and there is basilar invagination of the dens with marked posterior displacement of the dens with cord impingement. There appears to be a simple fluid collection between the dens and the anterior arch of C1. Recommend MRI of the cervical spine with and without contrast to further assess. 3. No acute intracranial hemorrhage. ADDENDUM: 06/10/21 0488 Findings discussed with BELINDA SKELTON at 06/10/2021 10:57 AM SCHOOL SUPERINTENDENT. Head/Neck CTA 06/10/21 09:47 IMPRESSION: No large vessel stenosis or occlusion. IMPRESSION: 1. No stenosis or occlusion. 2. There is a new fluid collection between the anterior arch of C1 and the dens with associated erosive change involving the dens. This results in severe stenosis of the craniocervical junction and compression of the upper cervical cord. Please refer to CT cervical spine for additional detail. REFERENCES: NASCET CRITERIA. The degree of internal carotid artery stenosis is based on NASCET criteria. Normal is no stenosis. Mild is less than 50% stenosis. Moderate is 50-69% stenosis. Severe is 70% to 99% stenosis. Total occlusion is no detectable patent lumen. Cervical Spine MRI 06/10/21 10:58 IMPRESSION: 1. Unstable C1-C2 spine with complete rupture of the transverse ligament and dislocation of the right C1-C2 facet articulations/lateral mass articulation and severe subluxation of the left C1-C2 facet articulation/lateral mass articulation. Emergency neuro surgical consultation is recommended. 2. Widening of the space between the C1 and C2 arch with edema and apparent ligamentous disruption posteriorly. 3. Prominent cord compression of the C1 cord between the tip of the dens and the posterior arch of C1 with narrowing of the 7 mm AP diameter of the C1 cord along with edema/myelomalacia in the C1 cord with extension superiorly into the medulla. 4. Severe inflammatory arthritis with erosions around the dens and contrast enhancement in the dens. Usually this is aseptic arthritis seen in elderly patients which could be related to inflammatory pseudotumor at C1 seen in elderly patients, however septic arthritis cannot be ruled out. There is significant enhancing soft tissues in the region C1-C2. ADDENDUM: 06/10/21 1519 Impression: 5. 1.7 x 0.8 x 0.8 cm fluid collection between anterior arch of C1 and the C2 dens which could represent posttraumatic fluid collection with or without infection. THIS REPORT CONTAINS FINDINGS THAT MAY BE CRITICAL TO PATIENT CARE. The findings were verbally communicated via telephone conference with BELINDA SKELTON at 3:16 PM SCHOOL SUPERINTENDENT on 06/10/2021. The findings were acknowledged and understood. ADDENDUM: 06/10/21 1537 THIS REPORT CONTAINS FINDINGS THAT MAY BE CRITICAL TO PATIENT CARE. The findings were verbally communicated via telephone conference with BELINDA SKELTON at 3:35 PM SCHOOL SUPERINTENDENT on 06/10/2021. The findings were acknowledged and understood. Thoracic Spine MRI 06/10/21 10:59 IMPRESSION: 1. Moderate thoracic spondylosis. 2. 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 3. Chronic 10% anterior wedging of T11. 4. Multilevel degenerative disc disease with some desiccation of disc spaces. 5. No acute spine findings. Cervical Spine X-Ray 06/12/21 10:05 Impression: Posterior occipital cervical fusion. Cervical Spine CT 06/12/21 10:12 IMPRESSION: 1. Postoperative changes, as described above. 2. Additional findings, as above. Lumbar Spine CT 06/20/21 07:04 IMPRESSION: 1. Prior pedicle screw fixation L4-S1 with LEFT interbody fusion grafts L4-L5 and L5-S1 appears unchanged. 2. Lucency with loosening of the LEFT L4 and bilateral S1 pedicle screws unchanged. 3. Endplate erosive changes involving the inferior endplate L3 and superior endplate L4 is progressed compared to CT May 18, 2021 compatible with discitis/osteomyelitis. 4. Moderate central canal stenosis L3-L4 appears slightly progressed compared to the prior CT. Moderate bilateral bony foraminal narrowing at this level. 5. LEFT L3 pedicle screw extends into the L3-L4 disc space unchanged. 6. Central disc osteophyte protrusion L1-L2 with mild central canal stenosis Lumbar Spine X-Ray 06/21/21 19:32 Impression: Removal of posterior lumbar fusion pedicle screws and rods. Recent Clincial Data Last Vital Signs Temp 98.4 F 06/22/21 11:44 Pulse 74 06/22/21 11:44 Resp 18 06/22/21 11:44 BP 106/66 06/22/21 11:44 Pulse Ox 95 06/22/21 11:44 Vital Signs Temp Pulse Resp BP Pulse Ox 06/22/21 11:44 98.4 F 74 18 106/66 95 06/22/21 11:29 16 06/22/21 11:16 72 16 97 06/22/21 06:00 98.7 F 75 18 110/71 94 06/22/21 05:56 67 06/22/21 03:37 98.6 F 72 16 106/68 95 06/22/21 01:50 98.4 F 69 16 104/68 95 Intake & Output/Weight 06/20/21 06/21/21 06/22/21 06/23/21 06:59 06:59 06:59 06:59 Intake Total 1803.033 / 1803.033 650 / 650 1360 / 1360 240 / 240 Output Total 2900 / 2900 3725 / 3725 3475 / 3475 Balance -1096.967 / -1096.967 -3075 / -3075 -2115 / -2115 240 / 240 Weight 74.389 kg 68.152 kg 64.524 kg Vitals Last Vital Signs Temp 98.4 F 06/22/21 11:44 Pulse 74 06/22/21 11:44 Resp 18 06/22/21 11:44 BP 106/66 06/22/21 11:44 Pulse Ox 95 06/22/21 11:44 TS Medications Medications Hydrocodone Bitart/Acetaminophen (Hydrocodone-Acetaminophen 5-325 Mg Tablet) 1 - 2 tab PO Q4H PRN PRN Reason: MODERATE TO SEVERE PAIN Last Admin: 06/22/21 08:57 Dose: 2 tab Documented by: Al Hydrox/Mg Hydrox/Simethicone (Agbq-Hzz-Glsdaqvrr-Isaias 30 Ml Udc) 30 ml PO Q4H PRN PRN Reason: INDIGESTION Atorvastatin Calcium (Atorvastatin 40 Mg Tablet) 40 mg PO BEDTIME [facility] Last Admin: 06/21/21 21:31 Dose: 40 mg Documented by: Baclofen (Baclofen 10 Mg Tablet) 20 mg PO TID PRN PRN Reason: Muscle Spasm Last Admin: 06/21/21 21:30 Dose: 20 mg Documented by: Bisacodyl (Bisacodyl 10 Mg Supp) 10 mg IA DAILY PRN PRN Reason: CONSTIPATION Docusate Sodium (Docusate Sodium 100 Mg Capsule) 100 mg PO BID [facility] Last Admin: 06/22/21 07:52 Dose: Not Given Documented by: Folic Acid (Folic Acid 1 Mg Tablet) 1 mg PO DAILY [facility] Last Admin: 06/22/21 07:51 Dose: 1 mg Documented by: Hydromorphone HCl (Hydromorphone 1 Mg/Ml Inj 1 Ml) 0.4 mg IVP Q4H PRN PRN Reason: pain Vancomycin/PEG/NADA/Lysine/Water (Vancocin) 1,250 mg in 250 mls @ 250 mls/hr IV Q18H [facility] Last Infusion: 06/21/21 22:41 Dose: Infused Documented by: Cefepime HCl 1,000 mg/ Sodium (Chloride) 50 mls @ 100 mls/hr IV Q12H [facility]; Protocol Last Admin: 06/22/21 11:29 Dose: 100 mls/hr Documented by: Cefazolin Sodium 2,000 mg/ (Sodium Chloride) 60 mls @ 100 mls/hr IV Q8H [facility] Stop: 06/22/21 18:35 Last Admin: 06/22/21 10:40 Dose: 100 mls/hr Documented by: Lamotrigine (Lamotrigine 100 Mg Tablet) 400 mg PO QAM [facility] Last Admin: 06/22/21 05:08 Dose: 400 mg Documented by: Levothyroxine Sodium (Levothyroxine 75 Mcg Tablet) [facility] Last Admin: 06/22/21 05:08 Dose: 75 mcg Documented by: Magnesium Hydroxide (Magnesium Hydroxide 30 Ml Udc) 30 ml PO Q4H PRN PRN Reason: Constipation/indigestion Naloxone HCl (Naloxone 0.4 Mg/Ml Sdv) 0.1 mg IVP Q2M PRN PRN Reason: OPIATERV Nicotine (Nicotine 14 Mg Patch) 1 patch TRANSDERMA DAILY [facility] Last Admin: 06/22/21 07:50 Dose: 1 patch Documented by: Ondansetron HCl (Ondansetron 2 Mg/Ml Sdv 2 Ml) 4 mg IVP Q6H PRN PRN Reason: NAUSEA AND VOMITING Oxycodone/Acetaminophen (Oxycodone-Apap 10-325 Mg Tablet) 1 tab PO Q4H PRN PRN Reason: MODERATE PAIN Last Admin: 06/22/21 11:29 Dose: 1 tab Documented by: Pantoprazole Sodium (Pantoprazole Dr 40 Mg Tablet) 40 mg PO DAILY [facility] Last Admin: 06/22/21 07:51 Dose: 40 mg Documented by: Senna (Sennosides 8.6 Mg Tablet) 8.6 mg PO BID PRN PRN Reason: CONSTIPATION Tizanidine HCl (Tizanidine 4 Mg Tablet) 4 mg PO Q6H PRN PRN Reason: muscle spasticity Last Admin: 06/21/21 07:43 Dose: 4 mg Documented by: Trazodone HCl (Trazodone 100 Mg Tablet) 300 mg PO BEDTIME [facility] Last Admin: 06/21/21 21:30 Dose: 300 mg Documented by: Discontinued Medications Acetaminophen (Acetaminophen 325 Mg Tablet) 650 mg PO Q6H PRN PRN Reason: Mild/Mod Pain Or Temp >/= 101 Acetaminophen (Acetaminophen 325 Mg Tablet) 650 mg PO Q4H PRN PRN Reason: Mild Pain or fever >101.5 Acetaminophen (Acetaminophen 325 Mg Tablet) 650 mg PO Q4H PRN PRN Reason: Mild Pain or fever >101.5 Hydrocodone Bitart/Acetaminophen (Hydrocodone-Acetaminophen 5-325 Mg Tablet) 1 - 2 tab PO Q4H PRN PRN Reason: MODERATE TO SEVERE PAIN Last Admin: 06/16/21 06:18 Dose: 2 tab Documented by: Al Hydrox/Mg Hydrox/Simethicone (Vmya-Mvo-Mmdxuhixu-Isaias 30 Ml Udc) 30 ml PO Q4H PRN PRN Reason: INDIGESTION Albuterol Sulfate (Albuterol 2.5 Mg/0.5 Ml Neb) 2.5 mg INHALATION Q4H.RESPIRATORY PRN PRN Reason: SHORTNESS OF BREATH Albuterol Sulfate (Albuterol 2.5 Mg/0.5 Ml Neb) 2.5 mg INHALATION ONCE PRN PRN Reason: WHEEZING Albuterol Sulfate (Albuterol 2.5 Mg/0.5 Ml Neb) 2.5 mg INHALATION ONCE PRN PRN Reason: WHEEZING Alprazolam (Alprazolam 0.5 Mg Tablet) 0.5 mg PO TID PRN PRN Reason: anxiety Last Admin: 06/11/21 20:08 Dose: 0.5 mg Documented by: Alprazolam (Alprazolam 0.5 Mg Tablet) 0.5 mg PO TID PRN PRN Reason: ANXIETY Last Admin: 06/17/21 10:41 Dose: 0.5 mg Documented by: Apixaban (Apixaban 5 Mg Tablet) 10 mg PO BID@0900,2100 [facility] Stop: 06/22/21 09:09 Last Admin: 06/22/21 07:50 Dose: 10 mg Documented by: Artificial Tears (Artificial Tears Op Oint 3.5 Gm) Confirm Administered Dose 21 applic .ROUTE .STK-MED ONE Stop: 06/12/21 07:29 Atorvastatin Calcium (Atorvastatin 40 Mg Tablet) 20 mg PO BEDTIME [facility] Last Admin: 06/09/21 20:43 Dose: 20 mg Documented by: Benzocaine (Cetylpyridinium Lozenge) 1 each MUCOUS MEM ONCE ONE Stop: 06/09/21 12:54 Last Admin: 06/10/21 07:57 Dose: Not Given Documented by: Calcium Chloride (Calcium Chloride 10% Syr 10 Ml) Confirm Administered Dose 1 gm .ROUTE .STK-MED ONE Stop: 06/21/21 18:36 Dexamethasone (Dexamethasone 4 Mg/Ml Inj) 4 mg IVP Q5M PRN PRN Reason: Nausea unrelieved by Reglan Stop: 06/10/21 12:53 Dexamethasone (Dexamethasone 10 Mg/Ml Inj) 10 mg IVP ONCE ONE Stop: 06/10/21 11:01 Last Admin: 06/10/21 11:19 Dose: 10 mg Documented by: Dexamethasone (Dexamethasone 4 Mg/Ml Inj) 4 mg IVP Q6H [facility] Last Admin: 06/19/21 14:15 Dose: Not Given Documented by: Dexamethasone (Dexamethasone 4 Mg/Ml Inj) Confirm Administered Dose 12 mg .ROUTE .STK-MED ONE Stop: 06/12/21 08:27 Dexamethasone (Dexamethasone 4 Mg/Ml Inj) Confirm Administered Dose 8 mg .ROUTE .STK-MED ONE Stop: 06/21/21 18:15 Diphenhydramine HCl (Diphenhydramine 50 Mg/Ml Sdv 1ml) 12.5 mg IVP ONCE PRN PRN Reason: ANESTHESIA Docusate Sodium (Docusate Sodium 100 Mg Capsule) 100 mg PO BID [facility] Last Admin: 06/21/21 09:33 Dose: Not Given Documented by: Enoxaparin Sodium (Enoxaparin 40 Mg/0.4 Ml Syringe) 40 mg SUBCUT Q24H [facility] Last Admin: 06/10/21 02:12 Dose: 40 mg Documented by: Enoxaparin Sodium (Enoxaparin 40 Mg/0.4 Ml Syringe) 40 mg SUBCUT Q24H [facility] Last Admin: 06/15/21 05:42 Dose: 40 mg Documented by: Enoxaparin Sodium (Enoxaparin 40 Mg/0.4 Ml Syringe) 40 mg SUBCUT Q24H [facility] Famotidine (Famotidine 20 Mg/2 Ml Inj) 20 mg IVP ONCE PRN PRN Reason: HEARTBURN Famotidine (Famotidine 20 Mg/2 Ml Inj) 20 mg IVP ONCE PRN PRN Reason: HEARTBURN Fentanyl (Fentanyl 50 Mcg/Ml Inj 2ml) Confirm Administered Dose 100 mcg .ROUTE .STK-MED ONE Stop: 06/09/21 12:01 Fentanyl (Fentanyl 50 Mcg/Ml Inj 2ml) 100 mcg IVP ONCE PRN PRN Reason: Per anesthesia for block Fentanyl (Fentanyl 50 Mcg/Ml Inj 2ml) 50 mcg IVP Q10M PRN PRN Reason: Preop Pain Fentanyl (Fentanyl 50 Mcg/Ml Inj 2ml) 50 mcg IVP Q5M PRN PRN Reason: Pain level 6-10 PACU Phase I Stop: 06/10/21 12:53 Fentanyl (Fentanyl 50 Mcg/Ml Inj 5ml) Confirm Administered Dose 250 mcg .ROUTE .STK-MED ONE Stop: 06/12/21 06:48 Fentanyl (Fentanyl 50 Mcg/Ml Inj 5ml) Confirm Administered Dose 250 mcg .ROUTE .STK-MED ONE Stop: 06/12/21 08:47 Fentanyl (Fentanyl 50 Mcg/Ml Inj 5ml) Confirm Administered Dose 250 mcg .ROUTE .STK-MED ONE Stop: 06/21/21 16:22 Fentanyl (Fentanyl 50 Mcg/Ml Inj 2ml) 50 mcg IVP Q10M PRN PRN Reason: Preop Pain Last Admin: 06/21/21 19:58 Dose: 50 mcg Documented by: Fentanyl (Fentanyl 50 Mcg/Ml Inj 2ml) 100 mcg IVP ONCE PRN PRN Reason: Per anesthesia for block Fentanyl (Fentanyl 50 Mcg/Ml Inj 2ml) Confirm Administered Dose 100 mcg .ROUTE .STK-MED ONE Stop: 06/21/21 18:16 Fentanyl (Fentanyl 50 Mcg/Ml Inj 2ml) Confirm Administered Dose 100 mcg .ROUTE .STK-MED ONE Stop: 06/21/21 19:59 Last Admin: 06/21/21 22:17 Dose: Not Given Documented by: Furosemide (Furosemide 10 Mg/Ml Sdv 2ml) 20 mg IVP ONCE ONE Stop: 06/11/21 03:25 Last Admin: 06/11/21 04:36 Dose: Not Given Documented by: Gadoteridol (Gadoteridol 17 Ml Syr) 0 ml IV ONCE ONE Stop: 06/10/21 12:30 Last Admin: 06/10/21 12:30 Dose: 10 ml Documented by: Heparin Sodium (Porcine) (Heparin 5,000 Unit/Ml Inj 1 Ml) 0 unit IV PRN PRN; Protocol PRN Reason: Heparin weight-base protocol Last Admin: 06/18/21 14:53 Dose: 1,600 unit Documented by: Hydromorphone HCl (Hydromorphone 1 Mg/Ml Inj 1 Ml) 0.5 mg IVP Q10M PRN PRN Reason: Pain level 7-10 PACU Phase I Stop: 06/10/21 12:53 Hydromorphone HCl (Hydromorphone 1 Mg/Ml Inj 1 Ml) 0.25 mg IVP Q10M PRN PRN Reason: Pain level 4-6 PACU Phase I Stop: 06/10/21 12:53 Vancomycin HCl 1,000 mg/ (Sodium Chloride) 250 mls @ 250 mls/hr IV ONCE ONE; Protocol Stop: 06/08/21 22:29 Last Infusion: 06/09/21 01:53 Dose: Infused Documented by: Piperacillin Sod/Tazobactam (Sod 4.5 gm/ Sodium Chloride) 50 mls @ 100 mls/hr IV [employer] ONE; Protocol Stop: 06/08/21 21:59 Last Infusion: 06/08/21 23:37 Dose: Infused Documented by: Vancomycin HCl 1,000 mg/ (Sodium Chloride) 250 mls @ 250 mls/hr IV Q8H [facility] Last Infusion: 06/10/21 10:37 Dose: Infused Documented by: Sodium Chloride (Sodium Chloride 0.9%) 1,000 mls @ 50 mls/hr IV .Q20H [facility] Last Admin: 06/12/21 22:08 Dose: Not Given Documented by: Piperacillin Sod/Tazobactam (Sod 3.375 gm/ Sodium Chloride) 50 mls @ 12.5 mls/hr IV Q8H [facility] Last Infusion: 06/19/21 10:08 Dose: Infused Documented by: Sodium Chloride (Sodium Chloride 0.9%) 1,000 mls @ 30 mls/hr IV .Q24H [facility] Stop: 06/10/21 12:59 Last Admin: 06/10/21 07:57 Dose: Not Given Documented by: Sodium Chloride (Sodium Chloride 0.9%) 500 mls @ 999 mls/hr IV .Q31M PRN PRN Reason: HYPOTENSION Vancomycin HCl 1,000 mg/ (Sodium Chloride) 250 mls @ 250 mls/hr IV Q12H [facility] Last Admin: 06/17/21 22:39 Dose: Not Given Documented by: Propofol (Diprivan) Confirm Administered Dose 1,000 mg in 100 mls @ as directed .ROUTE .STK-MED ONE Stop: 06/12/21 07:07 Lactated Ringer's (Lactated Ringers) 1,000 mls @ 90 mls/hr IV .Q11H7M [facility] Last Infusion: 06/19/21 11:51 Dose: Infused Documented by: Cefazolin Sodium 2,000 mg/ (Sodium Chloride) 60 mls @ 100 mls/hr IV ONCE ONE Stop: 06/12/21 11:05 Last Infusion: 06/13/21 08:45 Dose: Infused Documented by: Propofol (Diprivan) 1,000 mg in 100 mls @ 0 mls/hr IV .Q0M [facility]; Protocol Last Titration: 06/13/21 14:37 Dose: Infused Documented by: Fentanyl 2,500 mcg/ Sodium (Chloride) 250 mls @ 0 mls/hr IV .Q0M [facility]; Protocol Last Titration: 06/13/21 14:36 Dose: Infused Documented by: Norepinephrine Bitartrate 4 mg (/ Dextrose) 254 mls @ 0 mls/hr IV .Q0M [facility]; Protocol Last Titration: 06/14/21 16:24 Dose: Infused Documented by: Vancomycin HCl 1,000 mg/ (Sodium Chloride) 250 mls @ 250 mls/hr IV Q18H [facility] Last Infusion: 06/17/21 06:53 Dose: Infused Documented by: Magnesium Sulfate 1 gm/ Sodium (Chloride) 52 mls @ 104 mls/hr IV ONCE ONE Stop: 06/13/21 02:14 Last Infusion: 06/13/21 02:40 Dose: Infused Documented by: Epinephrine HCl 2.5 mg/ Sodium (Chloride) 252.5 mls @ 0 mls/hr IV .Q0M [facility]; Protocol Heparin Sodium/Sodium Chloride (Heparin Drip) 25,000 unit in 500 mls @ 0 mls/hr IV .Q0M [facility]; Protocol Last Titration: 06/19/21 09:21 Dose: Infused Documented by: Sodium Chloride (Sodium Chloride 0.9%) 1,000 mls @ 30 mls/hr IV .Q24H [facility] Stop: 06/22/21 16:44 Last Admin: 06/21/21 16:45 Dose: 30 mls/hr Documented by: Lactated Ringer's (Lactated Ringers) 1,000 mls @ 90 mls/hr IV .Q11H7M [facility] Last Admin: 06/22/21 06:32 Dose: Not Given Documented by: Iohexol (Iohexol 350 Mg/Ml 100 Ml Btl) 0 ml IV ONCE ONE Stop: 06/10/21 10:12 Last Admin: 06/10/21 10:11 Dose: 75 ml Documented by: Ipratropium [place] (Ipratropium 0.5 Mg/2.5 Ml Neb) 0.5 mg INHALATION ONCE PRN PRN Reason: WHEEZING Ipratropium [place] (Ipratropium 0.5 Mg/2.5 Ml Neb) 0.5 mg INHALATION ONCE PRN PRN Reason: WHEEZING Ketamine HCl (Ketamine 50 Mg/Ml Inj 10 Ml) Confirm Administered Dose 500 mg .ROUTE .STK-MED ONE Stop: 06/12/21 08:23 Ketorolac Tromethamine (Ketorolac 30 Mg/Ml Inj) 30 mg IVP Q6H PRN PRN Reason: BREAKTHROUGH PAIN Last Admin: 06/13/21 20:14 Dose: 30 mg Documented by: Ketorolac Tromethamine (Ketorolac 30 Mg/Ml Inj) 30 mg IVP Q6H PRN PRN Reason: BREAKTHROUGH PAIN Levothyroxine Sodium (Levothyroxine 112 Mcg Tablet) 112 mcg PO QAM [facility] Last Admin: 06/10/21 06:26 Dose: 112 mcg Documented by: Levothyroxine Sodium (Levothyroxine 100 Mcg Sdv) 75 mcg IVP DAILY [facility] Last Admin: 06/16/21 10:52 Dose: Not Given Documented by: Lidocaine HCl (Lidocaine 2% Inj 20 Ml) Confirm Administered Dose 20 ml .ROUTE .STK-MED ONE Stop: 06/09/21 12:01 Lidocaine HCl (Lidocaine 1% Inj 20 Ml) 0.1 ml INTRADERMA PRN PRN PRN Reason: anesthetic prior to IV start Stop: 06/10/21 12:52 Lidocaine HCl (Lidocaine 2% Inj 20 Ml) Confirm Administered Dose 20 ml .ROUTE .STK-MED ONE Stop: 06/12/21 08:27 Lidocaine HCl (Lidocaine 2% Inj 20 Ml) Confirm Administered Dose 20 ml .ROUTE .STK-MED ONE Stop: 06/21/21 16:13 Last Admin: 06/21/21 22:16 Dose: Not Given Documented by: Lidocaine HCl (Lidocaine 2% Inj 20 Ml) Confirm Administered Dose 20 ml .ROUTE .STK-MED ONE Stop: 06/21/21 18:15 Lidocaine/Epinephrine (Lidocaine 2% Epi 20 Ml Inj) Confirm Administered Dose 20 ml .ROUTE .STK-MED ONE Stop: 06/12/21 06:49 Last Admin: 06/12/21 08:20 Dose: 10 ml Documented by: Lidocaine/Epinephrine (Lidocaine 1% Epi 20 Ml Inj) 20 ml INJECTION ONCE ONE Stop: 06/12/21 09:00 Last Admin: 06/12/21 09:01 Dose: Not Given Documented by: Lidocaine/Epinephrine (Lidocaine 2% Epi 20 Ml Inj) Confirm Administered Dose 20 ml .ROUTE .STK-MED ONE Stop: 06/21/21 16:13 Lidocaine/Epinephrine (Lidocaine 2% Epi 20 Ml Inj) 20 ml INJECTION ONCE ONE Stop: 06/21/21 17:41 Last Admin: 06/21/21 17:28 Dose: 20 ml Documented by: Magnesium Hydroxide (Magnesium Hydroxide 30 Ml Udc) 30 ml PO Q4H PRN PRN Reason: Constipation/indigestion Meperidine HCl (Meperidine 50 Mg/Ml Inj) 12.5 mg IVP Q5M PRN PRN Reason: Shivering PACU Phase I Stop: 06/10/21 12:53 Metoclopramide HCl (Metoclopramide 5 Mg/Ml Sdv 2 Ml) 10 mg IVP ONCE PRN PRN Reason: N/V if zofran ineffective Metoclopramide HCl (Metoclopramide 5 Mg/Ml Sdv 2 Ml) 10 mg IVP Q5M PRN PRN Reason: Nausea unrelieved by Zofran Stop: 06/10/21 12:53 Midazolam HCl (Midazolam 1 Mg/Ml Inj 2 Ml) Confirm Administered Dose 2 mg .ROUTE .STK-MED ONE Stop: 06/09/21 12:01 Midazolam HCl (Midazolam 1 Mg/Ml Inj 2 Ml) Confirm Administered Dose 2 mg .ROUTE .[place]-MED ONE Stop: 06/12/21 10:14 Midazolam HCl (Midazolam 1 Mg/Ml Inj 5 Ml) 5 mg IVP ONCE PRN PRN Reason: Per anesthesia for block Midazolam HCl (Midazolam 1 Mg/Ml Inj 2 Ml) 2 mg IVP Q5M PRN PRN Reason: Preop Anxiety Morphine Sulfate (Morphine 4 Mg/Ml Sdv 1 Ml) 2 mg IVP ONCE ONE Stop: 06/08/21 19:25 Last Admin: 06/08/21 19:28 Dose: 2 mg Documented by: Morphine Sulfate (Morphine 4 Mg/Ml Sdv 1 Ml) 4 mg IVP Q4H PRN PRN Reason: SEVERE PAIN Last Admin: 06/11/21 08:17 Dose: 4 mg Documented by: Morphine Sulfate (Morphine 4 Mg/Ml Sdv 1 Ml) 2 mg IVP ONCE ONE Stop: 06/21/21 16:02 Last Admin: 06/21/21 16:21 Dose: 2 mg Documented by: Nicotine (Nicotine 21 Mg Patch) 1 patch TRANSDERMA ONCE ONE Stop: 06/08/21 19:41 Last Admin: 06/08/21 20:43 Dose: 1 patch Documented by: Ondansetron HCl (Ondansetron 2 Mg/Ml Sdv 2 Ml) 4 mg IVP Q8H PRN PRN Reason: vomiting, or N/V if npo Ondansetron HCl (Ondansetron 2 Mg/Ml Sdv 2 Ml) 4 mg IVP Q15M PRN PRN Reason: Nausea/Vomiting PACU PHASE II Ondansetron HCl (Ondansetron 2 Mg/Ml Sdv 2 Ml) 4 mg IVP Q5M PRN PRN Reason: NAUSEA AND VOMITING Ondansetron HCl (Ondansetron 2 Mg/Ml Sdv 2 Ml) 4 mg IVP Q5M PRN PRN Reason: Nausea PACU Phase I Stop: 06/10/21 12:53 Ondansetron HCl (Ondansetron 2 Mg/Ml Sdv 2 Ml) Confirm Administered Dose 4 mg .ROUTE .STK-MED ONE Stop: 06/12/21 08:27 Ondansetron HCl (Ondansetron 2 Mg/Ml Sdv 2 Ml) 4 mg IVP Q6H PRN PRN Reason: NAUSEA AND VOMITING Ondansetron HCl (Ondansetron 2 Mg/Ml Sdv 2 Ml) 4 mg IVP Q5M PRN PRN Reason: NAUSEA AND VOMITING Oxycodone/Acetaminophen (Oxycodone-Apap 10-325 Mg Tablet) 1 tab PO Q4H PRN PRN Reason: MODERATE PAIN Last Admin: 06/19/21 04:04 Dose: 1 tab Documented by: Phenylephrine HCl (Phenylephrine 10 Mg/Ml Sdv 1 Ml) Confirm Administered Dose 10 mg .ROUTE .STK-MED ONE Stop: 06/12/21 08:27 Pregabalin (Pregabalin 75 Mg Capsule) 75 mg PO BID [facility] Last Admin: 06/13/21 08:27 Dose: Not Given Documented by: Propofol (Propofol 10 Mg/Ml Sdv 20 Ml) Confirm Administered Dose 400 mg .ROUTE .STK-MED ONE Stop: 06/09/21 12:01 Propofol (Propofol 10 Mg/Ml Sdv 20 Ml) Confirm Administered Dose 200 mg .ROUTE .STK-MED ONE Stop: 06/12/21 08:27 Propofol (Propofol 10 Mg/Ml Sdv 20 Ml) Confirm Administered Dose 200 mg .ROUTE .STK-MED ONE Stop: 06/12/21 09:34 Propofol (Propofol 10 Mg/Ml Sdv 20 Ml) Confirm Administered Dose 200 mg .ROUTE .STK-MED ONE Stop: 06/21/21 18:15 Rocuronium [place] (Rocuronium 10 Mg/Ml Inj 5ml) Confirm Administered Dose 50 mg .ROUTE .STK-MED ONE Stop: 06/21/21 18:15 Scopolamine (Scopolamine 1.5 Patch) 1 patch TRANSDERMA ONCE PRN PRN Reason: Nausea/ Vomiting Prophylaxis Scopolamine (Scopolamine 1.5 Patch) 1 patch TRANSDERMA ONCE PRN PRN Reason: Nausea/ Vomiting Prophylaxis Succinylcholine Chloride (Succinylcholine 20 Mg/Ml Sdv 10ml) Confirm Administered Dose 200 mg .ROUTE .STK-MED ONE Stop: 06/12/21 08:27 Succinylcholine Chloride (Succinylcholine 20 Mg/Ml Sdv 10ml) Confirm Administered Dose 200 mg .ROUTE .STK-MED ONE Stop: 06/21/21 18:15 Thrombin (Thrombin 5,000 Unit Sdv) Confirm Administered Dose 5,000 unit .ROUTE .STK-MED ONE Stop: 06/12/21 06:50 Last Admin: 06/12/21 09:00 Dose: Not Given Documented by: Tramadol HCl (Tramadol 50 Mg Tablet) 50 mg PO Q6H PRN PRN Reason: pain Last Admin: 06/14/21 19:41 Dose: 50 mg Documented by: Trazodone HCl (Trazodone 100 Mg Tablet) 300 mg PO BEDTIME [facility] Last Admin: 06/11/21 20:07 Dose: 300 mg Documented by: Vancomycin HCl (Vancomycin 1,000 Mg Sdv) Confirm Administered Dose 2,000 mg .ROUTE .STK-MED ONE Stop: 06/12/21 06:49 Vancomycin HCl (Vancomycin 1,000 Mg Sdv) 1,000 mg XX ONCE ONE; Protocol Stop: 06/12/21 09:00 Last Admin: 06/12/21 09:45 Dose: 1,000 mg Documented by: Vancomycin HCl (Vancomycin 1,000 Mg Sdv) Confirm Administered Dose 1,000 mg .ROUTE .STK-MED ONE Stop: 06/21/21 16:13 Vancomycin HCl (Vancomycin 1,000 Mg Sdv) 1,000 mg XX ONCE ONE; Protocol Stop: 06/21/21 17:41 Last Admin: 06/21/21 19:25 Dose: 1,000 mg Documented by: Vancomycin HCl (Vancomycin 1,000 Mg Sdv) Confirm Administered Dose 1,000 mg .ROUTE .STK-MED ONE Stop: 06/21/21 18:21 Last Admin: 06/21/21 19:54 Dose: Not Given Documented by: Warfarin Sodium (Warfarin 5 Mg Tablet) 5 mg PO DAILY@1400 [facility] Last Admin: 06/18/21 14:05 Dose: 5 mg Documented by: Warfarin Sodium (Warfarin 2.5 Mg Tablet) 2.5 mg PO ONCE ONE Stop: 06/19/21 14:01 Allergies naproxen Allergy (Severe, Verified 06/09/21 08:45) breathing issues gabapentin Allergy (Intermediate, Verified 06/09/21 08:45) ADR-Dizziness Home Medications atorvastatin 20 mg tablet 20 mg PO BEDTIME 08/25/19 [History Confirmed 06/09/21] Bone Growth Stimulator [id number] #1 ea 08/08/20 [Rx Confirmed 06/09/21] albuterol sulfate 90 mcg/actuation aerosol inhaler 2 puff INHALATION Q4H PRN 09/08/20 [History Confirmed 06/09/21] fluticasone propionate 50 mcg/actuation nasal spray,suspension 1 spray INTRANASAL BID PRN 09/08/20 [History Confirmed 06/09/21] ibuprofen 800 mg tablet 800 mg PO TID PRN 09/08/20 [History Confirmed 06/09/21] levothyroxine 112 mcg tablet 112 mcg PO QAM 09/08/20 [History Confirmed 06/09/21] lamotrigine 200 mg tablet 400 mg PO QAM #180 tab 01/06/21 [Rx Confirmed 06/09/21] trazodone 100 mg tablet 300 mg PO BEDTIME #270 tab 01/06/21 [Rx Confirmed 06/09/21] alprazolam 1 mg tablet 0.5 mg PO TID #45 tab 03/07/21 [Rx Confirmed 06/09/21] baclofen 10 mg tablet 20 mg PO TID PRN tab 04/05/21 [History Confirmed 06/09/21] Jim lopez #1 ea 05/17/21 [Rx Confirmed 06/09/21] hydrochlorothiazide 12.5 mg capsule 12.5 mg PO DAILY PRN 05/29/21 [History Confirmed 06/09/21] tramadol 50 mg tablet 50 mg PO Q6H PRN #20 tab 06/06/21 [Rx Confirmed 06/09/21] Discharge Plan Discharge Patient Disposition: Home Health Service Condition: Stable Prescriptions: No Action baclofen 10 mg tablet 20 mg PO TID PRN (Reason: Muscle Spasm) 0RF atorvastatin 20 mg tablet 20 mg PO BEDTIME 0RF lamotrigine 200 mg tablet 400 mg PO QAM Qty: 180 2RF trazodone 100 mg tablet 300 mg PO BEDTIME Qty: 270 2RF tramadol 50 mg tablet 50 mg PO Q6H PRN (Reason: pain) Qty: 20 0RF (DME) Bone Growth Stimulator [id number] See Rx Instructions .Route .MEDSUPPLY Qty: 1 0RF Rx Instructions: As directed alprazolam 1 mg tablet 0.5 mg PO TID Qty: 45 3RF (DME) Rolling walker See Rx Instructions .Route .MEDSUPPLY Qty: 1 0RF Rx Instructions: As directed ibuprofen 800 mg tablet 800 mg PO TID PRN (Reason: Pain) 0RF albuterol sulfate 90 mcg/actuation HFA aerosol inhaler 2 puff INHALATION Q4H PRN (Reason: Shortness Of Breath) 0RF fluticasone propionate 50 mcg/actuation [place],Suspension 1 spray INTRANASAL BID PRN (Reason: Allergy Symptoms) 0RF levothyroxine 112 mcg tablet 112 mcg PO QAM 0RF hydrochlorothiazide 12.5 mg capsule 12.5 mg PO DAILY PRN (Reason: Edema) 0RF Discharge Orders: Discharge Order (Routine); Ordered 06/22/21 Ordered By: Florinda Gillis Referrals: Stephanie Shook MD [Physician] - 06/28/21 9:15 am Blanche Srinivasan FNP [Primary Care Provider] - Discharge Diet: Advance as tolerated and Usual diet Discharge Activity: Increase activity as tolerated, Limit activity as instructed, Use walker/crutches as instructed and As per PT/OT instructions Patient Instructions: Opioid Safety Activity Restrictions/Additional Instructions: Ice and elevation to left lower extremity. Weightbearing as tolerated. Gait training, ambulation, strengthening, and range of motion per physical therapy. 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
--- NOTE | 2021-06-22 14:08 | PC.NURSE ---
Report called to ANNALEE Castillo, at [facility].
--- NOTE | 2021-06-22 14:12 | PC.NURSE ---
Breanna Acosta, notified orders per Dr. Ramirez's nurse, to remove stitches in neck in 2 weeks, 3 weeks remove stitches in back, dressing change to sacral area BID, and follow up in clinic in 6 weeks.
[2021-06-22] MEDS: HYDROmorphone 1 mg/mL INJ 1 mL 0.4 MG IVP (14:56)
--- NOTE | 2021-06-22 15:11 | PC.OT ---
OT TREATMENT HELD THIS DATE THE PATIENT IS SCHEDULED FOR TRANSFER TO [facility] TODAY
--- NOTE | 2021-06-22 15:17 | PC.NURSE ---
[facility]S here to transport pt to [facility]. IV's left in place for access for [facility].
== END 2021-06-22 15:18 | DRG 471 ==
LOC: ER 22:48 → MEDSURG 23:40 → ICU 06-10 17:42 → MEDSURG 06-15 03:42
PROVIDERS: Internal Medicine; Orthopaedic Surgery; Student in an Organized Health Care Education/Training Program; Surgery; Admitting Provider Student in an Organized Health Care Education/Training Program; Emergency Provider Emergency Medicine; PCP Nurse Practitioner Family; Visit Provider Internal Medicine
PROC: 0PS304Z Reposition Cervical Vertebra with Internal Fixation Device, Open Approach (ICD-10-PCS; CPT 22600; principal; 2021-06-12 07:00)
DX: M53.2X2 Spinal instabilities, cervical region (principal); L89.154 Pressure ulcer of sacral region, stage 4; T84.226A Displacement of internal fixation device of vertebrae, initial encounter; F31.81 Bipolar II disorder; I82.412 Acute embolism and thrombosis of left femoral vein; I82.432 Acute embolism and thrombosis of left popliteal vein; I82.452 Acute embolism and thrombosis of left peroneal vein; S12.000A Unspecified displaced fracture of first cervical vertebra, initial encounter for closed fracture; S12.100A Unspecified displaced fracture of second cervical vertebra, initial encounter for closed fracture; Y79.8 Miscellaneous orthopedic devices associated with adverse incidents, not elsewhere classified; M51.36 Other intervertebral disc degeneration, lumbar region; Z98.1 Arthrodesis status; F10.11 Alcohol abuse, in remission; F60.3 Borderline personality disorder; F17.210 Nicotine dependence, cigarettes, uncomplicated; E78.5 Hyperlipidemia, unspecified; E03.9 Hypothyroidism, unspecified; Z86.14 Personal history of Methicillin resistant Staphylococcus aureus infection; M48.061 Spinal stenosis, lumbar region without neurogenic claudication; X58.XXXA Exposure to other specified factors, initial encounter; F41.0 Panic disorder [episodic paroxysmal anxiety]; R29.6 Repeated falls; D64.9 Anemia, unspecified; B96.5 Pseudomonas (aeruginosa) (mallei) (pseudomallei) as the cause of diseases classified elsewhere; Z91.14 Patient's other noncompliance with medication regimen
CPT/HCPCS: 36415; 36600; 70450; 70496; 70498; 72020; 72040; 72100; 72125; 72131; 72146; 72148; 72156; 72157; 76000; 80048; 80051; 80053; 80061; 80202; 82330; 82533; 82607; 82803; 82805; 83036; 83540; 83550; 83690; 83735; 84145; 84439; 84443; 84481; 84484; 85025; 85610; 85651; 85730; 86140; 86850; 86900; 86920; 87040; 87070; 87077; 87176; 87186; 87205; 87641; 93005; 93970; 94002; 94003; 94799; 96365; 96367; 96372; 96375; 97110; 97112; 97163; 97165; 97530; 97535; 97760; 99285; A9579; C1713; J0330; J0690; J0692; J1100; J1170; J1644; J1650; J1885; J2250; J2270; J2370; J2405; J2543; J2704; J3010; J3370; J3475; J3490; J7030; J7050; L0174; P9016; Q9967

== ENCOUNTER → 2021-08-24 13:26 | Outpatient (BNVA) | payer MEDICARE, MEDICAID, SELFPAY | PROVIDERS: PCP Nurse Practitioner Family; Visit Provider Physician Assistant | DX: Z47.89 Encounter for other orthopedic aftercare (principal); Z98.890 Other specified postprocedural states | CPT/HCPCS: 72040; 99024 ==

== ENCOUNTER 2021-08-31 20:27 | Emergency (ER) | payer MEDICARE, MEDICAID, SELFPAY ==
[2021-08-31] VITALS (8 sets, daily range): BP systolic 92–109; BP diastolic 62–72; PULSE 76–92; RESP 16–18; TEMP 36.5; O2SAT 95–100; BMI 17.7
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
--- NOTE | 2021-08-31 20:52 | XRR_ITS ---
PROCEDURE INFORMATION: Exam: XR Chest Exam date and time: 08/31/2021 9:43 PM Age: 56 years old Clinical indication: Other: Weakness TECHNIQUE: Imaging protocol: XR of the chest. Views: 1 view. COMPARISON: CR XR chest 1V portable [id number] 09/12/2020 4:54 PM FINDINGS: Lungs: The lungs are clear. Pleural spaces: Unremarkable. No pleural effusion. No pneumothorax. Heart/Mediastinum: Unremarkable. No cardiomegaly. Bones/joints: Unremarkable. XR/XR chest 1V portable [id number] IMPRESSION: No acute cardiopulmonary abnormality.
--- NOTE | 2021-08-31 20:53 | ECG_ITS ---
[facility] Test Date: 2021-08-31 Pat Name: Hilda Da Silva Department: Room: Gender: Female [employer]: : 1965 Requested By: Guru Hazel Order Number: [id number] Guillermo MD: Luke España M.D. Measurements Intervals [place] Rate: 77 P: 77 CA: 159 QRS: 84 QRSD: 109 T: 90 QT: 416 QTc: 471 Interpretive Statements SINUS RHYTHM ST DEVIATION AND MODERATE T-WAVE ABNORMALITY, CONSIDER ANTEROLATERAL ISCHEMIA [-0.1+ mV T-WAVE IN V3-V6] Compared to ECG 06/13/2021 00:01:35 T-wave abnormality now present Possible ischemia now present Electronically Signed On 09-01-2021 22:34:14 CDT by Luke España M.D. [email or web address] [email or web address] Networksuniversity [id number]
[2021-08-31] MEDS: morphine 4 mg/mL SDV 1 mL IVP (21:15)
--- NOTE | 2021-08-31 22:03 | CTR_ITS ---
PROCEDURE INFORMATION: Exam: CT Cervical Spine Without Contrast Exam date and time: 08/31/2021 10:25 PM Age: 56 years old Clinical indication: Prior surgery; Surgery type: Craniocervical fusion; Patient HX: C/O neck pain; Additional info: Increased pain, HX surgeries TECHNIQUE: Imaging protocol: Computed tomography images of the cervical spine without contrast. Radiation optimization: All CT scans at this facility use at least one of these dose optimization techniques: automated exposure control; mA and/or kV adjustment per patient size (includes targeted exams where dose is matched to clinical indication); or iterative reconstruction. COMPARISON: CT cervical spin wo con* [id number] 06/12/2021 1:41 PM RADIATION DOSE METRICS: Total DLP (mGy-cm): 233.99 FINDINGS: Bones/joints: Mild degenerative changes are again seen in the cervical spine. No acute fracture. Posterior craniocervical fusion changes are again noted spanning from the occiput to the C4 level. Lungs: Lung apices are normal. Soft tissues: Unremarkable. CT/CT cervical spin wo con* [id number] IMPRESSION: No cervical spine fracture.
--- NOTE | 2021-08-31 22:03 | CTR_ITS ---
PROCEDURE INFORMATION: Exam: CT Chest With Contrast; Diagnostic Exam date and time: 08/31/2021 10:33 PM Age: 56 years old Clinical indication: Other: Weakness/weight loss; Prior surgery; Surgery type: Hysterectomy. Csection. Lumbar fusion hardware removal. Patient HX: Failure to thrive. Having increased weight loss. Multiple pressure wounds. C/O back pain. ; Additional info: Increased back pain and weakness, numerous pressure wounds TECHNIQUE: Imaging protocol: Diagnostic computed tomography of the chest with contrast. Radiation optimization: All CT scans at this facility use at least one of these dose optimization techniques: automated exposure control; mA and/or kV adjustment per patient size (includes targeted exams where dose is matched to clinical indication); or iterative reconstruction. Contrast material: OMNI 300; Contrast volume: 75 ml; Contrast route: INTRAVENOUS (IV); COMPARISON: CR (CHEST, ) 08/31/2021 9:43 PM RADIATION DOSE METRICS: Total DLP (mGy-cm): 1420.16 FINDINGS: Lungs: Unremarkable. No consolidation. No masses. Pleural spaces: Unremarkable. No pneumothorax. No pleural effusion. Heart: Unremarkable. No cardiomegaly. No pericardial effusion. Lymph nodes: Unremarkable. No enlarged lymph nodes. Vasculature: Unremarkable. No aortic aneurysm. Bones/joints: Unremarkable. No acute fracture. Soft tissues: Unremarkable. PROCEDURE INFORMATION: Exam: CT Abdomen And Pelvis With Contrast Exam date and time: 08/31/2021 10:33 PM Age: 56 years old Clinical indication: Other: Weakness/weight loss; Prior surgery; Surgery type: Hysterectomy. Csection. Lumbar fusion hardware removal. Patient HX: Failure to thrive. Having increased weight loss. Multiple pressure wounds. C/O back pain. ; Additional info: Increased back pain and weakness, numerous pressure wounds TECHNIQUE: Imaging protocol: Computed tomography of the abdomen and pelvis with contrast. Radiation optimization: All CT scans at this facility use at least one of these dose optimization techniques: automated exposure control; mA and/or kV adjustment per patient size (includes targeted exams where dose is matched to clinical indication); or iterative reconstruction. Contrast material: OMNI 300; Contrast volume: 75 ml; Contrast route: INTRAVENOUS (IV); COMPARISON: CT pelvis w con* [id number] 05/29/2021 1:51 PM RADIATION DOSE METRICS: Total DLP (mGy-cm): 1420.16 FINDINGS: Tubes, catheters and devices: The urinary bladder is decompressed by a catheter. Liver: Normal. No mass. Gallbladder and bile ducts: The gallbladder is enlarged but without any visible stones or wall thickening. Pancreas: Normal. No ductal dilation. Spleen: Normal. No splenomegaly. Adrenal glands: Normal. No mass. Kidneys and ureters: Incidental 1 cm simple left renal cyst. Stomach and bowel: There is generalized increased fecal loading especially in the rectum which measures up to 5.4 cm in diameter and displaces the urinary bladder. Appendix: No evidence of appendicitis. Intraperitoneal space: Unremarkable. No free air. No significant fluid collection. Vasculature: Unremarkable. No abdominal aortic aneurysm. Lymph nodes: Unremarkable. No enlarged lymph nodes. Urinary bladder: See Stomach and bowel finding. Reproductive: The uterus is absent and the ovaries are not seen. Bones/joints: Previously seen lumbar metallic fusion hardware has been removed. There is persisting a rosea ne of the L4 and L5 adjacent endplates. Soft tissues: A sacral decubitus ulcer extends to bone. There is no abscess. No bone destruction. CT/CT chest abd pel w con* IMPRESSION: No significant chest findings. IMPRESSION: 1. Since May the lumbar fusion hardware has been removed. Persisting erosion of the L3 and L4 endplates. 2. Sacral decubitus ulcer. No abscess or bone destruction. 3. Generalized increased fecal loading COMMENTS: Consistent with the [employer]'s Incidental Findings Committee white paper (J Am Wilber Radiol 2018): Any incidental renal lesion less than 1 cm or classified as too small to characterize, or any incidental cystic renal lesion characterized as simple-appearing, is likely benign. No follow-up imaging is recommended for these lesions per consensus recommendations based on imaging criteria.
[2021-08-31 22:04] LABS: Basophils # 0.1 10^3/uL (0.0-0.1); Basophils % 0.4 %; Eosinophils % 0.3 %; Hematocrit 33.8 % (37.0-47.0); Hemoglobin 11.8 g/dL (11.5-15.3); Lymphocytes # 4.1 10^3/uL (0.8-4.8); Lymphocytes % 30.3 %; Mean Corpuscular HGB Conc 34.9 g/dL (30.0-36.0); Mean Corpuscular Hemoglobin 32.8 pg (28.0-34.0); Mean Corpuscular Volume 93.9 fl (81-99); Mean Platelet Volume 12.2 fL (7.4-10.4); Monocytes # 0.6 10^3/uL (0.2-0.9); Monocytes % 4.4 %; Neutrophils # 8.69 10^3/uL (1.8-7.7); Neutrophils % 64.2 %; Nucleated Red Blood Cells % 0 %; Platelet Count 357 10^3/cmm (130-400); Red Cell Distribution Width 13.8 % (12.1-15.1); White Blood Count 13.5 10^3/uL (4.0-10.0)
--- NOTE | 2021-08-31 22:24 | CTR_ITS ---
PROCEDURE INFORMATION: Exam: CT Head Without Contrast Exam date and time: 08/31/2021 10:29 PM Age: 56 years old Clinical indication: Altered mental status/memory loss; Confusion or disorientation; Prior surgery; Surgery type: Craniocervical fusion. Patient HX: AMS. Patient has mild confusion. Thinking daughter is in the room when she is not. TECHNIQUE: Imaging protocol: Computed tomography of the head without contrast. Radiation optimization: All CT scans at this facility use at least one of these dose optimization techniques: automated exposure control; mA and/or kV adjustment per patient size (includes targeted exams where dose is matched to clinical indication); or iterative reconstruction. COMPARISON: CT head wo con* [id number] 06/10/2021 10:01 AM RADIATION DOSE METRICS: Total DLP (mGy-cm): 766.27 FINDINGS: Brain: Mild atrophy and mild white matter chronic microvascular changes are noted. No hemorrhage or evidence of acute infarction. Cerebral ventricles: No ventriculomegaly. Paranasal sinuses: Visualized sinuses are unremarkable. No fluid levels. Mastoid air cells: Visualized mastoid air cells are well aerated. Bones/joints: Unremarkable. No acute fracture. Soft tissues: Unremarkable. CT/CT head wo con* [id number] IMPRESSION: No acute intracranial abnormality.
[2021-08-31] MEDS: iohexol 300 mg/mL 100 mL Btl IV (22:42)
[2021-08-31 22:53] LABS: Add Urine Culture? Yes; Add Urine Microscopic? YES; Bacteria Urine 2+ /hpf; Bilirubin Urine Neg (Negative); Blood Urine 3+ (Negative); Glucose Urine UA Norm (Normal); Ketones Urine 1+ (Negative); Leukocyte Esterase Urine 2+ (Negative); Nitrate Urine Negative (Negative); Protein Urine Neg (Negative); RBC Urine 0-4 /hpf (0-2); Squamous Epithelial Cell Urine 0-4 /hpf (0-5); Urine Appearance SL Hazy (CLEAR); Urine Color Yellow (Yellow); Urobilinogen Urine Norm (Negative); pH Urine 7 (5-7)
[2021-08-31 23:24] LABS: Lactic Sepsis W/Reflex 1.2 mmol/L (0.5-2.2)
[2021-08-31] MEDS: fentaNYL 50 mcg/mL INJ 2mL IVP (23:29)
[2021-08-31] MEDS: sodium chloride 0.9% 1,000 ML 999 ML IV (23:33)
[2021-08-31 23:42] LABS: Procalcitonin 0.27 ng/mL (0-0.5); Thyroid Stimulating Hormone 12.59 uIU/mL (0.27-4.20)
[2021-09-01 00:34] VITALS: BP 108/64; PULSE 66; RESP 16; O2SAT 98
[2021-09-01 00:51] LABS: Alanine Aminotransferase 8 U/L (0-33); Alkaline Phosphatase 130 IU/L (35-105); Blood Urea Nitrogen 17 mg/dL (6-20); Calcium 10.4 mg/dL (8.5-10.5); Carbon Dioxide 24 mmol/L (22-29); Chloride 99 mmol/L (98-107); Globulin 2.4 g/dL (1.3-4.6); Glomerular Filtration Rate 127.6 mL/min (90-130); Glucose 78 mg/dL (65-115); Osmolality Calculated 278 mOsm/kg (285-295); Sodium 134 mmol/L (136-145); Total Bilirubin 0.3 mg/dL (0.15-1.2); Total Protein 5.4 g/dL (6.6-8.7)
[2021-09-01 01:22] LABS: Anion Gap 13.8 (5-19)
[2021-09-01 01:23] LABS: Aspartate Amino Transferase 17 U/L (0-32); Potassium 2.8 mmol/L (3.5-5.1)
[2021-09-01] MEDS: potassium chloride ER 20 mEq Tablet 60 MEQ PO (01:29)
[2021-09-01 01:38] VITALS: BP 96/68; PULSE 80; RESP 17; O2SAT 97
[2021-09-01 02:18] VITALS: BP 123/65; PULSE 81; RESP 18; O2SAT 98
[2021-09-01 02:48] VITALS: BP 104/73; PULSE 93; RESP 18; O2SAT 98
--- NOTE | 2021-09-01 02:53 | PC.NURSE ---
Patient daughter attempted to be reached by phone X3 ,for update in plan of care and discharge findings. Voicemail left with facility contact information and phone number on voice message. Discharge instruction packet and education reviewed with patient. Information packet with patient at time of discharge and pickup by ambulance service.
[2021-09-01 02:57] VITALS: BP 104/73; PULSE 93; RESP 18; TEMP 37; O2SAT 98
== END 2021-09-01 03:00 | disposition home or self-care (01) ==
PROVIDERS: Emergency Medicine; Emergency Provider Emergency Medicine; PCP Nurse Practitioner Family
DX: R53.1 Weakness (principal); L89.899 Pressure ulcer of other site, unspecified stage; E87.6 Hypokalemia; G89.29 Other chronic pain; Z74.01 Bed confinement status; Z87.828 Personal history of other (healed) physical injury and trauma; Z79.891 Long term (current) use of opiate analgesic
CPT/HCPCS: 70450; 71045; 71260; 72125; 74177; 80053; 81001; 83605; 84145; 84443; 85025; 86140; 87040; 87086; 87106; 93005; 96361; 96374; 96375; 99285; 99291; 99292; J2270; J3010; J7030; Q9967

== ENCOUNTER 2021-09-04 18:23 | Emergency (ER) | payer MEDICARE, MEDICAID, SELFPAY ==
[2021-09-04 18:31] VITALS: BP 88/53; PULSE 84; RESP 20; TEMP 36.4; O2SAT 98; BMI 21.2
--- NOTE | 2021-09-04 18:45 | W.ED.GENADLT ---
HPI - General Adult General: Chief complaint: Pediatric General Medical Stated complaint: SURGERY ON DECUB ULCER WORSENING PAIN Time Seen by Provider: 09/04/21 18:30 History of Present Illness: Patient is a 56-year-old female with a history of chronic bedbound, chronic decubitus sacral ulcer presenting to the emergency room for evaluation of worsening pain and drainage from the ulcer site. Patient tells me that she sustained the ulcer about few months ago while in the hospital. Since then, patient has not been able to follow-up with wound care. Patient was seen by us on 08/31/2021 for similar complaints. However because of delay in getting seen in wound care clinic, patient's daughter became concerned for significant pain and patient was brought to the emergency room. Patient tells me that she uses fentanyl fentanyl patch for the pain. Patient reports ongoing drainage and pain. Patient reports home nursing and daily packing. Patient denies any fever/chills, abdominal complaints, nausea/vomiting, chest pain, shortness breath, palpitation or complaints. Onset: chronic Duration:ongoing Location:home Severity:moderate Associated symptoms: Deny chest pain, dyspnea, nausea, palpitations or vomiting Review of Systems Const: Denies: fever(s) or chills Eyes: Denies: change in vision ENMT: Denies: mouth pain Card: Denies: chest pain or palpitations Resp: Denies: dyspnea or non-productive cough GI: Denies: abdominal pain, nausea, vomiting or diarrhea : Denies: dysuria Musc: Denies: extremity pain Skin/Breast: Reports: new lesions (+sacral decubitus ulcer) Neuro: Denies: weakness in extremities Psych: Reports: other (Normal mood) Jam/Lymph: Denies: easy bruising PFSH ED PFSH: Medical History Alcohol use disorder, moderate, in sustained remission Anemia Bipolar II disorder Borderline personality disorder C1 cervical fracture Cellulitis of sacral region Cigarette nicotine dependence Deep vein thrombosis of left femoral vein Degenerative lumbar disc Discitis Hyperlipidemia Hyponatremia Hypothyroidism Instability of C1-C2 vertebrae 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 Low back pain radiating to both legs MRSA bacteremia Noncompliance Onychodystrophy Panic disorder Postoperative wound infection (2020) MRSA Pressure ulcer with suspected deep tissue injury Psychiatric care Sacral decubitus ulcer, stage IV Sacral ulcer Surgical History History of fusion of lumbar spine (08/10/20) L4-L5, L5-S1 interbody fusion with posterolateral fusion, with cage at L4/5, L5/S1, revision laminectomy L4 and L5, Dr Ramirez History of laminectomy (02/22/20) L4-L5 laminectomy with partial facetectomy, Dr Ramirez History of lumbosacral spine surgery (08/10/20) Hx of section Hx of hysterectomy S/P debridement With Dr. Hoyt 06/21 S/P excisional debridement (06/09/21) Sacral decubitus ulcer S/P hardware removal 06/21 S/P spinal fusion Family History Denies family history of CAD (coronary artery disease) Anesthesia complication Social History Smoking and tobacco status: current every day smoker cigarettes Alcohol intake: former Household members: family Physical Exam Const: COMMON NORMALS: alert HENMT: COMMON NORMALS: atraumatic HEAD & SCALP: atraumatic MOUTH: moist mucous membranes not abnormal Eye: COMMON NORMALS: EOMs intact bilaterally and conjunctivae normal CONJUNCTIVA: Yes conjunctivae normal Neck/C-Spine: COMMON NORMALS: full ROM and supple Resp: COMMON NORMALS: normal respiratory effort and clear to auscultation bilaterally AUSCULTATION: clear to auscultation bilaterally Cardio: COMMON NORMALS: regular rate RATE: regular rate GI: COMMON NORMALS: Soft to palpation and non-tender PALPATION: Yes Soft to palpation Extremity: COMMON NORMALS: full ROM Neuro: SENSORIUM/ORIENTATION: Yes alert MOTOR EXAM: No Abnormal motor strength present and Other motor observations present (no focal motor deficits) Psych: COMMON NORMALS: speech normal SPEECH: Yes normal speech MOOD & AFFECT: Yes euthymic mood Skin: NARRATIVE SKIN EXAM: + Large stage III sacral decubitus ulcer with subcutaneous involvement. Brief area of eschar noted on the edge of the wound, no signs of visible drainage from the wound Course Vital Signs: Vital signs: Vital Signs Temperature 98.5 F 09/04/21 19:14 Pulse Rate 90 09/04/21 22:01 Respiratory Rate 18 09/04/21 22:01 Blood Pressure 121/85 09/04/21 22:01 Pulse Oximetry 99 09/04/21 22:01 MDM - General Adult Medical Decision Making 56-year-old female with a history of large decubitus ulcer presenting to the emergency room for evaluation of worsening pain and drainage. On physical exam, patient noted to have stage III sacral decubitus ulcer with an area of eschar. Patient is hemodynamically stable, afebrile currently. Patient received 1 mg of Dilaudid reports pain has significantly improved. At the present time, have offered patient admission however patient elects to go home citing desire to follow-up with wound care outpatient. Patient tells me that she is frustrated that she has not been able to see Dr. Ramirez or the wound care clinic in the last 3 days. I have reached out to the wound care myself and left a voicemail expressing the need for patient to follow-up closely since she wants to go home at this time. I have given patient follow up with our housing case manager to be seen by our outpatient wound care and Dr. Ramirez for stage 3 eschar. Patient aware of a call from our housing case manager to schedule for appointment(s) and verbalizes understanding of the importance of following up. Rx percocet PRN pain, narcan for possible overdose Since patient is on multiple opiate medication including fentanyl patch I have given the patient a Narcan prescription. Instructed patient to use narcan script should there is any concern for opiate overdose. Patient verbalized understanding of how to use Narcan prescription tells me that she will have her family on stand by while she takes her opiate medications. Disposition: Discharge. Patient counseled regarding diagnostic impression, treatment plan. Patient given ED strict return precautions to return for continuation, worsening, or development of new symptoms. Instructed to f/u w/ PCP regarding symptoms today. Patient verbalized understanding. Lab Data : 09/04/21 21:11 09/04/21 21:11 Laboratory Results WBC 13.2 10^3/uL (4.0-10.0) H 09/04/21 21:11 RBC 3.53 10^6/uL (4.1-5.3) L 09/04/21 21:11 Hgb 11.6 g/dL (11.5-15.3) 09/04/21 21:11 Hct 36.4 % (37.0-47.0) L 09/04/21 21:11 MCV 103.1 fl (81-99) H 09/04/21 21:11 MCH 32.9 pg (28.0-34.0) 09/04/21 21:11 MCHC 31.9 g/dL (30.0-36.0) 09/04/21 21:11 RDW 14.2 % (12.1-15.1) 09/04/21 21:11 Plt Count 294 10^3/cmm (130-400) 09/04/21 21:11 MPV 10.4 fL (7.4-10.4) 09/04/21 21:11 Neut % (Auto) 65.7 % 09/04/21 21:11 Lymph % (Auto) 29.3 % 09/04/21 21:11 [place] % (Auto) 3.8 % 09/04/21 21:11 Eos % (Auto) 0.5 % 09/04/21 21:11 Baso % (Auto) 0.2 % 09/04/21 21:11 Neut # (Auto) 8.65 10^3/uL (1.8-7.7) H 09/04/21 21:11 Lymph # (Auto) 3.9 10^3/uL (0.8-4.8) 09/04/21 21:11 [place] # (Auto) 0.5 10^3/uL (0.2-0.9) 09/04/21 21:11 Eos # (Auto) 0.1 10^3/uL (0.0-0.8) 09/04/21 21:11 Baso # (Auto) 0.0 10^3/uL (0.0-0.1) 09/04/21 21:11 Nucleated RBC % (auto) 0 % 09/04/21 21:11 Nucleated RBCs # 0.0 /100WBC 09/04/21 21:11 Sodium 140 mmol/L (136-145) 09/04/21 21:11 Potassium 3.3 mmol/L (3.5-5.1) L 09/04/21 21:11 Chloride 106 mmol/L (98-107) 09/04/21 21:11 Carbon Dioxide 23 mmol/L (22-29) 09/04/21 21:11 Anion Gap 14.3 (5-19) 09/04/21 21:11 BUN 14 mg/dL (6-20) 09/04/21 21:11 Creatinine 0.4 mg/dL (0.5-0.9) L 09/04/21 21:11 GFR Calculation 165.1 mL/min (90-130) H 09/04/21 21:11 Glucose 125 mg/dL (65-115) H 09/04/21 21:11 Calculated Osmolality 292 mOsm/kg (285-295) 09/04/21 21:11 Calcium 10.7 mg/dL (8.5-10.5) H 09/04/21 21:11 Total Bilirubin 0.2 mg/dL (0.15-1.2) 09/04/21 21:11 AST 12 U/L (0-32) 09/04/21 21:11 ALT 9 U/L (0-33) 09/04/21 21:11 Alkaline Phosphatase 148 IU/L (35-105) H 09/04/21 21:11 Total Protein 6.0 g/dL (6.6-8.7) L 09/04/21 21:11 Albumin 3.0 g/dL (3.5-5.2) L 09/04/21 21:11 Globulin 3.0 g/dL (1.3-4.6) 09/04/21 21:11 Lipase 16 U/L (13-60) 09/04/21 21:11 Discharge Plan Discharge Patient Disposition: Home Clinical Impression: Decubitus ulcer of sacral region, stage 3, Pelvic pain Condition: Stable Prescriptions: New naloxone [Narcan] 4 mg/actuation spray,non-aerosol 4 mg intranasal Q2M PRN (Reason: opioid overdose) Qty: 2 0RF Rx Instructions: spray 1 dose into ONE nostril; alternate nostrils w each dose until help arrives No Action baclofen 10 mg tablet 20 mg PO TID PRN (Reason: Muscle Spasm) 0RF lamotrigine 200 mg tablet 400 mg PO QAM Qty: 180 2RF trazodone 100 mg tablet 300 mg PO BEDTIME Qty: 270 2RF (DME) Bone Growth Stimulator [id number] See Rx Instructions .Route .MEDSUPPLY Qty: 1 0RF Rx Instructions: As directed (DME) Rolling walker See Rx Instructions .Route .MEDSUPPLY Qty: 1 0RF Rx Instructions: As directed oxycodone 5 mg tablet 5 mg PO Q6H PRN (Reason: pain) 7 Days Qty: 28 0RF albuterol sulfate 90 mcg/actuation HFA aerosol inhaler 2 puff INHALATION Q4H PRN (Reason: Shortness Of Breath) 0RF fluticasone propionate 50 mcg/actuation Welch,Suspension 1 spray INTRANASAL BID PRN (Reason: Allergy Symptoms) 0RF hydrochlorothiazide 12.5 mg capsule 12.5 mg PO DAILY PRN (Reason: Edema) 0RF atorvastatin 40 mg Tablet 40 mg PO QPM 0RF doxycycline hyclate 100 mg Capsule 100 mg PO BID 0RF alprazolam 0.5 mg tablet 0.5 mg PO TID PRN (Reason: Anxiety) 0RF pantoprazole 40 mg Tablet,Delayed Release (Dr/Ec) 40 mg PO DAILY 0RF buspirone 10 mg Tablet 10 mg PO TID 0RF metoprolol tartrate 50 mg Tablet 50 mg PO BID 0RF folic acid 1 mg Tablet 1 mg PO DAILY 0RF nystatin [Nystop] 100,000 unit/gram Powder 1 applic TOPICAL BID 0RF Dakin's Solution 0.25 % solution See Rx Instructions .ROUTE .COMPLEX 0RF Rx Instructions: DIRECTED fentanyl 12 mcg/hr Patch 72 Hour 1 patch TRANSDERMAL Q72H 0RF oxycodone 10 mg Tablet 10 mg PO Q6H PRN (Reason: Pain) 0RF Eliquis 5 mg Tablet 5 mg PO BID 0RF tizanidine 4 mg tablet 4 mg PO QID PRN (Reason: Muscle Pain) 0RF levothyroxine 100 mcg tablet 100 mcg PO DAILY 0RF Percocet 5-325 mg tablet 1 tab PO Q8H PRN (Reason: pain) Qty: 9 0RF Pepcid 20 mg tablet 20 mg PO BID PRN (Reason: abdominal pain) 10 Days Qty: 20 0RF amoxicillin-pot clavulanate 875-125 mg tablet 1 tab PO BID 7 Days Qty: 14 0RF Discharge Orders: Discharge ED (Routine); Ordered 09/04/21 Ordered By: Raheel Malone Referrals: Srinivasan,Blanche, [facility]ESSERT [Primary Care Provider] - Discharge Diet: Advance as tolerated Discharge Activity: Increase activity as tolerated Activity Restrictions/Additional Instructions: Our housing case manager will have you follow-up with wound care in the next few days. You would be expected to have a phone call with our housing case manager who will put you on the schedule. You can expect a call from us in the next 2-3 days. If you don't hear from us, call us back in the emergency room at [phone]. Please take your pain medicine as instructed. Call [phone] for the wound care lcinic. Come back if you have any worsening pain, fever/chill, drainage or any new or concerning issues. Please be careful while taking your pain medicine as you have other pain medication including fentanyl patch. Please have your family use your Narcan as needed if you overdose on her medicine. Coding Level of Care Code ED School Occupational Therapist for [employer] Exam Comprehensive
[2021-09-04 19:14] VITALS: PULSE 155; RESP 28; TEMP 36.9; O2SAT 98
[2021-09-04] MEDS: HYDROmorphone 1 mg/mL INJ 1 mL IVP (20:10)
[2021-09-04 20:13] VITALS: BP 95/71; PULSE 72; RESP 18; O2SAT 100
[2021-09-04 20:33] VITALS: BP 97/74; PULSE 83; RESP 16; O2SAT 98
[2021-09-04 21:05] VITALS: BP 104/76; PULSE 81; RESP 18; O2SAT 100
[2021-09-04 21:18] LABS: Basophils % 0.2 %; Eosinophils # 0.1 10^3/uL (0.0-0.8); Eosinophils % 0.5 %; Hematocrit 36.4 % (37.0-47.0); Hemoglobin 11.6 g/dL (11.5-15.3); Lymphocytes # 3.9 10^3/uL (0.8-4.8); Lymphocytes % 29.3 %; Mean Corpuscular HGB Conc 31.9 g/dL (30.0-36.0); Mean Corpuscular Hemoglobin 32.9 pg (28.0-34.0); Mean Corpuscular Volume 103.1 fl (81-99); Mean Platelet Volume 10.4 fL (7.4-10.4); Monocytes # 0.5 10^3/uL (0.2-0.9); Monocytes % 3.8 %; Neutrophils # 8.65 10^3/uL (1.8-7.7); Neutrophils % 65.7 %; Nucleated Red Blood Cells % 0 %; Platelet Count 294 10^3/cmm (130-400); Red Blood Count 3.53 10^6/uL (4.1-5.3); Red Cell Distribution Width 14.2 % (12.1-15.1); White Blood Count 13.2 10^3/uL (4.0-10.0)
[2021-09-04 21:38] LABS: Alanine Aminotransferase 9 U/L (0-33); Alkaline Phosphatase 148 IU/L (35-105); Anion Gap 14.3 (5-19); Aspartate Amino Transferase 12 U/L (0-32); Blood Urea Nitrogen 14 mg/dL (6-20); Calcium 10.7 mg/dL (8.5-10.5); Carbon Dioxide 23 mmol/L (22-29); Chloride 106 mmol/L (98-107); Glomerular Filtration Rate 165.1 mL/min (90-130); Glucose 125 mg/dL (65-115); Lipase 16 U/L (13-60); Osmolality Calculated 292 mOsm/kg (285-295); Potassium 3.3 mmol/L (3.5-5.1); Sodium 140 mmol/L (136-145); Total Bilirubin 0.2 mg/dL (0.15-1.2)
[2021-09-04 22:01] VITALS: BP 121/85; PULSE 90; RESP 18; O2SAT 99
[2021-09-05] MEDS: HYDROmorphone 1 mg/mL INJ 1 mL IVP (00:11)
--- NOTE | 2021-09-05 11:14 | DCPLANNER ---
Addendum entered by Shelby Muñoz 09/17/21 06:41: Patient had a follow up appointment scheduled for 09.11.21 with Wound Care - patient did attend appointment. Original Note: store loss prevention manager was asked to check on patients appointment with wound care. store loss prevention manager called Wound Care, spoke with Maren, asked about follow up appointment for patient. store loss prevention manager was told that patient has no showed 2 appointments. Patient has an appointment scheduled for Saturday, September 11, [address] at 8:[address] Mcgregor. store loss prevention manager [facility] to arrange transportation for patient. Transportation [place] [id number]. store loss prevention manager called Wound Care, and let Maren know that transportation had been arranged for patient, and what the conformation number for the trip was. store loss prevention manager also called patients daughter and reminded the daughter of the appointment, and that if something goes wrong with the ride that patients daughter can call window caser to look into the ride. store loss prevention manager also had a message to schedule a follow up appointment for patient with ethel, Dr. Ramirez. Patients daughter stated that she will take care of the followup with .
== END 2021-09-05 00:48 | disposition home or self-care (01) ==
PROVIDERS: Emergency Provider Emergency Medicine; PCP Nurse Practitioner Family
DX: L89.153 Pressure ulcer of sacral region, stage 3 (principal); R10.2 Pelvic and perineal pain; E78.5 Hyperlipidemia, unspecified; E03.9 Hypothyroidism, unspecified; F17.210 Nicotine dependence, cigarettes, uncomplicated; Z74.01 Bed confinement status
CPT/HCPCS: 36415; 80053; 83690; 85025; 96374; 96376; 99284; J1170

== ENCOUNTER 2021-09-07 14:19 | Emergency (ER) | payer MEDICARE, MEDICAID, SELFPAY ==
[2021-09-07] VITALS (7 sets, daily range): BP systolic 94–98; BP diastolic 49–72; PULSE 70–98; RESP 14–22; O2SAT 96–99; BMI 20.3
--- NOTE | 2021-09-07 14:27 | W.ED.GENADLT ---
HPI - General Adult General: Chief complaint: Nausea/Vomiting/Diarrhea Stated complaint: diarrhea Time Seen by Provider: 09/07/21 14:25 History of Present Illness: Patient is a 56-year-old female with a history of chronic alcohol use, chronically bedbound, bipolar 2 disorder, large stage III sacral ulcer with eschar who was recently seen and evaluated in the emergency room presenting to the emergency room presenting today with complaints of worsening diarrhea and lower abdominal pain. Patient tells me that since her discharge from the emergency room on 09/04/2021 she has been having increasing diarrhea and rectal area pain. Patient is due to follow-up with wound care on Saturday. Patient has a ride arranged for her for wound care. Since discharge from hospital, patient also complains of lower abdominal pain. Denies any urinary complaints. Patient does me that she has a chronic indwelling Arriola catheter. Perhaps most recently has had difficulty controlling her bowel. Patient denies any nausea/vomiting, fever/chills or any sick contacts around her. Patient is currently on doxycycline for the wound. Onset:3 days ago Duration: 3 days Location:home Severity:moderate Associated symptoms: Deny chest pain, dyspnea, nausea, palpitations or vomiting Review of Systems Const: Denies: fever(s) or chills Eyes: Denies: change in vision ENMT: Denies: mouth pain Card: Denies: chest pain or palpitations Resp: Denies: dyspnea or non-productive cough GI: Reports: abdominal pain (+lower quadrants abdominal pain) and diarrhea; Denies: nausea or vomiting : Reports: other; Denies: dysuria Musc: Denies: extremity pain Skin/Breast: Reports: new lesions (+sacral ulcer) Neuro: Denies: weakness in extremities Psych: Reports: other (Normal mood) Jam/Lymph: Denies: easy bruising PFSH ED PFSH: Medical History Alcohol use disorder, moderate, in sustained remission Anemia Bipolar II disorder Borderline personality disorder C1 cervical fracture Cellulitis of sacral region Cigarette nicotine dependence Deep vein thrombosis of left femoral vein Degenerative lumbar disc Discitis Hyperlipidemia Hyponatremia Hypothyroidism Instability of C1-C2 vertebrae 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 Low back pain radiating to both legs MRSA bacteremia Noncompliance Onychodystrophy Panic disorder Postoperative wound infection (2020) MRSA Pressure ulcer with suspected deep tissue injury Psychiatric care Sacral decubitus ulcer, stage IV Sacral ulcer Surgical History History of fusion of lumbar spine (08/10/20) L4-L5, L5-S1 interbody fusion with posterolateral fusion, with cage at L4/5, L5/S1, revision laminectomy L4 and L5, Dr Ramirez History of laminectomy (02/22/20) L4-L5 laminectomy with partial facetectomy, Dr Ramirez History of lumbosacral spine surgery (08/10/20) Hx of section Hx of hysterectomy S/P debridement With Dr. Hoyt 06/21 S/P excisional debridement (06/09/21) Sacral decubitus ulcer S/P hardware removal 06/21 S/P spinal fusion Family History Denies family history of CAD (coronary artery disease) Anesthesia complication Social History Smoking and tobacco status: current every day smoker cigarettes Alcohol intake: former Household members: family Physical Exam Const: COMMON NORMALS: alert HENMT: COMMON NORMALS: atraumatic HEAD & SCALP: atraumatic MOUTH: moist mucous membranes not abnormal Eye: COMMON NORMALS: EOMs intact bilaterally and conjunctivae normal CONJUNCTIVA: Yes conjunctivae normal Neck/C-Spine: COMMON NORMALS: full ROM and supple Resp: COMMON NORMALS: normal respiratory effort and clear to auscultation bilaterally AUSCULTATION: clear to auscultation bilaterally Cardio: COMMON NORMALS: regular rate RATE: regular rate GI: COMMON NORMALS: Soft to palpation PALPATION: Yes Soft to palpation OTHER: + Lower abdominal tenderness to palpation, no guarding rebound, guarding, rigidity. No CVA tenderness to percussion. Neg Hurley/Neg McBurney's point tenderness, no suprabupic tenderness to palpation. Extremity: COMMON NORMALS: full ROM Neuro: SENSORIUM/ORIENTATION: Yes alert MOTOR EXAM: No Abnormal motor strength present and Other motor observations present (no focal motor deficits) Psych: COMMON NORMALS: speech normal SPEECH: Yes normal speech MOOD & AFFECT: Yes euthymic mood Skin: NARRATIVE SKIN EXAM: Large sacral stage III ulcer without any mild clear drainage, eschar noted on the lateral aspect of the stage III sacral ulcer Course Vital Signs: Vital signs: Vital Signs Pulse Rate 72 09/08/21 01:13 Respiratory Rate 16 09/08/21 01:13 Blood Pressure 103/67 09/08/21 01:13 Pulse Oximetry 98 09/08/21 01:13 [facility] - General Adult Medical Decision Making 56-year-old female with history of chronic alcohol use, chronically bedbound, bipolar 2 disorder, large stage III sacral ulcer with eschar who was recently seen and evaluated in the emergency room presenting to the emergency room presenting today with complaints of worsening diarrhea and lower abdominal pain x 3 days. Physical exam, patient has lower abdominal tenderness to palpation. Patient continues to have a stage III sacral ulcer in the decubitus position the area of eschar. Patient is due to follow-up with wound care. Rest of exam within normal limit. Today patient is known to have a white count 15.5 similar to her baseline. CT abdomen pelvis showed rectosigmoid colitis. White count 15.5 similar to baseline. Patient will be discharged home with Augmentin. S/p first dose of augmentin today. Per conversation with telephonic nurse case manager, patient will be scheduled for outpatient evaluation at the wound care clinic. Patient has a ride arranged wound care appointment. Patient at this time elects to go home. She is able to tolerate p.o. Patient received multiple medication in the emergency room reports pain is well controlled. Rx augmentin for rectosigmoid colitis, percocet PRN pain Disposition: Discharge. Patient counseled regarding diagnostic impression, treatment plan. Patient given ED strict return precautions to return for continuation, worsening, or development of new symptoms. Instructed to f/u w/ PCP regarding symptoms today. Patient verbalized understanding. Lab Data : 09/07/21 15:15 09/07/21 15:15 Radiology Impressions Abdomen/Pelvis CT 09/07/21 15:50 IMPRESSION: 1. Findings consistent with rectosigmoiditis. 2. Trace calcified debris versus bladder stone measuring 6 mm in the right posterolateral bladder. The bladder wall is also thickened which could be reactive to the above findings or reflect cystitis. Correlate with urinalysis. 3. Redemonstrated sequela of sacral decubitus ulceration. No acute findings. Consistent with the [employer]'s Incidental Findings Committee white paper (J Am Wilber Radiol 2018): Any incidental renal lesion less than 1 cm or classified as too small to characterize, or any incidental cystic renal lesion characterized as simple-appearing, is likely benign. No follow-up imaging is recommended for these lesions per consensus recommendations based on imaging criteria. Laboratory Results WBC 15.5 10^3/uL (4.0-10.0) H 09/07/21 15:15 RBC 3.39 10^6/uL (4.1-5.3) L 09/07/21 15:15 Hgb 11.0 g/dL (11.5-15.3) L 09/07/21 15:15 Hct 32.6 % (37.0-47.0) L 09/07/21 15:15 MCV 96.2 fl (81-99) 09/07/21 15:15 MCH 32.4 pg (28.0-34.0) 09/07/21 15:15 MCHC 33.7 g/dL (30.0-36.0) 09/07/21 15:15 RDW 14.2 % (12.1-15.1) 09/07/21 15:15 Plt Count 321 10^3/cmm (130-400) 09/07/21 15:15 MPV 10.3 fL (7.4-10.4) 09/07/21 15:15 Neut % (Auto) 69.8 % 09/07/21 15:15 Lymph % (Auto) 25.5 % 09/07/21 15:15 [place] % (Auto) 3.4 % 09/07/21 15:15 Eos % (Auto) 0.3 % 09/07/21 15:15 Baso % (Auto) 0.5 % 09/07/21 15:15 Neut # (Auto) 10.84 10^3/uL (1.8-7.7) H 09/07/21 15:15 Lymph # (Auto) 4.0 10^3/uL (0.8-4.8) 09/07/21 15:15 [place] # (Auto) 0.5 10^3/uL (0.2-0.9) 09/07/21 15:15 Eos # (Auto) 0.0 10^3/uL (0.0-0.8) 09/07/21 15:15 Baso # (Auto) 0.1 10^3/uL (0.0-0.1) 09/07/21 15:15 Nucleated RBC % (auto) 0 % 09/07/21 15:15 Nucleated RBCs # 0.0 /100WBC 09/07/21 15:15 Sodium 139 mmol/L (136-145) 09/07/21 15:15 Potassium 3.0 mmol/L (3.5-5.1) L 09/07/21 15:15 Chloride 106 mmol/L (98-107) 09/07/21 15:15 Carbon Dioxide 24 mmol/L (22-29) 09/07/21 15:15 Anion Gap 12.0 (5-19) 09/07/21 15:15 BUN 14 mg/dL (6-20) 09/07/21 15:15 Creatinine 0.5 mg/dL (0.5-0.9) 09/07/21 15:15 GFR Calculation 127.6 mL/min (90-130) 09/07/21 15:15 Glucose 105 mg/dL (65-115) 09/07/21 15:15 Calculated Osmolality 289 mOsm/kg (285-295) 09/07/21 15:15 Calcium 9.9 mg/dL (8.5-10.5) 09/07/21 15:15 Total Bilirubin 0.2 mg/dL (0.15-1.2) 09/07/21 15:15 AST 14 U/L (0-32) 09/07/21 15:15 ALT 8 U/L (0-33) 09/07/21 15:15 Alkaline Phosphatase 141 IU/L (35-105) H 09/07/21 15:15 Total Protein 5.3 g/dL (6.6-8.7) L 09/07/21 15:15 Albumin 2.8 g/dL (3.5-5.2) L 09/07/21 15:15 Globulin 2.5 g/dL (1.3-4.6) 09/07/21 15:15 Lipase 20 U/L (13-60) 09/07/21 15:15 Imaging Data Other Imaging: Radiologist's impression: Hilda Da Silva?(c)??56??F??1965 ? Allergy/Adv: naproxen, gabapentin (More??) Close Abdomen/Pelvis CT (Signed) Ramses Cohen - 09/07/[address] (Signed) Neto Ramsey - 08/31/21 Chest/Abdomen/Pelvis CT (Signed) Arlette Woods - 08/31/[address] (Signed) Neto Ramsey - 08/31/21 Chest X-Ray (Signed) Neto Ramsey - 08/31/21 Cervical Spine X-Ray (Signed) Danyel Borrero - 08/24/21 Lumbar Spine X-Ray (Signed) Bonita Morales - 06/21/21 C-Arm Fluoroscopy (Signed) Santosh Ramirez - 06/21/[address] (Signed) Salomon Shah - 06/20/21 Venous Duplex (Signed) Jesus Montaño - 06/15/[address] (Signed) Sarthak Jaquez - 06/12/21 Cervical Spine X-Ray (Signed) Bonita Morales - 06/12/21 Cervical Spine X-Ray (Signed) Bonita Morales - 06/12/21 C-Arm Fluoroscopy (Signed) Santosh Ramirez - 06/12/21 Thoracic Spine MRI (Signed) Sarthak Guillaume - 06/10/21 Cervical Spine MRI (Signed) Sarthak Guillaume - 06/10/21 Head/Neck CTA (Signed) Blanche Odom - 06/10/[address] (Signed) Matthew Ellis - 06/10/[address] (Signed) Matthew Ellis - 06/10/21 Thoracic Spine MRI (Signed) Arie Bell - 06/08/21 Lumbar Spine MRI (Signed) Arie Bell - 06/08/21 Lumbar Spine X-Ray (Signed) Salomon Shah - 05/30/[address] (Signed) Salomon Shah - 05/29/21 Myelogram,Lumbar Spine (Signed) Salomon Shah - 05/18/[address] (Signed) Salomon Shah - 05/18/[address] (Signed) Diamante Kennedy - 04/17/21 Lumbar Spine X-Ray (Signed) Pito Sanon Jr - 03/16/21 Hip and Pelvis X-Ray (Signed) Pito Sanon Jr - 03/16/21 Lumbar Spine X-Ray (Signed) Bonita Morales - 01/19/21 Lumbar Spine X-Ray (Signed) Matthew Ellis - 11/29/20 Launch?[employer] [address] [place] [address] CT Scan Report Signed Patient: Hilda Da Silva Unit #: [id number] : 1965 Age/Sex: 56 / F ADM Date: 09/07/21 Loc: ER Room/Bed: Attending Dr: Ordering Provider/Ordering MD: Raheel Malone MD Date of Service: 09/07/21 Procedure(s): CT abdomen pelvis w con* [id number] Accession Number(s): [id number] Report Number: [id number] PROCEDURE INFORMATION: Exam: CT Abdomen And Pelvis With Contrast Exam date and time: 09/07/2021 4:31 PM Age: 56 years old Clinical indication: Abdominal pain; Localized; Lower; Prior surgery; Surgery date: 6+ months; Surgery type: Lspine, hyst, c section, ; additional info: Lower abd pain TECHNIQUE: Imaging protocol: Computed tomography of the abdomen and pelvis with contrast. Radiation optimization: All CT scans at this facility use at least one of these dose optimization techniques: automated exposure control; mA and/or kV adjustment per patient size (includes targeted exams where dose is matched to clinical indication); or iterative reconstruction. Contrast material: OMNIPAQUE 300; Contrast volume: 70 ml; Contrast route: INTRAVENOUS (IV);? COMPARISON: CT chest abd pel w con* 08/31/2021 10:33 PM RADIATION DOSE METRICS: Total DLP (mGy-cm): 991.52 FINDINGS: Liver: Normal. No mass. Gallbladder and bile ducts: Normal. No calcified stones. No ductal dilation. Pancreas: Normal. No ductal dilation. Spleen: Normal. No splenomegaly. Adrenal glands: Normal. No mass. Kidneys and ureters: 1 cm cyst noted in the lower pole of the left kidney. No hydronephrosis. Stomach and bowel: Mucosal thickening of the rectosigmoid colon. No obstruction. Appendix: No evidence of appendicitis. Intraperitoneal space:? Trace free fluid in the pelvis.? No free air. No significant fluid collection. Vasculature: Unremarkable. No abdominal aortic aneurysm. Lymph nodes: Unremarkable. No enlarged lymph nodes. Urinary bladder: Arriola catheter noted within the bladder. Circumferential bladder wall thickening. Trace intraluminal air. 6 mm calcified debris or stone noted in the right posterolateral bladder. Reproductive: Hysterectomy. Bones/joints: No acute fracture. Unchanged eroded appearance of the superior endplate of L4 and the inferior endplate of L3. Sequela of lumbar hardware removal again noted. Soft tissues: Redemonstrated decubitus ulcer which extends to the region of the inferior sacrum/coccyx. No findings of abscess or acute osseous erosions. CT/CT abdomen pelvis w con* [id number] IMPRESSION: 1. Findings consistent with rectosigmoiditis. 2. Trace calcified debris versus bladder stone measuring 6 mm in the right posterolateral bladder. The bladder wall is also thickened which could be reactive to the above findings or reflect cystitis. Correlate with urinalysis. 3. Redemonstrated sequela of sacral decubitus ulceration. No acute findings. ? Consistent with the [place]'s Incidental Findings Committee white paper (J Am Wilber Radiol 2018): Any incidental renal lesion less than 1 cm or classified as too small to characterize, or any incidental cystic renal lesion characterized as simple-appearing, is likely benign. No follow-up imaging is recommended for these lesions per consensus recommendations based on imaging criteria. ? Dictated By: Ramses Cohen DO Signed By: Ramses Cohen DO Signed Date/Time: 09/07/21 1718 DD/ 1631 Discharge Plan Discharge Patient Disposition: Home Clinical Impression: Abdominal pain, Diarrhea, Decubitus ulcer, Colitis Condition: Stable Prescriptions: New Percocet 5-325 mg tablet 1 tab PO Q8H PRN (Reason: pain) Qty: 9 0RF Pepcid 20 mg tablet 20 mg PO BID PRN (Reason: abdominal pain) 10 Days Qty: 20 0RF amoxicillin-pot clavulanate 875-125 mg tablet 1 tab PO BID 7 Days Qty: 14 0RF No Action baclofen 10 mg tablet 20 mg PO TID PRN (Reason: Muscle Spasm) 0RF lamotrigine 200 mg tablet 400 mg PO QAM Qty: 180 2RF trazodone 100 mg tablet 300 mg PO BEDTIME Qty: 270 2RF (DME) Bone Growth Stimulator [id number] See Rx Instructions .Route .MEDSUPPLY Qty: 1 0RF Rx Instructions: As directed (DME) Jim jessica See Rx Instructions .Route .MEDSUPPLY Qty: 1 0RF Rx Instructions: As directed oxycodone 5 mg tablet 5 mg PO Q6H PRN (Reason: pain) 7 Days Qty: 28 0RF albuterol sulfate 90 mcg/actuation HFA aerosol inhaler 2 puff INHALATION Q4H PRN (Reason: Shortness Of Breath) 0RF fluticasone propionate 50 mcg/actuation [place],Suspension 1 spray INTRANASAL BID PRN (Reason: Allergy Symptoms) 0RF hydrochlorothiazide 12.5 mg capsule 12.5 mg PO DAILY PRN (Reason: Edema) 0RF atorvastatin 40 mg Tablet 40 mg PO QPM 0RF doxycycline hyclate 100 mg Capsule 100 mg PO BID 0RF alprazolam 0.5 mg tablet 0.5 mg PO TID PRN (Reason: Anxiety) 0RF pantoprazole 40 mg Tablet,Delayed Release (Dr/Ec) 40 mg PO DAILY 0RF buspirone 10 mg Tablet 10 mg PO TID 0RF metoprolol tartrate 50 mg Tablet 50 mg PO BID 0RF folic acid 1 mg Tablet 1 mg PO DAILY 0RF nystatin [Nystop] 100,000 unit/gram Powder 1 applic TOPICAL BID 0RF Dakin's Solution 0.25 % solution See Rx Instructions .ROUTE .COMPLEX 0RF Rx Instructions: DIRECTED fentanyl 12 mcg/hr Patch 72 Hour 1 patch TRANSDERMAL Q72H 0RF oxycodone 10 mg Tablet 10 mg PO Q6H PRN (Reason: Pain) 0RF Eliquis 5 mg Tablet 5 mg PO BID 0RF naloxone [Narcan] 4 mg/actuation spray,non-aerosol 4 mg intranasal Q2M PRN (Reason: opioid overdose) Qty: 2 0RF Rx Instructions: spray 1 dose into ONE nostril; alternate nostrils w each dose until help arrives tizanidine 4 mg tablet 4 mg PO QID PRN (Reason: Muscle Pain) 0RF levothyroxine 100 mcg tablet 100 mcg PO DAILY 0RF Discharge Orders: Discharge ED (Routine); Ordered 09/07/21 Ordered By: Raheel Malone Referrals: Srinivasan,Blanche, SERVICE ENGINE REPAIRER [Primary Care Provider] - Discharge Diet: Advance as tolerated Discharge Activity: Increase activity as tolerated Patient Instructions: Abdominal Pain (ED), Opioid Safety Activity Restrictions/Additional Instructions: Please come back if you have any worsening abdominal pain, fever or chills, nausea or vomiting, diarrhea, blood in the stool, inability hold down liquid or solids, or any new concerning complaints. Coding Level of Care Code ED Glass Cutting Machine Feeder for Chg Fwd Exam Comprehensive
[2021-09-07] MEDS: sodium chloride 0.9% 500 ML IV (15:15)
[2021-09-07] MEDS: lidocaine 2% viscous 15 ML, aluminum-mag hydrox-simethicon 30 ML, sucralfate oral liq 1 GM PO (15:27)
[2021-09-07 15:28] LABS: Basophils # 0.1 10^3/uL (0.0-0.1); Basophils % 0.5 %; Eosinophils % 0.3 %; Hematocrit 32.6 % (37.0-47.0); Lymphocytes % 25.5 %; Mean Corpuscular HGB Conc 33.7 g/dL (30.0-36.0); Mean Corpuscular Hemoglobin 32.4 pg (28.0-34.0); Mean Corpuscular Volume 96.2 fl (81-99); Mean Platelet Volume 10.3 fL (7.4-10.4); Monocytes # 0.5 10^3/uL (0.2-0.9); Monocytes % 3.4 %; Neutrophils # 10.84 10^3/uL (1.8-7.7); Neutrophils % 69.8 %; Nucleated Red Blood Cells % 0 %; Platelet Count 321 10^3/cmm (130-400); Red Blood Count 3.39 10^6/uL (4.1-5.3); Red Cell Distribution Width 14.2 % (12.1-15.1); White Blood Count 15.5 10^3/uL (4.0-10.0)
[2021-09-07 15:46] LABS: Alanine Aminotransferase 8 U/L (0-33); Aspartate Amino Transferase 14 U/L (0-32); Blood Urea Nitrogen 14 mg/dL (6-20); Calcium 9.9 mg/dL (8.5-10.5); Carbon Dioxide 24 mmol/L (22-29); Chloride 106 mmol/L (98-107); Globulin 2.5 g/dL (1.3-4.6); Glomerular Filtration Rate 127.6 mL/min (90-130); Glucose 105 mg/dL (65-115); Lipase 20 U/L (13-60); Osmolality Calculated 289 mOsm/kg (285-295); Sodium 139 mmol/L (136-145); Total Bilirubin 0.2 mg/dL (0.15-1.2)
--- NOTE | 2021-09-07 15:50 | CTR_ITS ---
PROCEDURE INFORMATION: Exam: CT Abdomen And Pelvis With Contrast Exam date and time: 09/07/2021 4:31 PM Age: 56 years old Clinical indication: Abdominal pain; Localized; Lower; Prior surgery; Surgery date: 6+ months; Surgery type: Lspine, hyst, c section, ; additional info: Lower abd pain TECHNIQUE: Imaging protocol: Computed tomography of the abdomen and pelvis with contrast. Radiation optimization: All CT scans at this facility use at least one of these dose optimization techniques: automated exposure control; mA and/or kV adjustment per patient size (includes targeted exams where dose is matched to clinical indication); or iterative reconstruction. Contrast material: OMNIPAQUE 300; Contrast volume: 70 ml; Contrast route: INTRAVENOUS (IV); COMPARISON: CT chest abd pel w con* 08/31/2021 10:33 PM RADIATION DOSE METRICS: Total DLP (mGy-cm): 991.52 FINDINGS: Liver: Normal. No mass. Gallbladder and bile ducts: Normal. No calcified stones. No ductal dilation. Pancreas: Normal. No ductal dilation. Spleen: Normal. No splenomegaly. Adrenal glands: Normal. No mass. Kidneys and ureters: 1 cm cyst noted in the lower pole of the left kidney. No hydronephrosis. Stomach and bowel: Mucosal thickening of the rectosigmoid colon. No obstruction. Appendix: No evidence of appendicitis. Intraperitoneal space: Trace free fluid in the pelvis. No free air. No significant fluid collection. Vasculature: Unremarkable. No abdominal aortic aneurysm. Lymph nodes: Unremarkable. No enlarged lymph nodes. Urinary bladder: Arriola catheter noted within the bladder. Circumferential bladder wall thickening. Trace intraluminal air. 6 mm calcified debris or stone noted in the right posterolateral bladder. Reproductive: Hysterectomy. Bones/joints: No acute fracture. Unchanged eroded appearance of the superior endplate of L4 and the inferior endplate of L3. Sequela of lumbar hardware removal again noted. Soft tissues: Redemonstrated decubitus ulcer which extends to the region of the inferior sacrum/coccyx. No findings of abscess or acute osseous erosions. CT/CT abdomen pelvis w con* [id number] IMPRESSION: 1. Findings consistent with rectosigmoiditis. 2. Trace calcified debris versus bladder stone measuring 6 mm in the right posterolateral bladder. The bladder wall is also thickened which could be reactive to the above findings or reflect cystitis. Correlate with urinalysis. 3. Redemonstrated sequela of sacral decubitus ulceration. No acute findings. Consistent with the [place]'s Incidental Findings Committee white paper (J Am Wilber Radiol 2018): Any incidental renal lesion less than 1 cm or classified as too small to characterize, or any incidental cystic renal lesion characterized as simple-appearing, is likely benign. No follow-up imaging is recommended for these lesions per consensus recommendations based on imaging criteria.
[2021-09-07 16:02] LABS: Albumin Level 2.8 g/dL (3.5-5.2); Alkaline Phosphatase 141 IU/L (35-105); Total Protein 5.3 g/dL (6.6-8.7)
[2021-09-07] MEDS: iohexol 300 mg/mL 100 mL Btl IV (16:36)
[2021-09-07] MEDS: HYDROmorphone 1 mg/mL INJ 1 mL IVP (17:00)
--- NOTE | 2021-09-07 17:55 | PC.NURSE ---
Patient resting with eyes closed in bed, breathing even and non-labored, patient denies any needs, patient states she would like the light off.
[2021-09-07] MEDS: morphine 4 mg/mL SDV 1 mL IVP (20:18)
--- NOTE | 2021-09-07 20:38 | PC.NURSE ---
Daughter wants call if patient gets discharged. Ms. Jara is her daughter and nursing care attendant she can be reached at [phone].
--- NOTE | 2021-09-07 20:46 | PC.NURSE ---
Patient offered to be changed, patient states she does not need it and declined at this time.
[2021-09-07] MEDS: amoxicillin-clav 875-125 mg Tablet 1 TAB PO (22:07)
[2021-09-08 01:11] VITALS: BP 103/67; PULSE 72; RESP 16; O2SAT 98
[2021-09-08 01:13] VITALS: BP 103/67; PULSE 72; RESP 16; O2SAT 98
== END 2021-09-08 03:00 | disposition home or self-care (01) ==
PROVIDERS: Emergency Provider Emergency Medicine; PCP Nurse Practitioner Family
DX: K52.9 Noninfective gastroenteritis and colitis, unspecified (principal); L89.153 Pressure ulcer of sacral region, stage 3; R19.7 Diarrhea, unspecified; R10.9 Unspecified abdominal pain; Z74.01 Bed confinement status
CPT/HCPCS: 74177; 80053; 83690; 85025; 96361; 96374; 96375; 99284; J1170; J2270; J7040; Q9967

== ENCOUNTER → 2021-09-11 08:29 | Outpatient (BNVA) | payer MEDICARE, MEDICAID, SELFPAY | PROVIDERS: PCP Nurse Practitioner Family; Visit Provider Thoracic Surgery (Cardiothoracic Vascular Surgery) | DX: I96 Gangrene, not elsewhere classified (principal); L89.154 Pressure ulcer of sacral region, stage 4 | CPT/HCPCS: 11042; 11045; 99213 ==

== ENCOUNTER → 2021-09-25 09:00 | Outpatient (BNVA) | payer MEDICARE, MEDICAID, SELFPAY | PROVIDERS: PCP Nurse Practitioner Family; Visit Provider Thoracic Surgery (Cardiothoracic Vascular Surgery) | DX: I96 Gangrene, not elsewhere classified (principal); L89.154 Pressure ulcer of sacral region, stage 4 | CPT/HCPCS: 11043; 11046 ==

== ENCOUNTER 2021-09-28 14:52 | Outpatient (CLI) | payer MEDICARE, MEDICAID, SELFPAY ==
[2021-09-28 15:32] LABS: Alanine Aminotransferase < 5 U/L (0-33); Alkaline Phosphatase 150 IU/L (35-105); Anion Gap 16.3 (5-19); Aspartate Amino Transferase 9 U/L (0-32); Blood Urea Nitrogen 15 mg/dL (6-20); Calcium 9.8 mg/dL (8.5-10.5); Carbon Dioxide 22 mmol/L (22-29); Chloride 106 mmol/L (98-107); Globulin 2.5 g/dL (1.3-4.6); Glomerular Filtration Rate 230.1 mL/min (90-130); Glucose 82 mg/dL (65-115); Osmolality Calculated 290 mOsm/kg (285-295); Potassium 4.3 mmol/L (3.5-5.1); Prealbumin 14.9 mg/dL (20-40); Sodium 140 mmol/L (136-145); Total Bilirubin 0.3 mg/dL (0.15-1.2); Total Protein 5.5 g/dL (6.6-8.7)
== END 2021-09-28 14:53 | disposition home or self-care (01) ==
PROVIDERS: PCP Nurse Practitioner Family; Visit Provider Family Medicine
DX: L89.154 Pressure ulcer of sacral region, stage 4 (principal); F10.180 Alcohol abuse with alcohol-induced anxiety disorder
CPT/HCPCS: 80053; 84134

== ENCOUNTER 2021-10-12 14:09 | Observation (INO) | payer MEDICARE, MEDICAID, SELFPAY ==
[2021-10-12] VITALS (9 sets, daily range): BP systolic 99–103; BP diastolic 64; PULSE 64–119; RESP 16–18; TEMP 36.7; O2SAT 92–98; BMI 18.8; BMI 20.5
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
[2021-10-12] MEDS: morphine 4 mg/mL SDV 1 mL IVP ×3 (14:49→18:22)
[2021-10-12 15:06] LABS: Basophils # 0.1 10^3/uL (0.0-0.1); Basophils % 0.6 %; Eosinophils # 0.1 10^3/uL (0.0-0.8); Hematocrit 29.5 % (37.0-47.0); Hemoglobin 9.5 g/dL (11.5-15.3); Lymphocytes # 2.4 10^3/uL (0.8-4.8); Lymphocytes % 25.7 %; Mean Corpuscular HGB Conc 32.2 g/dL (30.0-36.0); Mean Corpuscular Hemoglobin 34.7 pg (28.0-34.0); Mean Corpuscular Volume 107.7 fl (81-99); Mean Platelet Volume 9.5 fL (7.4-10.4); Monocytes # 0.5 10^3/uL (0.2-0.9); Monocytes % 5.5 %; Neutrophils # 6.31 10^3/uL (1.8-7.7); Neutrophils % 66.7 %; Nucleated Red Blood Cells % 0 %; Platelet Count 610 10^3/cmm (130-400); Red Blood Count 2.74 10^6/uL (4.1-5.3); Red Cell Distribution Width 17.6 % (12.1-15.1); White Blood Count 9.5 10^3/uL (4.0-10.0)
[2021-10-12 15:14] LABS: Lactic Sepsis W/Reflex 0.7 mmol/L (0.5-2.2)
[2021-10-12 15:23] LABS: Alanine Aminotransferase < 5 U/L (0-33); Albumin Level 3.1 g/dL (3.5-5.2); Alkaline Phosphatase 116 IU/L (35-105); Anion Gap 15.8 (5-19); Aspartate Amino Transferase 7 U/L (0-32); Blood Urea Nitrogen 17 mg/dL (6-20); Carbon Dioxide 22 mmol/L (22-29); Chloride 105 mmol/L (98-107); Globulin 3.1 g/dL (1.3-4.6); Glomerular Filtration Rate 230.1 mL/min (90-130); Glucose 105 mg/dL (65-115); Osmolality Calculated 290 mOsm/kg (285-295); Potassium 3.8 mmol/L (3.5-5.1); Sodium 139 mmol/L (136-145); Total Bilirubin 0.2 mg/dL (0.15-1.2); Total Protein 6.2 g/dL (6.6-8.7)
[2021-10-12] MEDS: sodium chloride 0.9% 1,000 ML 999 ML IV (16:08)
[2021-10-12] MEDS: piperacillin-tazobactam 3.375 GM in sodium chloride 0.9% (plus) 50 ML IV ×2 (16:08→20:17)
[2021-10-12] MEDS: ciprofloxacin 400 MG/200 ML PREMIX 200 MG IV (16:08)
--- NOTE | 2021-10-12 16:22 | CTR_ITS ---
PROCEDURE INFORMATION: Exam: CT Abdomen And Pelvis With Contrast Exam date and time: 10/12/2021 5:37 PM Age: 56 years old Clinical indication: Pain; Other: Pelvic; Prior surgery; Surgery date: 6+ months; Surgery type: Hysterectomy; Additional info: Abd pain, UTI TECHNIQUE: Imaging protocol: Computed tomography of the abdomen and pelvis with contrast. Radiation optimization: All CT scans at this facility use at least one of these dose optimization techniques: automated exposure control; mA and/or kV adjustment per patient size (includes targeted exams where dose is matched to clinical indication); or iterative reconstruction. Contrast material: OMNIPAQUE 350; Contrast volume: 90 ml; Contrast route: INTRAVENOUS (IV); COMPARISON: CT abdomen pelvis w con* [id number] 09/07/2021 4:31 PM RADIATION DOSE METRICS: Total DLP (mGy-cm): 717.58 FINDINGS: Liver: Normal. No mass. Gallbladder and bile ducts: Normal. No calcified stones. No ductal dilation. Pancreas: Normal. No ductal dilation. Spleen: Normal. No splenomegaly. Adrenal glands: Normal. No mass. Kidneys and ureters: Left renal cyst, Hounsfield units less than 20. No imaging follow-up recommended. The kidneys are otherwise unremarkable. No calculus or hydronephrosis. Stomach and bowel: The stomach is distended with food and fluid with a large air-fluid level. No wall thickening. Large amount of stool scattered throughout a distended colon. No wall thickening. The small bowel is unremarkable. No obstruction. Appendix: The appendix is visualized and is normal. Intraperitoneal space: Unremarkable. No free air. No significant fluid collection. Vasculature: Mild arterial calcifications. No aneurysm. Lymph nodes: Unremarkable. No enlarged lymph nodes. Urinary bladder: Arriola catheter in a decompressed urinary bladder. Stable urinary bladder calculus which is now located in the posterior left bladder. Reproductive: The uterus is absent. The ovaries are not visualized. Bones/joints: Stable endplate sclerosis and destruction at L3-L4. Stable widening of the anterior disc space at L5-S1. Left L4 laminectomy defect. Old pedicle screw tracks at L4-S1. Soft tissues: Mild body wall edema. Mild presacral soft tissue edema. Stable sacral decubitus ulcer which appears to extend to the posterior inferior sacrum. Other findings: Stable postsurgical stranding in the lumbar region. CT/CT abdomen pelvis w con* [id number] IMPRESSION: 1. Large distended stomach with air-fluid level. This could represent gastroparesis. No focal abnormality identified to suggest gastric outlet obstruction. 2. Large amount of stool throughout the colon, consistent with constipation. 3. Decubitus ulcer which extends to the distal sacrum. 4. Chronic findings of prior osteomyelitis discitis at L3-L4. COMMENTS: Consistent with the [employer]'s Incidental Findings Committee white paper (J Am Wilber Radiol 2018): Any incidental renal lesion less than 1 cm or classified as too small to characterize, or any incidental cystic renal lesion characterized as simple-appearing, is likely benign. No follow-up imaging is recommended for these lesions per consensus recommendations based on imaging criteria.
[2021-10-12 17:26] LABS: Blood Urine 2+ (Negative); Glucose Urine UA Norm (Normal); Ketones Urine Negative (Negative); Protein Urine 1+ (Negative); Urine Appearance Cloudy (CLEAR); Urine Color Yellow (Yellow); pH Urine 5 (5-7)
[2021-10-12 17:27] LABS: Add Urine Culture? Yes; Add Urine Microscopic? YES; Bacteria Urine 4+ /hpf; Bilirubin Urine Neg (Negative); Leukocyte Esterase Urine 2+ (Negative); Nitrate Urine Negative (Negative); RBC Urine 0-4 /hpf (0-2); Squamous Epithelial Cell Urine 0-4 /hpf (0-5); Urobilinogen Urine 1 mg/dL (Negative); WBC Urine TOO NUMEROUS TO CNT /hpf (0-5)
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
--- NOTE | 2021-10-12 17:34 | PC.NURSE ---
Report called to Danna on Med Surg at this time. air sealing technician in room to take patient to CT prior.
[2021-10-12 18:18] LABS: Procalcitonin 0.09 ng/mL (0-0.5)
[2021-10-12] MEDS: apixaban 5 mg Tablet PO (20:15)
[2021-10-12] MEDS: oxyCODONE-APAP 5-325 mg Tablet 1 TAB PO (20:15)
[2021-10-12] MEDS: BuSPIRONE 10 mg Tablet PO (20:15)
[2021-10-12] MEDS: ALPRAZolam 0.5 mg Tablet PO (20:15)
[2021-10-12] MEDS: metoprolol tartrate 50 mg Tablet PO (20:16)
[2021-10-12] MEDS: morphine IR 15 mg Tablet PO (22:15)
[2021-10-12] MEDS: nystatin powder 15 gm Btl 1 APPLIC TOPICAL (22:22)
[2021-10-12] MEDS: sodium chloride 0.9% (100 ml) 100 ML 10 ML (22:23)
[2021-10-12] MEDS: sodium chloride 0.9% 1,000 ML 75 ML IV (22:23)
--- NOTE | 2021-10-12 23:48 | PC.NURSE ---
patient resting in bed, refuses to be turned. patient education has not been effective. patient is also refusing to have cath changed till the morning patient states she is too tired to do it tonight. patient is also refusing enema she states she had a bm today
[2021-10-13] VITALS (12 sets, daily range): BP systolic 86–96; BP diastolic 56–64; PULSE 68–86; RESP 16–18; TEMP 36.6–36.8; O2SAT 90–96
[2021-10-13] MEDS: piperacillin-tazobactam 3.375 GM in sodium chloride 0.9% (plus) 50 ML 1.5 GM IV (02:20)
[2021-10-13 05:05] LABS: Basophils # 0.1 10^3/uL (0.0-0.1); Basophils % 0.5 %; Eosinophils # 0.2 10^3/uL (0.0-0.8); Eosinophils % 1.7 %; Lymphocytes # 3.2 10^3/uL (0.8-4.8); Lymphocytes % 27.5 %; Mean Corpuscular HGB Conc 33.3 g/dL (30.0-36.0); Mean Corpuscular Hemoglobin 35.2 pg (28.0-34.0); Mean Corpuscular Volume 105.7 fl (81-99); Mean Platelet Volume 9.6 fL (7.4-10.4); Monocytes # 0.8 10^3/uL (0.2-0.9); Monocytes % 7.2 %; Neutrophils % 62.7 %; Nucleated Red Blood Cells % 0 %; Platelet Count 554 10^3/cmm (130-400); Red Blood Count 2.27 10^6/uL (4.1-5.3); Red Cell Distribution Width 17.4 % (12.1-15.1); White Blood Count 11.7 10^3/uL (4.0-10.0)
[2021-10-13] MEDS: oxyCODONE-APAP 5-325 mg Tablet 1 TAB PO ×3 (05:12→23:50)
[2021-10-13] MEDS: lamoTRIgine 100 mg Tablet 400 MG PO (05:12)
[2021-10-13 05:25] LABS: Anion Gap 12.6 (5-19); Blood Urea Nitrogen 13 mg/dL (6-20); C Reactive Protein 56.9 mg/L (0.0-4.9); Calcium 9.4 mg/dL (8.5-10.5); Carbon Dioxide 24 mmol/L (22-29); Chloride 106 mmol/L (98-107); Glomerular Filtration Rate 230.1 mL/min (90-130); Glucose 99 mg/dL (65-115); Magnesium 1.7 mg/dL (1.7-2.3); Osmolality Calculated 288 mOsm/kg (285-295); Potassium 3.6 mmol/L (3.5-5.1); Sodium 139 mmol/L (136-145)
[2021-10-13 06:05] LABS: Add Urine Culture? Yes; Add Urine Microscopic? YES; Bacteria Urine TRACE /hpf; Bilirubin Urine Neg (Negative); Blood Urine Neg (Negative); Glucose Urine UA Norm (Normal); Ketones Urine Negative (Negative); Leukocyte Esterase Urine Trace (Negative); Nitrate Urine Negative (Negative); Protein Urine Neg (Negative); RBC Urine 0-4 /hpf (0-2); Specific Gravity, Urine 1.005 (1.005-1.030); Squamous Epithelial Cell Urine 0-4 /hpf (0-5); Urine Appearance Clear (CLEAR); Urine Color Yellow (Yellow); Urobilinogen Urine Norm (Negative); WBC Urine 40-55 /hpf (0-5); pH Urine 7 (5-7)
[2021-10-13] MEDS: morphine IR 15 mg Tablet PO (08:06)
[2021-10-13] MEDS: apixaban 5 mg Tablet PO ×2 (08:07→17:26)
[2021-10-13] MEDS: levothyroxine 100 mcg Tablet PO (08:07)
[2021-10-13] MEDS: sennosides-docusate Tablet 1 TAB PO (08:07)
[2021-10-13] MEDS: BuSPIRONE 10 mg Tablet PO ×3 (08:07→21:27)
[2021-10-13] MEDS: pantoprazole DR 40 mg Tablet PO (08:07)
[2021-10-13] MEDS: metoprolol tartrate 50 mg Tablet PO (08:07)
[2021-10-13] MEDS: fluconazole 100 mg Tablet 200 MG PO (08:42)
[2021-10-13] MEDS: lactated ringers 1,000 ML 999 ML IV (08:43)
[2021-10-13] MEDS: sodium chloride 0.9% 1,000 ML 75 ML IV (10:04)
--- NOTE | 2021-10-13 11:15 | PM.PN ---
Subjective Subjective: Arriola catheter was replaced at 6:30 AM, new UA showing improvement in pyuria Afebrile Mild leukocytosis Patient is not complaining of active complaints I will add fluconazole and metronidazole today plan to discharge her tomorrow Her pressure is soft today she will get 1 L LR bolus No overnight events Vitals/I&O/Wt Last Vital Signs Temp 98.2 F 10/13/21 09:48 Pulse 68 10/13/21 09:57 Resp 18 10/13/21 09:57 BP 91/60 10/13/21 09:48 Pulse Ox 94 10/13/21 09:57 10/12/21 10/13/21 10/13/21 22:59 06:59 14:59 Intake Total 1310.5 / 1310.5 550 / 1860.5 2236.25 / 2236.25 Output Total 150 / 150 Balance 1310.5 / 1310.5 400 / 1710.5 2236.25 / 2236.25 Weight last 48 hrs Weight 54.431 kg Weight 49.895 kg Physical Exam Narrative: Patient is laying supine Wearing neck collar She has numbness and weakness of upper lower extremity Interossei muscle wasting Awake and alert No new focal deficit Her back was not examined Flaccid paralysis of lower extremities Arriola catheter draining clear urine It is not cloudy anymore EOMI, PERRLA Awake and alert Pleasant and cooperative Session well on room air Data : 10/13/21 04:37 10/13/21 04:37 Micro: Microbiology 10/12/21 15:10 Urine Culture - Preliminary Urine,Clean Catch 10/12/21 14:48 Blood Culture - Preliminary Blood SPECIMEN COLLECTED 10/12/21 14:40 Blood Culture - Preliminary Blood SPECIMEN COLLECTED A&P Assessment and plan (1) UTI (urinary tract infection): Status: Acute Plan UTI No fever, creatinine stable no active signs of sepsis, low blood pressure related to hypovolemia, dehydration Mild leukocytosis I will add fluconazole and metronidazole, check bacterial vaginosis Previous urine culture positive for Traci Secondary to low blood pressure she is getting LR bolus this morning I will plan to discharge her tomorrow Neck collar removal as per Dr. Ramirez's evaluation on 10/24 She is full code Continue cardiac diet Continue Eliquis I will continue broad-spectrum antibiotics for now with IV fluids Attestations Medical Necessity Statement*: Discharge tomorrow Time Spent in Patient Care: 30 Coding Level of Care Code Acute Hazardous Waste Management Specialist for [facility] Fwd Diagnoses UTI (urinary tract infection) N39.0
[2021-10-13] MEDS: piperacillin-tazobactam 3.375 GM in sodium chloride 0.9% (plus) 50 ML IV ×2 (11:29→18:08)
[2021-10-13] MEDS: metroNIDAZOLE 500 MG Tablet PO ×2 (11:36→21:28)
[2021-10-13] MEDS: ALPRAZolam 0.5 mg Tablet PO (11:36)
[2021-10-13] MEDS: nystatin powder 15 gm Btl 1 APPLIC TOPICAL (11:37)
--- NOTE | 2021-10-13 11:59 | PC.NURSE ---
assisted pt in feeding Pt stated she does not have a good school counselor on her hands. notified and is aware and stated this is chronic.
--- NOTE | 2021-10-13 18:09 | PC.NURSE ---
pt refused to be log roll for repositioning and to assess her sacral wound she stated if we could we wait. educated pt on preventing more pressure sores, she stated, my wound is getting smaller. the dressing has been change the other day.
[2021-10-13] MEDS: ibuprofen 800 mg tablet PO (21:28)
[2021-10-14 03:16] VITALS: BP 81/54; PULSE 77; RESP 16; TEMP 36.7; O2SAT 92
[2021-10-14] MEDS: piperacillin-tazobactam 3.375 GM in sodium chloride 0.9% (plus) 50 ML IV (03:16)
[2021-10-14 03:17] VITALS: BP 84/58
[2021-10-14 05:24] LABS: Basophils # 0.1 10^3/uL (0.0-0.1); Basophils % 0.6 %; Eosinophils # 0.2 10^3/uL (0.0-0.8); Eosinophils % 2.4 %; Hematocrit 22.2 % (37.0-47.0); Hemoglobin 7.6 g/dL (11.5-15.3); Lymphocytes # 3.6 10^3/uL (0.8-4.8); Lymphocytes % 43.2 %; Mean Corpuscular HGB Conc 34.2 g/dL (30.0-36.0); Mean Corpuscular Hemoglobin 36.9 pg (28.0-34.0); Mean Corpuscular Volume 107.8 fl (81-99); Mean Platelet Volume 9.7 fL (7.4-10.4); Monocytes # 0.5 10^3/uL (0.2-0.9); Neutrophils # 3.95 10^3/uL (1.8-7.7); Neutrophils % 47.2 %; Nucleated Red Blood Cells % 0 %; Platelet Count 539 10^3/cmm (130-400); Red Blood Count 2.06 10^6/uL (4.1-5.3); Red Cell Distribution Width 17.4 % (12.1-15.1); White Blood Count 8.4 10^3/uL (4.0-10.0)
[2021-10-14 05:49] LABS: Blood Urea Nitrogen 11 mg/dL (6-20); Calcium 9.1 mg/dL (8.5-10.5); Carbon Dioxide 23 mmol/L (22-29); Chloride 111 mmol/L (98-107); Glomerular Filtration Rate 165.1 mL/min (90-130); Glucose 100 mg/dL (65-115); Osmolality Calculated 291 mOsm/kg (285-295); Sodium 141 mmol/L (136-145)
[2021-10-14] MEDS: sodium chloride 0.9% 1,000 ML 75 ML IV (05:53)
[2021-10-14] MEDS: lamoTRIgine 100 mg Tablet 400 MG PO (05:54)
[2021-10-14] MEDS: metroNIDAZOLE 500 MG Tablet PO (05:54)
[2021-10-14] MEDS: tizanidine 4 mg Tablet PO (06:04)
[2021-10-14 07:28] VITALS: BP 99/55; PULSE 85; RESP 20; TEMP 36.6; O2SAT 96
[2021-10-14 08:00] VITALS: PULSE 81; RESP 18; O2SAT 95
[2021-10-14] MEDS: morphine IR 15 mg Tablet PO (08:15)
[2021-10-14] MEDS: BuSPIRONE 10 mg Tablet PO (08:16)
[2021-10-14] MEDS: sennosides-docusate Tablet 1 TAB PO (08:16)
[2021-10-14] MEDS: apixaban 5 mg Tablet PO (08:16)
[2021-10-14] MEDS: levothyroxine 100 mcg Tablet PO (08:16)
[2021-10-14] MEDS: pantoprazole DR 40 mg Tablet PO (08:16)
[2021-10-14] MEDS: fluconazole 100 mg Tablet 200 MG PO (08:16)
[2021-10-14 09:33] LABS: Bacterial Vaginosis BV TMA NEGATIVE (NEGATIVE)
[2021-10-14] MEDS: oxyCODONE-APAP 5-325 mg Tablet 1 TAB PO (10:36)
--- NOTE | 2021-10-14 10:36 | PM.CONSULT ---
Providers/Reason For Consult Consulting Physician/Specialty*: hospitalist Reason for Consult*: Occipital cervical dissociation Attending Physician: Florinda Gillis MD Primary Care Provider: NATHANIEL Torrez History of Present Illness History of Present Illness Hilda Da Silva is a 56 year old female Review of Systems Const: Denies: fever(s) or chills Eyes: Denies: change in vision ENMT: Denies: throat pain Card: Denies: chest pain Resp: Denies: dyspnea GI: Denies: abdominal pain : Denies: flank pain Musc: Denies: neck pain Skin/Breast: Denies: rash Neuro: Denies: headache(s) Psych: Denies: anxiety Endo: Denies: polyuria Jam/Lymph: Denies: easy bruising All/Imm: Denies: urticaria Medications/Allergies Home Medications Medication Instructions Recorded Confirmed Last Taken Type Bone Growth Stimulator [id number] #1 ea 08/08/20 10/12/21 Unknown Rx albuterol sulfate 90 mcg/actuation 2 puff INHALATION Q4H PRN 09/08/20 10/12/21 05/28/21 History aerosol inhaler fluticasone propionate 50 1 spray INTRANASAL BID PRN 09/08/20 10/12/21 05/29/21 History mcg/actuation nasal spray,suspension lamotrigine 200 mg tablet 400 mg PO QAM #180 tab 01/06/21 10/12/21 09/06/21 Rx trazodone 100 mg tablet 300 mg PO BEDTIME #270 tab 01/06/21 10/12/21 09/06/21 Rx baclofen 10 mg tablet 20 mg PO TID PRN tab 04/05/21 10/12/21 05/28/21 History Rolling walker #1 ea 05/17/21 10/12/21 Unknown Rx oxycodone 5 mg tablet 5 mg PO Q6H PRN 7 Days #28 tab 08/24/21 10/12/21 Unknown Rx alprazolam 0.5 mg tablet 0.5 mg PO TID PRN 09/04/21 10/12/21 Unknown History apixaban 5 mg tablet (Eliquis) 5 mg PO BID 09/04/21 10/12/21 09/06/21 History atorvastatin 40 mg tablet 40 mg PO QPM 09/04/21 10/12/21 09/06/21 History buspirone 10 mg tablet 10 mg PO TID 09/04/21 10/12/21 09/06/21 History doxycycline hyclate 100 mg capsule 100 mg PO BID 09/04/21 10/12/21 09/06/21 History fentanyl 12 mcg/hr transdermal 1 patch TRANSDERMAL Q72H 09/04/21 10/12/21 09/06/21 History patch folic acid 1 mg tablet 1 mg PO DAILY 09/04/21 10/12/21 09/06/21 History metoprolol tartrate 50 mg tablet 50 mg PO BID 09/04/21 10/12/21 Unknown History naloxone 4 mg/actuation nasal 4 mg INTRANASAL Q2M PRN #2 ea 09/04/21 10/12/21 Unknown Rx spray (Narcan) nystatin 100,000 unit/gram topical 1 applic TOPICAL BID 09/04/21 10/12/21 Unknown History powder (Nystop) oxycodone 10 mg tablet 10 mg PO Q6H PRN 09/04/21 10/12/21 09/07/21 History pantoprazole 40 mg tablet,delayed 40 mg PO DAILY 09/04/21 10/12/21 09/06/21 History release levothyroxine 100 mcg tablet 100 mcg PO DAILY 09/07/21 10/12/21 09/06/21 History oxycodone-acetaminophen 5 mg-325 1 tab PO Q8H PRN #9 tab 09/07/21 10/12/21 Unknown Rx mg tablet (Percocet) tizanidine 4 mg tablet 4 mg PO QID PRN 09/07/21 10/12/21 Unknown History Allergies Allergy/AdvReac Type Severity Reaction Status Date / Time naproxen Allergy Severe breathing Verified 10/12/21 17:37 issues gabapentin Allergy Intermediate ADR-Dizzine Verified 10/12/21 17:37 ss Current Medications Generic Name Dose Route Start Last Admin Trade Name Robe PRN Reason Stop Dose Admin Alprazolam 0.5 mg 10/12/21 18:40 10/13/21 11:36 Alprazolam 0.5 Mg Tablet PO 0.5 mg TID PRN Administration Anxiety Apixaban 5 mg 10/12/21 18:40 10/14/21 08:16 Apixaban 5 Mg Tablet PO 5 mg BID ELIDIA Administration Buspirone HCl 10 mg 10/12/21 21:00 10/14/21 08:16 Buspirone 10 Mg Tablet PO 10 mg TID ELIDIA Administration Fluconazole 200 mg 10/13/21 08:15 10/14/21 08:16 Fluconazole 100 Mg Tablet PO 200 mg DAILY ELIDIA Administration Sodium Chloride 1,000 mls @ 75 mls/hr 10/12/21 18:40 10/14/21 05:53 Sodium Chloride 0.9% IV 75 mls/hr .[id number] ELIDIA Administration Piperacillin Sod/Tazobactam 50 mls @ 12.5 mls/hr 10/12/21 18:40 10/14/21 07:26 Sod 3.375 gm/ Sodium Chloride IV Infused Q8H ELIDIA Infusion Protocol Lamotrigine 400 mg 10/13/21 06:00 10/14/21 05:54 Lamotrigine 100 Mg Tablet PO 400 mg QAM ELIDIA Administration Levothyroxine Sodium 100 mcg 10/13/21 09:00 10/14/21 08:16 Levothyroxine 100 Mcg Tablet PO 100 mcg DAILY ELIDIA Administration Metoprolol Tartrate 50 mg 10/12/21 18:40 10/13/21 08:07 Metoprolol Tartrate 50 Mg Tablet PO 50 mg BID ELIDIA Administration Metronidazole 500 mg 10/13/21 11:30 10/14/21 05:54 Metronidazole 500 Mg Tablet PO 500 mg Q8H ELIDIA Administration Morphine Sulfate 4 mg 10/12/21 16:26 10/12/21 18:22 Morphine 4 Mg/Ml Sdv 1 Ml IVP 4 mg Q1H PRN Administration MODERATE TO SEVERE PAIN Morphine Sulfate 15 mg 10/12/21 18:40 10/14/21 08:15 Morphine Ir 15 Mg Tablet PO 15 mg Q6H PRN Administration pAIN Nystatin 1 applic 10/12/21 18:40 10/13/21 17:30 Nystatin Powder 15 Gm Btl TOPICAL Not Given BID [facility] Oxycodone/Acetaminophen 1 tab 10/12/21 18:40 10/13/21 23:50 Oxycodone-Apap 5-325 Mg Tablet PO 1 tab Q8H PRN Administration pain Pantoprazole Sodium 40 mg 10/13/21 09:00 10/14/21 08:[address] 40 Mg Tablet PO 40 mg DAILY ELIDIA Administration Senna/Docusate Sodium 1 tab 10/13/21 09:00 10/14/21 08:16 Sennosides-Docusate Tablet PO 1 tab DAILY ELIDIA Administration Tizanidine HCl 4 mg 10/12/21 18:40 10/14/21 06:04 Tizanidine 4 Mg Tablet PO 4 mg QID PRN Administration Muscle Pain PFSH Acute PFSH: Medical History Alcohol use disorder, moderate, in sustained remission Anemia Bipolar II disorder Borderline personality disorder C1 cervical fracture Cellulitis of sacral region Cigarette nicotine dependence Deep vein thrombosis of left femoral vein Degenerative lumbar disc Discitis Hyperlipidemia Hyponatremia Hypothyroidism Instability of C1-C2 vertebrae Leukocytosis jail (current) use of opiate analgesic Low back pain radiating to both legs MRSA bacteremia Noncompliance Onychodystrophy Panic disorder Postoperative wound infection (2020) MRSA Pressure ulcer with suspected deep tissue injury Psychiatric care Sacral decubitus ulcer, stage IV Sacral ulcer Surgical History History of fusion of lumbar spine (08/10/20) L4-L5, L5-S1 interbody fusion with posterolateral fusion, with cage at L4/5, L5/S1, revision laminectomy L4 and L5, Dr Ramirez History of laminectomy (02/22/20) L4-L5 laminectomy with partial facetectomy, Dr Ramirez History of lumbosacral spine surgery (08/10/20) Hx of section Hx of hysterectomy S/P debridement With Dr. Hoyt 06/21 S/P excisional debridement (06/09/21) Sacral decubitus ulcer S/P hardware removal 06/21 S/P spinal fusion Family History Denies family history of CAD (coronary artery disease) Anesthesia complication Social History Smoking and tobacco status: current every day smoker cigarettes Alcohol intake: former Household members: family Vitals/I&O/Wt Last Vital Signs Temp 97.9 F 10/14/21 07:28 Pulse 81 10/14/21 08:00 Resp 18 10/14/21 08:00 BP 99/55 10/14/21 07:28 Pulse Ox 95 10/14/21 08:00 10/13/21 10/14/21 10/14/21 22:59 06:59 14:59 Intake Total 510 / 2759.975 590 / 3349.975 170 / 170 Output Total 100 / 100 275 / 375 Balance 410 / 2659.975 315 / 2974.975 170 / 170 Weight last 48 hrs Weight 120 lb Weight 110 lb Physical Exam Narrative: GENERAL: Patient in no acute distress. CARDIAC: Regular rate and rhythm. CHEST: Normal inspiratory effort, normal respiratory rate. ABDOMEN: Soft and nontender. SKIN: Clear, warm and intact. NEURO?PSYCH: The patient is alert and oriented to person, place and time. unchanged from last exam. She is able to move her arms with 4/5 strength with in tube conversion technician strength.? She has decreased sensation diffusely throughout both upper extremities.? Urinary Catheter Management: Arriola: Cath Placed During This Visit: no Reason for Continuing Indwelling Catheter: Chronic Indwelling Urinary Catheter on Admission Data : 10/14/21 05:06 10/14/21 05:06 Micro: Microbiology 10/12/21 15:10 Urine Culture - Final Urine,Clean Catch 10/13/21 05:37 Urine Culture - Preliminary Urine,Clean Catch 10/12/21 14:48 Blood Culture - Preliminary Blood NEGATIVE TO DATE 10/12/21 14:40 Blood Culture - Preliminary Blood NEGATIVE TO DATE A&P Assessment and plan (1) History of fusion of cervical spine: Patient is greater than 3 months out from her posterior occipital cervical fusion. At this point she does not need to wear her cervical collar anymore. She should follow-up in the clinic in 3 months. Status: Acute Coding Level of Care Code Acute Range Rider for g Fwd Diagnoses History of fusion of cervical spine Z98.1
[2021-10-14 11:31] VITALS: BP 101/60; PULSE 81; RESP 16; TEMP 36.6; O2SAT 96
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
[2021-10-14 12:42] LABS: Hemoglobin 7.9 g/dL (11.5-15.3)
[2021-10-14 13:34] VITALS: BP 101/60; PULSE 81; RESP 16; TEMP 36.6; O2SAT 96
== END 2021-10-14 13:36 | disposition home or self-care (01) ==
LOC: ER 16:23 → MEDSURG 16:52
PROVIDERS: Admitting Provider Internal Medicine; Emergency Provider Emergency Medicine; PCP Nurse Practitioner Family; Visit Provider Internal Medicine
DX: N39.0 Urinary tract infection, site not specified (principal); Z98.1 Arthrodesis status; D64.9 Anemia, unspecified; Z99.3 Dependence on wheelchair; Z86.718 Personal history of other venous thrombosis and embolism; E78.5 Hyperlipidemia, unspecified; Z86.14 Personal history of Methicillin resistant Staphylococcus aureus infection; Z91.19 Patient's noncompliance with other medical treatment and regimen; F17.210 Nicotine dependence, cigarettes, uncomplicated
CPT/HCPCS: 36415; 51702; 74177; 80048; 80053; 81001; 83605; 83735; 84145; 85014; 85018; 85025; 86140; 87040; 87086; 87512; 87799; 96365; 96367; 96375; 96376; 99285; G0378; J0744; J2270; J2543; J7030; Q9967